=== PATIENT | male | born 1955 | race Caucasian/White ===

== ENCOUNTER → 2021-01-07 10:35 | Outpatient (CLI) | payer OTHER, SELFPAY ==
--- NOTE | ~2021-01-07 | MR_ITS ---
EXAMINATION: MR brain/brain stem wo con DATE: 01/07/2021 11:19 INDICATION: Parkinson's disease. TECHNIQUE: Magnetic resonance imaging (MRI) of the brain and brainstem was performed without intraven ous contrast. Sequences included sagittal and axial T1-weighted FSE, axial diffusion-weighted FS EPI, axial T2*-weighted GRE, axial T2-weighted FLAIR Propeller, and axial T2-weighted Propeller. Apparent diffusion coefficient (ADC) maps were created. COMPARISON: None. FINDINGS: There are scattered areas of nonspecific increased T2-weighted signal intensity in the cere bral white matter. There is no intracranial hemorrhage, acute infarction, or abnormal intracranial ma ss lesion. The ventricles are normal in size. The paranasal sinuses are clear. The orbits are normal. The mastoid air cells are normal. IMPRESSION: 1. Mild nonspecific cerebral white matter disease, which likely represents chronic small vessel ische cuco disease. Reviewed, dictated and finalized at location A. IMPRESSION: 1. Mild nonspecific cerebral white matter disease, which likely represents buffer chrome erica small vessel ischemic disease.
== END ==
PROVIDERS: PCP Emergency Medicine
DX: G20 Parkinson's disease (principal); R90.82 White matter disease, unspecified
CPT/HCPCS: 70551

== ENCOUNTER 2021-03-06 06:28 | Inpatient (IN) | payer OTHER, MEDICARE, SELFPAY ==
[2021-03-06] VITALS (20 sets, daily range): BP systolic 121–147; BP diastolic 64–92; PULSE 72–100; RESP 14–29; TEMP 35.9–37.9; O2SAT 91–98; BMI 23.4
--- NOTE | ~2021-03-06 | XR_ITS ---
XR chest 1V portable 03/06/2021 08:27 Indication: Shortness of breath Procedure: AP portable chest Comparison: No prior studies for comparison. Findings: Patchy bilateral airspace disease, compatible with pneumonia. Heart size normal. No signifi cant effusion or pneumothorax. No acute osseous abnormality. Impression: 1: Patchy bilateral airspace disease, compatible with pneumonia. Reviewed, dictated and finalized at location A. EILLANCE INVESTIGATOR Impression: 1: Patchy bilateral airspace disease, compatible with pneumonia.
--- NOTE | ~2021-03-06 | XR_ITS ---
EXAMINATION: XR chest 1V portable DATE: 03/31/2021 12:17 INDICATION: Central line adjustment. TECHNIQUE: A single frontal view of the chest was obtained. COMPARISON: Chest single view at 5:00 AM FINDINGS: There are airspace and interstitial opacities in all lung zones bilaterally with a mid and lower lung zone predominance. No pleural effusion or pneumothorax. The heart size is normal. There is a tracheostomy tube in expected position. A right upper extremity peripherally inserted central veno us catheter (PICC) is seen with tip in the superior vena cava. IMPRESSION: 1. PICC tip in the superior vena cava. 2. Stable diffuse lung disease, consistent with COVID-19 pneumonia versus acute respiratory distress syndrome (ARDS). Reviewed, dictated and finalized at location B. MIXER OPERATOR
--- NOTE | ~2021-03-06 | XR_ITS ---
EXAMINATION: XR chest PICC line DATE: 03/10/2021 14:40 INDICATION: PICC line placement TECHNIQUE: frontal view of the chest was obtained. COMPARISON: Chest radiograph dated 03/10/2021 at 1:55 PM FINDINGS: Right upper extremity peripherally inserted central venous catheter (PICC) has been repositioned now extending caudally in the superior vena cava with distal tip at the caudal superior vena cava. Endotr acheal tube tip 5.4 cm above the jeronimo. Nasogastric tube extends below the left hemidiaphragm with distal tip collimated off the study. No change in groundglass opacities in the bilateral mid and lower lung zones. No pneumothorax or pleu ral effusion. Cardiomediastinal silhouette is normal. IMPRESSION: 1. Right upper extremity PICC line tip now in the caudal superior vena cava. 2. Unchanged diffuse bilateral lung disease consistent with pneumonia. Reviewed, dictated and finalized at location B. CE CLERK
--- NOTE | ~2021-03-06 | XR_ITS ---
EXAMINATION: XR chest 1V portable DATE: 03/18/2021 10:05 INDICATION: Respiratory failure. COVID-19 pneumonia. TECHNIQUE: A single frontal view of the chest was obtained. COMPARISON: Chest single view 03/17/2021, chest CT 03/06/2021 FINDINGS: There is mild scarring at the lung apices. There are airspace and interstitial opacities in all lung zones bilaterally, worst in the mid and lower lung zones. No pleural effusion or pneumothor ax. The heart size is normal. The endotracheal tube tip is 7.1 cm above the jeronimo. The nasogastric t ube tip is beyond the inferior margin of the radiograph, but at least to the stomach. A right upper e xtremity peripherally inserted central venous catheter (PICC) is seen with tip in the superior vena c enmanuel. IMPRESSION: 1. Diffuse lung disease with mild improvement at left lung base, consistent with COVID-19 pneumonia. Reviewed, dictated and finalized at location A. TER MOLD MAKER IMPRESSION: 1. Diffuse lung disease with mild improvement at left lung base, consistent wit h COVID-19 pneumonia.
--- NOTE | ~2021-03-06 | XR_ITS ---
EXAMINATION: XR chest 1V portable DATE: 03/22/2021 11:55 INDICATION: Respiratory failure. TECHNIQUE: A single frontal view of the chest was obtained. COMPARISON: Chest single view 03/20/2021 FINDINGS: There are interstitial and airspace opacities in all lung zones bilaterally, worst in the m id and lower lung zones. There is mild scarring at the lung apices. No pleural effusion or pneumothor ax. The heart size is normal. The nasogastric tube tip is beyond the inferior margin of the radiograp h, but at least to the stomach. The endotracheal tube tip is 7.2 cm above the jeronimo. A right upper e xtremity peripherally inserted central venous catheter (PICC) is seen with tip in the superior vena c enmanuel. IMPRESSION: 1. Stable diffuse lung disease, consistent with COVID-19 pneumonia. Reviewed, dictated and finalized at location A. RAFT HYDRAULIC EQUIPMENT MECHANIC
--- NOTE | ~2021-03-06 | XR_ITS ---
EXAMINATION: XR chest 1V portable DATE: 03/25/2021 06:31 INDICATION: Respiratory failure. TECHNIQUE: A single frontal view of the chest was obtained. COMPARISON: Chest single view 03/24/2021 FINDINGS: There are airspace opacities in all lung zones bilaterally, worst in the mid and lower lung zones. No pleural effusion or pneumothorax. The heart size is normal. There is a tracheostomy tube i n expected position. A right upper extremity peripherally inserted central venous catheter (PICC) is seen with tip in the superior vena cava. IMPRESSION: 1. Stable diffuse lung disease, consistent with COVID-19 pneumonia versus acute respiratory distress syndrome (ARDS). Reviewed, dictated and finalized at location A. SUPERVISOR
--- NOTE | ~2021-03-06 | US_ITS ---
EXAMINATION: US venous doppler UE DATE: 04/03/2021 10:02 INDICATION: Upper limb swelling. TECHNIQUE: Grayscale ultrasound images without and with compression and Doppler ultrasound images of the bilateral upper extremity veins were obtained. COMPARISON: None. FINDINGS: The visualized portions of the right subclavian vein, axillary vein, brachial veins, basilic vein, ce phalic vein, radial vein, and ulnar vein are patent. The internal jugular vein was not evaluated. The visualized portions of the left subclavian vein, axillary vein, brachial veins, basilic vein, cep halic vein, radial vein, and ulnar vein are patent. The internal jugular vein was not evaluated. IMPRESSION: 1. No deep venous thrombosis. Reviewed, dictated and finalized at location A. NT STRATEGIST
--- NOTE | ~2021-03-06 | XR_ITS ---
EXAMINATION: XR abdomen NG/feed tube insert DATE: 03/10/2021 01:56 INDICATION: Nasogastric tube placement. TECHNIQUE: A supine view of the abdomen was obtained. COMPARISON: None. FINDINGS: The lower abdomen and right lateral aspect of the abdomen are excluded. The nasogastric tub e tip is in the distal stomach. IMPRESSION: 1. Nasogastric tube tip in the distal stomach. Reviewed, dictated and finalized at location A. R FABRICATION OPERATOR
--- NOTE | ~2021-03-06 | XR_ITS ---
EXAMINATION: XR chest 1V portable DATE: 03/23/2021 06:04 INDICATION: Respiratory failure. TECHNIQUE: A single frontal view of the chest was obtained. COMPARISON: Chest single view 03/22/2021 FINDINGS: There are interstitial and airspace opacities in all lung zones bilaterally, worst in the m id and lower lung zones. No pleural effusion or pneumothorax. The heart size is normal. The endotrach eal tube tip is 6.8 cm above the jeronimo. A right upper extremity peripherally inserted central venous catheter (PICC) is seen with tip in the superior vena cava. The nasogastric tube tip is beyond the i nferior margin of the radiograph, but at least to the stomach. IMPRESSION: 1. Stable diffuse lung disease, consistent with COVID-19 pneumonia versus acute respiratory distress syndrome (ARDS). Reviewed, dictated and finalized at location A. UNT CONSULTANT
--- NOTE | ~2021-03-06 | XR_ITS ---
EXAMINATION: XR chest 1V portable DATE: 03/09/2021 10:58 INDICATION: Hypoxia TECHNIQUE: frontal view of the chest was obtained. COMPARISON: Chest radiograph and CT dated 03/06/2021 FINDINGS: Again seen are patchy groundglass opacities in the bilateral mid and lower lung zones with slight wor sening on the left and slight improvement in the right lower lung zone. No pleural effusion or pneumo thorax. The cardiomediastinal silhouette is normal. IMPRESSION: 1. Minimal change in opacities in the bilateral mid to lower lung zones consistent with COVID pneumon ia. Reviewed, dictated and finalized at location B. LOPMENT CHEMIST IMPRESSION: 1. Minimal change in opacities in the bilateral mid to lower lung zones consist ent with COVID pneumonia.
--- NOTE | ~2021-03-06 | CT_ITS ---
EXAMINATION: CTA chest PE protocol EXAM DATE: 03/06/2021 09:48 INDICATION: Pulmonary embolism . Shortness of breath. COVID positive. TECHNIQUE: Spiral CTA of the chest (pulmonary arteries) was performed with 100 cc Omnipaque 350 intr avenous contrast injection. Images were acquired during the pulmonary arterial phase. Coronal maxi mum intensity projection 3D-reconstructions were created by the technologist on dedicated workstation . Axial, coronal and sagittal reformatted images were reviewed. The dose-length product (DLP) for t his examination was 301.69 mGy-cm. The exposure was tailored according to patient size (auto mA exp osure control), and iterative reconstruction (ASIR) was used as additional dose reduction technique. Correlation is made to chest x-ray earlier same date. FINDINGS: Pulmonary arteries are well opacified and without intraluminal filling defects. No thora cic aortic dissection. There is extensive bilateral lower lobe predominant groundglass airspace dise ase with developing regions of confluence in the posterior dependent aspects. Appearance is consisten t with COVID pneumonia. There are no pleural or pericardial effusions. Tracheobronchial tree is pa tent. There is no mediastinal, hilar or axillary lymphadenopathy. There is no pneumothorax. Hea rt normal in size. There is mild coronary arterial calcification, arterial sclerosis. There is a 3 cm right adrenal gland adenoma. There is thoracic spondylosis without osteoblastic or osteolytic le sions identified. IMPRESSION: 1. Extensive lower lobe predominant pneumonia. 2. No pulmonary emboli. Reviewed, dictated and finalized at location B. TER TOOL DESIGN
--- NOTE | ~2021-03-06 | XR_ITS ---
XR chest 1V portable DATE: 03/29/2021 10:35 INDICATION: Respiratory failure, Covid 19 pneumonia. Pulmonary embolism. TECHNIQUE: Portable AP chest on 03/29/2021 at 0923 hours COMPARISON: 03/27/2021 CTA chest 03/27/2021 portable AP chest FINDINGS: There is prominent patchy consolidation in the mid and lower lung zones, without significan t change since 03/27/2021. Tracheostomy tube in satisfactory position. IMPRESSION: Persistent prominent patchy consolidation involving particularly the mid and lower lung z ones, relatively stable since 03/27/2021 Reviewed, dictated and finalized at location A. NAUTICS COMMISSION DIRECTOR IMPRESSION: Persistent prominent patchy consolidation involving particularly th e mid and lower lung zones, relatively stable since 03/27/2021
--- NOTE | ~2021-03-06 | XR_ITS ---
EXAMINATION: XR chest 1V portable DATE: 03/19/2021 09:42 INDICATION: Respiratory failure. COVID-19 pneumonia. TECHNIQUE: A single frontal view of the chest was obtained. COMPARISON: Chest single view 03/18/2021 FINDINGS: There are airspace and interstitial opacities in all lung zones bilaterally, worst in the m id and lower lung zones. No pleural effusion or pneumothorax. The heart size is normal. The endotrach eal tube tip is 6.6 cm above the jeronimo. The nasogastric tube tip is beyond the inferior margin of th e radiograph, but at least to the stomach. A right upper extremity peripherally inserted central veno us catheter (PICC) is seen with tip in the superior vena cava. IMPRESSION: 1. Stable diffuse lung disease, consistent with COVID-19 pneumonia. Reviewed, dictated and finalized at location A. RINTENDENT SEED MILL
--- NOTE | ~2021-03-06 | XR_ITS ---
EXAMINATION: XR chest 1V portable INDICATION: Acute respiratory failure TECHNIQUE: Portable AP chest at 0521 hours COMPARISON: 03/14/2021 FINDINGS: The endotracheal tube ends approximately 4.7 cm above the jeronimo. The nasogastric tube is f ollowed as far as the stomach. Its tip is beyond the inferior margin of the radiograph. A right upper extremity PICC ends with its tip in the superior vena cava. Patchy opacities of the mid lung zones p ersist with slight worsening in the left lung base. There is no pleural effusion or pneumothorax. IMPRESSION: 1. Diffuse lung disease with slight worsening in the left lung base, consistent with COVID 19 pneumon ia. Reviewed, dictated and finalized at location A. AL ANALYTICS HEAD IMPRESSION: 1. Diffuse lung disease with slight worsening in the left lung base, consistent with COVID 19 pneumonia.
--- NOTE | ~2021-03-06 | XR_ITS ---
EXAMINATION: XR chest 1V portable DATE: 03/17/2021 06:51 INDICATION: Respiratory failure. COVID pneumonia. TECHNIQUE: frontal view of the chest was obtained. COMPARISON: Chest radiograph dated 03/16/2021 FINDINGS: Endotracheal tube tip 5.6 cm above the jeronimo. Nasogastric tube extends below the left hemidiaphragm with distal tip collimated off the study. Right upper extremity peripherally inserted central venous catheter (PICC) tip at the mid superior vena cava. No significant change in patchy groundglass opacities in the bilateral mid and lower lung zones with a few air bronchograms in the lower lung zones. No pleural effusion or pneumothorax. The cardiomedias tinal silhouette is normal. IMPRESSION: 1. Opacities at the bilateral mid and lower lung zones consistent with pneumonia with differential in cluding mild pulmonary edema. Reviewed, dictated and finalized at location A. OPEDIC MECHANIC IMPRESSION: 1. Opacities at the bilateral mid and lower lung zones consistent with pneumoni a with differential including mild pulmonary edema.
--- NOTE | ~2021-03-06 | XR_ITS ---
EXAMINATION: XR chest 1V portable INDICATION: Respiratory failure, COVID 19 pneumonia TECHNIQUE: Portable AP chest at 1003 hours COMPARISON: 03/19/2021 FINDINGS: The endotracheal tube ends approximately 7.0 cm above the jeronimo. The nasogastric tube is f ollowed as far as the stomach. Its tip is beyond the inferior margin of the radiograph. A right upper extremity PICC ends with its tip in the midsuperior vena cava. Diffuse interstitial and airspace opa cities persist in all lung zones without significant change. There is no pleural effusion or pneumoth orax. The cardiomediastinal silhouette is normal. IMPRESSION: 1. Stable diffuse lung disease, consistent with COVID 19 pneumonia. Reviewed, dictated and finalized at location A. OPERATOR
--- NOTE | ~2021-03-06 | US_ITS ---
EXAMINATION: US renal BI DATE: 04/03/2021 10:03 INDICATION: Acute kidney injury. TECHNIQUE: Multiple ultrasound grayscale images of the kidneys were obtained. COMPARISON: Chest CT 03/27/2021 FINDINGS: The right kidney measures 11.5 x 5.7 x 7.1 cm. The left kidney measures 12.8 x 5.9 x 7.9 cm. The kidn eys demonstrate normal parenchymal echogenicity. There is a 10 mm cyst in right kidney. There is no h ydronephrosis. The bladder is decompressed by a Nicholas catheter. There is a right pleural effusion. IMPRESSION: 1. Normal kidney sizes. No hydronephrosis. 2. Right pleural effusion. Reviewed, dictated and finalized at location A. RT FEEDER GROUND BONE
--- NOTE | ~2021-03-06 | CT_ITS ---
EXAMINATION: CTA chest PE protocol DATE: 03/27/2021 14:08 INDICATION: Respiratory failure. Pulmonary infiltrates. TECHNIQUE: Computed tomography angiography (CTA) of the chest was performed with 100 mL Omnipaque-350 intravenous contrast timed to evaluate the pulmonary arteries. Coronal maximum intensity projection 3D-reconstructions were created by the technologist. Automated exposure control and iterative reconst ruction technique were employed. Exam dose: 399.80 mGy-cm total exam DLP. COMPARISON: 03/23/2021 portable AP chest 03/06/2021 CT pulmonary scan FINDINGS: There is diagnostic contrast enhancement of the pulmonary arteries. There is prominent embolism at th e right middle lobe there is lesser right lower lobe, left upper and lower lobe embolism. Heart size is borderline. No pericardial effusion. There are mild 2 moderate bilateral pleural effusi ons. Tracheostomy is in satisfactory position. There are extensive patchy bilateral pulmonary groundglass infiltrates with air bronchograms involvin g particularly the lower lobes. Pneumomediastinum. IMPRESSION: Bilateral pulmonary embolism Persistent extensive bilateral pulmonary infiltrates Mild to moderate bilateral pleural effusions Pneumomediastinum Reviewed, dictated and finalized at Location A. Reviewed, dictated and finalized at location A. DENT PROGRAM SPECIALIST
--- NOTE | ~2021-03-06 | XR_ITS ---
EXAMINATION: XR chest 1V portable DATE: 03/13/2021 06:10 INDICATION: Acute respiratory failure. COVID-19 pneumonia. TECHNIQUE: A single frontal view of the chest was obtained. COMPARISON: Chest single view 03/12/2021 FINDINGS: There are airspace opacities and interstitial opacities involving all lung zones bilaterall y with worst involvement in the mid and lower lung zones. No pleural effusion or pneumothorax. The he art size is normal. The endotracheal tube tip is 7.2 cm above the jeronimo. The nasogastric tube tip is beyond the inferior margin of the radiograph, but at least to the stomach. A right upper extremity p eripherally inserted central venous catheter (PICC) is seen with tip in the superior vena cava. IMPRESSION: 1. Stable diffuse lung disease, consistent with COVID-19 pneumonia. Reviewed, dictated and finalized at location A. PRESIDENT OF PRODUCT MARKETING
--- NOTE | ~2021-03-06 | XR_ITS ---
EXAMINATION: XR chest PICC line DATE: 03/10/2021 14:19 INDICATION: Verify PICC line placement. TECHNIQUE: frontal view of the chest was obtained. COMPARISON: Chest radiograph dated 03/20/2021 FINDINGS: Right upper extremity peripherally inserted central venous catheter (PICC) which extends to the media l aspect of the right subclavian vein before coiling back upon itself with its distal tip near the ju nction of the right subclavian and axillary veins. Endotracheal tube tip 5.9 cm above the jeronimo. Na sogastric tube extends below the left hemidiaphragm with distal tip collimated off the study. Again seen are subtle patchy groundglass opacities in the bilateral mid and lower lung zones. No pleu ral effusion or pneumothorax. The cardiomediastinal silhouette is normal. IMPRESSION: 1. Right upper chest and the PICC line which coils back upon itself in the right subclavian vein. 2. Unchanged diffuse bilateral lung disease consistent with pneumonia. Reviewed, dictated and finalized at location B. TING MACHINE OPERATOR IMPRESSION: 1. Right upper chest and the PICC line which coils back upon itself in the righ t subclavian vein. 2. Unchanged diffuse bilateral lung disease consistent with pneumonia.
--- NOTE | ~2021-03-06 | XR_ITS ---
EXAMINATION: XR chest 1V portable DATE: 03/16/2021 06:35 INDICATION: COVID pneumonia. Respiratory failure. TECHNIQUE: frontal view of the chest was obtained. COMPARISON: Chest radiograph dated 03/15/2021 FINDINGS: Endotracheal tube tip 6.0 cm above the jeronimo. Nasogastric tube extends below the left hemidiaphragm with distal tip collimated off the study. Right upper extremity peripherally inserted central venous catheter (PICC) tip at the caudal superior vena cava. No significant change in bilateral airspace opacities, mild in the left mid to lower and subtle in th e right mid and lower lung zones. No pleural effusion or pneumothorax. The cardiomediastinal silhouet te is normal. IMPRESSION: 1. No significant change in bilateral lung disease most likely COVID pneumonia with differential incl uding pulmonary edema. 2. Endotracheal tube 6 cm from the jeronimo and could consider advancement by 3-4 cm. Reviewed, dictated and finalized at location A. NG MACHINE OPERATOR AUTOMATIC IMPRESSION: 1. No significant change in bilateral lung disease most likely COVID pneumonia with differential including pulmonary edema. 2. Endotracheal tube 6 cm from the jeronimo and could consider advancement by 3-4 cm.
--- NOTE | ~2021-03-06 | XR_ITS ---
EXAMINATION: XR chest 1V portable EXAM DATE: 04/01/2021 06:14 INDICATION: Respiratory failure, COVID pneumonia. TECHNIQUE: Portable AP frontal chest x-ray was obtained. Comparison is made to prior examination from 2 x-rays from yesterday. FINDINGS: The right-sided PICC line now has a loop within it, probably bulging into the right interna l jugular vein. The tip of this line is still pointed and an inferior direction, but probably in the right brachiocephalic vein. There is a tracheostomy tube. Diffuse bilateral airspace disease, consistent with COVID pneumonia but with relative sparing of the upper lobes bilaterally. Small bilateral pleural effusions. There is no pneumothorax suspected. C ardiomediastinal silhouette is normal. The bones and soft tissues are unremarkable. On most recent prior study the PICC line had straightened out, it now has a loop again. Airspace dise ase not significantly changed. IMPRESSION: 1. PICC line retracted, has loop without kinking. 2. Stable airspace disease and other findings as above. Reviewed, dictated and finalized at location A. RETTE INSPECTOR
--- NOTE | ~2021-03-06 | US_ITS ---
EXAMINATION: US arterial duplex LE RT DATE: 03/22/2021 12:56 INDICATION: Peripheral arterial disease. TECHNIQUE: Multiple grayscale and Doppler ultrasound images of the right lower limb arteries were obt ained. COMPARISON: None FINDINGS: Peak systolic velocities are 137 cm/s in common femoral artery, 71 cm/s in profunda femoris artery, 97 cm/s in proximal superficial femoral artery, 95 cm/s in mid superficial femoral artery, 1 10 cm/s in distal superficial femoral artery, 123 cm/s in popliteal artery, 119 cm/s in posterior tib ial artery, and 99 cm/s in dorsalis pedis. There is no flow in peroneal artery. Anterior tibial arter y was not evaluated. IMPRESSION: 1. Total occlusion of right peroneal artery. Reviewed, dictated and finalized at location A. PRESS OPERATOR
--- NOTE | ~2021-03-06 | XR_ITS ---
EXAMINATION: XR chest ET placement DATE: 03/10/2021 01:57 INDICATION: Intubation. TECHNIQUE: A single frontal view of the chest was obtained. COMPARISON: Chest single view 03/09/2021, chest CT 03/06/2021 FINDINGS: There are patchy airspace opacities throughout the lungs predominantly involving the mid an d lower lung zones. No pleural effusion or pneumothorax. The heart size is normal. The endotracheal t ube tip is 6.6 cm above the jeronimo. The nasogastric tube tip is beyond the inferior margin of the rad iograph, but at least to the stomach. IMPRESSION: 1. Stable diffuse lung disease, consistent with COVID-19 pneumonia. Reviewed, dictated and finalized at location A. RINTENDENT STEVEDORING
--- NOTE | ~2021-03-06 | XR_ITS ---
EXAMINATION: XR chest 1V portable EXAM DATE: 03/30/2021 05:56 INDICATION: Respiratory failure, COVID pneumonia. TECHNIQUE: Portable AP frontal chest x-ray was obtained. There is no prior study for comparison. FINDINGS: The right-sided PICC line now has a loop within it, probably bulging into the right finance intern al jugular vein. The tip of this line is still pointed and an inferior direction, but probably in the right brachiocephalic vein. There is a tracheostomy tube. Diffuse bilateral airspace disease, consistent with COVID pneumonia but with relative sparing of the upper lobes bilaterally. Small bilateral pleural effusions. There is no pneumothorax suspected. C ardiomediastinal silhouette is normal. The bones and soft tissues are unremarkable. IMPRESSION: 1. PICC line retracted, has loop without kinking. 2. Stable airspace disease and other findings as above. Reviewed, dictated and finalized at location A. HELP DESK TECHNICIAN
--- NOTE | ~2021-03-06 | XR_ITS ---
EXAMINATION: XR chest 1V portable INDICATION: Respiratory failure, COVID pneumonia TECHNIQUE: Portable AP chest at 0519 hours COMPARISON: 03/13/2021 FINDINGS: The endotracheal tube ends approximately 4.1 cm above the jeronimo. The nasogastric tube is i n the stomach. There are patchy opacities of the mid and lower lung zones with slight improvement. No pleural effusion or pneumothorax is identified. A right upper extremity PICC ends with its tip in th e superior vena cava. The cardiomediastinal silhouette is normal. IMPRESSION: 1. Diffuse lung disease with interval improvement, consistent with COVID 19 pneumonia. Reviewed, dictated and finalized at location A. RVISOR SANDBLASTER IMPRESSION: 1. Diffuse lung disease with interval improvement, consistent with COVID 19 pne umonia.
--- NOTE | ~2021-03-06 | XR_ITS ---
EXAMINATION: XR chest 1V portable DATE: 03/12/2021 06:04 INDICATION: Acute respiratory failure. COVID-19 pneumonia. TECHNIQUE: A single frontal view of the chest was obtained. COMPARISON: Chest single view 03/11/2021 FINDINGS: There is mild scarring at the lung apices. There are interstitial and airspace opacities in all lung zones predominantly involving the mid and lower lung zones. No pleural effusion or pneumoth orax. The heart size is normal. The endotracheal tube tip is 5.3 cm above the jeronimo. The nasogastric tube tip is beyond the inferior margin of the radiograph, but at least to the stomach. A right upper extremity peripherally inserted central venous catheter (PICC) is seen with tip in the superior vena cava. IMPRESSION: 1. Stable diffuse lung disease, consistent with COVID-19 pneumonia. Reviewed, dictated and finalized at location A. CA SPRAY MIXER
--- NOTE | ~2021-03-06 | XR_ITS ---
EXAMINATION: XR chest 1V portable DATE: 04/03/2021 07:56 INDICATION: Intubation. TECHNIQUE: A single frontal view of the chest was obtained. COMPARISON: Chest single view 04/02/2021 FINDINGS: There are airspace opacities in all lung zones bilaterally, worst in the mid and lower lung zones. No pleural effusion or pneumothorax. The heart size is normal. There is a tracheostomy tube i n expected position. A right upper extremity peripherally inserted central venous catheter (PICC) is seen with tip in the superior vena cava. The catheter loops into the internal jugular vein without ch joni. IMPRESSION: 1. Stable diffuse lung disease, consistent with COVID-19 pneumonia versus acute respiratory distress syndrome (ARDS). Reviewed, dictated and finalized at location A. MATION AND CONTROL ENGINEER
--- NOTE | ~2021-03-06 | XR_ITS ---
EXAMINATION: XR chest 1V portable EXAM DATE: 04/02/2021 06:35 INDICATION: Respiratory failure, COVID pneumonia. TECHNIQUE: Portable AP frontal chest x-ray was obtained. Comparison is made to prior examination from 04/01/2021. FINDINGS: The right-sided PICC line with loop probably bulging into the right internal jugular vein. The tip of this line is still pointed and an inferior direction, but probably in the right brachiocep halic vein. There is a tracheostomy tube. Diffuse bilateral airspace disease, consistent with COVID pneumonia but with relative sparing of the upper lobes bilaterally. Small bilateral pleural effusions. There is no pneumothorax suspected. C ardiomediastinal silhouette is normal. The bones and soft tissues are unremarkable. Airspace disease unchanged. IMPRESSION: 1. PICC line retracted, has loop without kinking. 2. Stable airspace disease and other findings as above. Reviewed, dictated and finalized at location A. OVEMENT RN
--- NOTE | ~2021-03-06 | XR_ITS ---
EXAMINATION: XR chest 1V portable DATE: 03/24/2021 05:58 INDICATION: Respiratory failure. TECHNIQUE: A single frontal view of the chest was obtained. COMPARISON: Chest single view 03/23/2021 FINDINGS: There are airspace opacities in all lung zones bilaterally, worst in the mid and lower lung zones. No pleural effusion or pneumothorax. The heart size is normal. The endotracheal tube tip is 6 .0 cm above the jeronimo. A right upper extremity peripherally inserted central venous catheter (PICC) is seen with tip in the superior vena cava. The nasogastric tube tip is beyond the inferior margin of the radiograph, but at least to the stomach. IMPRESSION: 1. Stable diffuse lung disease, consistent with COVID-19 pneumonia versus acute respiratory distress syndrome (ARDS). Reviewed, dictated and finalized at location A. F ORTHOPTIST
--- NOTE | ~2021-03-06 | XR_ITS ---
EXAMINATION: XR chest 1V portable DATE: 03/26/2021 05:29 INDICATION: Respiratory failure. TECHNIQUE: A single frontal view of the chest was obtained on 2 radiographs. COMPARISON: Chest single view 03/25/2021 FINDINGS: There are airspace opacities in all lung zones bilaterally, worst in the mid and lower lung zones. No pleural effusion or pneumothorax. The heart size is normal. There is a tracheostomy tube i n expected position. A gastrostomy tube is noted. A right upper extremity peripherally inserted centr al venous catheter (PICC) is seen with tip in the superior vena cava. IMPRESSION: 1. Stable diffuse lung disease, consistent with COVID-19 pneumonia versus acute respiratory distress syndrome (ARDS). Reviewed, dictated and finalized at location A. N REPRESENTATIVE
--- NOTE | ~2021-03-06 | XR_ITS ---
XR chest 1V portable DATE: 03/27/2021 06:34 INDICATION: Respiratory failure TECHNIQUE: Portable AP chest on 03/27/2021 at 0527 hours COMPARISON: 03/26/2021 portable AP chest at 0500 hours FINDINGS: Tracheostomy 2 is noted in satisfactory position. Right upper extremity PIC catheter tip overlies the superior vena cava. There are prominent patchy consolidating infiltrates the mid and lower lung zones. Bilateral hyperinflation suggests COPD. Possible minimal pleural effusions. No pneumothorax. There is osteoarthritic change and widening of the left glenohumeral joint. Diffuse osteopenia. IMPRESSION: Persistent prominent patchy consolidating bilateral pulmonary infiltrates, involving mid and lower lung zones Tracheostomy tube Reviewed, dictated and finalized at location A. ER COMPOUNDER IMPRESSION: Persistent prominent patchy consolidating bilateral pulmonary infil trates, involving mid and lower lung zones Tracheostomy tube
--- NOTE | ~2021-03-06 | US_ITS ---
EXAMINATION: US art doppler w press MYLES FONTENOT DATE: 03/25/2021 10:28 INDICATION: Peripheral arterial disease. TECHNIQUE: Segmental pressures and plethysmographic and Doppler waveforms of the brachial and lower e xtremity arteries were obtained. COMPARISON: Ultrasound 03/22/2021 FINDINGS: Left brachial artery pressure is 113 mm Hg. The right brachial artery pressure was not measured. The right ankle-brachial index (IMELDA) is 1.29 (normal >= 0.9-1.0). The right great toe-brachial index (TBI) is 1.12 (normal >= 0.65). Arterial Doppler waveforms are at least triphasic in common femoral a rtery, biphasic in superficial femoral artery, and at least triphasic in popliteal artery and at the ankle. The left IMELDA is 1.31. The left TBI is 1.52. Arterial Doppler waveforms are at least triphasic from co mmon femoral artery to the ankle. IMPRESSION: 1. No significant arterial occlusive disease. Reviewed, dictated and finalized at location A. ING LOT SPOTTER
--- NOTE | ~2021-03-06 | XR_ITS ---
EXAMINATION: XR chest 1V portable EXAM DATE: 03/31/2021 06:31 INDICATION: Respiratory failure, COVID pneumonia . TECHNIQUE: Portable AP frontal chest x-ray was obtained. Comparison is made to prior examination fr om 03/29, 03/30. FINDINGS: The right-sided PICC line now has a loop within it, probably bulging into the right consultant internship al jugular vein. The tip of this line is still pointed and an inferior direction, but probably in the right brachiocephalic vein. There is a tracheostomy tube. Diffuse bilateral airspace disease, consistent with COVID pneumonia but with relative sparing of the upper lobes bilaterally. Small bilateral pleural effusions. There is no pneumothorax suspected. C ardiomediastinal silhouette is normal. The bones and soft tissues are unremarkable. There is no significant interval change compared to prior exam. IMPRESSION: 1. PICC line retracted, has loop without kinking. 2. Stable airspace disease and other findings as above. CASE MANAGER Reviewed, dictated and finalized at location A.
--- NOTE | ~2021-03-06 | XR_ITS ---
EXAMINATION: XR chest 1V portable DATE: 03/11/2021 05:45 INDICATION: Acute respiratory failure. COVID-19 pneumonia. TECHNIQUE: A single frontal view of the chest was obtained on 2 radiographs. COMPARISON: Chest single view 03/10/2021, chest CT 03/06/2021 FINDINGS: The patient is rotated to his left. There are airspace opacities in all lung zones bilatera lly with a peripheral predominance predominantly involving the mid and lower lung zones. No pleural e ffusion or pneumothorax. The heart size is normal. The endotracheal tube tip is 5.0 cm above the fernando na. The nasogastric tube tip is beyond the inferior margin of the radiograph, but at least to the sto mach. A right upper extremity peripherally inserted central venous catheter (PICC) is seen with tip i n the superior vena cava. IMPRESSION: 1. Stable diffuse lung disease, consistent with COVID-19 pneumonia. Reviewed, dictated and finalized at location A. INOLOGY PROFESSOR
--- NOTE | 2021-03-06 07:30 | ECG_ITS ---
Measurements Intervals [place] Rate: 101 P: 72 [place]: 123 QRS: -20 QRSD: 97 T: 40 QT: 345 QTc: 449 Interpretive Statements SINUS TACHYCARDIA DELAYED PRECORDIAL R/S TRANSITION NONSPECIFIC T-WAVE ABNORMALITY- INF/HIGH LAT LEADS BASELINE ARTIFACT- I, II, III, AVR, AVL, AVF, V1-V6 BORDERLINE ECG Electronically Signed On 03-06-2021 8:13:26 SPEEDER OPERATOR by Rashad Hernandez D.O.
[2021-03-06 07:57] LABS: Basophils Percent Auto 0.1 % (0.2-1.2); Hematocrit 32.5 % (42.0-52.0); Hemoglobin 11.2 g/dL (14.0-18.0); Immature Granulocyte Absolute 0.05 K/mm3 (0.00-0.031); Immature Granulocyte Percent A 0.7 % (0-0.5); Immature Platelet Fraction Pct 3.3 % (0.9-11.2); Lymphocytes Absolute Auto 0.32 K/mm3 (0.9-3.2); Lymphocytes Percent Auto 4.6 % (18.3-44.2); Mean Corpuscular HGB Conc 34.5 g/dl (32-36); Mean Corpuscular Hemoglobin 31.7 pg (26-34); Mean Corpuscular Volume 92.1 fl (80-100); Mean Platelet Volume 9.5 fl (7.4-10.4); Monocytes Absolute Auto 0.3 K/mm3 (0.1-0.6); Monocytes Percent Auto 4.3 % (2.6-8.5); Neutrophils Absolute Auto 6.3 K/mm3 (1.3-6.7); Neutrophils Percent Auto 90.3 % (45.5-73.1); Platelet Count Result 145 k/mm3 (150-375); Red Blood Count 3.53 M/mm3 (4.6-6.20); Red Cell Distribution Width 12.6 % (11.5-14.5)
[2021-03-06 07:59] LABS: Alanine Aminotransferase 8 U/L (4-50); Albumin Level 3.4 g/dL (3.5-5.1); Alkaline Phosphatase 56 U/L (38-126); Anion Gap 8 mmol/L (8-16); Aspartate Amino Transferase 40 U/L (17-59); Bilirubin,Total 0.5 mg/dL (0.2-1.3); Blood Urea Nitrogen 16 mg/dL (9-20); Calcium 7.8 mg/dL (8.4-10.2); Carbon Dioxide 27 mmol/L (22-30); Chloride 97 mmol/L (98-107); Estimated CRCL calculation 72 ml/min; Estimated Glomerular Filt Rate > 60; Glucose 143 mg/dL (65-110); Potassium 3.7 mmol/L (3.4-5.0); Sodium 132 mmol/L (137-145)
[2021-03-06 08:11] LABS: NT Pro B Type Natriuretic Pept 246 pg/mL (5-100); Troponin I 0.013 ng/mL (0.000-0.034)
[2021-03-06 08:14] LABS: Prothrombin Time 12.8 Seconds (11.1-14.7)
[2021-03-06 08:16] LABS: Partial Thromboplastin Time 54.6 SECONDS (22.3-36.8)
[2021-03-06 08:18] LABS: Alveolar/Arterial O2 Gradient 150.8 mmHg; Base Excess ABG 2.8 mEq/l (+/-2.0); Fractional Inspired Oxygen 36 %; HCO3 ABG 25.9 mEq/l (22.0-26.0); Oxygen Content ABG 14.6 %vol (16.0-22.0); Oxygen Saturation ABG 94.7 % (95.0-100.0); Oxyhemoglobin 92.7 % THb (90.0-100.0); PCO2 ABG 34.4 mmHg (35.0-45.0); PO2 FiO2 Ratio Arterial Blood 1.83 %; Total Hemoglobin 11.2 g/dL (12.0-18.0); pH ABG 7.495 (7.350-7.450)
[2021-03-06 08:19] LABS: Device NASAL CANNULA; Modified Allen's Test Pass; Site Drawn LEFT RADIAL
--- NOTE | 2021-03-06 09:00 | ED.SOB ---
HPI - SOB/Dyspnea General Chief Complaint: Shortness of Breath/Dyspnea Stated Complaint: covid pos, confusion, falling Time Seen by Provider: 03/06/21 07:29 Source: patient, EMS and RN notes reviewed Mode of arrival: EMS Limitations: no limitations History of Present Illness HPI Narrative: Patient presents to the ED by ambulance because of gradual increase of shortness of breath and weakness. Patient was diagnosed positive for COVID-19 infection 5 days ago. Patient is not vaccinated for Covid. Patient is DNR. Related Data Home Medications Medication Instructions Recorded Confirmed carbidopa 25 mg-levodopa 100 mg See Rx Instructions .ROUTE .COMPLEX 06/30/20 disintegrating tablet Allergies Allergy/AdvReac Type Severity Reaction Status Date / Time No Known Allergies Allergy Unverified 01/18/11 18:10 Review of Systems Review of Systems: CONSTITUTIONAL: Denies fever, chills, or sweats. EYES: Denies visual changes, redness, or discharge. ENT: Denies rhinorrhea, congestion, sore throat, or otalgia. CARDIOVASCULAR: Denies chest pain, palpitations, or edema. RESPIRATORY: Shortness of breath GASTROINTESTINAL: Denies abdominal pain, nausea, vomiting, or diarrhea. GENITOURINARY: Denies dysuria or hematuria. SKIN: Denies rash or itching. MUSCULOSKELETAL: Generalized weakness NEUROLOGIC: Denies headache, numbness, or weakness. PSYCHIATRIC: Denies anxiety or depression. PMFSH Past Medical History Medical History Cutaneous abscess of chest wall Lipoma of anterior chest wall Family History Family History Mother Family history of type 2 diabetes mellitus, Onset Age: 84 Social History Social History Smoking status: Never smoker Alcohol intake: current Exam Narrative: General appearance: Well-developed, well-nourished Skin: Normal color Head: Normocephalic, nontraumatic Eyes: Clear conjunctiva ENT: Oropharynx normal, ears normal, nose normal Neck: Supple, nontender Chest and respiratory: Labored breathing, basal rales bilaterally Heart: Regular rate/rhythm Abdomen: Soft, nontender, no organomegaly, quiet bowel sounds Vascular: Normal peripheral pulses, normal capillary refill. Musculoskeletal: Normal range of motion, nontender back Neurologic: Alert and oriented ?3, SENIOR BIOINFORMATICS SCIENTIST is normal as tested, no gross motor deficit Course Course Emergency Course: Stable Vital Signs Vital signs: Vital Signs Pulse Rate 99 03/06/21 06:40 Respiratory Rate 26 H 03/06/21 06:40 Blood Pressure 147/88 H 03/06/21 06:40 Pulse Oximetry 96 03/06/21 06:40 Temperature 37.9 C H 03/06/21 07:06 Pulse Rate 73 03/06/21 08:58 Respiratory Rate 20 03/06/21 08:16 Blood Pressure 147/88 H 03/06/21 06:40 Pulse Oximetry 94 03/06/21 08:16 MDM - SOB/Dyspnea MDM Narrative Medical decision making narrative: Covid infection with complication. Differential Diagnosis Differential diagnosis: Likely congestive heart failure, community acquired pneumonia and pulmonary embolism Lab Data Result diagrams: 03/06/21 07:35 03/06/21 09:55 Labs: Lab Results 03/06/21 03/06/21 03/06/21 Range/Units 07:35 07:35 07:35 WBC 7.0 (4.5-10.0) K/mm3 RBC 3.53 L (4.6-6.20) M/mm3 Hgb 11.2 L (14.0-18.0) g/dL Hct 32.5 L (42.0-52.0) % MCV 92.1 (80-100) fl MCH 31.7 (26-34) pg MCHC 34.5 (32-36) g/dl RDW 12.6 (11.5-14.5) % Plt Count 145 L (150-375) k/mm3 MPV 9.5 (7.4-10.4) fl Immature Gran % (Auto) 0.7 H (0-0.5) %
[2021-03-06] MEDS: ENOXAPARIN 80 MG/0.8 ML SYRINGE 70 MG SUB-Q (09:50)
--- NOTE | 2021-03-06 10:08 | PC.NURSE ---
Awaiting remdesivir from pharmacy
[2021-03-06 10:23] LABS: Alanine Aminotransferase 9 U/L (4-50); Estimated CRCL calculation 64 ml/min; Estimated Glomerular Filt Rate > 60
[2021-03-06 10:24] LABS: Prothrombin Time 13.4 Seconds (11.1-14.7)
[2021-03-06] MEDS: REMDESIVIR 200 MG/NS 250 ML 200 MG/250 ML BAG 250 MG IVPB (10:25)
--- NOTE | 2021-03-06 11:02 | PC.NURSE ---
Son Joel Gunter son is able to get updates,father approved
--- NOTE | 2021-03-06 11:35 | PC.NURSE ---
pt remdesivir running while going to 320
--- NOTE | 2021-03-06 12:55 | PC.NURSE ---
This patient, Doni Gunter, was admitted to [facility] Surg Room 320-01. Patient/family oriented to hospital policies and general routines including ID bracelet, bed and alarms, visiting hours, pain management, procedures, bathroom and other care routines, personal items, smoking policy, room service/diet, and visiting hours. Information on how to activate the Rapid Response Team has been discussed. Patient/Family are encouraged to report perceived risks to care and to ask questions if they do not understand what they are told or what they should do.
[2021-03-06] MEDS: CARBIDOPA/LEVODOPA 25/100 MG TABLET 2 TABLET PO (21:39)
[2021-03-06] MEDS: PRIMIDONE 50 MG TABLET BY MOUTH (21:39)
--- NOTE | 2021-03-06 21:55 | PC.NURSE ---
Patient irate over not getting medication specifically at 20:45. I explained x3 that I had to wait for pharmacy. I called pharmacy x2 and they were working on it. Patient came out to nurses station (without gown or oxygen) and demanded medicine. Brought back to bed and explained that he CANNOT leave room or take off his oxygen.. he continued to explain he would keep leaving his room if it got us moving on his medicine ... His family member called the nurses station to address this. We tried to educate her on this not being on our time and she tried to calm him down. I re-wrote the orders in the computer and discussed with pharmacist to hopefully avoid further issues in the future.
--- NOTE | 2021-03-06 22:35 | PM.IMHP ---
H&P: HPI History of Present Illness Date/Time: 03/06/21 22:35 this is 66 year old who has a history of Parkinson's. The patient presented to the emergency room via ambulance because of gradually increasing shortness of breath and weakness. The patient stated that another family member had been sick during their Thanksgiving gathering. The patient was diagnosed with positive COVID infection 5 days ago. He has not been vaccinated for COVID. Chest x-ray was read as patchy bilateral airspace disease, compatible with pneumonia. CTA of the chest was read as extensive lower lobe predominant pneumonia. No pulmonary emboli. The patient was given a dose of Lovenox and started on Decadron and remdesivir. H&H 11.2 and 32.5. Platelets 145. Sodium 132. The patient is being admitted to inpatient services on the date of service of 03/06/2021. Chief Complaint: Increasing short of breath Review of Systems Review of Systems: All systems reviewed & are unremarkable except as noted in HPI and below Constitutional: Constitutional: Reports as per HPI and Reports no additional constitutional complaints Eyes: Eyes: Reports as per HPI and Reports no additional eye complaints ENT: Reports system reviewed and no additional complaints, except as documented and Reports Normal hearing present Cardiovascular: Cardiovascular: Reports no additional cardiovascular complaints Respiratory: Respiratory: Reports no additional respiratory complaints and Reports no additional respiratory complaints Gastrointestinal: Gastrointestinal: Reports as per HPI and Reports no additional gastrointestinal complaints Musculoskeletal: Musculoskeletal: Reports no additional musculoskeletal complaints Integumentary/Breasts: Skin/Breast: Reports system reviewed and no additional complaints, except as docu and Reports as per HPI Neurologic: Reports system reviewed and no additional complaints, except as documented, Reports as per HPI and Reports Normal hearing present Psychiatric: Psychiatric: Reports no additional psychiatric complaints and Reports as per HPI Endocrine: Endocrine: Reports no additional endocrine complaints Hematologic/Lymphatic: Hematologic/Lymphatic: Reports no additional hematologic/lymphatic complaints Allergic/Immunologic: Allergic/Immunologic: Reports no additional allergic/immunologic complaints [facility] Past Medical History Medical History (Updated 03/06/21 @ 22:45 by Mehreen Friedman NP) Cutaneous abscess of chest wall Lipoma of anterior chest wall Parkinson's disease (tremor, stiffness, slow motion, unstable posture) Family History Family History (Updated 03/06/21 @ 22:45 by Mehreen Friedman NP) Mother Family history of type 2 diabetes mellitus, Onset Age: 84 Father Parkinsons Social History Social History (Updated 03/06/21 @ 22:46 by Mehreen Friedman NP) Social History: The patient is and lives with his . Together they have 3 children. 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 He does not use any alcohol marijuana or illicit drugs. His is the durable power trust and estates attorney. Code status. Full code. Smoking status: Never smoker Alcohol intake: current Substance use: never Spiritual care concerns: No Meds Home Medications and Allergies Home Medications Medication Instructions Recorded Confirmed Type carbidopa 25 mg-levodopa 100 mg See Rx Instructions .ROUTE .COMPLEX 06/30/20 03/06/21 History disintegrating tablet temazepam 15 mg capsule 15 mg PO QHS PRN #30 cap 06/30/20 03/06/21 Rx primidone 50 mg tablet See Rx Instructions .ROUTE 02/23/21 03/06/21 Rx .COMPLEX #30 tablet Allergies Allergy/AdvReac Type Severity Reaction Status Date / Time No Known Allergies Allergy Unverified 01/18/11 18:10 Vital Signs Vital Signs - 24 hr 03/06/21 06:40 03/06/21 07:06 03/06/21 08:16 Temperature 37.9 C H Pulse Rate 99 72 Respiratory Rate 26 H 2
[2021-03-07] VITALS (26 sets, daily range): BP systolic 92–127; BP diastolic 53–71; PULSE 75–134; RESP 18–36; TEMP 35.9–39.9; O2SAT 84–97
[2021-03-07] MEDS: ALBUTEROL SULFATE (*SP) INHALER 2 PUFF INHALATION ×4 (02:29→20:24)
--- NOTE | 2021-03-07 03:14 | ECG_ITS ---
Measurements Intervals [place] Rate: 135 P: 60 CT: 147 QRS: -20 QRSD: 97 T: 61 QT: 354 QTc: 532 Interpretive Statements SINUS TACHYCARDIA NONSPECIFIC ST & T-WAVE ABNORMALITY- ANTEROLATERAL LEADS BASELINE ARTIFACT- I, II, III, AVR, AVL, AVF, V1-V6 ABNORMAL ECG Electronically Signed On 03-07-2021 12:25:00 DRAFTING INSTRUCTOR by Rashad Hernandez D.O.
[2021-03-07 03:22] LABS: Alveolar/Arterial O2 Gradient 564.5 mmHg; Base Excess ABG 0.9 mEq/l (+/-2.0); Carboxyhemoglobin 0.3 % THb (0-2.0); Fractional Inspired Oxygen 90 %; HCO3 ABG 23.4 mEq/l (22.0-26.0); Methemoglobin ABG 0.2 %THb (0-1.5); Oxygen Content ABG 14.8 %vol (16.0-22.0); PCO2 ABG 30.9 mmHg (35.0-45.0); PO2 FiO2 Ratio Arterial Blood 0.51 %; Reduced Hemoglobin 16.5 %THb (0-5.0); Total Hemoglobin 12.7 g/dL (12.0-18.0); pH ABG 7.497 (7.350-7.450)
[2021-03-07 03:25] LABS: Device NON-REBREATHER MASK; Modified Allen's Test Pass; Oxygen Saturation ABG 85.8 % (95.0-100.0); PO2 ABG 45.5 mmHg (80.0-100.0); Site Drawn RIGHT RADIAL
--- NOTE | 2021-03-07 04:03 | PC.NURSE ---
at 0300 patient called to use the bathroom. NANOFABRICATION SPECIALIST was in another room so RN attended, he was greyish in color and shaking uncontrollably. I got a vitals machine and pulse 02 showed 50% on 6L, pulse rate of 130. Called for a nonrebreather mask and increased o2 to 15L HFNC. He would not get about 65% on NC but was hyperventilating. Called Rapid Response team as pt was place on 15L HFNC and 15L NRB. Pt would not get above 85% with a pulse of 120s-130s. Orders placed for ray, ekg, abgs etc. Code status reassessed, per pt he wants to be full code. Decision was made to move patient to IMU to be on airvo. Spoke to Marissa, his and POA and informed her of the move and situation. She had very few questions but was made aware of situation overall. Per patient is also sick.
--- NOTE | 2021-03-07 04:17 | P.RRN_ITS ---
Critical Care Event Note Summary Code activated: No Narrative: A rapid response was called at 3:05 a.m. the patient had called to use the restroom. The COMPOSITE BOND TECHNICIAN was unavailable to assist the patient nursing staff went in to attend to the patient. He was found to be cote in color and shaking violently. Vitals were obtained at that time and patient was febrile with a temperature of a 103.9? and had pulse ox of 50% on 6 L nasal cannula. The patient's heart rate was 130. Nursing staff tried a non-rebreather but patient's oxygen saturations remained 65%. A rapid response was called. The patient had also been placed on a high-flow nasal cannula as well as a non- rebreather both were maxed out in patient's oxygen saturations were between 80 and 85. His heart rate remained between 120 and 130. His respiratory rate remained in the 30s. A stat ABG was performed which demonstrated respiratory alkalosis with profound hypoxia. Subsequently the patient was transferred to the IMU to be placed on Airvo. A Nicholas catheter was placed during a rapid response as the patient was slightly confused and was trying to jump out of bed to urinate. Even after placement of Nicholas catheter the patient was insistent that he needed to urinate. The patient had already had about 150 mL of dark yel low urine out of the Nicholas. The patient had just been admitted to the hospital 03/06/2021. He had already been started on Remdesivir and Decadron. Given the rapid deterioration in the patient's respiratory status I did call the patient's to given update as to his condition. She I discussed with her the risks and benefits of Baricitinib. Patient's agreed to treatment. I reiterated the discussion had with patient regarding code status and the patient's agreed that both of them would want the patient to be a full code including intubation or procedures if needed. GENERAL: Acutely ill-appearing, respiratory distress HEENT: Dry mucous membranes, pupils are equal and reactive, conjunctival pallor CARDIOVASCULAR: Sinus tachycardia bounding pulse left radial RESPIRATORY: Mildly diminished breath sounds bilaterally, marked tachypnea ABDOMEN: Soft, nontender, nondistended INTEGUMENT: Generalized pallor, cote, hot to touch NEUROLOGIC: Confused as to the month but otherwise oriented, marked parkinsonian tremor, slowed speech PSYCHIATRIC: Anxious, judgment insight seem to be intact EXTREMITIES: No clubbing, positive cyanosis, no edema : Normal circumcised male, Nicholas catheter placed during resuscitation Assessment and plan: 1. acute decompensated hypoxic respiratory failure due to COVID-19 pneumonia: Patient has been transferred to the IMU placed on Airvo. Oxygen saturations have improved to 93%. The patient is febrile but has 1 g IV Tylenol ordered every 6 hours. Will continue Remdesivir, Decadron and will start Baricitinib. Condition critical: Prognosis: Guarded 65 minute spent in critical care activities. This case had a high probability of a clinically significant, sudden, or life threatening deterioration of this patient's condition which required my full and direct attention, intervention and personal management. Critical care time: 30 - 74 mins
[2021-03-07] MEDS: CARBIDOPA/LEVODOPA 25/100 MG TABLET 2 TABLET PO ×5 (04:22→20:24)
--- NOTE | 2021-03-07 05:40 | PC.NURSE ---
This patient, Doni Gunter, was received from [[id number] ] on 03/07/21 at 0337 for increased oxygen needs requiring high flow therapy. Patient somewhat confused and unable to be oriented to unit policies and routines.
[2021-03-07 07:19] LABS: Lactic Acid Reflex 1.4 mmol/L (0.7-2.1)
[2021-03-07 07:19] LABS: Alanine Aminotransferase 9 U/L (4-50); Albumin Level 3.1 g/dL (3.5-5.1); Alkaline Phosphatase 50 U/L (38-126); Anion Gap 5 mmol/L (8-16); Aspartate Amino Transferase 36 U/L (17-59); Bilirubin,Total 0.5 mg/dL (0.2-1.3); Blood Urea Nitrogen 25 mg/dL (9-20); Calcium 7.8 mg/dL (8.4-10.2); Carbon Dioxide 28 mmol/L (22-30); Chloride 97 mmol/L (98-107); Estimated CRCL calculation 64 ml/min; Estimated Glomerular Filt Rate > 60; Glucose 135 mg/dL (65-110); Lipase 28 U/L (23-300); Potassium 3.1 mmol/L (3.4-5.0); Sodium 130 mmol/L (137-145)
[2021-03-07 07:39] LABS: Prothrombin Time 12.8 Seconds (11.1-14.7)
[2021-03-07 07:48] LABS: Thyroid Stimulating Hormone Reflex 0.058 uIU/mL (0.465-4.68)
[2021-03-07] MEDS: BARICITINIB 2 MG TABLET 4 MG PO (08:24)
[2021-03-07] MEDS: ENOXAPARIN 40 MG/0.4 ML SYRINGE SUB-Q (08:25)
[2021-03-07 10:57] LABS: Free T4 Free Thyroxine Reflex 2.26 ng/dL (0.78-2.19)
[2021-03-07] MEDS: REMDESIVIR 100 MG/NS 250 ML 100 MG/250 ML BAG 250 MG IVPB (12:38)
--- NOTE | 2021-03-07 14:04 | PM.IMPN ---
Progress Note: A&P Assessment and Plan (1) Acute respiratory failure with hypoxia: Code(s): J96.01 - Acute respiratory failure with hypoxia Status: Acute Assessment and Plan: Patient presents with complaints of shortness of breath felt related to COVID PNA. D-dimer was positive felt related to COVID. CTA was negative for PE but did show bibasilar airspace disease. Patient had acute respiratory distress with rapid response overnight. Patient's hypoxia is better controlled with current settings. Wean oxygen as tolerated. He is a full code. (2) Pneumonia due to 2019 novel coronavirus: Code(s): U07.1 - COVID-19; J12.82 - Pneumonia due to coronavirus disease 2019 Status: Acute Assessment and Plan: Patient tested positive for COVID 5 days prior to admission. he is uunvaccinated. Will try to obtain a copy of test result. He has been started on Remdesivir, Decadron and Baricitinib. The patient is on contact and droplet precautions. Robitussin available as needed. Wean oxygen as tolerated. Encourage patient to lay prone as he tolerates. (3) Hyponatremia: Code(s): E87.1 - Hypo-osmolality and hyponatremia Status: Acute Assessment and Plan: Sodium 132 on admission. No clear baseline. Check urine sodium and creatinine. (4) Subclinical hyperthyroidism: Code(s): E05.90 - Thyrotoxicosis, unspecified without thyrotoxic crisis or storm Status: Acute Assessment and Plan: TSH is 0.058 with a FT4 elevation of 2.26. Patient either has subclinical hyperthyroidism or this is related to the steroids and euthyroid sick syndrome. Plan to repeat these values as an outpatient once he is well. Consider repeating the values here if there is a clinical change however. (5) Parkinson's disease (tremor, stiffness, slow motion, unstable posture): Code(s): G20 - Parkinson's disease Status: Chronic Assessment and Plan: Stable. Continue with home medications of carbidopa levodopa and primidone. (6) DVT prophylaxis: Code(s): Z29.9 - Encounter for prophylactic measures, unspecified Status: Acute Assessment and Plan: Lovenox Subjective Date/time seen: 03/07/21 14:04 Interval history: 66yo male with Parkinson's disease here for COVID and respiratory failure. He is unvaccinated per the notes in the chart. Assuming care. Chart reviewed. 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 Was moved to the IMU and started on Airvo. Patient was agitated and confused at night. He is oriented now but yet seems to have trouble telliing me his COVID vaccine status. He feels his SOB is better. No CP. No n/v. Minimal cough Exam Narrative: Tm 103.9 96.6 110/70 98 26 92% HFNC Gen - NARD sitting up in bed Chest -dry inspiratory crackles bibasilar. Mild conversational dyspnea CV - RRR S1/S2. Tele showing no significant dysrhythmias Abd - Soft, NT/ND, Positive BS - Nicholas secured draining clear yellow urine Ext - No pedal edema Neuro - Alert and orientedx4 but confused about details Psych - Nml mood and affect Skin - Warm and dry Objective Data Vital Signs Vital Signs: Vital Signs - 24 hr 03/06/21 14:56 03/06/21 20:00 03/06/21 20:22 Temperature 99.0 F 96.6 F L Pulse Rate 98 85 Respiratory Rate 14 18 Blood Pressure 125/68 128/68 Pulse Oximetry 91 94 95 03/07/21 01:24 03/07/21 04:00 03/07/21 04:10 Temperature 97.1 F L 103.9 F H Pulse Rate 75 129 H Respiratory Rate 18 34 H Blood Pressure 97/53 L 127/65 Pulse Oximetry 97 90 03/07/21 04:22 03/07/21 04:45 03/07/21 04:51 Temperature 103.9 F H 101.9 F H Pulse Rate Respiratory Rate Blood Pressure Pulse Oximetry 94 03/07/21 05:30 03/07/21 05:55 03/07/21 06:23 Temperature 99.4 F 100.1 F H Pulse Rate 103 H 134 H Respiratory Rate 18 Blood Pressure 125/71 Pulse Oximetry 84
[2021-03-07] MEDS: POTASSIUM CHLORIDE 20 MEQ TABLET 40 MEQ PO (15:10)
[2021-03-07 15:39] LABS: Creatinine Urine 138.9 mg/dL
[2021-03-07 15:40] LABS: Sodium Urine Random 17 meq/L
[2021-03-07] MEDS: TEMAZEPAM (*CRX) 15 MG CAPSULE PO (22:03)
[2021-03-07] MEDS: guaiFENesin/DEXTROMETHORPHAN 10 ML UDC PO (22:04)
[2021-03-08] VITALS (19 sets, daily range): BP systolic 111–129; BP diastolic 55–83; PULSE 80–99; RESP 18–26; TEMP 36.3–37.3; O2SAT 88–97
[2021-03-08] MEDS: ALBUTEROL SULFATE (*SP) INHALER 2 PUFF INHALATION ×4 (03:11→20:52)
[2021-03-08] MEDS: guaiFENesin/DEXTROMETHORPHAN 10 ML UDC PO ×4 (03:15→20:52)
[2021-03-08] MEDS: CARBIDOPA/LEVODOPA 25/100 MG TABLET 2 TABLET PO ×5 (04:14→20:52)
[2021-03-08 07:09] LABS: Hematocrit 30.7 % (42.0-52.0); Hemoglobin 10.5 g/dL (14.0-18.0); Mean Corpuscular HGB Conc 34.2 g/dl (32-36); Mean Corpuscular Hemoglobin 31.3 pg (26-34); Mean Corpuscular Volume 91.4 fl (80-100); Mean Platelet Volume 9.9 fl (7.4-10.4); Platelet Count Result 166 k/mm3 (150-375); Red Blood Count 3.36 M/mm3 (4.6-6.20); Red Cell Distribution Width 12.6 % (11.5-14.5); White Blood Count 12.8 K/mm3 (4.5-10.0)
[2021-03-08 07:20] LABS: INR 1.2
[2021-03-08 07:27] LABS: Alanine Aminotransferase 7 U/L (4-50); Alkaline Phosphatase 47 U/L (38-126); Anion Gap 5 mmol/L (8-16); Aspartate Amino Transferase 33 U/L (17-59); Bilirubin,Total 0.6 mg/dL (0.2-1.3); Blood Urea Nitrogen 20 mg/dL (9-20); Carbon Dioxide 28 mmol/L (22-30); Chloride 97 mmol/L (98-107); Estimated CRCL calculation 94 ml/min; Estimated Glomerular Filt Rate > 60; Glucose 147 mg/dL (65-110); Lactate Dehydrogenase 825 U/L (313-618); Potassium 3.9 mmol/L (3.4-5.0); Sodium 130 mmol/L (137-145)
[2021-03-08 07:38] LABS: CRP 21.4 mg/dL (<1.0)
[2021-03-08 08:12] LABS: Band Neutrophils Percent 21 % (0-6); Lymphocytes Absolute Manual 0.64 K/mm3 (1.1-4.5); Monocytes Absolute Manual 0.25 K/mm3 (0.1-0.90); Monocytes Percent Manual 2 % (3-9); Neutrophils Percent Manual 72 % (46-73); Total Cells Counted 100
[2021-03-08 08:13] LABS: Platelet Estimate Adequate (Adequate)
[2021-03-08] MEDS: ENOXAPARIN 40 MG/0.4 ML SYRINGE SUB-Q (08:28)
[2021-03-08] MEDS: BARICITINIB 2 MG TABLET 4 MG PO (08:30)
--- NOTE | 2021-03-08 11:57 | PM.IMPN ---
Progress Note: A&P Assessment and Plan (1) Acute respiratory failure with hypoxia: Code(s): J96.01 - Acute respiratory failure with hypoxia Status: Acute Assessment and Plan: Most likely related to COVID PNA. D-dimer was positive felt related to COVID. CTA was negative for PE but did show positive pneumonia e. Patient had acute respiratory distress with rapid response overnight. Patient's hypoxia is better controlled with current settings. Wean oxygen as tolerated. He is a full code. (2) Pneumonia due to 2019 novel coronavirus: Code(s): U07.1 - COVID-19; J12.82 - Pneumonia due to coronavirus disease 2019 Status: Acute Assessment and Plan: Patient tested positive for COVID 5 days prior to admission. he is uunvaccinated. Remdesivir, Decadron and Baricitinib. The patient is on contact and droplet precautions. No change. (3) Hyponatremia: Code(s): E87.1 - Hypo-osmolality and hyponatremia Status: Acute Assessment and Plan: Sodium 132 on admission. Most likely related to SIADH monitor BMP. (4) Subclinical hyperthyroidism: Code(s): E05.90 - Thyrotoxicosis, unspecified without thyrotoxic crisis or storm Status: Acute Assessment and Plan: TSH is 0.058 with a FT4 elevation of 2.26. Patient either has subclinical hyperthyroidism or this is related to the steroids and euthyroid sick syndrome. Plan to repeat these values as an outpatient in 4 weeks l. Consider repeating the values here if there is a clinical change however. (5) Parkinson's disease (tremor, stiffness, slow motion, unstable posture): Code(s): G20 - Parkinson's disease Status: Chronic Assessment and Plan: carbidopa levodopa and primidone. (6) DVT prophylaxis: Code(s): Z29.9 - Encounter for prophylactic measures, unspecified Status: Acute Assessment and Plan: Lovenox (7) Fluid overload: Code(s): E87.70 - Fluid overload, unspecified Status: Acute Assessment and Plan: Fluid overload will give Lasix daily evaluation Subjective Date/time seen: 03/08/21 11:57 Interval history: 66yo male with Parkinson's disease here for COVID and respiratory failure. He is unvaccinated per the notes in the chart. Patient is still on high-flow oxygen CT scan shows left lower lobe pneumonia Patient is short of breath I am seeing patient for COVID-19 pneumonia Exam Narrative: Alert Chest decreased air entry bilateral on oxygen short of breath Abdomen nontender nondistended CVS S1 + S2 Lower extremity mild edema Objective Data Vital Signs Vital Signs: Vital Signs - 24 hr 03/07/21 12:00 03/07/21 13:23 03/07/21 13:54 Temperature 96.6 F L Pulse Rate 105 H 101 H 98 Respiratory Rate 26 H Blood Pressure 110/70 Pulse Oximetry 92 03/07/21 15:44 03/07/21 16:00 03/07/21 17:00 Temperature 97.5 F L Pulse Rate 99 97 Respiratory Rate 20 Blood Pressure 124/69 Pulse Oximetry 97 96 03/07/21 17:36 03/07/21 18:28 03/07/21 20:00 Temperature 98.0 F Pulse Rate 94 99 Respiratory Rate 18 Blood Pressure 112/71 Pulse Oximetry 92 95 03/07/21 22:00 03/07/21 23:45 03/08/21 00:00 Temperature 99.1 F Pulse Rate 97 91 Respiratory Rate 24 H Blood Pressure 111/64 Pulse Oximetry 93 93 03/08/21 01:59 03/08/21 03:15 03/08/21 03:27 Temperature Pulse Rate 85 Respiratory Rate Blood Pressure Pulse Oximetry 90 91 03/08/21 04:00 03/08/21 06:00 03/08/21 08:00 Temperature 97.3 F L 97.4 F L Pulse Rate 87 85 82 Respiratory Rate 24 H 20 Blood Pressure 121/55 L 129/70 Pulse Oximetry 97 92 03/08/21 09:16 03/08/21 10:00 Temperature Pulse Rate 80 Respiratory Rate Blood Pressure Pulse Oximetry 92 Intake/Output Intake/Output: Intake & Output 03/05/21 03/06/21 03/07/21 03/08/21 23:59 23:59 23:59 23:59 Intake Total 1340 2270 290 Output Total 450 775 55
[2021-03-08] MEDS: REMDESIVIR 100 MG/NS 250 ML 100 MG/250 ML BAG 250 MG IVPB (12:24)
[2021-03-08 13:23] LABS: Procalcitonin 26.5 ng/mL
[2021-03-08] MEDS: cefTRIAXone 2 GM in SODIUM CHLORIDE 0.9% IV 100 ML 200 ML IVPB (13:49)
[2021-03-08] MEDS: FUROSEMIDE INJ 40 MG/4 ML VIAL 20 MG IV PUSH (16:59)
[2021-03-08] MEDS: PRIMIDONE 50 MG TABLET BY MOUTH (20:52)
[2021-03-08] MEDS: TEMAZEPAM (*CRX) 15 MG CAPSULE PO (23:58)
[2021-03-09] VITALS (28 sets, daily range): BP systolic 107–138; BP diastolic 64–79; PULSE 74–109; RESP 20–42; TEMP 36.2–37.3; O2SAT 85–96
[2021-03-09] MEDS: ALBUTEROL SULFATE (*SP) INHALER 2 PUFF INHALATION (02:39)
[2021-03-09] MEDS: guaiFENesin/DEXTROMETHORPHAN 10 ML UDC PO ×2 (03:04→20:39)
[2021-03-09] MEDS: CARBIDOPA/LEVODOPA 25/100 MG TABLET 2 TABLET PO ×5 (04:58→20:39)
--- NOTE | 2021-03-09 05:46 | PC.NURSE ---
Spoke with Kimi and let her know that pt has had a rough night and is teetering on the brink of needing intubation. Let her know that pt is requiring more oxygen and is anxious and saying his goodbyes and sending her messages of love. Pt stated that he wasn't sure if he wants intubated. says if he deteriorates ok to intubate.
[2021-03-09 05:48] LABS: Basophils Percent Auto 0.1 % (0.2-1.2); Immature Granulocyte Absolute 0.09 K/mm3 (0.00-0.031); Immature Granulocyte Percent A 0.8 % (0-0.5); Lymphocytes Absolute Auto 0.53 K/mm3 (0.9-3.2); Lymphocytes Percent Auto 4.5 % (18.3-44.2); Mean Corpuscular HGB Conc 35.5 g/dl (32-36); Mean Corpuscular Volume 90.1 fl (80-100); Mean Platelet Volume 9.8 fl (7.4-10.4); Monocytes Absolute Auto 0.4 K/mm3 (0.1-0.6); Neutrophils Absolute Auto 10.9 K/mm3 (1.3-6.7); Neutrophils Percent Auto 91.6 % (45.5-73.1); Platelet Count Result 174 k/mm3 (150-375); Red Blood Count 3.44 M/mm3 (4.6-6.20); Red Cell Distribution Width 12.4 % (11.5-14.5); White Blood Count 11.9 K/mm3 (4.5-10.0)
[2021-03-09 05:57] LABS: Alanine Aminotransferase 13 U/L (4-50); Aspartate Amino Transferase 33 U/L (17-59); Estimated CRCL calculation 81 ml/min; Estimated Glomerular Filt Rate > 60
[2021-03-09 05:58] LABS: INR 1.1; Prothrombin Time 13.9 Seconds (11.1-14.7)
[2021-03-09] MEDS: BARICITINIB 2 MG TABLET 4 MG PO (08:34)
[2021-03-09] MEDS: ENOXAPARIN 40 MG/0.4 ML SYRINGE SUB-Q (08:36)
[2021-03-09] MEDS: FUROSEMIDE INJ 40 MG/4 ML VIAL 20 MG IV PUSH (08:36)
[2021-03-09] MEDS: ALBUTEROL SULFATE NEB 2.5 MG/0.5 ML INH INHALATION ×3 (09:06→20:29)
--- NOTE | 2021-03-09 10:10 | PM.IMPN ---
Progress Note: A&P Assessment and Plan (1) Acute respiratory failure with hypoxia: Code(s): J96.01 - Acute respiratory failure with hypoxia Status: Acute Assessment and Plan: Patient who was recently diagnosed with COVID presents with complaints of shortness of breath. He developed acute hypoxic respiratory failure felt related to COVID PNA. D-dimer was positive felt related to COVID. CTA was negative for PE but did show bibasilar airspace disease. His condition has worsened despite maximal therapy. On lasix (x3 doses) and IV abx now. He is listed as a full code but is undecided at this time and requests we speak with his . Will try to contact the one more time but if unsuccessful, will move to ICU for closer monitoring. Spoke with . She wishes for everything to be done for him. Patient able to lie prone with SpO2 going to 100%. Discussed with lining maker hand with plans to continue to monitor in the IMU for now. 40 minutes spent on critical care time (2) Pneumonia due to 2019 novel coronavirus: Code(s): U07.1 - COVID-19; J12.82 - Pneumonia due to coronavirus disease 2019 Status: Acute Assessment and Plan: Patient tested positive for COVID on 03/03 (Results in the chart). He is unvaccinated. He has been started on Remdesivir, Decadron and Baricitinib. The patient is on contact and droplet precautions. Robitussin available as needed. As above. Will try to prone patient to see if this will improves his hypoxia. (3) Hyponatremia: Code(s): E87.1 - Hypo-osmolality and hyponatremia Status: Acute Assessment and Plan: Sodium 132 on admission. No clear baseline. Sodium running 130-132 range but not checked today. Alan 17 with UCr 139 and FENa of 0.08% to suggest prerenal. Appears to be eating reasonably well. Started on lasix with good UOP but not much improvement. Nicholas secured. Repeat BMP today. Hold lasix (4) Subclinical hyperthyroidism: Code(s): E05.90 - Thyrotoxicosis, unspecified without thyrotoxic crisis or storm Status: Acute Assessment and Plan: TSH is 0.058 with a FT4 elevation of 2.26. Patient either has subclinical hyperthyroidism or this is related to the steroids and euthyroid sick syndrome. Plan to repeat these values as an outpatient. (5) Parkinson's disease (tremor, stiffness, slow motion, unstable posture): Code(s): G20 - Parkinson's disease Status: Chronic Assessment and Plan: Stable. Continue with home medications of carbidopa/levodopa and primidone. (6) DVT prophylaxis: Code(s): Z29.9 - Encounter for prophylactic measures, unspecified Status: Acute Assessment and Plan: Lovenox Subjective Date/time seen: 03/09/21 10:10 Interval history: 66yo male with Parkinson's disease here for COVID and respiratory failure. He is unvaccinated per the notes in the chart. Resuming care. Chart reviewed. Called to the room for persistent hypoxia. Patient on 60L at 90% AirVo and NRB mask with Spo2 in the mid80's. He feels SOB. He is anxious and is unsure if he wants to be intubated. No answer at his 's phone number. Exam Narrative: AF 97.9 131/64 92 20 86% HFNC and NRB Gen - mild tachypnea worse with mild exertion Chest - bibasilar dry inspiratory crackles. Conversational dyspnea CV - RRR S1/S2. Tele showing no significant dysrhythmias Abd - Soft, NT/ND, Positive BS - Nicholas secured draining clear yellow urine Ext - No pedal edema Psych - anxious Skin - cool and dry Objective Data Vital Signs Vital Signs: Vital Signs - 24 hr 03/08/21 12:00 03/08/21 14:00 03/08/21 14:09 Temperature 98.4 F Pulse Rate 91 88 Respiratory Rate 22 H Blood Pressure 117/69 Pulse Oximetry 92 93 03/08/21 16:00 03/08/21 18:00 03/08/21 20:00 Temperature 97.4 F L 98 F Pulse Rate 87 99 90 Respiratory Rate 18 26 H Blood Pressure 120/83 127/71 Pulse Oximetry 95 90 03/08/21 20:45
[2021-03-09] MEDS: REMDESIVIR 100 MG/NS 250 ML 100 MG/250 ML BAG 250 MG IVPB (11:00)
--- NOTE | 2021-03-09 11:06 | PC.NURSE ---
Patient moved to prone position at 10:30.
[2021-03-09 11:44] LABS: Alanine Aminotransferase 8 U/L (4-50); Albumin Level 3.2 g/dL (3.5-5.1); Alkaline Phosphatase 59 U/L (38-126); Anion Gap 6 mmol/L (8-16); Aspartate Amino Transferase 32 U/L (17-59); Bilirubin,Total 0.7 mg/dL (0.2-1.3); Blood Urea Nitrogen 24 mg/dL (9-20); CRP 15.9 mg/dL (<1.0); Calcium 8.2 mg/dL (8.4-10.2); Carbon Dioxide 29 mmol/L (22-30); Chloride 95 mmol/L (98-107); Estimated CRCL calculation 72 ml/min; Estimated Glomerular Filt Rate > 60; Glucose 148 mg/dL (65-110); Lactate Dehydrogenase 772 U/L (313-618); Magnesium 2.3 mg/dL (1.6-2.3); Potassium 3.9 mmol/L (3.4-5.0); Sodium 130 mmol/L (137-145)
[2021-03-09] MEDS: cefTRIAXone 2 GM in SODIUM CHLORIDE 0.9% IV 100 ML 200 ML IVPB (12:40)
--- NOTE | 2021-03-09 12:46 | PCNFU ---
Nutrition Follow-Up Complete: Inadequate Oral intake as related to COVID pneumonia as evidenced by reported poor po intake and weight loss reported. Goal: Meet estimated nutritional needs Pt. is progressing towards goal. No new goal at this time. Pt current nutrition is a heart healthy diet. Last recorded weight is 73 kg. Recommend re-weighing prior to discharge. Bowel Motility: + BM 03/06/2021 Labs Reviewed: Hgb 11.0, Hct 31.0 Meds Noted: Albuterol, Zithromax, Lovenox, Remdesivir, Mysoline, Sinemet Skin: No skin breakdown at this time. WNL. Additional Notes: Pt. has been consuming on average 57% of meals ordered. She is receiving ensure BID providing an additional 220 calories and 9 grams of protein. Was unable to physically speak with pt. due to diagnosis of COVID-19. Will monitor every 5 days.
--- NOTE | 2021-03-09 13:36 | PCNSR ---
On 03/09/21, the student,Aliyah Ivna, provided care and completed [facility] documentation on this patient. I have reviewed the student's documentation and agree with the findings.
--- NOTE | 2021-03-09 15:48 | PC.NURSE ---
Patient gives verbal consent to talk to his sister Jenelle on the phone. [phone].
[2021-03-09] MEDS: PRIMIDONE 50 MG TABLET BY MOUTH (20:39)
--- NOTE | 2021-03-09 23:07 | PC.NURSE ---
Pt anxious. O2 sat 83-91% on 60L, 90% with 15L NRB. Pt has stated multiple times that he no longer wants to continue treatment. Pt wants to see family. Pt states you and I both know I'm not going to live. I just want to go home. Pt has tried to call his and left message for her to call him back. Pt's son answered phone call. Discussed with pt's son, Joel, that pt states he does not want to go on a ventilator, that he would like to withdraw treatment. Joel states I want you to keep going. After phone call ended, pt states he would wear the bipap. Bipap applied. Very quickly pt states that he can't wear the bipap. O2 dropped to 69% while bipap on. Pt placed back on 60L, 90% with 15L NRB. Currently 92%.
[2021-03-10] VITALS (55 sets, daily range): BP systolic 88–102; BP diastolic 61–70; PULSE 66–118; RESP 18–40; TEMP 36.1–39.9; O2SAT 89–100; BMI 19.7
--- NOTE | 2021-03-10 00:21 | PCRCNOTE ---
PTs O2 saturation is not staying in the 90s. it continues to drop after a few minutes. The pt is very anxious. The BIPAP was ordered to try to give the pt what they need to keep the oxygen sats up. The pt tried the bipap and after a few seconds the pt was trying to rip it off. They stated they could not tolerate it and needed to go back on the ARVO. The BIPAP was left in the room incase the patient changed his mind. He is currently sating 91-92 at the moment and is holding okay.
--- NOTE | 2021-03-10 00:27 | PCDIET ---
During 0000 rounds, pt states just give me a pill to put me to sleep so I won't wake up. I want to . Staff stayed at bedside, encouraging pt to rest. Pt took call light and his cell phone and began hitting himself in the head with items. Pt states I hope I hit my adventist so I will . IMU tech came to bedside so pt is not alone. Call placed to pt's . Explained that pt is receiving maximum oxygenation at this time. Also that pt does not want to continue treatment. Further discussed in detail what a course on the ventilator could be like for pt. Pt's states that's what I want. Staff reiterated that this is not the course that the pt wants and knowing that information, the family still wants to proceed with intubation. Pt's again states that she wants him intubated. Discussed the case with Dr. Garcia. Pt's RR 38-40, O2 sat 88-90%. Dr. Garcia wants pt to transferred to ICU.
--- NOTE | 2021-03-10 01:04 | PM.CCN ---
Critical Care Event Note Summary Code activated: No Narrative: 03/10/2021 at 1:00 a.m. The patient has been admitted on 03/06/2021 for COVID. He was not vaccinated against COVID. He did receive Remdesivir and Decadron. On the a rapid response was called and the patient was transferred to the IMU for Airvo therapy. The patient received JAK2 inhibitor at that time. The patient had been having increasing respiratory distress earlier in the day and BiPAP was attempted however the patient did not tolerate BiPAP. Nursing staff called me this evening as the patient was having respiratory distress with a respiratory rate of around 45. The patient's oxygen saturations had remained between 85 and 89 for several hours. Id the patient's saturations did improve up to 90-93% but at that point the patient was begging to be knocked out. He stated multiple times that he could not do this anymore. He was exhausted. He became so upset that he picked up is telemetry box and started banging himself in the head causing 2 separate areas of contusions. Patient agreed to intubation the lungs he would be comfortable. Subsequently patient was transferred to the ICU and intubated. The patient required PEEP valve of 10 to improve oxygen saturations with bag-valve mask. Patient had ventilator settings tidal volume of 400 initial peep of 5 but patient's oxygen saturations were in the upper 80s who peep was increased to 8 rate of 18 and 100% FiO2. Chest x-ray was reviewed and ET tube was 7.5 cm from the jeronimo so I requested the ET tube be advanced 2 cm t0 28 at the lip. Patient was started on sedation with fentanyl and Versed. He did receive 1 dose of fentanyl push and and 2 doses of Versed push as well as 1 dose of rocuronium immediately post intubation until fentanyl and Versed infusions were available. I discussed the patient's case with Dr. Sands. Who recommended initiation of Nimbex. However prior to Nimbex initiation the patient had settled significantly with adequate sedation. The patient's oxygenation had improved and he was comfortable on current vent settings. 30 minute spent in critical care activities in exclusion of procedures. This case had a high probability of a clinically significant, sudden, or life threatening deterioration of this patient's condition which required my full and direct attention, intervention and personal management. Critical care time: 30 - 74 mins
--- NOTE | 2021-03-10 01:14 | PC.NURSE ---
This patient, Doni Gunter, was received from [ [phone]] on 03/10/21 at 0055. Patient/family oriented to unit policies and routines
[2021-03-10] MEDS: FENTANYL 2,500MCG/NS250ML(*CRX 2,500 MCG/250 ML BAG IV CONT (01:39)
[2021-03-10] MEDS: MIDAZOLAM 100MG/NS 100ML(*CRX) 100 MG/100 ML BAG IV CONT ×2 (01:40→19:52)
--- NOTE | 2021-03-10 01:40 | P.PCNBED_ITS ---
Procedures Intubation Intubation Date: 03/10/21 Intubation Time: 01:25 A pre-procedural Time-Out was completed immediately before starting the procedure and confirmed: Patient Identification, Site, Procedure, Patient Position and the Availability of Requisite Equipment: Yes Sedative: etomidate Mg given: 20 Paralytic: succinylcholine Mg given: 100 Laryngoscope: fiber optic video scope ET tube size: cuffed Tube secured depth (cm): 26 Tube secured location: lips Tube placement confirmation: visualized tube passing through cords, equal breath sounds bilaterally, no breath sounds over epigastrium and confirmation by capnometry Patient tolerated procedure: well Intubation complications: hypoxia Additional comments: Brief hypoxia post intubation PEEP valve was increased to 1 0 with resolution of hypoxia.
[2021-03-10] MEDS: ALBUTEROL SULFATE NEB 2.5 MG/0.5 ML INH INHALATION ×3 (02:37→20:40)
[2021-03-10 02:45] LABS: Base Excess ABG 1.1 mEq/l (+/-2.0); Carboxyhemoglobin 0.3 % THb (0-2.0); Fractional Inspired Oxygen 100 %; HCO3 ABG 30.2 mEq/l (22.0-26.0); Methemoglobin ABG 0.6 %THb (0-1.5); Oxygen Content ABG 18.3 %vol (16.0-22.0); Oxygen Saturation ABG 99.4 % (95.0-100.0); Oxyhemoglobin 97.4 % THb (90.0-100.0); PO2 ABG 235.5 mmHg (80.0-100.0); PO2 FiO2 Ratio Arterial Blood 2.36 %; Reduced Hemoglobin 1.7 %THb (0-5.0)
[2021-03-10 02:46] LABS: Device VENTILATOR; Modified Allen's Test Pass; PCO2 ABG 70.5 mmHg (35.0-45.0); Site Drawn RIGHT RADIAL; pH ABG 7.249 (7.350-7.450)
[2021-03-10 02:47] LABS: Arterial Blood Gas PEEP 8 cmH2O; Arterial Blood Gas Tidal Volume 400 ml; Arterial Blood Gas Vent Mode CMV; Arterial Blood Gas Ventilator rate 18 /MIN
[2021-03-10] MEDS: MIDAZOLAM HCL (*CRX) 2 MG/2 ML VIAL IV PUSH ×2 (03:03→03:09)
[2021-03-10] MEDS: CARBIDOPA/LEVODOPA 25/100 MG TABLET 2 TABLET PO ×5 (04:53→20:57)
[2021-03-10 05:00] LABS: Alveolar/Arterial O2 Gradient 588.8 mmHg; Base Excess ABG 3.6 mEq/l (+/-2.0); Fractional Inspired Oxygen 100 %; Oxygen Content ABG 15.4 %vol (16.0-22.0); Oxygen Saturation ABG 95.3 % (95.0-100.0); PCO2 ABG 47.4 mmHg (35.0-45.0); PO2 ABG 76.8 mmHg (80.0-100.0); PO2 FiO2 Ratio Arterial Blood 0.77 %; Total Hemoglobin 11.7 g/dL (12.0-18.0); pH ABG 7.405 (7.350-7.450)
[2021-03-10 05:11] LABS: Modified Allen's Test Unable to perform; Site Drawn LEFT RADIAL
[2021-03-10 05:12] LABS: Arterial Blood Gas PEEP 5 cmH2O; Arterial Blood Gas Tidal Volume 400 ml; Arterial Blood Gas Vent Mode CMV; Arterial Blood Gas Ventilator rate 26 /MIN; Device VENTILATOR
[2021-03-10 05:28] LABS: Basophils Percent Auto 0.3 % (0.2-1.2); Hematocrit 30.5 % (42.0-52.0); Hemoglobin 10.9 g/dL (14.0-18.0); Immature Granulocyte Absolute 0.07 K/mm3 (0.00-0.031); Immature Granulocyte Percent A 0.7 % (0-0.5); Immature Platelet Fraction Pct 4.5 % (0.9-11.2); Lymphocytes Absolute Auto 0.46 K/mm3 (0.9-3.2); Lymphocytes Percent Auto 4.6 % (18.3-44.2); Mean Corpuscular HGB Conc 35.7 g/dl (32-36); Mean Corpuscular Hemoglobin 33.6 pg (26-34); Mean Corpuscular Volume 94.1 fl (80-100); Mean Platelet Volume 9.8 fl (7.4-10.4); Monocytes Absolute Auto 0.4 K/mm3 (0.1-0.6); Monocytes Percent Auto 4.3 % (2.6-8.5); Neutrophils Percent Auto 90.1 % (45.5-73.1); Platelet Count Result 144 k/mm3 (150-375); Red Blood Count 3.24 M/mm3 (4.6-6.20); Red Cell Distribution Width 12.6 % (11.5-14.5)
[2021-03-10 05:35] LABS: INR 1.1; Prothrombin Time 14.2 Seconds (11.1-14.7)
[2021-03-10 05:44] LABS: Alanine Aminotransferase 11 U/L (4-50); Alkaline Phosphatase 59 U/L (38-126); Anion Gap 6 mmol/L (8-16); Aspartate Amino Transferase 39 U/L (17-59); Bilirubin,Total 0.6 mg/dL (0.2-1.3); Blood Urea Nitrogen 24 mg/dL (9-20); Carbon Dioxide 29 mmol/L (22-30); Chloride 97 mmol/L (98-107); Estimated CRCL calculation 74 ml/min; Estimated Glomerular Filt Rate > 60; Glucose 168 mg/dL (65-110); Potassium 4.1 mmol/L (3.4-5.0); Sodium 132 mmol/L (137-145)
--- NOTE | 2021-03-10 08:57 | PM.IMPN ---
Progress Note: A&P Assessment and Plan (1) Acute respiratory failure with hypoxia: Code(s): J96.01 - Acute respiratory failure with hypoxia Status: Acute Assessment and Plan: Patient who was recently diagnosed with COVID presents with complaints of shortness of breath. He developed acute hypoxic respiratory failure felt related to COVID PNA. D-dimer was positive felt related to COVID. CTA chest 03/06 was negative for PE but did show bibasilar airspace disease. His condition has worsened despite maximal therapy. Lasix (x3 doses) and IV abx were added. He is full code. His condition worsened to the point on intubation on 03/10/21. Continue supportive care. Wean vent as tolerated. Appreciate instructor knitting input. Patient to be paralyzed now. (2) Pneumonia due to 2019 novel coronavirus: Code(s): U07.1 - COVID-19; J12.82 - Pneumonia due to coronavirus disease 2019 Status: Acute Assessment and Plan: Patient tested positive for COVID on 03/03 (Results in the chart). He is unvaccinated. He was started on Remdesivir, Decadron and Baricitinib. The patient is on contact and droplet precautions. As above. Will try to prone patient as toelrated. (3) Hyponatremia: Code(s): E87.1 - Hypo-osmolality and hyponatremia Status: Acute Assessment and Plan: Sodium 132 on admission. No clear baseline. Sodium running 130-132 range. Alan 17 with UCr 139 and FENa of 0.08% to suggest prerenal. Was eating reasonably well. Given a couple of doses of lasix with good UOP but not much improvement in respiratory condition. Sodium stable. Monitor (4) Subclinical hyperthyroidism: Code(s): E05.90 - Thyrotoxicosis, unspecified without thyrotoxic crisis or storm Status: Acute Assessment and Plan: TSH is 0.058 with a FT4 elevation of 2.26. Patient either has subclinical hyperthyroidism or this is related to the steroids and euthyroid sick syndrome. Plan to repeat these values as an outpatient. (5) Parkinson's disease (tremor, stiffness, slow motion, unstable posture): Code(s): G20 - Parkinson's disease Status: Chronic Assessment and Plan: Stable. Continue with home medications of carbidopa/levodopa and primidone. (6) DVT prophylaxis: Code(s): Z29.9 - Encounter for prophylactic measures, unspecified Status: Acute Assessment and Plan: Lovenox Subjective Date/time seen: 03/10/21 08:57 Interval history: 66yo male with Parkinson's disease here for COVID and respiratory failure. He is unvaccinated per the notes in the chart. Patient's condition improved when prone. He remained stable until overnight hourse when his condition worsened. He became agitated and more hypoxic with resp rate in the 40's. He was moved to the ICU and intubated. No issues overnight. Review of Systems Review of Systems: ROS unobtainable: Yes unobtainable due to endotracheal tube Exam Narrative: AF 97.0 94/61 73 26 96% MV 90% with 5 PEEP Gen - intubated and sedated HEENT -ET tube and OG secured. Chest -lungs clear anteriorly. CV - RRR S1/S2. Tele showing no significant dysrhythmias Abd - Soft, ND, Positive BS - Nicholas secured draining clear yellow urine Ext - No pedal edema Neuro -sedated Skin - cool and dry Objective Data Vital Signs Vital Signs: Vital Signs - 24 hr 03/09/21 09:08 03/09/21 09:28 03/09/21 10:00 Temperature Pulse Rate 85 88 92 Respiratory Rate 24 H 20 Blood Pressure Pulse Oximetry 86 L 03/09/21 10:30 03/09/21 12:00 03/09/21 13:20 Temperature 97.1 F L Pulse Rate 93 94 Respiratory Rate 36 H Blood Pressure 107/65 Pulse Oximetry 94 94 95 03/09/21 14:00 03/09/21 15:17 03/09/21 15:30 Temperature 98.6 F Pulse Rate 85 88 Respiratory Rate 28 H Blood Pressure 114/71 Pulse Oximetry 96 96 03/09/21 16:00 03/09/21 18:00 03/09/21 20:00 Temperature 97.9 F Pulse Rate 88 109 H 92 Respiratory Rate 26
[2021-03-10] MEDS: CISATRACURIUM BESYLATE 20 MG/10 ML VIAL 10.6 MG IV PUSH (09:58)
[2021-03-10] MEDS: CISATRACURIUM BESYLATE 200 MG in DEXTROSE 5% 80 ML 6.37 ML IV CONT (09:59)
[2021-03-10] MEDS: ENOXAPARIN 40 MG/0.4 ML SYRINGE SUB-Q (10:03)
[2021-03-10] MEDS: BARICITINIB 2 MG TABLET 4 MG PO (10:08)
--- NOTE | 2021-03-10 12:57 | WPDCNINT ---
Assessment and Plan Assessment and plan (1) Acute respiratory failure with hypoxia: Code(s): J96.01 - Acute respiratory failure with hypoxia Status: Acute Assessment and Plan: Acute respiratory failure likely related to COVID pneumonia. Patient was admitted on 03/06/2021 and was tested positive for COVID-19, 5 days prior to admission -patient was on the intermediate Unit and was maxed out on the Airvo and was not able to tolerate the BiPAP, patient was severe respiratory distress with tachypnea and hypoxia -intubated on 03/10/2021 -continue mechanical ventilation with CMV mode, peep of 8, 90% FiO2, wean patient as tolerated -chest x-ray and ABGs reviewed -low tidal volume strategy to prevent volu trauma -continue bronchodilators -patient also on ceftriaxone and azithromycin since 03/08 -sedated with fentanyl and Versed infusion, patient breathing over the ventilator and dyssynchronous, will add Nimbex infusion for neuromuscular blockade and vent synchrony (2) Pneumonia due to 2019 novel coronavirus: Code(s): U07.1 - COVID-19; J12.82 - Pneumonia due to coronavirus disease 2019 Status: Acute Assessment and Plan: Patient tested positive for COVID on 03/03. He is unvaccinated -remains on remdesivir, Decadron and Baricitinib -continue droplet, airborne and contact isolation/precautions (3) Hyponatremia: Code(s): E87.1 - Hypo-osmolality and hyponatremia Status: Acute Assessment and Plan: Will continue to monitor sodium levels, currently stable at 132 (4) Parkinson's disease (tremor, stiffness, slow motion, unstable posture): Code(s): G20 - Parkinson's disease Status: Chronic Assessment and Plan: Continue with carbidopa/levodopa, primidone (5) DVT prophylaxis: Code(s): Z29.9 - Encounter for prophylactic measures, unspecified Status: Acute Assessment and Plan: Lovenox Additional Plan Nutrition: Will start tube feeds Code status: Full code Critical care time spent: 45 minutes This dictation may have been done utilizing a voice recognition system. Attempts have been made to correct errors. However, there may be uncorrected grammatical, spelling, and recognition errors present. Due to a high probability of clinically significant, life threatening deterioration, the patient required my highest level of preparedness to intervene emergently and I personally spent this critical care time directly and personally managing the patient. This critical care time included obtaining a history; examining the patient; pulse oximetry; ordering and review of studies; arranging urgent treatment with development of a management plan; evaluation of patient's response to treatment; frequent reassessment; and discussions with other providers. It was exclusive of separately billable procedures and treating other patients and teaching time. Please see Assessment and Plan section and the rest of the note for further information on patient assessment and treatment Oceanographer Geological Consult Note Consult date: 03/10/21 Time Seen: 07:01 Reason for consult: Acute hypoxic respiratory failure secondary to COVID pneumonia, hyponatremia, Parkinson's disease HPI: Doni Gunter is a 66 year old male history are history of Parkinson's disease was recently diagnosed 5 days prior to admission with COVID and presented to the hospital on 03/06/2021 with increasing shortness of breath, confusion, generalized weakness. He probably contracted COVID from a the family member was sick during the [facility]. Patient has not been vaccinated for COVID-19. X-ray on admission showed bilateral airspace disease compatible with COVID pneumonia. CTA of the chest showed extensive lower lobe print pneumonia, no pulmonary embolism. Patient was admitted to the medical floor, was transferred to intermediate Unit on 03/07/2021 and on 03/10/2021 patient was intubated as he was maxed out on the Airvo and
--- NOTE | 2021-03-10 13:22 | PCNFU ---
Nutrition Follow-Up Complete: Inadequate Oral intake as related to COVID pneumonia as evidenced by reported poor po intake and weight loss reported. goal: Meet estimated nutritional needs Patient progressing towards goal. We will continue current goal. Pt current nutrition is Jevity 1.2 at 20 ml/hr over 22 hours. Nutrition recommendation: goal rate at 70 ml/hr. Last recorded weight is 67.8 kg, down from 68 kg on admit. Bowel Motility:+BM reported 03/06 Labs Reviewed:Glu 168, BUN 24, Na 132, Alb 3.0,Hct 30.5, Hgb 10.9 Meds Noted:Fentanyl, Versed, Remdesivir, Nimbex,Sinemet, Decadron, Lovenox. Skin:WNL Additional Notes: Patient currently on mechanical vent. Tube feedings starting of Jevity 1.2 at 20 ml/hr advancing by 10 ml q 4 hours to goal rate of 70 ml/hr providing 1848 kcals/85 gms protein/1243 ml water. 30 ml Free water flush q 4 hours. PICC line placed today. Will continue to monitor daily in ICU rounds. Will reassess every Tuesday and Tuesday.
[2021-03-10] MEDS: REMDESIVIR 100 MG/NS 250 ML 100 MG/250 ML BAG 250 MG IVPB (16:05)
[2021-03-10] MEDS: MINERAL OIL/WHITE PETROLATUM OINTMENT 1 APPLIC EACH EYE ×2 (16:05→20:57)
[2021-03-10] MEDS: cefTRIAXone 2 GM in SODIUM CHLORIDE 0.9% IV 100 ML 200 ML IVPB (16:06)
[2021-03-10] MEDS: CISATRACURIUM BESYLATE 200 MG in DEXTROSE 5% 80 ML 10.62 ML IV CONT (20:55)
[2021-03-10] MEDS: CENTRAL LINE FLUSH 10 ML IV PUSH (20:58)
[2021-03-10] MEDS: PRIMIDONE 50 MG TABLET BY MOUTH (20:58)
[2021-03-10] MEDS: FENTANYL 2,500MCG/NS250ML(*CRX 2,500 MCG/250 ML BAG 9 MCG IV CONT (21:03)
[2021-03-11] VITALS (27 sets, daily range): BP systolic 95–117; BP diastolic 64–80; PULSE 59–110; RESP 22; TEMP 35.5–36.7; O2SAT 93–96
[2021-03-11] MEDS: ALBUTEROL SULFATE NEB 2.5 MG/0.5 ML INH INHALATION ×3 (02:30→20:13)
[2021-03-11 04:37] LABS: Alveolar/Arterial O2 Gradient 269.6 mmHg; Base Excess ABG 4.3 mEq/l (+/-2.0); Carboxyhemoglobin 0.2 % THb (0-2.0); Fractional Inspired Oxygen 55 %; HCO3 ABG 29.7 mEq/l (22.0-26.0); Methemoglobin ABG 0.1 %THb (0-1.5); Oxygen Content ABG 14.4 %vol (16.0-22.0); Oxygen Saturation ABG 93.9 % (95.0-100.0); Oxyhemoglobin 91.8 % THb (90.0-100.0); PO2 ABG 69.2 mmHg (80.0-100.0); PO2 FiO2 Ratio Arterial Blood 1.26 %; Reduced Hemoglobin 7.9 %THb (0-5.0); Total Hemoglobin 11.1 g/dL (12.0-18.0); pH ABG 7.409 (7.350-7.450)
[2021-03-11 04:38] LABS: Device VENTILATOR; Modified Allen's Test Unable to perform; Site Drawn LEFT RADIAL
[2021-03-11 04:39] LABS: Arterial Blood Gas PEEP 8 cmH2O; Arterial Blood Gas Tidal Volume 470 ml; Arterial Blood Gas Vent Mode CMV; Arterial Blood Gas Ventilator rate 22 /MIN
[2021-03-11 05:20] LABS: Basophils Percent Auto 0.2 % (0.2-1.2); Eosinophils Percent Auto 0.2 % (0-4.4); Hematocrit 31.1 % (42.0-52.0); Hemoglobin 10.5 g/dL (14.0-18.0); Immature Granulocyte Absolute 0.03 K/mm3 (0.00-0.031); Immature Granulocyte Percent A 0.6 % (0-0.5); Immature Platelet Fraction Pct 4.9 % (0.9-11.2); Lymphocytes Absolute Auto 0.39 K/mm3 (0.9-3.2); Lymphocytes Percent Auto 7.5 % (18.3-44.2); Mean Corpuscular HGB Conc 33.8 g/dl (32-36); Mean Corpuscular Hemoglobin 32.1 pg (26-34); Mean Corpuscular Volume 95.1 fl (80-100); Mean Platelet Volume 9.9 fl (7.4-10.4); Monocytes Absolute Auto 0.2 K/mm3 (0.1-0.6); Neutrophils Absolute Auto 4.5 K/mm3 (1.3-6.7); Neutrophils Percent Auto 87.5 % (45.5-73.1); Platelet Count Result 93 k/mm3 (150-375); Red Blood Count 3.27 M/mm3 (4.6-6.20); Red Cell Distribution Width 12.7 % (11.5-14.5); White Blood Count 5.2 K/mm3 (4.5-10.0)
[2021-03-11 05:36] LABS: Alanine Aminotransferase 15 U/L (4-50); Albumin Level 2.9 g/dL (3.5-5.1); Alkaline Phosphatase 52 U/L (38-126); Anion Gap 2 mmol/L (8-16); Aspartate Amino Transferase 29 U/L (17-59); Bilirubin,Total 0.4 mg/dL (0.2-1.3); Blood Urea Nitrogen 24 mg/dL (9-20); Calcium 7.9 mg/dL (8.4-10.2); Carbon Dioxide 32 mmol/L (22-30); Chloride 97 mmol/L (98-107); Estimated CRCL calculation 113 ml/min; Estimated Glomerular Filt Rate > 60; Glucose 221 mg/dL (65-110); Magnesium 2.3 mg/dL (1.6-2.3); Phosphorus 3.2 mg/dL (2.5-4.5); Potassium 5.2 mmol/L (3.4-5.0); Sodium 131 mmol/L (137-145)
[2021-03-11] MEDS: CENTRAL LINE FLUSH 10 ML IV PUSH ×3 (05:38→21:24)
[2021-03-11] MEDS: CARBIDOPA/LEVODOPA 25/100 MG TABLET 2 TABLET PO ×5 (05:38→21:23)
[2021-03-11] MEDS: CISATRACURIUM BESYLATE 200 MG in DEXTROSE 5% 80 ML 10.62 ML IV CONT ×2 (07:00→17:44)
[2021-03-11] MEDS: MINERAL OIL/WHITE PETROLATUM OINTMENT 1 APPLIC EACH EYE ×2 (09:06→21:23)
[2021-03-11] MEDS: BARICITINIB 2 MG TABLET 4 MG PO (09:07)
[2021-03-11 09:41] LABS: Glucose Point of Care 167 mg/dl (65-105)
--- NOTE | 2021-03-11 10:55 | PC.NURSE ---
Updated spouse on patient condition.
--- NOTE | 2021-03-11 11:48 | PM.IMPN ---
Progress Note: A&P Assessment and Plan (1) Acute respiratory failure with hypoxia: Code(s): J96.01 - Acute respiratory failure with hypoxia Status: Acute Assessment and Plan: Patient who was recently diagnosed with COVID presents with complaints of shortness of breath. He developed acute hypoxic respiratory failure felt related to COVID PNA. D-dimer was positive felt related to COVID. CTA chest 03/06 was negative for PE but did show bibasilar airspace disease. His condition has worsened despite maximal therapy. Lasix (x3 doses) and IV abx were added. He is full code. His condition worsened to the point on intubation on 03/10/21. Continue supportive care. Wean vent as tolerated. Appreciate sustain engineer input. Patient paralyzed now. Discussed (2) Pneumonia due to 2019 novel coronavirus: Code(s): U07.1 - COVID-19; J12.82 - Pneumonia due to coronavirus disease 2019 Status: Acute Assessment and Plan: Patient tested positive for COVID on 03/03 (Results in the chart). He is unvaccinated. He was started on Remdesivir, Decadron and Baricitinib. The patient is on contact and droplet precautions. As above. Continue to prone patient as tolerated (3) Hyponatremia: Code(s): E87.1 - Hypo-osmolality and hyponatremia Status: Acute Assessment and Plan: Sodium 132 on admission. No clear baseline. Alan 17 with UCr 139 and FENa of 0.08% to suggest prerenal. Was eating reasonably well. Sodium running 130-132 range and stable. Monitor. (4) Subclinical hyperthyroidism: Code(s): E05.90 - Thyrotoxicosis, unspecified without thyrotoxic crisis or storm Status: Acute Assessment and Plan: TSH is 0.058 with a FT4 elevation of 2.26. Patient either has subclinical hyperthyroidism or this is related to the steroids and euthyroid sick syndrome. Plan to repeat these values as an outpatient. (5) Parkinson's disease (tremor, stiffness, slow motion, unstable posture): Code(s): G20 - Parkinson's disease Status: Chronic Assessment and Plan: Stable. Continue with home medications of carbidopa/levodopa and primidone. (6) DVT prophylaxis: Code(s): Z29.9 - Encounter for prophylactic measures, unspecified Status: Acute Assessment and Plan: Lovenox; plt count noted. Continue to monitor closely. Change to Arixtra? Subjective Date/time seen: 03/11/21 11:48 Interval history: 66yo male with Parkinson's disease here for COVID and respiratory failure. He is unvaccinated per the notes in the chart. No issues overnight per RN. Patient remains intubated and sedated. Paralytic started yesterday. Review of Systems Review of Systems: ROS unobtainable: Yes unobtainable due to endotracheal tube Exam Narrative: AF 98.1 107/73 97 22 93% MV 50% with 8 PEEP Gen - intubated and sedated HEENT -ET tube and OG secured. Chest -lungs clear anteriorly. CV - RRR S1/S2. Tele showing no significant dysrhythmias Abd - Soft, ND, Positive BS - Nicholas secured draining clear yellow urine Ext - No pedal edema Neuro -sedated and paralyzed Skin - warm and dry Objective Data Vital Signs Vital Signs: Vital Signs - 24 hr 03/10/21 12:00 03/10/21 13:00 03/10/21 14:00 Temperature 98.4 F 98.2 F Pulse Rate 81 79 80 Respiratory Rate 22 H 22 H 22 H Blood Pressure 102/66 98/67 L 101/69 Pulse Oximetry 99 99 03/10/21 14:23 03/10/21 14:30 03/10/21 15:09 Temperature Pulse Rate 74 77 78 Respiratory Rate 24 H 22 H Blood Pressure Pulse Oximetry 95 03/10/21 16:00 03/10/21 16:25 03/10/21 16:26 Temperature 98.6 F Pulse Rate 78 76 77 Respiratory Rate 22 H 22 H 22 H Blood Pressure 101/68 Pulse Oximetry 95 03/10/21 16:27 03/10/21 17:10 03/10/21 17:17 Temperature Pulse Rate 77 77 79 Respiratory Rate 22 H 22 H Blood Pressure 88/64 L Pulse Oximetry 97 03/10/21 18:00 03/10/21 18:10 03/10/21 18:44 Temperature 98.9 F Pulse R
--- NOTE | 2021-03-11 11:57 | PCFNICU ---
ICU Rounding Note: Pt current nutrition is Jevity 1.2 at 60ml/hr over 22 hours. Last recorded weight is 67.8 kg, down from 68 kg on admit. Bowel Motility: No BM reported. Labs Reviewed:Glu 221, Cr 0.5,BUN 24, Na 131, K 5.2,Hct 31.1,Hgb 10.5 Meds Noted:Fentanyl, Versed, Remdesivir, Lovenox, Decadron ,Sinemet, Nimbex. Skin: WNL Additional Notes: Patient remains on mechanical vent with tube feedings of Jevity 1.2 at 60 ml/hr and tolerating per nursing. PICC in place. Following daily in ICU rounds. Will monitor every Tuesday and Tuesday.
[2021-03-11] MEDS: PANTOPRAZOLE SODIUM IV 40 MG VIAL IV PUSH (12:15)
--- NOTE | 2021-03-11 14:00 | WPDINTPN ---
Progress Note: A&P Assessment and Plan (1) Acute respiratory failure with hypoxia: Code(s): J96.01 - Acute respiratory failure with hypoxia Status: Acute Assessment and Plan: Acute respiratory failure likely related to COVID pneumonia. Patient was admitted on 03/06/2021 and was tested positive for COVID-19, 5 days prior to admission -patient was on the intermediate Unit and was maxed out on the Airvo and was not able to tolerate the BiPAP, patient was severe respiratory distress with tachypnea and hypoxia -intubated on 03/10/2021 -continue mechanical ventilation with CMV mode, peep of 8, 90% FiO2, wean patient as tolerated -chest x-ray and ABGs reviewed -low tidal volume strategy to prevent volu-trauma -continue bronchodilators -patient's WBC count is normal, patient is afebrile, will discontinue ceftriaxone and azithromycin which was started on 03/08. -sedated with fentanyl and Versed infusion, continue Nimbex infusion for neuromuscular blockade and vent synchrony (2) Pneumonia due to 2019 novel coronavirus: Code(s): U07.1 - COVID-19; J12.82 - Pneumonia due to coronavirus disease 2019 Status: Acute Assessment and Plan: Patient tested positive for COVID on 03/03. He is unvaccinated -remains on remdesivir, Decadron and Baricitinib -continue droplet, airborne and contact isolation/precautions (3) Hyponatremia: Code(s): E87.1 - Hypo-osmolality and hyponatremia Status: Acute Assessment and Plan: Will continue to monitor sodium levels, currently stable at 132 (4) Parkinson's disease (tremor, stiffness, slow motion, unstable posture): Code(s): G20 - Parkinson's disease Status: Chronic Assessment and Plan: Continue with carbidopa/levodopa, primidone (5) DVT prophylaxis: Code(s): Z29.9 - Encounter for prophylactic measures, unspecified Status: Acute Assessment and Plan: Lovenox Additional Plan Nutrition: Tolerating tube feeds Discussed with Marissa, patient's spouse, updated with patient's condition and plan of care. I answered all questions. Code status: Full code Critical care time spent: 33 minutes This dictation may have been done utilizing a voice recognition system. Attempts have been made to correct errors. However, there may be uncorrected grammatical, spelling, and recognition errors present. Due to a high probability of clinically significant, life threatening deterioration, the patient required my highest level of preparedness to intervene emergently and I personally spent this critical care time directly and personally managing the patient. This critical care time included obtaining a history; examining the patient; pulse oximetry; ordering and review of studies; arranging urgent treatment with development of a management plan; evaluation of patient's response to treatment; frequent reassessment; and discussions with other providers. It was exclusive of separately billable procedures and treating other patients and teaching time. Please see Assessment and Plan section and the rest of the note for further information on patient assessment and treatment Subjective Date/time seen: 03/11/21 14:00 Interval history: Reason for consult: Acute hypoxic respiratory failure secondary to COVID pneumonia, hyponatremia, Parkinson's disease, has not received his COVID-19 vaccine 03/11/2021: Patient remains intubated, on CMV mode of ventilation, peep of 8, 55% FiO2. Sedated with fentanyl, Versed infusion, on Nimbex for neuromuscular blockade and vent synchrony. Urine output has been adequate, patient is afebrile. Platelet counts dropped to 93K this morning. Patient is tolerating tube feeds hemodynamically stable Review of Systems Review of Systems: ROS unobtainable: Yes unobtainable due to endotracheal tube Exam Narrative: General: Patient intubated, sedated, HEENT: ETT in place, pupils equal and reactive Neck: Supple, no lymphade
[2021-03-11] MEDS: cefTRIAXone 2 GM in SODIUM CHLORIDE 0.9% IV 100 ML 200 ML IVPB (14:11)
[2021-03-11 14:57] LABS: Glucose Point of Care 148 mg/dl (65-105)
[2021-03-11] MEDS: MIDAZOLAM 100MG/NS 100ML(*CRX) 100 MG/100 ML BAG IV CONT (15:51)
[2021-03-11 17:55] LABS: Glucose Point of Care 119 mg/dl (65-105)
[2021-03-11] MEDS: PRIMIDONE 50 MG TABLET BY MOUTH (21:24)
[2021-03-12] VITALS (33 sets, daily range): BP systolic 107–162; BP diastolic 71–89; PULSE 88–124; RESP 13–26; TEMP 36.2–37.2; O2SAT 92–98
[2021-03-12 00:11] LABS: Glucose Point of Care 157 mg/dl (65-105)
[2021-03-12] MEDS: ALBUTEROL SULFATE NEB 2.5 MG/0.5 ML INH INHALATION ×4 (02:39→20:59)
[2021-03-12] MEDS: CISATRACURIUM BESYLATE 200 MG in DEXTROSE 5% 80 ML 9.56 ML IV CONT (05:07)
[2021-03-12] MEDS: CENTRAL LINE FLUSH 10 ML IV PUSH ×3 (05:08→21:35)
[2021-03-12] MEDS: CARBIDOPA/LEVODOPA 25/100 MG TABLET 2 TABLET PO ×5 (05:08→21:34)
[2021-03-12 05:30] LABS: Basophils Percent Auto 0.2 % (0.2-1.2); Eosinophils Percent Auto 0.1 % (0-4.4); Hematocrit 32.5 % (42.0-52.0); Hemoglobin 11.4 g/dL (14.0-18.0); Immature Granulocyte Percent A 1.1 % (0-0.5); Immature Platelet Fraction Pct 4.6 % (0.9-11.2); Lymphocytes Absolute Auto 0.39 K/mm3 (0.9-3.2); Lymphocytes Percent Auto 4.2 % (18.3-44.2); Mean Corpuscular HGB Conc 35.1 g/dl (32-36); Mean Corpuscular Hemoglobin 33.9 pg (26-34); Mean Corpuscular Volume 96.7 fl (80-100); Mean Platelet Volume 9.9 fl (7.4-10.4); Monocytes Absolute Auto 0.4 K/mm3 (0.1-0.6); Neutrophils Absolute Auto 8.3 K/mm3 (1.3-6.7); Neutrophils Percent Auto 90.4 % (45.5-73.1); Platelet Count Result 87 k/mm3 (150-375); Red Blood Count 3.36 M/mm3 (4.6-6.20); Red Cell Distribution Width 12.4 % (11.5-14.5); White Blood Count 9.2 K/mm3 (4.5-10.0)
[2021-03-12 05:39] LABS: Alanine Aminotransferase 13 U/L (4-50); Alkaline Phosphatase 58 U/L (38-126); Anion Gap 5 mmol/L (8-16); Aspartate Amino Transferase 27 U/L (17-59); Bilirubin,Total 0.4 mg/dL (0.2-1.3); Blood Urea Nitrogen 27 mg/dL (9-20); Carbon Dioxide 38 mmol/L (22-30); Chloride 93 mmol/L (98-107); Estimated CRCL calculation 96 ml/min; Estimated Glomerular Filt Rate > 60; Glucose 161 mg/dL (65-110); Magnesium 2.4 mg/dL (1.6-2.3); Phosphorus 3.3 mg/dL (2.5-4.5); Potassium 5.8 mmol/L (3.4-5.0); Sodium 136 mmol/L (137-145)
[2021-03-12 06:11] LABS: Alveolar/Arterial O2 Gradient 219.2 mmHg; Base Excess ABG 11.6 mEq/l (+/-2.0); Carboxyhemoglobin 0.3 % THb (0-2.0); Fractional Inspired Oxygen 55 %; HCO3 ABG 41.5 mEq/l (22.0-26.0); Methemoglobin ABG 0.3 %THb (0-1.5); Oxygen Content ABG 16.8 %vol (16.0-22.0); Oxygen Saturation ABG 93.5 % (95.0-100.0); Oxyhemoglobin 92.8 % THb (90.0-100.0); PO2 ABG 77.7 mmHg (80.0-100.0); PO2 FiO2 Ratio Arterial Blood 1.41 %; Reduced Hemoglobin 6.6 %THb (0-5.0); Total Hemoglobin 12.8 g/dL (12.0-18.0); pH ABG 7.303 (7.350-7.450)
[2021-03-12 06:12] LABS: Device VENTILATOR; PCO2 ABG 85.6 mmHg (35.0-45.0); Site Drawn LEFT RADIAL
[2021-03-12 06:13] LABS: Arterial Blood Gas PEEP 8 cmH2O; Arterial Blood Gas Tidal Volume 470 ml; Arterial Blood Gas Vent Mode CMV; Arterial Blood Gas Ventilator rate 22 /MIN
[2021-03-12] MEDS: DEXTROSE 50% 25 GM/50 ML SYRINGE IV PUSH (08:23)
[2021-03-12] MEDS: SODIUM BICARBONATE 8.4% 50 MEQ/50 ML SYRINGE IV PUSH (08:23)
[2021-03-12] MEDS: INSULIN HUMAN REGULAR (*BKC) 100 UNITS/ML 10 UNITS IV PUSH (08:23)
[2021-03-12] MEDS: SODIUM POLYSTYRENE SULFONONATE 15 GM/60 ML BTL 30 GM PO (08:23)
[2021-03-12] MEDS: BARICITINIB 2 MG TABLET 4 MG PO (08:24)
[2021-03-12] MEDS: MINERAL OIL/WHITE PETROLATUM OINTMENT 1 APPLIC EACH EYE ×2 (08:24→22:22)
[2021-03-12] MEDS: PANTOPRAZOLE SODIUM IV 40 MG VIAL IV PUSH (08:24)
[2021-03-12] MEDS: ALBUTEROL SULFATE NEB 2.5 MG/0.5 ML INH 10 MG INHALATION (09:14)
[2021-03-12] MEDS: MIDAZOLAM 100MG/NS 100ML(*CRX) 100 MG/100 ML BAG IV CONT (11:00)
--- NOTE | 2021-03-12 11:26 | PCFNICU ---
ICU Rounding Note: Pt current nutrition is Jevity 1.2 at 70 ml/hr over 22 hours. Last recorded weight is 67.8 kg, down from 68 kg on admit. Bowel Motility:NO BM reported, miralax started. Labs Reviewed:Mg 2.4, K 5.8,Alb 3.0,Hct 32.5, Hgb 11.4 Meds Noted:Fentanyl, Versed, Sinemet, Decadron, Nimbex, Lovenox Skin:WNL Additional Notes: Patient remains on mechanical vent with tube feedings of Jevity 1.2 at 70 ml/hr and tolerating per nursing. Free water flush 30 ml q 4 hours. Agree with diet orders. Following daily in ICU rounds. Reassess every Tuesday and Tuesday.
[2021-03-12 11:27] LABS: Prothrombin Time 13.5 Seconds (11.1-14.7)
[2021-03-12 11:28] LABS: Anion Gap 7 mmol/L (8-16); Blood Urea Nitrogen 27 mg/dL (9-20); Calcium 7.4 mg/dL (8.4-10.2); Carbon Dioxide 38 mmol/L (22-30); Chloride 90 mmol/L (98-107); Estimated CRCL calculation 83 ml/min; Estimated Glomerular Filt Rate > 60; Glucose 305 mg/dL (65-110); Potassium 4.9 mmol/L (3.4-5.0); Sodium 135 mmol/L (137-145)
--- NOTE | 2021-03-12 11:29 | WPDINTPN ---
Progress Note: A&P Assessment and Plan (1) Acute respiratory failure with hypoxia: Code(s): J96.01 - Acute respiratory failure with hypoxia Status: Acute Assessment and Plan: Acute respiratory failure likely related to COVID pneumonia. Patient was admitted on 03/06/2021 and was tested positive for COVID-19, 5 days prior to admission -patient was on the intermediate Unit and was maxed out on the Airvo and was not able to tolerate the BiPAP, patient was severe respiratory distress with tachypnea and hypoxia -intubated on 03/10/2021 -continue mechanical ventilation with CMV mode, peep of 8, 55% FiO2, wean patient as tolerated -ABG showed hypercapnia, ventilator adjusted -chest x-ray showed stable diffuse lung disease consistent with COVID 19 pneumonia -low tidal volume strategy to prevent volu-trauma -continue bronchodilators, add Pulmicort -03/11/2021 discontinued ceftriaxone and azithromycin which were started on 03/08. As the white blood cell count were normal and patient was afebrile. -sedated with fentanyl and Versed infusion, continue Nimbex infusion for neuromuscular blockade and vent synchrony (2) Pneumonia due to 2019 novel coronavirus: Code(s): U07.1 - COVID-19; J12.82 - Pneumonia due to coronavirus disease 2019 Status: Acute Assessment and Plan: Patient tested positive for COVID on 03/03. He is unvaccinated -remains on remdesivir, Decadron and Baricitinib -continue droplet, airborne and contact isolation/precautions (3) Hyponatremia: Code(s): E87.1 - Hypo-osmolality and hyponatremia Status: Acute Assessment and Plan: Sodium is normalized, will continue to monitor (4) Parkinson's disease (tremor, stiffness, slow motion, unstable posture): Code(s): G20 - Parkinson's disease Status: Chronic Assessment and Plan: Continue with carbidopa/levodopa, primidone (5) DVT prophylaxis: Code(s): Z29.9 - Encounter for prophylactic measures, unspecified Status: Acute Assessment and Plan: Hold Lovenox as patient is thrombocytopenic. -will send HIT antibodies and serotonin release assay Additional Plan Nutrition: Tolerating tube feeds Discussed with Marissa, patient's spouse, updated with patient's condition and plan of care. I answered all questions. Code status: Full code Critical care time spent: 32 minutes This dictation may have been done utilizing a voice recognition system. Attempts have been made to correct errors. However, there may be uncorrected grammatical, spelling, and recognition errors present. Due to a high probability of clinically significant, life threatening deterioration, the patient required my highest level of preparedness to intervene emergently and I personally spent this critical care time directly and personally managing the patient. This critical care time included obtaining a history; examining the patient; pulse oximetry; ordering and review of studies; arranging urgent treatment with development of a management plan; evaluation of patient's response to treatment; frequent reassessment; and discussions with other providers. It was exclusive of separately billable procedures and treating other patients and teaching time. Please see Assessment and Plan section and the rest of the note for further information on patient assessment and treatment Subjective Date/time seen: 03/12/21 11:29 Interval history: Reason for consult: Acute hypoxic respiratory failure secondary to COVID pneumonia, hyponatremia, Parkinson's disease, has not received his COVID-19 vaccine 03/12/2021: Patient remains intubated, on CMV mode of ventilation, peep of 8, 55% FiO2. Sedated with fentanyl, Versed infusion, on Nimbex for neuromuscular blockade and vent synchrony. Urine output has been adequate, patient is afebrile. Platelet counts dropped to 87K this morning. Patient is tolerating tube feeds, afebrile, hemodynamically stable potassium 5.8 this
[2021-03-12] MEDS: REMDESIVIR 100 MG/NS 250 ML 100 MG/250 ML BAG 250 MG IVPB (12:01)
[2021-03-12] MEDS: INSULIN ASPART (*BKC) 100 UNITS/ML SUB-Q ×2 (12:02→17:27)
[2021-03-12 13:17] LABS: Alanine Aminotransferase 16 U/L (4-50); Estimated CRCL calculation 96 ml/min; Estimated Glomerular Filt Rate > 60
--- NOTE | 2021-03-12 16:11 | PM.IMPN ---
Progress Note: A&P Assessment and Plan (1) Acute respiratory failure with hypoxia: Code(s): J96.01 - Acute respiratory failure with hypoxia Status: Acute Assessment and Plan: Patient who was recently diagnosed with COVID presents with complaints of shortness of breath. He developed acute hypoxic respiratory failure felt related to COVID PNA. D-dimer was positive felt related to COVID. CTA chest 03/06 was negative for PE but did show bibasilar airspace disease. His condition has worsened despite maximal therapy. Lasix (x3 doses) and IV abx were added. He is full code. His condition worsened to the point on intubation on 03/10/21. ABG noted today and vent adjusted. He remains intubated, sedated and paralyzed. Continue supportive care. Wean vent as tolerated. Appreciate chief load dispatcher input. (2) Pneumonia due to 2019 novel coronavirus: Code(s): U07.1 - COVID-19; J12.82 - Pneumonia due to coronavirus disease 2019 Status: Acute Assessment and Plan: Patient tested positive for COVID on 03/03 (Results in the chart). He is unvaccinated. He was started on Remdesivir, Decadron and Baricitinib. The patient is on contact and droplet precautions. As above. Continue to prone patient as tolerated (3) Thrombocytopenia: Code(s): D69.6 - Thrombocytopenia, unspecified Status: Acute Assessment and Plan: Platelet count has trended down to 87K today. Lovenox held. Heparin Ab ordered. Follow. (4) Hyponatremia: Code(s): E87.1 - Hypo-osmolality and hyponatremia Status: Acute Assessment and Plan: Sodium 132 on admission. No clear baseline. Alan 17 with UCr 139 and FENa of 0.08% to suggest prerenal. Was eating reasonably well. Sodium running 130-136 range and stable. Monitor. (5) Hyperglycemia: Code(s): R73.9 - Hyperglycemia, unspecified Status: Acute Assessment and Plan: The patient's blood glucose was reviewed on 03/12 Glucose remains up and down at times. Continue AccuCheks covering with sliding scale. Hypoglycemia protocol available as needed. Check A1c (6) Subclinical hyperthyroidism: Code(s): E05.90 - Thyrotoxicosis, unspecified without thyrotoxic crisis or storm Status: Acute Assessment and Plan: TSH is 0.058 with a FT4 elevation of 2.26. Patient either has subclinical hyperthyroidism or this is related to the steroids and euthyroid sick syndrome. Plan to repeat these values as an outpatient. (7) Parkinson's disease (tremor, stiffness, slow motion, unstable posture): Code(s): G20 - Parkinson's disease Status: Chronic Assessment and Plan: Stable. Continue with home medications of carbidopa/levodopa and primidone. (8) DVT prophylaxis: Code(s): Z29.9 - Encounter for prophylactic measures, unspecified Status: Acute Assessment and Plan: Lovenox stopped due to low plt count. Change to Arixtra? Subjective Date/time seen: 03/12/21 16:11 Interval history: 66yo male with Parkinson's disease here for COVID and respiratory failure. He is unvaccinated per the notes in the chart. Patient remains intubated and sedated. Paralytic started 03/10. Stable overnight. Toelrating TF. Review of Systems Review of Systems: ROS unobtainable: Yes unobtainable due to endotracheal tube Exam Narrative: AF 98.7 117/71 117 26 94% MV 55% with 8 PEEP Gen - intubated and sedated HEENT -ET tube and OG secured. Chest - faint inspiratory crackles CV - RRR S1/S2. Tele showing no significant dysrhythmias Abd - Soft, ND, Positive BS - Nicholas secured draining clear yellow urine Ext - No pedal edema Neuro -sedated and paralyzed Skin - warm and dry Objective Data Vital Signs Vital Signs: Vital Signs - 24 hr 03/11/21 17:08 03/11/21 17:44 03/11/21 18:00 Temperature Pulse Rate 103 H 103 H 103 H Respiratory Rate 22 H 22 H Blood Pressure 115/79 110/78 Pulse Oximetry 95 95 03/11/21
[2021-03-12] MEDS: CISATRACURIUM BESYLATE 200 MG in DEXTROSE 5% 80 ML 12.74 ML IV CONT (17:20)
[2021-03-12 17:34] LABS: Glucose Point of Care 233 mg/dl (65-105)
[2021-03-12] MEDS: BUDESONIDE RESPULE NEB 0.5 MG/2 ML AMP INHALATION (20:59)
[2021-03-12] MEDS: PRIMIDONE 50 MG TABLET BY MOUTH (21:34)
[2021-03-13] VITALS (59 sets, daily range): BP systolic 100–130; BP diastolic 71–91; PULSE 77–125; RESP 22–27; TEMP 36–36.6; O2SAT 92–97
[2021-03-13] MEDS: INSULIN ASPART (*BKC) 100 UNITS/ML SUB-Q ×3 (00:23→23:44)
[2021-03-13 00:35] LABS: Glucose Point of Care 208 mg/dl (65-105)
[2021-03-13] MEDS: CISATRACURIUM BESYLATE 200 MG in DEXTROSE 5% 80 ML 10.62 ML IV CONT (01:37)
[2021-03-13] MEDS: ALBUTEROL SULFATE NEB 2.5 MG/0.5 ML INH INHALATION ×4 (02:36→23:22)
[2021-03-13] MEDS: FENTANYL 2,500MCG/NS250ML(*CRX 2,500 MCG/250 ML BAG 12.5 MCG IV CONT ×2 (02:54→21:25)
[2021-03-13 05:06] LABS: pH ABG 7.276 (7.350-7.450)
[2021-03-13] MEDS: MIDAZOLAM 100MG/NS 100ML(*CRX) 100 MG/100 ML BAG 6 MG IV CONT ×2 (05:06→21:24)
[2021-03-13 05:07] LABS: Alveolar/Arterial O2 Gradient 205.9 mmHg; Base Excess ABG 11.1 mEq/l (+/-2.0); HCO3 ABG 42.1 mEq/l (22.0-26.0); Oxygen Saturation ABG 94.2 % (95.0-100.0); PCO2 ABG 92.5 mmHg (35.0-45.0); PO2 ABG 83.3 mmHg (80.0-100.0); Total Hemoglobin 14.2 g/dL (12.0-18.0)
[2021-03-13 05:08] LABS: Carboxyhemoglobin 0.3 % THb (0-2.0); Device VENTILATOR; Fractional Inspired Oxygen 55 %; Methemoglobin ABG 0.3 %THb (0-1.5); Modified Allen's Test Pass; Oxygen Content ABG 18.7 %vol (16.0-22.0); Oxyhemoglobin 93.2 % THb (90.0-100.0); PO2 FiO2 Ratio Arterial Blood 1.51 %; Reduced Hemoglobin 6.2 %THb (0-5.0); Site Drawn LEFT RADIAL
[2021-03-13 05:09] LABS: Arterial Blood Gas PEEP 8 cmH2O; Arterial Blood Gas Tidal Volume 470 ml; Arterial Blood Gas Vent Mode CMV; Arterial Blood Gas Ventilator rate 26 /MIN
[2021-03-13 05:15] LABS: Basophils Percent Auto 0.4 % (0.2-1.2); Eosinophils Percent Auto 0.5 % (0-4.4); Hematocrit 33.3 % (42.0-52.0); Immature Granulocyte Absolute 0.13 K/mm3 (0.00-0.031); Immature Granulocyte Percent A 1.6 % (0-0.5); Immature Platelet Fraction Pct 6.9 % (0.9-11.2); Lymphocytes Absolute Auto 0.31 K/mm3 (0.9-3.2); Lymphocytes Percent Auto 3.8 % (18.3-44.2); Mean Corpuscular Hemoglobin 32.7 pg (26-34); Mean Corpuscular Volume 99.1 fl (80-100); Mean Platelet Volume 10.6 fl (7.4-10.4); Monocytes Absolute Auto 0.4 K/mm3 (0.1-0.6); Monocytes Percent Auto 4.8 % (2.6-8.5); Neutrophils Absolute Auto 7.2 K/mm3 (1.3-6.7); Neutrophils Percent Auto 88.9 % (45.5-73.1); Platelet Count Result 73 k/mm3 (150-375); Red Blood Count 3.36 M/mm3 (4.6-6.20); Red Cell Distribution Width 12.4 % (11.5-14.5); White Blood Count 8.1 K/mm3 (4.5-10.0)
[2021-03-13 05:27] LABS: Prothrombin Time 13.5 Seconds (11.1-14.7)
[2021-03-13] MEDS: CARBIDOPA/LEVODOPA 25/100 MG TABLET 2 TABLET PO ×5 (05:39→21:13)
[2021-03-13] MEDS: CENTRAL LINE FLUSH 10 ML IV PUSH ×3 (05:39→21:13)
[2021-03-13 05:50] LABS: Alanine Aminotransferase 19 U/L (4-50); Alkaline Phosphatase 59 U/L (38-126); Aspartate Amino Transferase 33 U/L (17-59); Bilirubin,Total 0.3 mg/dL (0.2-1.3); Blood Urea Nitrogen 28 mg/dL (9-20); Calcium 7.7 mg/dL (8.4-10.2); Carbon Dioxide > 40 mmol/L (22-30); Chloride 88 mmol/L (98-107); Estimated CRCL calculation 113 ml/min; Estimated Glomerular Filt Rate > 60; Glucose 186 mg/dL (65-110); Magnesium 2.4 mg/dL (1.6-2.3); Phosphorus 3.7 mg/dL (2.5-4.5); Potassium 4.9 mmol/L (3.4-5.0); Sodium 134 mmol/L (137-145)
[2021-03-13 07:59] LABS: Hemoglobin A1C 6.2 % (<5.7)
[2021-03-13] MEDS: BUDESONIDE RESPULE NEB 0.5 MG/2 ML AMP INHALATION ×2 (08:19→23:22)
[2021-03-13] MEDS: polyethylene glycoL 3350 17 GM POWD.PACK PO (08:21)
[2021-03-13] MEDS: BARICITINIB 2 MG TABLET 4 MG PO (08:21)
[2021-03-13] MEDS: PANTOPRAZOLE SODIUM IV 40 MG VIAL IV PUSH (08:21)
[2021-03-13] MEDS: MINERAL OIL/WHITE PETROLATUM OINTMENT 1 APPLIC EACH EYE ×2 (08:33→21:13)
[2021-03-13] MEDS: CISATRACURIUM BESYLATE 200 MG in DEXTROSE 5% 80 ML 12.74 ML IV CONT (09:19)
[2021-03-13] MEDS: REMDESIVIR 100 MG/NS 250 ML 100 MG/250 ML BAG 250 MG IVPB (10:03)
[2021-03-13 12:06] LABS: Alveolar/Arterial O2 Gradient 196.2 mmHg; Fractional Inspired Oxygen 55 %; HCO3 ABG 34.9 mEq/l (22.0-26.0); Oxygen Saturation ABG 99.2 % (95.0-100.0); Oxyhemoglobin 97.7 % THb (90.0-100.0); PCO2 ABG 38.3 mmHg (35.0-45.0); PO2 ABG 153.3 mmHg (80.0-100.0); PO2 FiO2 Ratio Arterial Blood 2.79 %; Total Hemoglobin 11.4 g/dL (12.0-18.0)
--- NOTE | 2021-03-13 12:09 | PCNFU ---
Nutrition Follow-Up Complete: Inadequate Oral intake as related to COVID pneumonia as evidenced by reported poor po intake and weight loss reported. goal: Meet estimated nutritional needs Patient is progressing towards goal. We will continue current goal. Pt current nutrition is Jevity 1.2 at 70 ml/hr over 22 hours. Last recorded weight is 67.8 kg, down from 68 kg on admit. Bowel Motility:No BM reported. Miralax given today. Labs Reviewed:Na 134, Alb 3.0,Hgb 11.0,Hct 33.3 Meds Noted:Sinemet, Fentanyl, Versed, Nimbex, Lovenox, Decadron, Protonix. Skin:WNL Additional Notes: Patient remains on mechanical vent and tube feedings of Jevity 1.2 at 70 ml/hr and tolerated. Current tube feeding is providing 1848 kcals/85 gms protein/1243 ml water. Free water flush 30 ml q 4 hours. Agree with diet orders. Monitoring: daily in ICU rounds, reassess every Tuesday and Tuesday.
[2021-03-13 12:10] LABS: Device VENTILATOR; Modified Allen's Test Unable to perform; Site Drawn LEFT RADIAL; pH ABG 7.577 (7.350-7.450)
[2021-03-13 12:11] LABS: Arterial Blood Gas PEEP 8 cmH2O; Arterial Blood Gas Tidal Volume 520 ml; Arterial Blood Gas Vent Mode CMV; Arterial Blood Gas Ventilator rate 26 /MIN
[2021-03-13 12:47] LABS: Glucose Point of Care 262 mg/dl (65-105)
--- NOTE | 2021-03-13 14:14 | WPDINTPN ---
Progress Note: A&P Assessment and Plan (1) Acute respiratory failure with hypoxia: Code(s): J96.01 - Acute respiratory failure with hypoxia Status: Acute Assessment and Plan: Acute respiratory failure likely related to COVID pneumonia. Patient was admitted on 03/06/2021 and was tested positive for COVID-19, 5 days prior to admission -patient was on the intermediate Unit and was maxed out on the Airvo and was not able to tolerate the BiPAP, patient was severe respiratory distress with tachypnea and hypoxia -intubated on 03/10/2021 -continue mechanical ventilation with CMV mode, peep of 8, 55% FiO2, wean patient as tolerated -ABG showed hypercapnia, increased tidal volume to just over 6 mL/kg of predicted body weight -chest x-ray showed stable diffuse lung disease consistent with COVID 19 pneumonia -low tidal volume strategy to prevent volu-trauma -continue bronchodilators, add Pulmicort -03/11/2021 discontinued ceftriaxone and azithromycin which were started on 03/08. As the white blood cell count were normal and patient was afebrile. -sedated with fentanyl and Versed infusion, will start to wean off Nimbex (2) Pneumonia due to 2019 novel coronavirus: Code(s): U07.1 - COVID-19; J12.82 - Pneumonia due to coronavirus disease 2019 Status: Acute Assessment and Plan: Patient tested positive for COVID on 03/03. He is unvaccinated -remains on remdesivir, Decadron and Baricitinib -continue droplet, airborne and contact isolation/precautions (3) Hyponatremia: Code(s): E87.1 - Hypo-osmolality and hyponatremia Status: Acute Assessment and Plan: Sodium is normalized, will continue to monitor (4) Parkinson's disease (tremor, stiffness, slow motion, unstable posture): Code(s): G20 - Parkinson's disease Status: Chronic Assessment and Plan: Continue with carbidopa/levodopa, primidone (5) DVT prophylaxis: Code(s): Z29.9 - Encounter for prophylactic measures, unspecified Status: Acute Assessment and Plan: Hold Lovenox as patient is thrombocytopenic. -will send HIT antibodies and serotonin release assay Additional Plan Nutrition: Tolerating tube feeds Discussed with Marissa, patient's spouse, updated with patient's condition and plan of care. I answered all questions. Code status: Full code Critical care time spent: 33 minutes This dictation may have been done utilizing a voice recognition system. Attempts have been made to correct errors. However, there may be uncorrected grammatical, spelling, and recognition errors present. Due to a high probability of clinically significant, life threatening deterioration, the patient required my highest level of preparedness to intervene emergently and I personally spent this critical care time directly and personally managing the patient. This critical care time included obtaining a history; examining the patient; pulse oximetry; ordering and review of studies; arranging urgent treatment with development of a management plan; evaluation of patient's response to treatment; frequent reassessment; and discussions with other providers. It was exclusive of separately billable procedures and treating other patients and teaching time. Please see Assessment and Plan section and the rest of the note for further information on patient assessment and treatment Subjective Date/time seen: 03/13/21 14:14 Interval history: Reason for consult: Acute hypoxic respiratory failure secondary to COVID pneumonia, hyponatremia, Parkinson's disease, has not received his COVID-19 vaccine 03/13/2021: Patient remains intubated, on CMV mode of ventilation, peep of 8, 55% FiO2. Sedated with fentanyl, Versed infusion, on Nimbex for neuromuscular blockade and vent synchrony. Urine output has been adequate, patient is afebrile. Platelet counts dropped to 73K this morning. Patient is tolerating tube feeds, afebrile, hemodynamically stable. ABG show
[2021-03-13] MEDS: PROPOFOL IV EMULSION 100 ML 2.03 MG IV CONT (15:05)
[2021-03-13 17:28] LABS: Glucose Point of Care 180 mg/dl (65-105)
[2021-03-13] MEDS: PRIMIDONE 50 MG TABLET BY MOUTH (21:13)
[2021-03-13 23:47] LABS: Glucose Point of Care 209 mg/dl (65-105)
[2021-03-14] VITALS (39 sets, daily range): BP systolic 105–141; BP diastolic 73–90; PULSE 78–122; RESP 22–26; TEMP 36.4–37.2; O2SAT 91–99
[2021-03-14] MEDS: ALBUTEROL SULFATE NEB 2.5 MG/0.5 ML INH INHALATION ×4 (03:05→21:21)
[2021-03-14] MEDS: CENTRAL LINE FLUSH 10 ML IV PUSH ×3 (04:57→20:17)
[2021-03-14] MEDS: CARBIDOPA/LEVODOPA 25/100 MG TABLET 2 TABLET PO ×5 (04:57→20:16)
[2021-03-14 05:20] LABS: Basophils Percent Auto 0.3 % (0.2-1.2); Eosinophils Percent Auto 0.4 % (0-4.4); Hematocrit 29.3 % (42.0-52.0); Hemoglobin 10.1 g/dL (14.0-18.0); Immature Granulocyte Absolute 0.13 K/mm3 (0.00-0.031); Immature Granulocyte Percent A 1.7 % (0-0.5); Immature Platelet Fraction Pct 8.2 % (0.9-11.2); Lymphocytes Absolute Auto 0.34 K/mm3 (0.9-3.2); Lymphocytes Percent Auto 4.4 % (18.3-44.2); Mean Corpuscular HGB Conc 34.5 g/dl (32-36); Mean Corpuscular Hemoglobin 33.1 pg (26-34); Mean Corpuscular Volume 96.1 fl (80-100); Mean Platelet Volume 10.8 fl (7.4-10.4); Monocytes Absolute Auto 0.4 K/mm3 (0.1-0.6); Monocytes Percent Auto 4.9 % (2.6-8.5); Neutrophils Absolute Auto 6.9 K/mm3 (1.3-6.7); Neutrophils Percent Auto 88.3 % (45.5-73.1); Platelet Count Result 89 k/mm3 (150-375); Red Blood Count 3.05 M/mm3 (4.6-6.20); Red Cell Distribution Width 12.7 % (11.5-14.5); White Blood Count 7.8 K/mm3 (4.5-10.0)
[2021-03-14 05:21] LABS: Alanine Aminotransferase 23 U/L (4-50); Albumin Level 2.9 g/dL (3.5-5.1); Alkaline Phosphatase 61 U/L (38-126); Aspartate Amino Transferase 33 U/L (17-59); Bilirubin,Total 0.3 mg/dL (0.2-1.3); Blood Urea Nitrogen 31 mg/dL (9-20); Calcium 7.8 mg/dL (8.4-10.2); Carbon Dioxide > 40 mmol/L (22-30); Chloride 90 mmol/L (98-107); Estimated CRCL calculation 97 ml/min; Estimated Glomerular Filt Rate > 60; Glucose 174 mg/dL (65-110); Magnesium 2.3 mg/dL (1.6-2.3); Phosphorus 3.1 mg/dL (2.5-4.5); Potassium 4.7 mmol/L (3.4-5.0); Sodium 132 mmol/L (137-145)
[2021-03-14 05:29] LABS: INR 1.1; Prothrombin Time 13.6 Seconds (11.1-14.7)
[2021-03-14 06:55] LABS: Alveolar/Arterial O2 Gradient 309.6 mmHg; Base Excess ABG 8.4 mEq/l (+/-2.0); Carboxyhemoglobin 0.2 % THb (0-2.0); Fractional Inspired Oxygen 60 %; HCO3 ABG 32.2 mEq/l (22.0-26.0); Methemoglobin ABG 0.3 %THb (0-1.5); Oxygen Content ABG 15.5 %vol (16.0-22.0); Oxygen Saturation ABG 95.8 % (95.0-100.0); Oxyhemoglobin 93.4 % THb (90.0-100.0); PCO2 ABG 41.5 mmHg (35.0-45.0); PO2 ABG 72.6 mmHg (80.0-100.0); PO2 FiO2 Ratio Arterial Blood 1.21 %; Reduced Hemoglobin 6.1 %THb (0-5.0); Total Hemoglobin 11.8 g/dL (12.0-18.0)
[2021-03-14 06:57] LABS: Arterial Blood Gas PEEP 8 cmH2O; Arterial Blood Gas Vent Mode CMV; Arterial Blood Gas Ventilator rate 22 /MIN; Device VENTILATOR; Modified Allen's Test Unable to perform; Site Drawn RIGHT RADIAL; pH ABG 7.508 (7.350-7.450)
[2021-03-14 06:58] LABS: Arterial Blood Gas Tidal Volume 520 ml
[2021-03-14] MEDS: BUDESONIDE RESPULE NEB 0.5 MG/2 ML AMP INHALATION ×2 (08:59→21:22)
[2021-03-14] MEDS: REMDESIVIR 100 MG/NS 250 ML 100 MG/250 ML BAG 250 MG IVPB (09:34)
[2021-03-14] MEDS: polyethylene glycoL 3350 17 GM POWD.PACK PO (09:35)
[2021-03-14] MEDS: MINERAL OIL/WHITE PETROLATUM OINTMENT 1 APPLIC EACH EYE ×2 (09:36→20:17)
[2021-03-14] MEDS: PANTOPRAZOLE SODIUM IV 40 MG VIAL IV PUSH (09:36)
[2021-03-14] MEDS: BARICITINIB 2 MG TABLET 4 MG PO (09:37)
[2021-03-14] MEDS: PROPOFOL IV EMULSION 100 ML 2.03 MG IV CONT (11:36)
--- NOTE | 2021-03-14 12:08 | WPDINTPN ---
Progress Note: A&P Assessment and Plan (1) Acute respiratory failure with hypoxia: Code(s): J96.01 - Acute respiratory failure with hypoxia Status: Acute Assessment and Plan: Acute respiratory failure likely related to COVID pneumonia. Patient was admitted on 03/06/2021 and was tested positive for COVID-19, 5 days prior to admission -patient was on the intermediate Unit and was maxed out on the Airvo and was not able to tolerate the BiPAP, patient was severe respiratory distress with tachypnea and hypoxia -intubated on 03/10/2021 -continue mechanical ventilation with CMV mode, peep of 8, 60% FiO2, wean patient as tolerated -ABG and chest x-ray reviewed -low tidal volume strategy to prevent volu-trauma -continue bronchodilators, add Pulmicort -03/11/2021 discontinued ceftriaxone and azithromycin which were started on 03/08. As the white blood cell count were normal and patient was afebrile. -sedated with fentanyl and Versed infusion, will start to wean off Nimbex (2) Pneumonia due to 2019 novel coronavirus: Code(s): U07.1 - COVID-19; J12.82 - Pneumonia due to coronavirus disease 2019 Status: Acute Assessment and Plan: Patient tested positive for COVID on 03/03. He is unvaccinated -remains on remdesivir, Decadron and Baricitinib -continue droplet, airborne and contact isolation/precautions (3) Hyponatremia: Code(s): E87.1 - Hypo-osmolality and hyponatremia Status: Acute Assessment and Plan: Sodium is normalized, will continue to monitor (4) Parkinson's disease (tremor, stiffness, slow motion, unstable posture): Code(s): G20 - Parkinson's disease Status: Chronic Assessment and Plan: Continue with carbidopa/levodopa, primidone (5) DVT prophylaxis: Code(s): Z29.9 - Encounter for prophylactic measures, unspecified Status: Acute Assessment and Plan: Hold Lovenox as patient is thrombocytopenic. - HIT antibodies and serotonin release assay pending Additional Plan Nutrition: Tolerating tube feeds, no bowel movements, patient on MiraLax, will give Dulcolax suppository today x1 Discussed with Marissa, patient's spouse, updated with patient's condition and plan of care. I answered all questions. Code status: Full code Critical care time spent: 32 minutes This dictation may have been done utilizing a voice recognition system. Attempts have been made to correct errors. However, there may be uncorrected grammatical, spelling, and recognition errors present. Due to a high probability of clinically significant, life threatening deterioration, the patient required my highest level of preparedness to intervene emergently and I personally spent this critical care time directly and personally managing the patient. This critical care time included obtaining a history; examining the patient; pulse oximetry; ordering and review of studies; arranging urgent treatment with development of a management plan; evaluation of patient's response to treatment; frequent reassessment; and discussions with other providers. It was exclusive of separately billable procedures and treating other patients and teaching time. Please see Assessment and Plan section and the rest of the note for further information on patient assessment and treatment Subjective Date/time seen: 03/14/21 12:08 Interval history: Reason for consult: Acute hypoxic respiratory failure secondary to COVID pneumonia, hyponatremia, Parkinson's disease, has not received his COVID-19 vaccine 03/14/2021: Patient remains intubated, on CMV mode of ventilation, peep of 8, 60% FiO2. Sedated with fentanyl, Versed infusion, OFF Nimbex infusion Urine output has been adequate, patient is afebrile. Platelet counts improving this morning. Patient is tolerating tube feeds, no bowel movements, afebrile, hemodynamically stable. Review of Systems Review of Systems: ROS unobtainable: Yes unobtainable due to endotrache
[2021-03-14] MEDS: BISACODYL 10 MG SUPPOSITORY RECTAL (12:30)
[2021-03-14 12:51] LABS: Glucose Point of Care 173 mg/dl (65-105)
[2021-03-14] MEDS: MIDAZOLAM 100MG/NS 100ML(*CRX) 100 MG/100 ML BAG IV CONT (15:01)
[2021-03-14] MEDS: FENTANYL 2,500MCG/NS250ML(*CRX 2,500 MCG/250 ML BAG 12.5 MCG IV CONT (16:25)
[2021-03-14 18:07] LABS: Glucose Point of Care 193 mg/dl (65-105)
[2021-03-14] MEDS: PRIMIDONE 50 MG TABLET BY MOUTH (20:17)
[2021-03-14 23:46] LABS: Glucose Point of Care 192 mg/dl (65-105)
[2021-03-14] MEDS: PROPOFOL IV EMULSION 100 ML 10.17 MG IV CONT (23:49)
[2021-03-15] VITALS (47 sets, daily range): BP systolic 103–150; BP diastolic 69–90; PULSE 16–119; RESP 15–30; TEMP 36.6–37.2; O2SAT 90–94
[2021-03-15] MEDS: ALBUTEROL SULFATE NEB 2.5 MG/0.5 ML INH INHALATION ×4 (03:03→19:52)
[2021-03-15 04:39] LABS: Basophils Absolute Auto 0.1 K/mm3 (0.0-0.1); Basophils Percent Auto 0.6 % (0.2-1.2); Eosinophils Percent Auto 0.3 % (0-4.4); Hematocrit 31.1 % (42.0-52.0); Hemoglobin 10.1 g/dL (14.0-18.0); Immature Granulocyte Absolute 0.18 K/mm3 (0.00-0.031); Immature Granulocyte Percent A 1.7 % (0-0.5); Immature Platelet Fraction Pct 9.1 % (0.9-11.2); Lymphocytes Absolute Auto 0.34 K/mm3 (0.9-3.2); Lymphocytes Percent Auto 3.2 % (18.3-44.2); Mean Corpuscular HGB Conc 32.5 g/dl (32-36); Mean Corpuscular Hemoglobin 31.4 pg (26-34); Mean Corpuscular Volume 96.6 fl (80-100); Mean Platelet Volume 10.5 fl (7.4-10.4); Monocytes Absolute Auto 0.3 K/mm3 (0.1-0.6); Monocytes Percent Auto 2.8 % (2.6-8.5); Neutrophils Absolute Auto 9.6 K/mm3 (1.3-6.7); Neutrophils Percent Auto 91.4 % (45.5-73.1); Platelet Count Result 90 k/mm3 (150-375); Red Blood Count 3.22 M/mm3 (4.6-6.20); Red Cell Distribution Width 12.7 % (11.5-14.5); White Blood Count 10.5 K/mm3 (4.5-10.0)
[2021-03-15 04:47] LABS: Alanine Aminotransferase 26 U/L (4-50); Albumin Level 2.9 g/dL (3.5-5.1); Alkaline Phosphatase 68 U/L (38-126); Anion Gap 4 mmol/L (8-16); Aspartate Amino Transferase 34 U/L (17-59); Bilirubin,Total 0.3 mg/dL (0.2-1.3); Blood Urea Nitrogen 32 mg/dL (9-20); Calcium 7.8 mg/dL (8.4-10.2); Carbon Dioxide 35 mmol/L (22-30); Chloride 91 mmol/L (98-107); Estimated CRCL calculation 97 ml/min; Estimated Glomerular Filt Rate > 60; Glucose 199 mg/dL (65-110); INR 1.2; Magnesium 2.2 mg/dL (1.6-2.3); Phosphorus 3.6 mg/dL (2.5-4.5); Potassium 4.8 mmol/L (3.4-5.0); Prothrombin Time 14.7 Seconds (11.1-14.7); Sodium 130 mmol/L (137-145)
[2021-03-15] MEDS: CARBIDOPA/LEVODOPA 25/100 MG TABLET 2 TABLET PO ×5 (05:08→20:02)
[2021-03-15] MEDS: CENTRAL LINE FLUSH 10 ML IV PUSH ×3 (05:08→20:03)
[2021-03-15 05:53] LABS: Alveolar/Arterial O2 Gradient 347.3 mmHg; Base Excess ABG 8.8 mEq/l (+/-2.0); Carboxyhemoglobin 0.3 % THb (0-2.0); Fractional Inspired Oxygen 65 %; HCO3 ABG 33.1 mEq/l (22.0-26.0); Methemoglobin ABG 0.2 %THb (0-1.5); Oxygen Saturation ABG 94.8 % (95.0-100.0); Oxyhemoglobin 92.4 % THb (90.0-100.0); PCO2 ABG 44.2 mmHg (35.0-45.0); PO2 ABG 68.1 mmHg (80.0-100.0); PO2 FiO2 Ratio Arterial Blood 1.05 %; Reduced Hemoglobin 7.1 %THb (0-5.0); Total Hemoglobin 11.5 g/dL (12.0-18.0); pH ABG 7.492 (7.350-7.450)
[2021-03-15 05:54] LABS: Arterial Blood Gas PEEP 8 cmH2O; Arterial Blood Gas Tidal Volume 520 ml; Arterial Blood Gas Vent Mode CMV; Arterial Blood Gas Ventilator rate 22 /MIN; Device VENTILATOR; Modified Allen's Test Pass; Site Drawn LEFT RADIAL
[2021-03-15] MEDS: BUDESONIDE RESPULE NEB 0.5 MG/2 ML AMP INHALATION ×2 (08:29→19:52)
[2021-03-15] MEDS: polyethylene glycoL 3350 17 GM POWD.PACK PO (08:44)
[2021-03-15] MEDS: MINERAL OIL/WHITE PETROLATUM OINTMENT 1 APPLIC EACH EYE ×2 (08:44→20:03)
[2021-03-15] MEDS: PANTOPRAZOLE SODIUM IV 40 MG VIAL IV PUSH (08:45)
[2021-03-15] MEDS: BARICITINIB 2 MG TABLET 4 MG PO (08:45)
[2021-03-15] MEDS: PROPOFOL IV EMULSION 100 ML 10.17 MG IV CONT ×2 (08:51→18:18)
[2021-03-15] MEDS: MIDAZOLAM 100MG/NS 100ML(*CRX) 100 MG/100 ML BAG IV CONT (10:41)
[2021-03-15] MEDS: FENTANYL 2,500MCG/NS250ML(*CRX 2,500 MCG/250 ML BAG 12.5 MCG IV CONT (10:43)
[2021-03-15] MEDS: REMDESIVIR 100 MG/NS 250 ML 100 MG/250 ML BAG 250 MG IVPB (10:47)
[2021-03-15 11:28] LABS: Glucose Point of Care 170 mg/dl (65-105)
--- NOTE | 2021-03-15 12:34 | WPDINTPN ---
Progress Note: A&P Assessment and Plan (1) Acute respiratory failure with hypoxia: Code(s): J96.01 - Acute respiratory failure with hypoxia Status: Acute Assessment and Plan: Acute respiratory failure likely related to COVID pneumonia. Patient was admitted on 03/06/2021 and was tested positive for COVID-19, 5 days prior to admission -patient was on the intermediate Unit and was maxed out on the Airvo and was not able to tolerate the BiPAP, patient was severe respiratory distress with tachypnea and hypoxia -intubated on 03/10/2021 -continue mechanical ventilation with CMV mode, peep of 8, 65% FiO2, wean patient as tolerated. -ABG and chest x-ray reviewed -low tidal volume strategy to prevent volu-trauma -continue bronchodilators, continue Pulmicort -03/11/2021 discontinued ceftriaxone and azithromycin which were started on 03/08. As the white blood cell count were normal and patient was afebrile. -sedated with fentanyl and Versed infusion, OFF Nimbex (2) Pneumonia due to 2019 novel coronavirus: Code(s): U07.1 - COVID-19; J12.82 - Pneumonia due to coronavirus disease 2019 Status: Acute Assessment and Plan: Patient tested positive for COVID on 03/03. He is unvaccinated -remains on remdesivir, Decadron and Baricitinib -continue droplet, airborne and contact isolation/precautions (3) Hyponatremia: Code(s): E87.1 - Hypo-osmolality and hyponatremia Status: Acute Assessment and Plan: Sodium is normalized, will continue to monitor (4) Parkinson's disease (tremor, stiffness, slow motion, unstable posture): Code(s): G20 - Parkinson's disease Status: Chronic Assessment and Plan: Continue with carbidopa/levodopa, primidone (5) DVT prophylaxis: Code(s): Z29.9 - Encounter for prophylactic measures, unspecified Status: Acute Assessment and Plan: Hold Lovenox as patient is thrombocytopenic. - HIT antibodies and serotonin release assay pending Additional Plan Nutrition: Tolerating tube feeds, no bowel movements, patient on MiraLax, will give Dulcolax suppository today x1 Discussed with Marissa, patient's spouse, updated with patient's condition and plan of care. I answered all questions. Code status: Full code Critical care time spent: 32 minutes This dictation may have been done utilizing a voice recognition system. Attempts have been made to correct errors. However, there may be uncorrected grammatical, spelling, and recognition errors present. Due to a high probability of clinically significant, life threatening deterioration, the patient required my highest level of preparedness to intervene emergently and I personally spent this critical care time directly and personally managing the patient. This critical care time included obtaining a history; examining the patient; pulse oximetry; ordering and review of studies; arranging urgent treatment with development of a management plan; evaluation of patient's response to treatment; frequent reassessment; and discussions with other providers. It was exclusive of separately billable procedures and treating other patients and teaching time. Please see Assessment and Plan section and the rest of the note for further information on patient assessment and treatment Subjective Date/time seen: 03/15/21 12:34 Interval history: Reason for consult: Acute hypoxic respiratory failure secondary to COVID pneumonia, hyponatremia, Parkinson's disease, has not received his COVID-19 vaccine 03/15/2021: Patient remains intubated, on CMV mode of ventilation, peep of 8, 65% FiO2. Sedated with fentanyl, Versed infusion, OFF Nimbex infusion Urine output has been adequate, patient is afebrile. Platelet counts improving this morning. Patient is tolerating tube feeds, no bowel movements, afebrile, hemodynamically stable. Review of Systems Review of Systems: ROS unobtainable: Yes unobtainable due to endotracheal tube E
[2021-03-15 13:18] LABS: Heparin Induced Platelet Antib Negative (Negative)
[2021-03-15 16:47] LABS: UFH SRA Result Interpretation Negative (Negative)
[2021-03-15] MEDS: INSULIN ASPART (*BKC) 100 UNITS/ML SUB-Q (18:22)
[2021-03-15 18:29] LABS: Glucose Point of Care 208 mg/dl (65-105)
[2021-03-15] MEDS: PRIMIDONE 50 MG TABLET BY MOUTH (20:03)
[2021-03-16] VITALS (44 sets, daily range): BP systolic 98–140; BP diastolic 60–84; PULSE 70–115; RESP 11–25; TEMP 36–36.8; O2SAT 89–95
[2021-03-16 00:45] LABS: Glucose Point of Care 190 mg/dl (65-105)
[2021-03-16] MEDS: ALBUTEROL SULFATE NEB 2.5 MG/0.5 ML INH INHALATION ×4 (02:10→20:45)
[2021-03-16] MEDS: PROPOFOL IV EMULSION 100 ML 10.17 MG IV CONT (03:07)
[2021-03-16] MEDS: FENTANYL 2,500MCG/NS250ML(*CRX 2,500 MCG/250 ML BAG 15 MCG IV CONT ×2 (05:25→22:07)
[2021-03-16] MEDS: CARBIDOPA/LEVODOPA 25/100 MG TABLET 2 TABLET PO ×5 (05:25→21:02)
[2021-03-16] MEDS: MIDAZOLAM 100MG/NS 100ML(*CRX) 100 MG/100 ML BAG IV CONT (05:26)
[2021-03-16] MEDS: CENTRAL LINE FLUSH 10 ML IV PUSH ×3 (05:27→21:04)
[2021-03-16 06:16] LABS: Basophils Percent Auto 0.3 % (0.2-1.2); Eosinophils Absolute Auto 0.1 K/mm3 (0-0.3); Eosinophils Percent Auto 0.4 % (0-4.4); Hematocrit 29.9 % (42.0-52.0); Hemoglobin 9.9 g/dL (14.0-18.0); Immature Granulocyte Absolute 0.37 K/mm3 (0.00-0.031); Immature Granulocyte Percent A 2.8 % (0-0.5); Immature Platelet Fraction Pct 10.5 % (0.9-11.2); Lymphocytes Absolute Auto 0.37 K/mm3 (0.9-3.2); Lymphocytes Percent Auto 2.8 % (18.3-44.2); Mean Corpuscular HGB Conc 33.1 g/dl (32-36); Mean Corpuscular Volume 93.7 fl (80-100); Mean Platelet Volume 11.3 fl (7.4-10.4); Monocytes Absolute Auto 0.3 K/mm3 (0.1-0.6); Monocytes Percent Auto 1.9 % (2.6-8.5); Neutrophils Percent Auto 91.8 % (45.5-73.1); Platelet Count Result 89 k/mm3 (150-375); Red Blood Count 3.19 M/mm3 (4.6-6.20); Red Cell Distribution Width 12.9 % (11.5-14.5); White Blood Count 13.1 K/mm3 (4.5-10.0)
[2021-03-16 06:27] LABS: Alanine Aminotransferase 25 U/L (4-50); Albumin Level 2.9 g/dL (3.5-5.1); Alkaline Phosphatase 73 U/L (38-126); Anion Gap 2 mmol/L (8-16); Aspartate Amino Transferase 36 U/L (17-59); Bilirubin,Total 0.3 mg/dL (0.2-1.3); Blood Urea Nitrogen 31 mg/dL (9-20); Calcium 7.8 mg/dL (8.4-10.2); Carbon Dioxide 34 mmol/L (22-30); Chloride 93 mmol/L (98-107); Estimated CRCL calculation 107 ml/min; Estimated Glomerular Filt Rate > 60; Glucose 163 mg/dL (65-110); Magnesium 2.4 mg/dL (1.6-2.3); Phosphorus 3.3 mg/dL (2.5-4.5); Sodium 129 mmol/L (137-145)
[2021-03-16 06:28] LABS: Alveolar/Arterial O2 Gradient 325.9 mmHg; Base Excess ABG 10.4 mEq/l (+/-2.0); Carboxyhemoglobin 0.3 % THb (0-2.0); Fractional Inspired Oxygen 65 %; HCO3 ABG 35.6 mEq/l (22.0-26.0); Methemoglobin ABG 0.3 %THb (0-1.5); Oxygen Content ABG 15.2 %vol (16.0-22.0); Oxygen Saturation ABG 96.5 % (95.0-100.0); Oxyhemoglobin 94.4 % THb (90.0-100.0); PCO2 ABG 50.6 mmHg (35.0-45.0); PO2 ABG 82.5 mmHg (80.0-100.0); PO2 FiO2 Ratio Arterial Blood 1.27 %; Total Hemoglobin 11.4 g/dL (12.0-18.0); pH ABG 7.465 (7.350-7.450)
[2021-03-16 06:31] LABS: Device VENTILATOR; Site Drawn RIGHT RADIAL
[2021-03-16 06:34] LABS: INR 1.2; Prothrombin Time 15.1 Seconds (11.1-14.7)
[2021-03-16] MEDS: PANTOPRAZOLE SODIUM IV 40 MG VIAL IV PUSH (08:28)
[2021-03-16] MEDS: polyethylene glycoL 3350 17 GM POWD.PACK PO (08:28)
[2021-03-16] MEDS: BARICITINIB 2 MG TABLET 4 MG PO (08:28)
[2021-03-16] MEDS: MINERAL OIL/WHITE PETROLATUM OINTMENT 1 APPLIC EACH EYE ×2 (08:29→21:02)
[2021-03-16] MEDS: BUDESONIDE RESPULE NEB 0.5 MG/2 ML AMP INHALATION ×2 (08:52→20:45)
[2021-03-16 09:21] LABS: Platelet Estimate Decreased (Adequate)
[2021-03-16 09:22] LABS: Anisocytosis 1+ (NORMAL); Ovalocytes 1+ (NORMAL)
[2021-03-16] MEDS: REMDESIVIR 100 MG/NS 250 ML 100 MG/250 ML BAG 250 MG IVPB (10:49)
--- NOTE | 2021-03-16 12:30 | PCFNICU ---
ICU Rounding Note: Pt current nutrition is Jevity 1.2 at 70ml/hr over 22 hours. Last recorded weight is 63.9 kg, down from 68 kg on admit. Bowel Motility:+Bm reported 03/16 Labs Reviewed:Mg 2.4, BUN 31, Cr 0.5,Glu 163, Alb 2.9 Meds Noted:Sinemet, Fentanyl, Versed, Lovenox,, Miralax, Propofol 8.14 ml/ew=591 kcals Skin:WNL Additional Notes: Patient remains on mechanical vent. Tolerating tube feedings of Jevity 1.2 at 70 ml/hr. Afebrile. Agree with diet orders at this time. Following daily in ICU rounds. Will monitor every Tuesday and Tuesday.
[2021-03-16] MEDS: INSULIN ASPART (*BKC) 100 UNITS/ML SUB-Q ×3 (12:41→23:57)
--- NOTE | 2021-03-16 12:53 | WPDINTPN ---
Progress Note: A&P Assessment and Plan (1) Acute respiratory failure with hypoxia: Code(s): J96.01 - Acute respiratory failure with hypoxia Status: Acute Assessment and Plan: Acute respiratory failure likely related to COVID pneumonia. Patient was admitted on 03/06/2021 and was tested positive for COVID-19, 5 days prior to admission -patient was on the intermediate Unit and was maxed out on the Airvo and was not able to tolerate the BiPAP, patient was severe respiratory distress with tachypnea and hypoxia -intubated on 03/10/2021 -continue mechanical ventilation with CMV mode, peep of 8, 65% FiO2, wean patient as tolerated. -ABG and chest x-ray reviewed -low tidal volume strategy to prevent volu-trauma -continue bronchodilators, continue Pulmicort -03/11/2021 discontinued ceftriaxone and azithromycin which were started on 03/08. As the white blood cell count were normal and patient was afebrile. -sedated with fentanyl and Versed infusion, OFF Nimbex (2) Pneumonia due to 2019 novel coronavirus: Code(s): U07.1 - COVID-19; J12.82 - Pneumonia due to coronavirus disease 2019 Status: Acute Assessment and Plan: Patient tested positive for COVID on 03/03. He is unvaccinated -remains on remdesivir, Decadron and Baricitinib -continue droplet, airborne and contact isolation/precautions (3) Hyponatremia: Code(s): E87.1 - Hypo-osmolality and hyponatremia Status: Acute Assessment and Plan: Sodium is normalized, will continue to monitor (4) Parkinson's disease (tremor, stiffness, slow motion, unstable posture): Code(s): G20 - Parkinson's disease Status: Chronic Assessment and Plan: Continue with carbidopa/levodopa, primidone (5) DVT prophylaxis: Code(s): Z29.9 - Encounter for prophylactic measures, unspecified Status: Acute Assessment and Plan: Hold Lovenox as patient is thrombocytopenic. Platelet counts gradually increasing in stable - HIT antibodies and serotonin release assay negative Additional Plan Nutrition: Tolerating tube feeds, no bowel movements, patient on MiraLax, will give Dulcolax suppository today x1 Discussed with Marissa, patient's spouse, updated with patient's condition and plan of care. I answered all questions. Code status: Full code Critical care time spent: 32 minutes This dictation may have been done utilizing a voice recognition system. Attempts have been made to correct errors. However, there may be uncorrected grammatical, spelling, and recognition errors present. Due to a high probability of clinically significant, life threatening deterioration, the patient required my highest level of preparedness to intervene emergently and I personally spent this critical care time directly and personally managing the patient. This critical care time included obtaining a history; examining the patient; pulse oximetry; ordering and review of studies; arranging urgent treatment with development of a management plan; evaluation of patient's response to treatment; frequent reassessment; and discussions with other providers. It was exclusive of separately billable procedures and treating other patients and teaching time. Please see Assessment and Plan section and the rest of the note for further information on patient assessment and treatment Subjective Date/time seen: 03/16/21 12:53 Interval history: Reason for consult: Acute hypoxic respiratory failure secondary to COVID pneumonia, hyponatremia, Parkinson's disease, has not received his COVID-19 vaccine 03/16/2021: Patient remains intubated, on CMV mode of ventilation, peep of 8, 65% FiO2. Sedated with fentanyl, Versed infusion, OFF Nimbex infusion Urine output has been adequate, patient is afebrile. Platelet counts stable this morning. Patient is tolerating tube feeds, positive bowel movements, afebrile, hemodynamically stable. Review of Systems Review of Systems: ROS unobtain
[2021-03-16 13:07] LABS: Glucose Point of Care 215 mg/dl (65-105)
[2021-03-16] MEDS: PROPOFOL IV EMULSION 100 ML 8.14 MG IV CONT (14:39)
--- NOTE | 2021-03-16 15:40 | PM.IMPN ---
Progress Note: A&P Assessment and Plan (1) Acute respiratory failure with hypoxia: Code(s): J96.01 - Acute respiratory failure with hypoxia Status: Acute Assessment and Plan: Patient who was recently diagnosed with COVID presents with complaints of shortness of breath. He developed acute hypoxic respiratory failure felt related to COVID PNA. D-dimer was positive felt related to COVID. CTA chest 03/06 was negative for PE but did show bibasilar airspace disease. His condition worsened despite maximal therapy. Lasix (x3 doses) and IV and abx were added. He is full code. His condition worsened to the point on intubation on 03/10/21. He remains intubated and sedated. Was paralyzed but stopped on 03/13. ABG noted at 7.46//82. Off abx now since 03/11. Continue Albuterol and Pulmicort. Continue supportive care. Wean vent as tolerated. Appreciate mattress packer input. (2) Pneumonia due to 2019 novel coronavirus: Code(s): U07.1 - COVID-19; J12.82 - Pneumonia due to coronavirus disease 2019 Status: Acute Assessment and Plan: Patient tested positive for COVID on 03/03 (Results in the chart). He is unvaccinated. He has completed 10 days of Remdesivir and Decadron on . He remains on baricitinib through 03/20. The patient is on contact and droplet precautions. As above. Continue to prone patient as tolerated. (3) Thrombocytopenia: Code(s): D69.6 - Thrombocytopenia, unspecified Status: Acute Assessment and Plan: Platelet count dropped to 73K but stable i the 80-90K range. Lovenox held. Heparin Ab negative. Suspect consumptive. Follow. (4) Hyponatremia: Code(s): E87.1 - Hypo-osmolality and hyponatremia Status: Acute Assessment and Plan: Sodium 132 on admission. No clear baseline. Alan 17 with UCr 139 and FENa of 0.08% to suggest prerenal. Sodium running 129-136 range but trending down past few days. Continue to monitor (5) Hyperglycemia: Code(s): R73.9 - Hyperglycemia, unspecified Status: Acute Assessment and Plan: A1c 6.2. The patient's blood glucose was reviewed on 03/16 Glucose remains up and down at times related to the steroids ranging from 160-215 Continue AccuCheks covering with sliding scale. Hypoglycemia protocol available as needed. (6) Subclinical hyperthyroidism: Code(s): E05.90 - Thyrotoxicosis, unspecified without thyrotoxic crisis or storm Status: Acute Assessment and Plan: TSH is 0.058 with a FT4 elevation of 2.26. Patient either has subclinical hyperthyroidism or this is related to the steroids and euthyroid sick syndrome. Plan to repeat these values as an outpatient. (7) Parkinson's disease (tremor, stiffness, slow motion, unstable posture): Code(s): G20 - Parkinson's disease Status: Chronic Assessment and Plan: Stable. Continue with home medications of carbidopa/levodopa and primidone. (8) DVT prophylaxis: Code(s): Z29.9 - Encounter for prophylactic measures, unspecified Status: Acute Assessment and Plan: Lovenox stopped due to low plt count. Subjective Date/time seen: 03/16/21 15:40 Interval history: 66yo male with Parkinson's disease here for COVID and respiratory failure. He is unvaccinated per the notes in the chart. Resuming care. Chart reviewed. No issues overnight. Toelrateing TF. Remains intubated and sedated. Review of Systems Review of Systems: ROS unobtainable: Yes unobtainable due to endotracheal tube Exam Narrative: AF 97.9 117/74 81 22 91% MV 65% with 8 PEEP Gen - intubated and sedated HEENT -ET tube and OG secured. Chest - clear anteriorly CV - RRR S1/S2. Tele showing no significant dysrhythmias Abd - Soft, ND, Positive BS - Nicholas secured draining clear yellow urine Ext - No pedal edema Neuro -sedated Skin - warm and dry Objective Data Vital Signs Vital Signs: Vital Signs - 24 hr 03/15/21 16
[2021-03-16 18:17] LABS: Glucose Point of Care 224 mg/dl (65-105)
[2021-03-16] MEDS: PRIMIDONE 50 MG TABLET BY MOUTH (21:03)
[2021-03-16] MEDS: PROPOFOL IV EMULSION 100 ML 12.2 MG IV CONT (22:41)
[2021-03-16 23:55] LABS: Glucose Point of Care 298 mg/dl (65-105)
[2021-03-17] VITALS (41 sets, daily range): BP systolic 102–137; BP diastolic 67–80; PULSE 69–115; RESP 22–27; TEMP 36.3–37.1; O2SAT 88–98
[2021-03-17] MEDS: ALBUTEROL SULFATE NEB 2.5 MG/0.5 ML INH INHALATION ×4 (02:30→20:00)
[2021-03-17] MEDS: MIDAZOLAM 100MG/NS 100ML(*CRX) 100 MG/100 ML BAG IV CONT ×2 (02:37→20:50)
[2021-03-17 05:43] LABS: Alveolar/Arterial O2 Gradient 393.8 mmHg; Base Excess ABG 7.2 mEq/l (+/-2.0); Carboxyhemoglobin 0.3 % THb (0-2.0); Fractional Inspired Oxygen 70 %; HCO3 ABG 31.6 mEq/l (22.0-26.0); Methemoglobin ABG 0.2 %THb (0-1.5); Oxygen Content ABG 16.6 %vol (16.0-22.0); Oxyhemoglobin 88.7 % THb (90.0-100.0); PCO2 ABG 43.5 mmHg (35.0-45.0); PO2 ABG 58.5 mmHg (80.0-100.0); PO2 FiO2 Ratio Arterial Blood 0.84 %; Reduced Hemoglobin 10.8 %THb (0-5.0); Total Hemoglobin 13.3 g/dL (12.0-18.0); pH ABG 7.479 (7.350-7.450)
[2021-03-17 05:44] LABS: Arterial Blood Gas PEEP 8 cmH2O; Arterial Blood Gas Tidal Volume 520 ml; Arterial Blood Gas Vent Mode CMV; Arterial Blood Gas Ventilator rate 22 /MIN; Device VENTILATOR; Modified Allen's Test Unable to perform; Site Drawn LEFT RADIAL
[2021-03-17] MEDS: CARBIDOPA/LEVODOPA 25/100 MG TABLET 2 TABLET PO ×5 (05:48→20:47)
[2021-03-17] MEDS: CENTRAL LINE FLUSH 10 ML IV PUSH ×3 (05:49→20:48)
[2021-03-17 05:59] LABS: Basophils Absolute Auto 0.1 K/mm3 (0.0-0.1); Basophils Percent Auto 0.3 % (0.2-1.2); Eosinophils Percent Auto 0.1 % (0-4.4); Hematocrit 30.7 % (42.0-52.0); Hemoglobin 10.2 g/dL (14.0-18.0); Immature Granulocyte Absolute 0.56 K/mm3 (0.00-0.031); Immature Granulocyte Percent A 2.9 % (0-0.5); Immature Platelet Fraction Pct 10.3 % (0.9-11.2); Lymphocytes Absolute Auto 0.34 K/mm3 (0.9-3.2); Lymphocytes Percent Auto 1.8 % (18.3-44.2); Mean Corpuscular HGB Conc 33.2 g/dl (32-36); Mean Corpuscular Hemoglobin 31.6 pg (26-34); Mean Platelet Volume 11.3 fl (7.4-10.4); Monocytes Absolute Auto 0.5 K/mm3 (0.1-0.6); Monocytes Percent Auto 2.7 % (2.6-8.5); Neutrophils Absolute Auto 17.6 K/mm3 (1.3-6.7); Neutrophils Percent Auto 92.2 % (45.5-73.1); Platelet Count Result 125 k/mm3 (150-375); Red Blood Count 3.23 M/mm3 (4.6-6.20); White Blood Count 19.1 K/mm3 (4.5-10.0)
[2021-03-17 06:18] LABS: Alanine Aminotransferase 33 U/L (4-50); Albumin Level 2.8 g/dL (3.5-5.1); Alkaline Phosphatase 84 U/L (38-126); Anion Gap 5 mmol/L (8-16); Aspartate Amino Transferase 36 U/L (17-59); Bilirubin,Total 0.3 mg/dL (0.2-1.3); Blood Urea Nitrogen 32 mg/dL (9-20); Calcium 7.8 mg/dL (8.4-10.2); Carbon Dioxide 35 mmol/L (22-30); Chloride 92 mmol/L (98-107); Estimated CRCL calculation 107 ml/min; Estimated Glomerular Filt Rate > 60; Glucose 195 mg/dL (65-110); Magnesium 2.3 mg/dL (1.6-2.3); Phosphorus 3.1 mg/dL (2.5-4.5); Potassium 4.6 mmol/L (3.4-5.0); Sodium 132 mmol/L (137-145)
[2021-03-17] MEDS: PROPOFOL IV EMULSION 100 ML 12.2 MG IV CONT ×3 (07:06→20:52)
[2021-03-17] MEDS: polyethylene glycoL 3350 17 GM POWD.PACK PO (08:38)
[2021-03-17] MEDS: PANTOPRAZOLE SODIUM IV 40 MG VIAL IV PUSH (08:38)
[2021-03-17] MEDS: MINERAL OIL/WHITE PETROLATUM OINTMENT 1 APPLIC EACH EYE ×2 (08:38→20:47)
[2021-03-17] MEDS: BARICITINIB 2 MG TABLET 4 MG PO (10:22)
[2021-03-17] MEDS: ROCURONIUM BROMIDE 50 MG/5 ML VIAL IV PUSH ×2 (10:45→14:45)
[2021-03-17 11:06] LABS: Arterial Blood Gas PEEP 8 cmH2O; Arterial Blood Gas Vent Mode CMV; Arterial Blood Gas Ventilator rate 22 /MIN
[2021-03-17 11:07] LABS: Arterial Blood Gas Tidal Volume 520 ml
--- NOTE | 2021-03-17 12:02 | PCNFU ---
Nutrition Follow-Up Complete: Inadequate Oral intake as related to COVID pneumonia as evidenced by reported poor po intake and weight loss reported. Goal: Meet estimated nutritional needs Patient is progressing towards goal. We will continue current goal. Pt current nutrition is Jevity 1.2 at 70 ml/hr over 22 hours. Last recorded weight is 64.4 kg, down from 86 kg on admit. Bowel Motility:+BM reported 03/16 Labs Reviewed:Glu 195, BUN 32, Cr 0.5,Alb 2.8,Na 132 Meds Noted:Fentanyl, Versed, Sinemet, Colace, Miralax, Protonix, Propofol 12.2 ml/yt=497 kcals. Skin: WNL Additional Notes: Patient remains on mechanical vent with tube feedings of Jevity 1.2 at 70 ml/hr and tolerating per nursing. Current tube feedings plus propofol is providing 2170 kcals/85 gms protein/1243 ml water. 30 ml free water flushes q 4 hours. Will monitor daily ICU rounds, reassessing every Tuesday and Tuesday.
[2021-03-17 12:19] LABS: Glucose Point of Care 154 mg/dl (65-105)
--- NOTE | 2021-03-17 12:39 | WPDINTPN ---
Progress Note: A&P Assessment and Plan (1) Acute respiratory failure with hypoxia: Code(s): J96.01 - Acute respiratory failure with hypoxia Status: Acute Assessment and Plan: Acute respiratory failure likely related to COVID pneumonia. Patient was admitted on 03/06/2021 and was tested positive for COVID-19, 5 days prior to admission -patient was on the intermediate Unit and was maxed out on the Airvo and was not able to tolerate the BiPAP, patient was severe respiratory distress with tachypnea and hypoxia -intubated on 03/10/2021 -continue mechanical ventilation with CMV mode, currently FiO2 is a 70% I will increase the PEEP to 12 -patient was given dose of rocuronium for asynchrony with the ventilator -will plan to prone patient again today -ABG reviewed - Chest x-ray reviewed -advance ET tube by 2 cm -low tidal volume strategy to prevent volu-trauma -continue bronchodilators, continue Pulmicort -03/11/2021 discontinued ceftriaxone and azithromycin which were started on 03/08. As the white blood cell count were normal and patient was afebrile. -sedated with fentanyl and Versed infusion, OFF Nimbex (2) Pneumonia due to 2019 novel coronavirus: Code(s): U07.1 - COVID-19; J12.82 - Pneumonia due to coronavirus disease 2019 Status: Acute Assessment and Plan: Patient tested positive for COVID on 03/03. He is unvaccinated -completed course of remdesivir -continue Decadron (patient has completed 10 day course on 03/16) and Baricitinib -continue droplet, airborne and contact isolation/precautions (3) Hyponatremia: Code(s): E87.1 - Hypo-osmolality and hyponatremia Status: Acute Assessment and Plan: Sodium is at acceptable level although slightly lower than normal. Will continue to monitor (4) Parkinson's disease (tremor, stiffness, slow motion, unstable posture): Code(s): G20 - Parkinson's disease Status: Chronic Assessment and Plan: Continue with carbidopa/levodopa, primidone (5) DVT prophylaxis: Code(s): Z29.9 - Encounter for prophylactic measures, unspecified Status: Acute Assessment and Plan: Hold Lovenox as patient is thrombocytopenic. Platelet counts gradually increasing in stable - HIT antibodies and serotonin release assay negative Additional Plan Nutrition: Tolerating tube feeds, no bowel movements, patient on MiraLax, will add Dulcolax suppository p.r.n. Code status: Full code Critical care time spent: 32 minutes This dictation may have been done utilizing a voice recognition system. Attempts have been made to correct errors. However, there may be uncorrected grammatical, spelling, and recognition errors present. Due to a high probability of clinically significant, life threatening deterioration, the patient required my highest level of preparedness to intervene emergently and I personally spent this critical care time directly and personally managing the patient. This critical care time included obtaining a history; examining the patient; pulse oximetry; ordering and review of studies; arranging urgent treatment with development of a management plan; evaluation of patient's response to treatment; frequent reassessment; and discussions with other providers. It was exclusive of separately billable procedures and treating other patients and teaching time. Please see Assessment and Plan section and the rest of the note for further information on patient assessment and treatment Subjective Date/time seen: 03/17/21 12:39 Overnight events reviewed Afebrile Continues to be on mechanical ventilation 70% FiO2 and 8 of PEEP Continues to be on sedation with Versed propofol and fentanyl Vitals acceptable Interval history: Reason for consult: Acute hypoxic respiratory failure secondary to COVID pneumonia, hyponatremia, Parkinson's disease, has not received his COVID-19 vaccine Review of Systems Review of Systems: ROS unobtainable: Yes unobt
[2021-03-17] MEDS: FENTANYL 2,500MCG/NS250ML(*CRX 2,500 MCG/250 ML BAG 15 MCG IV CONT (13:03)
[2021-03-17] MEDS: DEXAMETHASONE SOD PHOS INJ 4 MG/ML VIAL 6 MG IV PUSH (13:09)
[2021-03-17 13:46] LABS: CRP 6.6 mg/dL (<1.0); Lactate Dehydrogenase 900 U/L (313-618)
[2021-03-17 14:06] LABS: Triglycerides 867 mg/dL (<150)
--- NOTE | 2021-03-17 16:37 | PM.IMPN ---
Progress Note: A&P Assessment and Plan (1) Acute respiratory failure with hypoxia: Code(s): J96.01 - Acute respiratory failure with hypoxia Status: Acute Assessment and Plan: Patient who was recently diagnosed with COVID presents with complaints of shortness of breath. He developed acute hypoxic respiratory failure felt related to COVID PNA. D-dimer was positive felt related to COVID. CTA chest 03/06 was negative for PE but did show bibasilar airspace disease. His condition worsened despite maximal therapy. IV abx were added. He is full code. His condition worsened to the point on intubation on 03/10/21. He remains intubated and sedated. Was paralyzed but stopped on 03/13. ABG noted at 7.48/44/58. Off abx now since 03/11. Lasix used intermittently. Continue Albuterol. Continue supportive care. Wean vent as tolerated. Appreciate supervisor beater room input. (2) Pneumonia due to 2019 novel coronavirus: Code(s): U07.1 - COVID-19; J12.82 - Pneumonia due to coronavirus disease 2019 Status: Acute Assessment and Plan: Patient tested positive for COVID on 03/03 (Results in the chart). He is unvaccinated. He has completed 10 days of Remdesivir and Decadron on 03/16/21. He remains on baricitinib through 03/20. The patient is on contact and droplet precautions. As above. Continue to prone patient as tolerated. Wean vent as tolerated. Decadron resumed. (3) Thrombocytopenia: Code(s): D69.6 - Thrombocytopenia, unspecified Status: Acute Assessment and Plan: Platelet count dropped to 73K before stablizing in the 80-90K range. Lovenox held. Heparin Ab negative. Suspect consumptive. Plt count better today at 125K. Follow and trend. (4) Hyponatremia: Code(s): E87.1 - Hypo-osmolality and hyponatremia Status: Acute Assessment and Plan: Sodium 132 on admission. No clear baseline. Alan 17 with UCr 139 and FENa of 0.08% to suggest prerenal. Sodium running 129-136 range and stable Continue to monitor (5) Hyperglycemia: Code(s): R73.9 - Hyperglycemia, unspecified Status: Acute Assessment and Plan: A1c 6.2. The patient's blood glucose was reviewed on 03/17 Glucose remains up and down at times but better this afternoon at 154. Continue AccuCheks covering with sliding scale. Hypoglycemia protocol available as needed. (6) Subclinical hyperthyroidism: Code(s): E05.90 - Thyrotoxicosis, unspecified without thyrotoxic crisis or storm Status: Acute Assessment and Plan: TSH is 0.058 with a FT4 elevation of 2.26. Patient either has subclinical hyperthyroidism or this is related to the steroids and euthyroid sick syndrome. Plan to repeat these values as an outpatient. (7) Parkinson's disease (tremor, stiffness, slow motion, unstable posture): Code(s): G20 - Parkinson's disease Status: Chronic Assessment and Plan: Stable. Continue with home medications of carbidopa/levodopa and primidone. (8) DVT prophylaxis: Code(s): Z29.9 - Encounter for prophylactic measures, unspecified Status: Acute Assessment and Plan: Lovenox stopped due to low plt count. Subjective Date/time seen: 03/17/21 16:37 Interval history: 66yo male with Parkinson's disease here for COVID and respiratory failure. He is unvaccinated per the notes in the chart. No issues overnight. Tolerateing TF. Remains intubated and sedated. Review of Systems Review of Systems: ROS unobtainable: Yes unobtainable due to endotracheal tube Exam Narrative: AF 98.7 110/68 115 24 96% MV 60% with 12 PEEP Gen - intubated and sedated HEENT -ET tube and OG secured. Chest - clear anteriorly CV - RRR S1/S2. Tele showing no significant dysrhythmias Abd - Soft, ND, Positive BS - Nicholas secured draining clear yellow urine Ext - No pedal edema Neuro -sedated Skin - warm and dry Objective Data Vital Signs Vital Signs: Vital Signs - 24 h
[2021-03-17 17:28] LABS: Glucose Point of Care 218 mg/dl (65-105)
[2021-03-17] MEDS: INSULIN ASPART (*BKC) 100 UNITS/ML SUB-Q (17:49)
[2021-03-17] MEDS: PRIMIDONE 50 MG TABLET BY MOUTH (20:48)
[2021-03-18] VITALS (32 sets, daily range): BP systolic 113–140; BP diastolic 68–82; PULSE 85–121; RESP 16–29; TEMP 36.7–37.8; O2SAT 88–98
[2021-03-18 00:24] LABS: Glucose Point of Care 189 mg/dl (65-105)
[2021-03-18] MEDS: ALBUTEROL SULFATE NEB 2.5 MG/0.5 ML INH INHALATION ×2 (02:20→08:51)
[2021-03-18] MEDS: PROPOFOL IV EMULSION 100 ML 12.2 MG IV CONT ×2 (04:53→12:51)
[2021-03-18] MEDS: FENTANYL 2,500MCG/NS250ML(*CRX 2,500 MCG/250 ML BAG 17.5 MCG IV CONT ×2 (05:09→17:34)
[2021-03-18] MEDS: CARBIDOPA/LEVODOPA 25/100 MG TABLET 2 TABLET PO ×5 (05:11→21:35)
[2021-03-18 05:15] LABS: Basophils Absolute Auto 0.1 K/mm3 (0.0-0.1); Basophils Percent Auto 0.4 % (0.2-1.2); Eosinophils Percent Auto 0.2 % (0-4.4); Hematocrit 31.5 % (42.0-52.0); Hemoglobin 10.4 g/dL (14.0-18.0); Immature Granulocyte Absolute 0.46 K/mm3 (0.00-0.031); Immature Granulocyte Percent A 2.5 % (0-0.5); Immature Platelet Fraction Pct 8.2 % (0.9-11.2); Lymphocytes Absolute Auto 0.39 K/mm3 (0.9-3.2); Lymphocytes Percent Auto 2.1 % (18.3-44.2); Mean Corpuscular Hemoglobin 31.2 pg (26-34); Mean Corpuscular Volume 94.6 fl (80-100); Mean Platelet Volume 11.1 fl (7.4-10.4); Monocytes Absolute Auto 0.4 K/mm3 (0.1-0.6); Monocytes Percent Auto 2.3 % (2.6-8.5); Neutrophils Absolute Auto 17.3 K/mm3 (1.3-6.7); Neutrophils Percent Auto 92.5 % (45.5-73.1); Platelet Count Result 139 k/mm3 (150-375); Red Blood Count 3.33 M/mm3 (4.6-6.20); Red Cell Distribution Width 13.1 % (11.5-14.5); White Blood Count 18.6 K/mm3 (4.5-10.0)
[2021-03-18 05:17] LABS: Base Excess ABG 7.4 mEq/l (+/-2.0); Carboxyhemoglobin 0.2 % THb (0-2.0); Device VENTILATOR; Fractional Inspired Oxygen 55 %; HCO3 ABG 32.1 mEq/l (22.0-26.0); Methemoglobin ABG 0.3 %THb (0-1.5); Modified Allen's Test Unable to perform; Oxygen Content ABG 14.5 %vol (16.0-22.0); Oxygen Saturation ABG 97.1 % (95.0-100.0); Oxyhemoglobin 95.3 % THb (90.0-100.0); PO2 FiO2 Ratio Arterial Blood 1.62 %; Reduced Hemoglobin 4.2 %THb (0-5.0); Site Drawn LEFT RADIAL; Total Hemoglobin 10.7 g/dL (12.0-18.0); pH ABG 7.461 (7.350-7.450)
[2021-03-18 05:18] LABS: Arterial Blood Gas PEEP 12 cmH2O; Arterial Blood Gas Tidal Volume 480 ml; Arterial Blood Gas Vent Mode CMV; Arterial Blood Gas Ventilator rate 22 /MIN
[2021-03-18 05:28] LABS: Alanine Aminotransferase 23 U/L (4-50); Albumin Level 2.7 g/dL (3.5-5.1); Alkaline Phosphatase 99 U/L (38-126); Anion Gap 5 mmol/L (8-16); Aspartate Amino Transferase 37 U/L (17-59); Bilirubin,Total 0.5 mg/dL (0.2-1.3); Blood Urea Nitrogen 32 mg/dL (9-20); Calcium 7.6 mg/dL (8.4-10.2); Carbon Dioxide 34 mmol/L (22-30); Chloride 92 mmol/L (98-107); Estimated CRCL calculation 107 ml/min; Estimated Glomerular Filt Rate > 60; Glucose 150 mg/dL (65-110); Magnesium 2.2 mg/dL (1.6-2.3); Potassium 5.3 mmol/L (3.4-5.0); Sodium 131 mmol/L (137-145)
[2021-03-18] MEDS: CENTRAL LINE FLUSH 10 ML IV PUSH ×3 (05:41→21:35)
[2021-03-18 05:42] LABS: Triglycerides 64 mg/dL (<150)
[2021-03-18] MEDS: BARICITINIB 2 MG TABLET 4 MG PO (08:45)
[2021-03-18] MEDS: PANTOPRAZOLE SODIUM IV 40 MG VIAL IV PUSH (08:45)
[2021-03-18] MEDS: polyethylene glycoL 3350 17 GM POWD.PACK PO (08:45)
[2021-03-18] MEDS: DEXAMETHASONE SOD PHOS INJ 4 MG/ML VIAL 6 MG IV PUSH (08:45)
[2021-03-18] MEDS: MINERAL OIL/WHITE PETROLATUM OINTMENT 1 APPLIC EACH EYE ×2 (08:45→21:35)
--- NOTE | 2021-03-18 11:43 | PCFNICU ---
ICU Rounding Note: Pt current nutrition is Jevity 1.2 at 70 ml/hr over 22 hours. Last recorded weight is 64.4 kg, down from 68 kg on admit. Bowel Motility:+BM reported 03/17 Labs Reviewed:Glu 150, BUN 32, Cr 0.5, Na 131, K 5.3, Hct 31.5,Hgb 10.4 Meds Noted: Decadron, Colace, Fentanyl, Versed, Sinemet, Propofol 12.2 ml/fw=546 kcals Skin: WNL Additional Notes: Patient remains on mechanical vent and tube feedings of Jevity 1.2 at 70 ml/hr and tolerating. Will continue to monitor propofol, for tube feeding rate adjustments. Prone later today. Following daily in ICU rounds. Will reassess every Tuesday and Tuesday.
[2021-03-18 11:55] LABS: Glucose Point of Care 225 mg/dl (65-105)
--- NOTE | 2021-03-18 12:44 | WPDINTPN ---
Progress Note: A&P Assessment and Plan (1) Acute respiratory failure with hypoxia: Code(s): J96.01 - Acute respiratory failure with hypoxia Status: Acute Assessment and Plan: Acute respiratory failure likely related to COVID pneumonia. Patient was admitted on 03/06/2021 and was tested positive for COVID-19, 5 days prior to admission -patient was on the intermediate Unit and was maxed out on the Airvo and was not able to tolerate the BiPAP, patient was severe respiratory distress with tachypnea and hypoxia -intubated on 03/10/2021 -continue mechanical ventilation with CMV mode, currently FiO2 is a 55% and peep is at 12 -patient was given dose of rocuronium yesterday for asynchrony with the ventilator -will plan to prone patient again today. Continue to use Neuromuscular martina p.r.n. -ABG reviewed - Chest x-ray reviewed -advance ET tube by 3 cm -low tidal volume strategy to prevent volu-trauma -continue bronchodilators, continue Pulmicort -03/11/2021 discontinued ceftriaxone and azithromycin which were started on 03/08. As the white blood cell count were normal and patient was afebrile. -sedated with fentanyl and Versed infusion, OFF Nimbex (2) Pneumonia due to 2019 novel coronavirus: Code(s): U07.1 - COVID-19; J12.82 - Pneumonia due to coronavirus disease 2019 Status: Acute Assessment and Plan: Patient tested positive for COVID on 03/03. He is unvaccinated -completed course of remdesivir -continue extended course of Decadron (patient has completed 10 day course on 03/16) and Baricitinib -continue droplet, airborne and contact isolation/precautions (3) Hyponatremia: Code(s): E87.1 - Hypo-osmolality and hyponatremia Status: Acute Assessment and Plan: Sodium is at acceptable level although slightly lower than normal. Will continue to monitor (4) Parkinson's disease (tremor, stiffness, slow motion, unstable posture): Code(s): G20 - Parkinson's disease Status: Chronic Assessment and Plan: Continue with carbidopa/levodopa, primidone (5) DVT prophylaxis: Code(s): Z29.9 - Encounter for prophylactic measures, unspecified Status: Acute Assessment and Plan: Hold Lovenox as patient is thrombocytopenic. Platelet counts gradually increasing and stable - HIT antibodies and serotonin release assay negative (6) Electrolyte abnormality: Code(s): E87.8 - Other disorders of electrolyte and fluid balance, not elsewhere classified Status: Acute Assessment and Plan: K 5.3 with normal renal function Could be secondary to hyperglycemia Will treat hyperglycemia with insulin and also give a dose of Kayexalate Additional Plan Nutrition: Tolerating tube feeds, no bowel movements, patient on MiraLax, will add Dulcolax suppository p.r.n. Code status: Full code Critical care time spent: 32 minutes This dictation may have been done utilizing a voice recognition system. Attempts have been made to correct errors. However, there may be uncorrected grammatical, spelling, and recognition errors present. Due to a high probability of clinically significant, life threatening deterioration, the patient required my highest level of preparedness to intervene emergently and I personally spent this critical care time directly and personally managing the patient. This critical care time included obtaining a history; examining the patient; pulse oximetry; ordering and review of studies; arranging urgent treatment with development of a management plan; evaluation of patient's response to treatment; frequent reassessment; and discussions with other providers. It was exclusive of separately billable procedures and treating other patients and teaching time. Please see Assessment and Plan section and the rest of the note for further information on patient assessment and treatment Subjective Date/time seen: 03/18/21 12:44 Overnight events reviewed Afebrile Continue
[2021-03-18] MEDS: SODIUM POLYSTYRENE SULFONONATE 15 GM/60 ML BTL 30 GM FEED TUBE (12:48)
[2021-03-18] MEDS: INSULIN ASPART (*BKC) 100 UNITS/ML SUB-Q (12:50)
[2021-03-18] MEDS: INSULIN GLARGINE (*BKC) 100 UNITS/ML 10 UNITS SUB-Q (14:08)
[2021-03-18] MEDS: MIDAZOLAM 100MG/NS 100ML(*CRX) 100 MG/100 ML BAG 6 MG IV CONT (16:18)
[2021-03-18 16:50] LABS: Glucose Point of Care 198 mg/dl (65-105)
--- NOTE | 2021-03-18 17:25 | PM.IMPN ---
Progress Note: A&P Assessment and Plan (1) Acute respiratory failure with hypoxia: Code(s): J96.01 - Acute respiratory failure with hypoxia Status: Acute Assessment and Plan: Patient who was recently diagnosed with COVID presents with complaints of shortness of breath. He developed acute hypoxic respiratory failure felt related to COVID PNA. D-dimer was positive but CTA chest 03/06 was negative for PE but did show bibasilar airspace disease. His condition worsened despite maximal therapy. IV abx were added. He is full code. His condition worsened to the point on intubation on 03/10/21. He remains intubated and sedated. Was paralyzed but stopped on 03/13. ABG noted at 7.46/46/89. Off abx now since 03/11. Lasix used intermittently. Continue supportive care. Wean vent as tolerated. Appreciate silk washing machine operator input. (2) Pneumonia due to 2019 novel coronavirus: Code(s): U07.1 - COVID-19; J12.82 - Pneumonia due to coronavirus disease 2019 Status: Acute Assessment and Plan: Patient tested positive for COVID on 03/03 (Results in the chart). He is unvaccinated. He has completed 10 days of Remdesivir and Decadron on 03/16/21. He remains on baricitinib through 03/20. The patient is on contact and droplet precautions. Decadron resumed 03/17. As above. Continue to prone patient as tolerated. Wean vent as tolerated. (3) Thrombocytopenia: Code(s): D69.6 - Thrombocytopenia, unspecified Status: Acute Assessment and Plan: Platelet count dropped to 73K before climbing to 139K. Lovenox held. Heparin Ab negative. Suspect consumptive. Plt contnues to improve. Follow and trend. (4) Hyponatremia: Code(s): E87.1 - Hypo-osmolality and hyponatremia Status: Acute Assessment and Plan: Sodium 132 on admission. No clear baseline. Alan 17 with UCr 139 and FENa of 0.08% to suggest prerenal. Sodium running 129-134 range and stable. Continue to monitor (5) Hyperglycemia: Code(s): R73.9 - Hyperglycemia, unspecified Status: Acute Assessment and Plan: A1c 6.2. The patient's blood glucose was reviewed on 03/18 Glucose remains elevated related to steroids. Continue AccuCheks covering with sliding scale. Hypoglycemia protocol available as needed. Continue Lantus (6) Subclinical hyperthyroidism: Code(s): E05.90 - Thyrotoxicosis, unspecified without thyrotoxic crisis or storm Status: Acute Assessment and Plan: TSH is 0.058 with a FT4 elevation of 2.26. Patient either has subclinical hyperthyroidism or this is related to the steroids and euthyroid sick syndrome. Plan to repeat these values as an outpatient. (7) Parkinson's disease (tremor, stiffness, slow motion, unstable posture): Code(s): G20 - Parkinson's disease Status: Chronic Assessment and Plan: Stable. Continue with home medications of carbidopa/levodopa and primidone. (8) DVT prophylaxis: Code(s): Z29.9 - Encounter for prophylactic measures, unspecified Status: Acute Assessment and Plan: Lovenox stopped due to low plt count. plt count better - resume Lovenox? Arixtra? Subjective Date/time seen: 03/18/21 17:25 Interval history: 66yo male with Parkinson's disease here for COVID and respiratory failure. He is unvaccinated per the notes in the chart. Patient remains intubated and sedated. No issues overnight. Toelrating lying prone. Review of Systems Review of Systems: ROS unobtainable: Yes unobtainable due to endotracheal tube Exam Narrative: Tm 100.0 99.3 130/75 100 28 95% MV 55% with 12 PEEP Gen - intubated and sedated; lying prone HEENT -ET tube and OG secured. Chest - coarse with bronchial BS in the bases R>L CV - RRR S1/S2. Tele showing no significant dysrhythmias Abd - Soft - Nicholas secured draining clear yellow urine Ext - trace pedal edema Neuro -sedated Skin - warm and dry Objective Data Vital Signs Vital
[2021-03-18] MEDS: PROPOFOL IV EMULSION 100 ML 14.24 MG IV CONT (17:38)
[2021-03-18 18:36] LABS: Anion Gap 5 mmol/L (8-16); Blood Urea Nitrogen 30 mg/dL (9-20); Calcium 6.8 mg/dL (8.4-10.2); Carbon Dioxide 34 mmol/L (22-30); Chloride 91 mmol/L (98-107); Estimated CRCL calculation 131 ml/min; Estimated Glomerular Filt Rate > 60; Glucose 184 mg/dL (65-110); Potassium 4.5 mmol/L (3.4-5.0); Sodium 130 mmol/L (137-145)
[2021-03-18 20:12] LABS: Glucose Point of Care 191 mg/dl (65-105)
[2021-03-18] MEDS: PRIMIDONE 50 MG TABLET BY MOUTH (21:35)
[2021-03-19] VITALS (35 sets, daily range): BP systolic 103–161; BP diastolic 67–90; PULSE 79–115; RESP 19–32; TEMP 36.1–37.4; O2SAT 91–100
[2021-03-19] MEDS: PROPOFOL IV EMULSION 100 ML 14.24 MG IV CONT ×2 (01:22→10:34)
[2021-03-19 01:51] LABS: Glucose Point of Care 175 mg/dl (65-105)
[2021-03-19 05:13] LABS: Basophils Absolute Auto 0.1 K/mm3 (0.0-0.1); Basophils Percent Auto 0.3 % (0.2-1.2); Eosinophils Absolute Auto 0.1 K/mm3 (0-0.3); Eosinophils Percent Auto 0.8 % (0-4.4); Hematocrit 28.8 % (42.0-52.0); Hemoglobin 9.5 g/dL (14.0-18.0); Immature Granulocyte Absolute 0.38 K/mm3 (0.00-0.031); Immature Granulocyte Percent A 2.5 % (0-0.5); Lymphocytes Absolute Auto 0.49 K/mm3 (0.9-3.2); Lymphocytes Percent Auto 3.3 % (18.3-44.2); Mean Corpuscular Hemoglobin 31.4 pg (26-34); Mean Platelet Volume 10.8 fl (7.4-10.4); Monocytes Absolute Auto 0.3 K/mm3 (0.1-0.6); Monocytes Percent Auto 2.2 % (2.6-8.5); Neutrophils Absolute Auto 13.6 K/mm3 (1.3-6.7); Neutrophils Percent Auto 90.9 % (45.5-73.1); Platelet Count Result 133 k/mm3 (150-375); Red Blood Count 3.03 M/mm3 (4.6-6.20); Red Cell Distribution Width 13.2 % (11.5-14.5); White Blood Count 14.9 K/mm3 (4.5-10.0)
[2021-03-19] MEDS: CARBIDOPA/LEVODOPA 25/100 MG TABLET 2 TABLET PO ×5 (05:33→21:26)
[2021-03-19 05:34] LABS: Alanine Aminotransferase 22 U/L (4-50); Albumin Level 2.5 g/dL (3.5-5.1); Alkaline Phosphatase 87 U/L (38-126); Aspartate Amino Transferase 32 U/L (17-59); Bilirubin,Total 0.4 mg/dL (0.2-1.3); Blood Urea Nitrogen 29 mg/dL (9-20); Calcium 7.5 mg/dL (8.4-10.2); Carbon Dioxide > 40 mmol/L (22-30); Chloride 92 mmol/L (98-107); Estimated CRCL calculation 131 ml/min; Estimated Glomerular Filt Rate > 60; Glucose 154 mg/dL (65-110); Lactate Dehydrogenase 638 U/L (313-618); Magnesium 2.2 mg/dL (1.6-2.3); Phosphorus 2.8 mg/dL (2.5-4.5); Potassium 4.1 mmol/L (3.4-5.0); Sodium 131 mmol/L (137-145)
[2021-03-19] MEDS: CENTRAL LINE FLUSH 10 ML IV PUSH ×3 (05:34→21:26)
[2021-03-19 05:43] LABS: CRP 16.3 mg/dL (<1.0)
[2021-03-19 06:03] LABS: Alveolar/Arterial O2 Gradient 214.3 mmHg; Base Excess ABG 12.5 mEq/l (+/-2.0); Carboxyhemoglobin 0.3 % THb (0-2.0); Fractional Inspired Oxygen 50 %; HCO3 ABG 37.7 mEq/l (22.0-26.0); Methemoglobin ABG 0.2 %THb (0-1.5); Oxygen Content ABG 15.1 %vol (16.0-22.0); Oxygen Saturation ABG 96.8 % (95.0-100.0); PCO2 ABG 51.7 mmHg (35.0-45.0); PO2 FiO2 Ratio Arterial Blood 1.68 %; Reduced Hemoglobin 4.5 %THb (0-5.0); Total Hemoglobin 11.2 g/dL (12.0-18.0); pH ABG 7.481 (7.350-7.450)
[2021-03-19 06:04] LABS: Arterial Blood Gas PEEP 12 cmH2O; Arterial Blood Gas Tidal Volume 480 ml; Arterial Blood Gas Vent Mode CMV; Arterial Blood Gas Ventilator rate 22 /MIN; Device VENTILATOR; Modified Allen's Test Unable to perform; Site Drawn RIGHT RADIAL
[2021-03-19] MEDS: INSULIN GLARGINE (*BKC) 100 UNITS/ML 10 UNITS SUB-Q (08:37)
[2021-03-19] MEDS: BARICITINIB 2 MG TABLET 4 MG PO (08:37)
[2021-03-19] MEDS: MINERAL OIL/WHITE PETROLATUM OINTMENT 1 APPLIC EACH EYE ×2 (08:37→21:26)
[2021-03-19] MEDS: polyethylene glycoL 3350 17 GM POWD.PACK PO (08:37)
[2021-03-19] MEDS: PANTOPRAZOLE SODIUM IV 40 MG VIAL IV PUSH (08:37)
[2021-03-19] MEDS: DEXAMETHASONE SOD PHOS INJ 4 MG/ML VIAL 6 MG IV PUSH (08:37)
[2021-03-19 09:23] LABS: Glucose Point of Care 150 mg/dl (65-105)
[2021-03-19] MEDS: FENTANYL 2,500MCG/NS250ML(*CRX 2,500 MCG/250 ML BAG 15 MCG IV CONT (11:40)
--- NOTE | 2021-03-19 11:50 | PCFNICU ---
ICU Rounding Note: Pt current nutrition is Jevity 1.2 at 70 ml/hr over 22 hours. Last recorded weight is 64.4 kg, down from 68 kg on admit. Bowel Motility:+BM reported 03/19 Labs Reviewed:Glu 154, BUN 29, Cr 0.4,Alb 2.5,Hct 28.8,Hgb 9.5 Meds Noted:Fentanyl, Versed, Sinemet, Protonix, Decadron, Colace, Miralax, Lantus, Propofol 14.24 ml/zj=657 kcals Skin:WNL Additional Notes: Patient remains on mechanical vent and tube feedings of Jevity 1.2 at 70 ml/hr and tolerating per nursing. Tube feedings are at appropriate rate 2/2 to propofol amounts. Will continue to monitor tube feeding rate with propofol rates. Free water flush 30 ml q 4 hours. Following daily in ICU rounds. Reassessing every Tuesday and Tuesday.
--- NOTE | 2021-03-19 12:47 | WPDINTPN ---
Progress Note: A&P Assessment and Plan (1) Acute respiratory failure with hypoxia: Code(s): J96.01 - Acute respiratory failure with hypoxia Status: Acute Assessment and Plan: Acute respiratory failure likely related to COVID pneumonia. Patient was admitted on 03/06/2021 and was tested positive for COVID-19, 5 days prior to admission -patient was on the intermediate Unit and was maxed out on the Airvo and was not able to tolerate the BiPAP, patient was severe respiratory distress with tachypnea and hypoxia -intubated on 03/10/2021 -continue mechanical ventilation with CMV mode, currently FiO2 is a 50% and peep is at 12 -will plan to prone patient again today. Continue to use Neuromuscular martina p.r.n. -ABG reviewed. Patient over breathing the ventilator hence will decrease the tidal volume - Chest x-ray reviewed -low tidal volume strategy to prevent volu-trauma -continue bronchodilators, continue Pulmicort -03/11/2021 discontinued ceftriaxone and azithromycin which were started on 03/08. As the white blood cell count were normal and patient was afebrile. -sedated with fentanyl and Versed infusion, OFF Nimbex (2) Pneumonia due to 2019 novel coronavirus: Code(s): U07.1 - COVID-19; J12.82 - Pneumonia due to coronavirus disease 2019 Status: Acute Assessment and Plan: Patient tested positive for COVID on 03/03. He is unvaccinated -completed course of remdesivir -continue extended course of Decadron (patient has completed 10 day course on 03/16) He will complete a course of Baricitinib on 03/20 -continue droplet, airborne and contact isolation/precautions (3) Hyponatremia: Code(s): E87.1 - Hypo-osmolality and hyponatremia Status: Acute Assessment and Plan: Sodium is at acceptable level although slightly lower than normal. Will continue to monitor (4) Parkinson's disease (tremor, stiffness, slow motion, unstable posture): Code(s): G20 - Parkinson's disease Status: Chronic Assessment and Plan: Continue with carbidopa/levodopa, primidone (5) DVT prophylaxis: Code(s): Z29.9 - Encounter for prophylactic measures, unspecified Status: Acute Assessment and Plan: Hold Lovenox as patient is thrombocytopenic. Platelet counts gradually increasing and stable - HIT antibodies and serotonin release assay negative (6) Electrolyte abnormality: Code(s): E87.8 - Other disorders of electrolyte and fluid balance, not elsewhere classified Status: Acute Assessment and Plan: Potassium improved with insulin and also give a dose of Kayexalate Additional Plan Nutrition: Tolerating tube feeds, patient on MiraLax, Dulcolax suppository p.r.n. Code status: Full code Critical care time spent: 30 minutes This dictation may have been done utilizing a voice recognition system. Attempts have been made to correct errors. However, there may be uncorrected grammatical, spelling, and recognition errors present. Due to a high probability of clinically significant, life threatening deterioration, the patient required my highest level of preparedness to intervene emergently and I personally spent this critical care time directly and personally managing the patient. This critical care time included obtaining a history; examining the patient; pulse oximetry; ordering and review of studies; arranging urgent treatment with development of a management plan; evaluation of patient's response to treatment; frequent reassessment; and discussions with other providers. It was exclusive of separately billable procedures and treating other patients and teaching time. Please see Assessment and Plan section and the rest of the note for further information on patient assessment and treatment Subjective Date/time seen: 03/19/21 12:47 Overnight events reviewed Afebrile Continues to be on mechanical ventilation 12 PEEP and 50% covered He was placed in prone position overnight C
[2021-03-19] MEDS: INSULIN ASPART (*BKC) 100 UNITS/ML SUB-Q (12:56)
[2021-03-19 15:00] LABS: Glucose Point of Care 204 mg/dl (65-105)
[2021-03-19] MEDS: MIDAZOLAM 100MG/NS 100ML(*CRX) 100 MG/100 ML BAG IV CONT (15:39)
[2021-03-19] MEDS: PROPOFOL IV EMULSION 100 ML 12.2 MG IV CONT (17:52)
[2021-03-19 18:22] LABS: Glucose Point of Care 145 mg/dl (65-105)
--- NOTE | 2021-03-19 18:24 | PM.IMPN ---
Progress Note: A&P Assessment and Plan (1) Acute respiratory failure with hypoxia: Code(s): J96.01 - Acute respiratory failure with hypoxia Status: Acute Assessment and Plan: Patient who was recently diagnosed with COVID presents with complaints of shortness of breath. He developed acute hypoxic respiratory failure felt related to COVID PNA. D-dimer was positive but CTA chest 03/06 was negative for PE but did show bibasilar airspace disease. His condition worsened despite maximal therapy. IV abx were added. He is full code. His condition worsened to the point on intubation on 03/10/21. He remains intubated and sedated. Was paralyzed but stopped on 03/13. Off abx now since 03/11. Lasix used intermittently. Continue supportive care. Wean vent as tolerated. Appreciate wellness nurse rn input. (2) Pneumonia due to 2019 novel coronavirus: Code(s): U07.1 - COVID-19; J12.82 - Pneumonia due to coronavirus disease 2019 Status: Acute Assessment and Plan: Patient tested positive for COVID on 03/03 (Results in the chart). He is unvaccinated. He has completed 10 days of Remdesivir and Decadron on 03/16/21. He remains on baricitinib through 03/20. The patient is on contact and droplet precautions. Decadron resumed 03/17. As above. Continue to prone patient as tolerated. Wean vent as tolerated. (3) Thrombocytopenia: Code(s): D69.6 - Thrombocytopenia, unspecified Status: Acute Assessment and Plan: Platelet count dropped to 73K before climbing to 133K today. Lovenox held. Heparin Ab negative. Suspect consumptive. Follow and trend. (4) Hyponatremia: Code(s): E87.1 - Hypo-osmolality and hyponatremia Status: Acute Assessment and Plan: Sodium 132 on admission. No clear baseline. Alan 17 with UCr 139 and FENa of 0.08% to suggest prerenal. Sodium running 129-134 range and stable. Continue to monitor (5) Hyperglycemia: Code(s): R73.9 - Hyperglycemia, unspecified Status: Acute Assessment and Plan: A1c 6.2. The patient's blood glucose was reviewed on 03/19 Glucose remains elevated related to steroids. Continue AccuCheks covering with sliding scale. Hypoglycemia protocol available as needed. Continue Lantus (6) Subclinical hyperthyroidism: Code(s): E05.90 - Thyrotoxicosis, unspecified without thyrotoxic crisis or storm Status: Acute Assessment and Plan: TSH is 0.058 with a FT4 elevation of 2.26. Patient either has subclinical hyperthyroidism or this is related to the steroids and euthyroid sick syndrome. Plan to repeat these values as an outpatient. (7) Parkinson's disease (tremor, stiffness, slow motion, unstable posture): Code(s): G20 - Parkinson's disease Status: Chronic Assessment and Plan: Stable. Continue with home medications of carbidopa/levodopa and primidone. (8) DVT prophylaxis: Code(s): Z29.9 - Encounter for prophylactic measures, unspecified Status: Acute Assessment and Plan: Lovenox stopped due to low plt count. plt count better - resume Lovenox? Arixtra? Subjective Date/time seen: 03/19/21 18:24 Interval history: 66yo male with Parkinson's disease here for COVID and respiratory failure. He is unvaccinated per the notes in the chart. Toerlating prone position. Weaned to 45% FiO2. He is having BMs. Remains intubated and sedated. Review of Systems Review of Systems: ROS unobtainable: Yes unobtainable due to endotracheal tube Exam Narrative: AF 98.3 123/76 95 22 96% MV 45% with 12 PEEP Gen - intubated and sedated; lying prone HEENT -ET tube and OG secured. Chest - coarse breath sounds with bronchial BS in the bases R>L CV - RRR S1/S2. Tele showing no significant dysrhythmias Abd - Soft - Nicholas secured draining clear yellow urine Ext - trace pedal edema Neuro -sedated Skin - warm and dry Objective Data Vital Signs Vital Signs: Vital Signs - 24 hr
[2021-03-19 20:43] LABS: Glucose Point of Care 154 mg/dl (65-105)
[2021-03-19] MEDS: PRIMIDONE 50 MG TABLET BY MOUTH (21:26)
[2021-03-20] VITALS (52 sets, daily range): BP systolic 107–142; BP diastolic 68–84; PULSE 65–105; RESP 20–27; TEMP 36.1–36.6; O2SAT 90–100
[2021-03-20 00:27] LABS: Glucose Point of Care 145 mg/dl (65-105)
[2021-03-20] MEDS: PROPOFOL IV EMULSION 100 ML 12.2 MG IV CONT ×4 (02:11→23:47)
[2021-03-20] MEDS: FENTANYL 2,500MCG/NS250ML(*CRX 2,500 MCG/250 ML BAG 15 MCG IV CONT ×2 (04:18→23:39)
[2021-03-20 04:40] LABS: Basophils Absolute Auto 0.1 K/mm3 (0.0-0.1); Basophils Percent Auto 0.3 % (0.2-1.2); Eosinophils Absolute Auto 0.1 K/mm3 (0-0.3); Hemoglobin 9.9 g/dL (14.0-18.0); Immature Granulocyte Absolute 0.34 K/mm3 (0.00-0.031); Immature Granulocyte Percent A 2.4 % (0-0.5); Lymphocytes Absolute Auto 0.61 K/mm3 (0.9-3.2); Lymphocytes Percent Auto 4.3 % (18.3-44.2); Mean Corpuscular Hemoglobin 30.7 pg (26-34); Mean Corpuscular Volume 92.9 fl (80-100); Mean Platelet Volume 10.7 fl (7.4-10.4); Monocytes Absolute Auto 0.4 K/mm3 (0.1-0.6); Monocytes Percent Auto 2.9 % (2.6-8.5); Neutrophils Absolute Auto 12.8 K/mm3 (1.3-6.7); Neutrophils Percent Auto 89.1 % (45.5-73.1); Platelet Count Result 142 k/mm3 (150-375); Red Blood Count 3.23 M/mm3 (4.6-6.20); Red Cell Distribution Width 13.2 % (11.5-14.5); White Blood Count 14.3 K/mm3 (4.5-10.0)
[2021-03-20 05:02] LABS: Alanine Aminotransferase 19 U/L (4-50); Albumin Level 2.5 g/dL (3.5-5.1); Alkaline Phosphatase 101 U/L (38-126); Anion Gap 1 mmol/L (8-16); Aspartate Amino Transferase 43 U/L (17-59); Bilirubin,Total 0.4 mg/dL (0.2-1.3); Blood Urea Nitrogen 27 mg/dL (9-20); Calcium 7.6 mg/dL (8.4-10.2); Carbon Dioxide 39 mmol/L (22-30); Chloride 92 mmol/L (98-107); Estimated CRCL calculation 131 ml/min; Estimated Glomerular Filt Rate > 60; Glucose 130 mg/dL (65-110); Magnesium 2.1 mg/dL (1.6-2.3); Phosphorus 3.1 mg/dL (2.5-4.5); Potassium 4.3 mmol/L (3.4-5.0); Sodium 132 mmol/L (137-145)
[2021-03-20] MEDS: CARBIDOPA/LEVODOPA 25/100 MG TABLET 2 TABLET PO ×5 (05:14→20:26)
[2021-03-20] MEDS: CENTRAL LINE FLUSH 10 ML IV PUSH ×3 (05:14→20:27)
[2021-03-20 05:37] LABS: Alveolar/Arterial O2 Gradient 166.1 mmHg; Base Excess ABG 6.7 mEq/l (+/-2.0); Carboxyhemoglobin 0.3 % THb (0-2.0); Device VENTILATOR; Fractional Inspired Oxygen 40 %; HCO3 ABG 30.9 mEq/l (22.0-26.0); Methemoglobin ABG 0.2 %THb (0-1.5); Modified Allen's Test Unable to perform; Oxygen Content ABG 14.8 %vol (16.0-22.0); Oxygen Saturation ABG 95.2 % (95.0-100.0); Oxyhemoglobin 92.7 % THb (90.0-100.0); PCO2 ABG 42.3 mmHg (35.0-45.0); PO2 ABG 70.5 mmHg (80.0-100.0); PO2 FiO2 Ratio Arterial Blood 1.76 %; Reduced Hemoglobin 6.8 %THb (0-5.0); Site Drawn LEFT RADIAL; Total Hemoglobin 11.3 g/dL (12.0-18.0); pH ABG 7.481 (7.350-7.450)
[2021-03-20 05:38] LABS: Arterial Blood Gas PEEP 12 cmH2O; Arterial Blood Gas Tidal Volume 480 ml; Arterial Blood Gas Vent Mode CMV; Arterial Blood Gas Ventilator rate 22 /MIN
[2021-03-20] MEDS: BARICITINIB 2 MG TABLET 4 MG PO (07:40)
[2021-03-20] MEDS: DEXAMETHASONE SOD PHOS INJ 4 MG/ML VIAL 6 MG IV PUSH (07:40)
[2021-03-20] MEDS: PANTOPRAZOLE SODIUM IV 40 MG VIAL IV PUSH (07:41)
[2021-03-20] MEDS: MINERAL OIL/WHITE PETROLATUM OINTMENT 1 APPLIC EACH EYE ×2 (07:41→20:27)
[2021-03-20] MEDS: INSULIN GLARGINE (*BKC) 100 UNITS/ML 10 UNITS SUB-Q (07:41)
[2021-03-20 08:02] LABS: Glucose Point of Care 142 mg/dl (65-105)
--- NOTE | 2021-03-20 09:54 | WPDINTPN ---
Progress Note: A&P Assessment and Plan (1) Acute respiratory failure with hypoxia: Code(s): J96.01 - Acute respiratory failure with hypoxia Status: Acute Assessment and Plan: Acute respiratory failure likely related to COVID pneumonia. Patient was admitted on 03/06/2021 and was tested positive for COVID-19, 5 days prior to admission -patient was on the intermediate Unit and was maxed out on the Airvo and was not able to tolerate the BiPAP, patient was severe respiratory distress with tachypnea and hypoxia -intubated on 03/10/2021 -continue mechanical ventilation with CMV mode, currently FiO2 is a 40% and peep is at 12 -will plan to prone patient again today. Continue to use Neuromuscular martina p.r.n. -ABG reviewed. Patient over breathing the set rate of 22 Decrease tidal volume to 450, peep to 10 - Chest x-ray pending for today -low tidal volume strategy to prevent volu-trauma -continue bronchodilators, continue Pulmicort -03/11/2021 discontinued ceftriaxone and azithromycin which were started on 03/08. As the white blood cell count were normal and patient was afebrile. -sedated with fentanyl and Versed infusion, OFF Nimbex (2) Pneumonia due to 2019 novel coronavirus: Code(s): U07.1 - COVID-19; J12.82 - Pneumonia due to coronavirus disease 2019 Status: Acute Assessment and Plan: Patient tested positive for COVID on 03/03. He is unvaccinated -completed course of remdesivir -continue extended course of Decadron (patient has completed 10 day course on 03/16) - He will complete a course of Baricitinib on 03/20 -continue droplet, airborne and contact isolation/precautions -his inflammatory markers remain high (3) Hyponatremia: Code(s): E87.1 - Hypo-osmolality and hyponatremia Status: Acute Assessment and Plan: Sodium is at acceptable level although slightly lower than normal. Will continue to monitor (4) Parkinson's disease (tremor, stiffness, slow motion, unstable posture): Code(s): G20 - Parkinson's disease Status: Chronic Assessment and Plan: Continue with carbidopa/levodopa, primidone (5) DVT prophylaxis: Code(s): Z29.9 - Encounter for prophylactic measures, unspecified Status: Acute Assessment and Plan: Lovenox was held as patient is thrombocytopenic. Platelet counts gradually increasing and stable - HIT antibodies and serotonin release assay negative -resume Lovenox (6) Electrolyte abnormality: Code(s): E87.8 - Other disorders of electrolyte and fluid balance, not elsewhere classified Status: Acute Assessment and Plan: Potassium improved with insulin and also give a dose of Kayexalate Additional Plan Nutrition: Tolerating tube feeds, patient on MiraLax, Dulcolax suppository p.r.n. Code status: Full code Critical care time spent: 31 minutes This dictation may have been done utilizing a voice recognition system. Attempts have been made to correct errors. However, there may be uncorrected grammatical, spelling, and recognition errors present. Due to a high probability of clinically significant, life threatening deterioration, the patient required my highest level of preparedness to intervene emergently and I personally spent this critical care time directly and personally managing the patient. This critical care time included obtaining a history; examining the patient; pulse oximetry; ordering and review of studies; arranging urgent treatment with development of a management plan; evaluation of patient's response to treatment; frequent reassessment; and discussions with other providers. It was exclusive of separately billable procedures and treating other patients and teaching time. Please see Assessment and Plan section and the rest of the note for further information on patient assessment and treatment Subjective Date/time seen: 03/20/21 09:54 Overnight events reviewed Afebrile Continues to be on mechanical jett
[2021-03-20] MEDS: MIDAZOLAM 100MG/NS 100ML(*CRX) 100 MG/100 ML BAG IV CONT (10:31)
--- NOTE | 2021-03-20 11:18 | PCNFU ---
Nutrition Follow-Up Complete: Inadequate Oral intake as related to COVID pneumonia as evidenced by reported poor po intake and weight loss reported. goal: Meet estimated nutritional needs Patient is progressing towards goal. We will continue current goal. Pt current nutrition is Jevity 1.2 at 70 ml/hr over 22 hours. Last recorded weight is 64.4 kg, down from 68 kg on admit. Bowel Motility:+BM reported 03/20 Labs Reviewed:BUN 29, Cr 0.4,Glu 154, Na 131, Alb 2.5,Hct 28.8,Hgb 9.5 Meds Noted:Fentanyl, Versed, Sinemet, Protonix, Decadron, Colace, Propofol 12.2 ml/sc=849 kcals, Lantus, Lovenox Skin:WNL Additional Notes: Patient remains on mechanical vent and tube feedings of Jevity 1.2 at 70 ml/hr providing 1848 kcals/85 gms protein/1243 ml water. Additional 322 kcals from propofol. Free water flush 30 ml q 4 hours. Agree with diet orders. Will monitor ICU rounds daily and reassessing every Tuesday and Tuesday.
[2021-03-20 12:29] LABS: Glucose Point of Care 153 mg/dl (65-105)
--- NOTE | 2021-03-20 16:16 | PM.IMPN ---
Progress Note: A&P Assessment and Plan (1) Acute respiratory failure with hypoxia: Code(s): J96.01 - Acute respiratory failure with hypoxia Status: Acute Assessment and Plan: Patient who was recently diagnosed with COVID presents with complaints of shortness of breath. He developed acute hypoxic respiratory failure felt related to COVID PNA. D-dimer was positive but CTA chest 03/06 was negative for PE but did show bibasilar airspace disease. His condition worsened despite maximal therapy. IV abx were added. He is full code. His condition worsened to the point on intubation on 03/10/21. He remains intubated and sedated. Was paralyzed but stopped on 03/13. Off abx now since 03/11. Lasix used intermittently. Continue supportive care. Wean vent as tolerated. Appreciate loan analyst input. (2) Pneumonia due to 2019 novel coronavirus: Code(s): U07.1 - COVID-19; J12.82 - Pneumonia due to coronavirus disease 2019 Status: Acute Assessment and Plan: Patient tested positive for COVID on 03/03 (Results in the chart). He is unvaccinated. He completed 10 days of Remdesivir and Decadron on 03/16/21. He remains on baricitinib through 03/20. The patient is on contact and droplet precautions. Decadron resumed 03/17. As above. Continue to prone patient as tolerated. Wean vent as tolerated. (3) Thrombocytopenia: Code(s): D69.6 - Thrombocytopenia, unspecified Status: Acute Assessment and Plan: Platelet count dropped to 73K before climbing to 142K today. Lovenox was held. Heparin Ab negative. Suspect consumptive. Follow and trend. (4) Hyponatremia: Code(s): E87.1 - Hypo-osmolality and hyponatremia Status: Acute Assessment and Plan: Sodium 132 on admission. No clear baseline. Alan 17 with UCr 139 and FENa of 0.08% to suggest prerenal. Sodium running 129-134 range and stable. Continue to monitor (5) Hyperglycemia: Code(s): R73.9 - Hyperglycemia, unspecified Status: Acute Assessment and Plan: A1c 6.2. The patient's blood glucose was reviewed on 03/20 Glucose was elevated related to steroids but controlled now. Continue AccuCheks covering with sliding scale. Hypoglycemia protocol available as needed. Continue Lantus (6) Subclinical hyperthyroidism: Code(s): E05.90 - Thyrotoxicosis, unspecified without thyrotoxic crisis or storm Status: Acute Assessment and Plan: TSH is 0.058 with a FT4 elevation of 2.26. Patient either has subclinical hyperthyroidism or this is related to the steroids and euthyroid sick syndrome. Plan to repeat these values as an outpatient. (7) Parkinson's disease (tremor, stiffness, slow motion, unstable posture): Code(s): G20 - Parkinson's disease Status: Chronic Assessment and Plan: Stable. Continue with home medications of carbidopa/levodopa and primidone. (8) DVT prophylaxis: Code(s): Z29.9 - Encounter for prophylactic measures, unspecified Status: Acute Assessment and Plan: Lovenox stopped due to low plt count. plt count better - Lovenox resumed Subjective Date/time seen: 03/20/21 16:16 Interval history: 66yo male with Parkinson's disease here for COVID and respiratory failure. He is unvaccinated per the notes in the chart. Patient remains intubated and sedated. He is tolerating lying prone. Multiple soft BMs. Review of Systems Review of Systems: ROS unobtainable: Yes unobtainable due to endotracheal tube Exam Narrative: AF 97.3 141/79 105 26 99% MV 60% with 10 PEEP Gen - intubated and sedated; lying prone HEENT -ET tube and OG secured. Chest - markedly coarse breath sounds diffusely CV - RRR S1/S2. Tele showing no significant dysrhythmias Abd - Soft - Nicholas secured draining clear yellow urine Ext - trace pedal edema Neuro -sedated Skin - warm and dry Objective Data Vital Signs Vital Signs: Vital Signs - 24 hr 03/19/21 17:24 1
[2021-03-20 16:30] LABS: Glucose Point of Care 166 mg/dl (65-105)
[2021-03-20] MEDS: PRIMIDONE 50 MG TABLET BY MOUTH (20:25)
[2021-03-20 21:46] LABS: Glucose Point of Care 130 mg/dl (65-105)
[2021-03-20 22:03] LABS: Triglycerides 89 mg/dL (<150)
[2021-03-21] VITALS (35 sets, daily range): BP systolic 106–137; BP diastolic 63–86; PULSE 70–99; RESP 20–28; TEMP 36–37; O2SAT 92–100
[2021-03-21 01:17] LABS: Glucose Point of Care 126 mg/dl (65-105)
[2021-03-21 05:04] LABS: Alveolar/Arterial O2 Gradient 213.1 mmHg; Base Excess ABG 7.2 mEq/l (+/-2.0); Carboxyhemoglobin 0.2 % THb (0-2.0); Fractional Inspired Oxygen 50 %; HCO3 ABG 31.4 mEq/l (22.0-26.0); Methemoglobin ABG 0.1 %THb (0-1.5); Oxygen Content ABG 15.3 %vol (16.0-22.0); Oxygen Saturation ABG 97.7 % (95.0-100.0); Oxyhemoglobin 96.2 % THb (90.0-100.0); PCO2 ABG 42.7 mmHg (35.0-45.0); PO2 ABG 95.4 mmHg (80.0-100.0); PO2 FiO2 Ratio Arterial Blood 1.91 %; Reduced Hemoglobin 3.5 %THb (0-5.0); Total Hemoglobin 11.2 g/dL (12.0-18.0); pH ABG 7.484 (7.350-7.450)
[2021-03-21 05:05] LABS: Arterial Blood Gas Ventilator rate 22 /MIN; Device VENTILATOR; Modified Allen's Test Pass; Site Drawn LEFT RADIAL
[2021-03-21 05:06] LABS: Arterial Blood Gas PEEP 10 cmH2O; Arterial Blood Gas Tidal Volume 450 ml; Arterial Blood Gas Vent Mode CMV
[2021-03-21] MEDS: CARBIDOPA/LEVODOPA 25/100 MG TABLET 2 TABLET PO ×5 (05:09→21:42)
[2021-03-21] MEDS: CENTRAL LINE FLUSH 10 ML IV PUSH ×3 (05:10→21:39)
[2021-03-21 05:12] LABS: Basophils Percent Auto 0.3 % (0.2-1.2); Eosinophils Absolute Auto 0.2 K/mm3 (0-0.3); Eosinophils Percent Auto 1.2 % (0-4.4); Hematocrit 31.2 % (42.0-52.0); Hemoglobin 10.4 g/dL (14.0-18.0); Immature Granulocyte Absolute 0.45 K/mm3 (0.00-0.031); Immature Granulocyte Percent A 3.6 % (0-0.5); Lymphocytes Absolute Auto 0.51 K/mm3 (0.9-3.2); Lymphocytes Percent Auto 4.1 % (18.3-44.2); Mean Corpuscular HGB Conc 33.3 g/dl (32-36); Mean Corpuscular Volume 92.9 fl (80-100); Mean Platelet Volume 10.3 fl (7.4-10.4); Monocytes Absolute Auto 0.5 K/mm3 (0.1-0.6); Monocytes Percent Auto 3.6 % (2.6-8.5); Neutrophils Absolute Auto 10.8 K/mm3 (1.3-6.7); Neutrophils Percent Auto 87.2 % (45.5-73.1); Platelet Count Result 150 k/mm3 (150-375); Red Blood Count 3.36 M/mm3 (4.6-6.20); Red Cell Distribution Width 13.2 % (11.5-14.5); White Blood Count 12.4 K/mm3 (4.5-10.0)
[2021-03-21 05:34] LABS: Glucose Point of Care 142 mg/dl (65-105)
[2021-03-21 05:39] LABS: Alanine Aminotransferase 41 U/L (4-50); Albumin Level 2.5 g/dL (3.5-5.1); Alkaline Phosphatase 113 U/L (38-126); Anion Gap 0 mmol/L (8-16); Aspartate Amino Transferase 51 U/L (17-59); Bilirubin,Total 0.4 mg/dL (0.2-1.3); Blood Urea Nitrogen 21 mg/dL (9-20); Calcium 7.7 mg/dL (8.4-10.2); Carbon Dioxide 37 mmol/L (22-30); Chloride 91 mmol/L (98-107); Estimated CRCL calculation 131 ml/min; Estimated Glomerular Filt Rate > 60; Glucose 148 mg/dL (65-110); Potassium 4.4 mmol/L (3.4-5.0); Sodium 128 mmol/L (137-145)
[2021-03-21 05:49] LABS: CRP 12.2 mg/dL (<1.0)
[2021-03-21 06:05] LABS: Lactate Dehydrogenase 686 U/L (313-618)
[2021-03-21] MEDS: PROPOFOL IV EMULSION 100 ML 12.2 MG IV CONT ×3 (08:45→22:35)
[2021-03-21] MEDS: MIDAZOLAM 100MG/NS 100ML(*CRX) 100 MG/100 ML BAG IV CONT (08:46)
[2021-03-21] MEDS: DEXAMETHASONE SOD PHOS INJ 4 MG/ML VIAL 6 MG IV PUSH (08:49)
[2021-03-21 08:50] LABS: Ferritin > 2000.00 ng/mL (11.1-264)
[2021-03-21] MEDS: MINERAL OIL/WHITE PETROLATUM OINTMENT 1 APPLIC EACH EYE ×2 (08:50→21:39)
[2021-03-21] MEDS: PANTOPRAZOLE SODIUM IV 40 MG VIAL IV PUSH (08:50)
[2021-03-21] MEDS: polyethylene glycoL 3350 17 GM POWD.PACK PO (08:50)
[2021-03-21] MEDS: ENOXAPARIN 40 MG/0.4 ML SYRINGE SUB-Q (08:50)
[2021-03-21] MEDS: INSULIN GLARGINE (*BKC) 100 UNITS/ML 10 UNITS SUB-Q (08:54)
--- NOTE | 2021-03-21 09:03 | WPDINTPN ---
Progress Note: A&P Assessment and Plan (1) Acute respiratory failure with hypoxia: Code(s): J96.01 - Acute respiratory failure with hypoxia Status: Acute Assessment and Plan: Acute respiratory failure likely related to COVID pneumonia. Patient was admitted on 03/06/2021 and was tested positive for COVID-19, 5 days prior to admission -patient was on the intermediate Unit and was maxed out on the Airvo and was not able to tolerate the BiPAP, patient was severe respiratory distress with tachypnea and hypoxia -intubated on 03/10/2021 -continue mechanical ventilation with CMV mode, currently FiO2 is a 40% and peep is at 12 -will plan to prone patient again today. Continue to use Neuromuscular martina p.r.n. -ABG reviewed. Patient over breathing the set rate of 22 Decrease tidal volume to 450, peep to 10 - Chest x-ray pending for today -low tidal volume strategy to prevent volu-trauma -continue bronchodilators, continue Pulmicort -03/11/2021 discontinued ceftriaxone and azithromycin which were started on 03/08. As the white blood cell count were normal and patient was afebrile. -sedated with fentanyl and Versed infusion, OFF Nimbex (2) Pneumonia due to 2019 novel coronavirus: Code(s): U07.1 - COVID-19; J12.82 - Pneumonia due to coronavirus disease 2019 Status: Acute Assessment and Plan: Patient tested positive for COVID on 03/03. He is unvaccinated -completed course of remdesivir -continue extended course of Decadron (patient has completed 10 day course on 03/16) - He will complete a course of Baricitinib on 03/20 -continue droplet, airborne and contact isolation/precautions -his inflammatory markers remain high (3) Hyponatremia: Code(s): E87.1 - Hypo-osmolality and hyponatremia Status: Acute Assessment and Plan: normal saline flushes (4) Parkinson's disease (tremor, stiffness, slow motion, unstable posture): Code(s): G20 - Parkinson's disease Status: Chronic Assessment and Plan: Continue with carbidopa/levodopa, primidone (5) DVT prophylaxis: Code(s): Z29.9 - Encounter for prophylactic measures, unspecified Status: Acute Assessment and Plan: Lovenox was held as patient is thrombocytopenic. Platelet counts gradually increasing and stable - HIT antibodies and serotonin release assay negative - continue Lovenox (6) Electrolyte abnormality: Code(s): E87.8 - Other disorders of electrolyte and fluid balance, not elsewhere classified Status: Acute Assessment and Plan: Monitor Additional Plan . Code status: Full code Critical care time spent: 30 minutes This dictation may have been done utilizing a voice recognition system. Attempts have been made to correct errors. However, there may be uncorrected grammatical, spelling, and recognition errors present. Due to a high probability of clinically significant, life threatening deterioration, the patient required my highest level of preparedness to intervene emergently and I personally spent this critical care time directly and personally managing the patient. This critical care time included obtaining a history; examining the patient; pulse oximetry; ordering and review of studies; arranging urgent treatment with development of a management plan; evaluation of patient's response to treatment; frequent reassessment; and discussions with other providers. It was exclusive of separately billable procedures and treating other patients and teaching time. Please see Assessment and Plan section and the rest of the note for further information on patient assessment and treatment Subjective Date/time seen: 03/21 Overnight events reviewed. Continues to be on mechanical ventilation Interval history: 66yo male with Parkinson's disease here for COVID and respiratory failure. He is unvaccinated per the notes in the chart. Review of Systems Review of Systems: ROS unobtainable: Y
[2021-03-21 09:27] LABS: Glucose Point of Care 162 mg/dl (65-105)
[2021-03-21 15:01] LABS: Glucose Point of Care 179 mg/dl (65-105)
[2021-03-21] MEDS: FENTANYL 2,500MCG/NS250ML(*CRX 2,500 MCG/250 ML BAG 15 MCG IV CONT (16:48)
[2021-03-21 17:57] LABS: Glucose Point of Care 162 mg/dl (65-105)
[2021-03-21] MEDS: PRIMIDONE 50 MG TABLET BY MOUTH (21:45)
[2021-03-21 21:58] LABS: Glucose Point of Care 126 mg/dl (65-105)
[2021-03-22] VITALS (35 sets, daily range): BP systolic 107–146; BP diastolic 64–83; PULSE 70–111; RESP 22–37; TEMP 36.4–37.4; O2SAT 91–100
[2021-03-22 00:54] LABS: Glucose Point of Care 104 mg/dl (65-105)
[2021-03-22] MEDS: MIDAZOLAM 100MG/NS 100ML(*CRX) 100 MG/100 ML BAG 6 MG IV CONT ×2 (03:56→20:43)
[2021-03-22] MEDS: CARBIDOPA/LEVODOPA 25/100 MG TABLET 2 TABLET PO ×5 (04:12→20:45)
[2021-03-22] MEDS: CENTRAL LINE FLUSH 10 ML IV PUSH ×3 (04:12→20:47)
[2021-03-22] MEDS: PROPOFOL IV EMULSION 100 ML 12.2 MG IV CONT ×2 (04:15→11:56)
[2021-03-22 04:44] LABS: Basophils Absolute Auto 0.1 K/mm3 (0.0-0.1); Basophils Percent Auto 0.5 % (0.2-1.2); Eosinophils Absolute Auto 0.1 K/mm3 (0-0.3); Eosinophils Percent Auto 0.6 % (0-4.4); Hematocrit 29.6 % (42.0-52.0); Hemoglobin 9.9 g/dL (14.0-18.0); Immature Granulocyte Absolute 0.54 K/mm3 (0.00-0.031); Immature Granulocyte Percent A 4.2 % (0-0.5); Immature Platelet Fraction Pct 5.8 % (0.9-11.2); Lymphocytes Absolute Auto 0.41 K/mm3 (0.9-3.2); Lymphocytes Percent Auto 3.2 % (18.3-44.2); Mean Corpuscular HGB Conc 33.4 g/dl (32-36); Mean Corpuscular Volume 92.8 fl (80-100); Mean Platelet Volume 10.8 fl (7.4-10.4); Monocytes Absolute Auto 0.3 K/mm3 (0.1-0.6); Monocytes Percent Auto 2.6 % (2.6-8.5); Neutrophils Absolute Auto 11.4 K/mm3 (1.3-6.7); Neutrophils Percent Auto 88.9 % (45.5-73.1); Platelet Count Result 144 k/mm3 (150-375); Red Blood Count 3.19 M/mm3 (4.6-6.20); Red Cell Distribution Width 13.1 % (11.5-14.5); White Blood Count 12.8 K/mm3 (4.5-10.0)
[2021-03-22 04:52] LABS: Alanine Aminotransferase 23 U/L (4-50); Albumin Level 2.4 g/dL (3.5-5.1); Alkaline Phosphatase 106 U/L (38-126); Anion Gap 5 mmol/L (8-16); Aspartate Amino Transferase 42 U/L (17-59); Bilirubin,Total 0.4 mg/dL (0.2-1.3); Blood Urea Nitrogen 21 mg/dL (9-20); Calcium 7.5 mg/dL (8.4-10.2); Carbon Dioxide 34 mmol/L (22-30); Chloride 91 mmol/L (98-107); Estimated CRCL calculation 133 ml/min; Estimated Glomerular Filt Rate > 60; Glucose 114 mg/dL (65-110); Potassium 4.4 mmol/L (3.4-5.0); Sodium 130 mmol/L (137-145)
[2021-03-22 05:24] LABS: Alveolar/Arterial O2 Gradient 278.1 mmHg; Base Excess ABG 3.9 mEq/l (+/-2.0); Carboxyhemoglobin 0.3 % THb (0-2.0); Fractional Inspired Oxygen 55 %; HCO3 ABG 28.6 mEq/l (22.0-26.0); Methemoglobin ABG 0.3 %THb (0-1.5); Oxygen Content ABG 16.6 %vol (16.0-22.0); Oxygen Saturation ABG 93.6 % (95.0-100.0); Oxyhemoglobin 91.5 % THb (90.0-100.0); PCO2 ABG 43.3 mmHg (35.0-45.0); PO2 ABG 65.9 mmHg (80.0-100.0); Reduced Hemoglobin 7.9 %THb (0-5.0); Total Hemoglobin 12.9 g/dL (12.0-18.0); pH ABG 7.438 (7.350-7.450)
[2021-03-22 05:25] LABS: Device VENTILATOR; Modified Allen's Test Pass; Site Drawn LEFT RADIAL
[2021-03-22 05:26] LABS: Arterial Blood Gas PEEP 10 cmH2O; Arterial Blood Gas Tidal Volume 420 ml; Arterial Blood Gas Vent Mode CMV; Arterial Blood Gas Ventilator rate 22 /MIN
[2021-03-22] MEDS: FENTANYL 2,500MCG/NS250ML(*CRX 2,500 MCG/250 ML BAG 15 MCG IV CONT (09:16)
[2021-03-22] MEDS: PANTOPRAZOLE SODIUM IV 40 MG VIAL IV PUSH (09:19)
[2021-03-22] MEDS: ENOXAPARIN 40 MG/0.4 ML SYRINGE SUB-Q (09:19)
[2021-03-22] MEDS: MINERAL OIL/WHITE PETROLATUM OINTMENT 1 APPLIC EACH EYE ×2 (09:20→20:45)
[2021-03-22] MEDS: DEXAMETHASONE SOD PHOS INJ 4 MG/ML VIAL 6 MG IV PUSH (09:20)
[2021-03-22] MEDS: polyethylene glycoL 3350 17 GM POWD.PACK PO (09:23)
[2021-03-22] MEDS: INSULIN GLARGINE (*BKC) 100 UNITS/ML 10 UNITS SUB-Q (09:25)
--- NOTE | 2021-03-22 11:17 | WPDINTPN ---
Progress Note: A&P Assessment and Plan (1) Acute respiratory failure with hypoxia: Code(s): J96.01 - Acute respiratory failure with hypoxia Status: Acute Assessment and Plan: Acute respiratory failure likely related to COVID pneumonia. Patient was admitted on 03/06/2021 and was tested positive for COVID-19, 5 days prior to admission -patient was on the intermediate Unit and was maxed out on the Airvo and was not able to tolerate the BiPAP, patient was severe respiratory distress with tachypnea and hypoxia -intubated on 03/10/2021 -continue mechanical ventilation with CMV mode, currently FiO2 is a 50% and peep is at 10. Wean FiO2 if possible -ABG reviewed. - Chest x-ray pending for today -low tidal volume strategy to prevent volu-trauma -continue bronchodilators, continue Pulmicort -03/11/2021 discontinued ceftriaxone and azithromycin which were started on 03/08. As the white blood cell count were normal and patient was afebrile. -sedated with fentanyl and Versed infusion, OFF Nimbex. Will perform sedation holiday today (2) Pneumonia due to 2019 novel coronavirus: Code(s): U07.1 - COVID-19; J12.82 - Pneumonia due to coronavirus disease 2019 Status: Acute Assessment and Plan: Patient tested positive for COVID on 03/03. He is unvaccinated -completed course of remdesivir -continue extended course of Decadron (patient has completed 10 day course on 03/16) - he completed a course of Baricitinib on 03/20 -continue droplet, airborne and contact isolation/precautions -his inflammatory markers remain high (3) Hyponatremia: Code(s): E87.1 - Hypo-osmolality and hyponatremia Status: Acute Assessment and Plan: Sodium is at acceptable level although slightly lower than normal. Will continue to monitor increased normal saline tube flushes (4) Parkinson's disease (tremor, stiffness, slow motion, unstable posture): Code(s): G20 - Parkinson's disease Status: Chronic Assessment and Plan: Continue with carbidopa/levodopa, primidone (5) DVT prophylaxis: Code(s): Z29.9 - Encounter for prophylactic measures, unspecified Status: Acute Assessment and Plan: Lovenox was held as patient is thrombocytopenic. Platelet counts gradually increasing and stable - HIT antibodies and serotonin release assay negative - continue Lovenox (6) Electrolyte abnormality: Code(s): E87.8 - Other disorders of electrolyte and fluid balance, not elsewhere classified Status: Acute Assessment and Plan: Potassium improved with insulin and also give a dose of Kayexalate (7) PAD (peripheral artery disease): Code(s): I73.9 - Peripheral vascular disease, unspecified Status: Acute Assessment and Plan: patient's right foot is slightly paler and colder as compared to left but dorsalis pedis can be easily palpable. No mottling or cyanosis seen at this time check right extremity Doppler Additional Plan Nutrition: Tolerating tube feeds, patient on MiraLax, Dulcolax suppository p.r.n. Code status: Full code I spoke to patient's by phone. I updated her with patient's current status including respiratory failure, current treatment plan and answered all her questions. I discussed option of trach and PEG concerning patient has been on the ventilator for 12 days now and is not close to extubation. She is agreeable to trach and PEG if needed Critical care time spent: 30 minutes This dictation may have been done utilizing a voice recognition system. Attempts have been made to correct errors. However, there may be uncorrected grammatical, spelling, and recognition errors present. Due to a high probability of clinically significant, life threatening deterioration, the patient required my highest level of preparedness to intervene emergently and I personally spent this critical care time directly and personally managing the patient. This critical
[2021-03-22 12:10] LABS: Glucose Point of Care 149 mg/dl (65-105)
[2021-03-22 16:17] LABS: Glucose Point of Care 139 mg/dl (65-105)
--- NOTE | 2021-03-22 20:42 | PC.NURSE ---
propofol retsrated due to elevated HR, RR, and retractions.
[2021-03-22] MEDS: PRIMIDONE 50 MG TABLET BY MOUTH (20:46)
[2021-03-22] MEDS: PROPOFOL IV EMULSION 100 ML 3.1 MG IV CONT (20:55)
[2021-03-22 21:08] LABS: Glucose Point of Care 159 mg/dl (65-105)
[2021-03-22] MEDS: FENTANYL 2,500MCG/NS250ML(*CRX 2,500 MCG/250 ML BAG 20 MCG IV CONT (23:03)
[2021-03-23] VITALS (39 sets, daily range): BP systolic 93–124; BP diastolic 62–78; PULSE 65–110; RESP 18–95; TEMP 36.2–37.5; O2SAT 90–97
[2021-03-23 01:04] LABS: Glucose Point of Care 157 mg/dl (65-105)
[2021-03-23 03:49] LABS: Hematocrit 28.5 % (42.0-52.0); Hemoglobin 9.5 g/dL (14.0-18.0); Immature Platelet Fraction Pct 5.6 % (0.9-11.2); Mean Corpuscular HGB Conc 33.3 g/dl (32-36); Mean Corpuscular Hemoglobin 31.3 pg (26-34); Mean Corpuscular Volume 93.8 fl (80-100); Mean Platelet Volume 10.4 fl (7.4-10.4); Platelet Count Result 147 k/mm3 (150-375); Red Blood Count 3.04 M/mm3 (4.6-6.20); Red Cell Distribution Width 13.2 % (11.5-14.5); White Blood Count 15.7 K/mm3 (4.5-10.0)
[2021-03-23 04:17] LABS: Alanine Aminotransferase 20 U/L (4-50); Albumin Level 2.4 g/dL (3.5-5.1); Alkaline Phosphatase 112 U/L (38-126); Anion Gap 3 mmol/L (8-16); Aspartate Amino Transferase 42 U/L (17-59); Bilirubin,Total 0.4 mg/dL (0.2-1.3); Blood Urea Nitrogen 19 mg/dL (9-20); CRP 18.8 mg/dL (<1.0); Calcium 7.2 mg/dL (8.4-10.2); Carbon Dioxide 34 mmol/L (22-30); Chloride 91 mmol/L (98-107); Estimated CRCL calculation 105 ml/min; Estimated Glomerular Filt Rate > 60; Glucose 153 mg/dL (65-110); Magnesium 1.9 mg/dL (1.6-2.3); Potassium 4.6 mmol/L (3.4-5.0); Sodium 128 mmol/L (137-145); Triglycerides 112 mg/dL (<150)
[2021-03-23] MEDS: CARBIDOPA/LEVODOPA 25/100 MG TABLET 2 TABLET PO ×5 (04:25→20:11)
[2021-03-23] MEDS: CENTRAL LINE FLUSH 10 ML IV PUSH ×3 (04:25→20:12)
[2021-03-23 05:05] LABS: Lactate Dehydrogenase 751 U/L (313-618)
[2021-03-23 06:28] LABS: Base Excess ABG 5.3 mEq/l (+/-2.0); Total Hemoglobin 10.8 g/dL (12.0-18.0); pH ABG 7.544 (7.350-7.450)
[2021-03-23 06:29] LABS: Carboxyhemoglobin 0.2 % THb (0-2.0); Methemoglobin ABG 0.3 %THb (0-1.5); Oxygen Content ABG 15.3 %vol (16.0-22.0)
[2021-03-23 06:30] LABS: Device VENTILATOR; Fractional Inspired Oxygen 70 %; Modified Allen's Test Pass; PO2 FiO2 Ratio Arterial Blood 2.71 %; Reduced Hemoglobin 1.7 %THb (0-5.0); Site Drawn RIGHT RADIAL
[2021-03-23 06:31] LABS: Arterial Blood Gas PEEP 10 cmH2O; Arterial Blood Gas Tidal Volume 420 ml; Arterial Blood Gas Vent Mode CMV; Arterial Blood Gas Ventilator rate 22 /MIN
[2021-03-23 07:58] LABS: Glucose Point of Care 143 mg/dl (65-105)
[2021-03-23] MEDS: INSULIN GLARGINE (*BKC) 100 UNITS/ML 10 UNITS SUB-Q (08:45)
[2021-03-23] MEDS: ENOXAPARIN 40 MG/0.4 ML SYRINGE SUB-Q (08:49)
[2021-03-23] MEDS: PANTOPRAZOLE SODIUM IV 40 MG VIAL IV PUSH (08:49)
[2021-03-23] MEDS: DEXAMETHASONE SOD PHOS INJ 4 MG/ML VIAL 6 MG IV PUSH (08:49)
[2021-03-23] MEDS: polyethylene glycoL 3350 17 GM POWD.PACK PO (08:49)
[2021-03-23] MEDS: MINERAL OIL/WHITE PETROLATUM OINTMENT 1 APPLIC EACH EYE ×2 (08:50→20:12)
--- NOTE | 2021-03-23 11:33 | PCFNICU ---
ICU Rounding Note: Pt current nutrition is Jevity 1.2 at 70 ml/hr over 22 hours. Last recorded weight is 60.8 kg, down from 58 kg on admit. Bowel Motility:+BM reported 03/23 Labs Reviewed:Glu 153, Cr 0.4, Na 128, ALb 2.4,Hgb 9.5,Hct 28.5 Meds Noted:Fentanyl, Versed, Sinemet, Lovenox, Protonix, Decadron, Colace, Miralax, Propofol 3.1 ml/hr=82 kcals. Skin: Right Toe-Deep Tissue, Left Toe-Deep Tissue Additional Notes: Patient remains on mechanical vent and tube feedings of Jevity 1.2 at 70 ml/hr over 22 hours. Spoke with nursing today, recommending increasing tube feedings to 75 ml/hr over 22 hours due to decrease in propofol rate. Free water flush 100 ml q 4 hours. total occlusion right peroneal artery noted. Following daily in ICU rounds. Will reassess every Tuesday and Tuesday.
[2021-03-23] MEDS: FENTANYL 2,500MCG/NS250ML(*CRX 2,500 MCG/250 ML BAG 20 MCG IV CONT (11:47)
--- NOTE | 2021-03-23 12:08 | WPDINTPN ---
Progress Note: A&P Assessment and Plan (1) Acute respiratory failure with hypoxia: Code(s): J96.01 - Acute respiratory failure with hypoxia Status: Acute Assessment and Plan: Acute respiratory failure likely related to COVID pneumonia. Patient was admitted on 03/06/2021 and was tested positive for COVID-19, 5 days prior to admission -patient was on the intermediate Unit and was maxed out on the Airvo and was not able to tolerate the BiPAP, patient was severe respiratory distress with tachypnea and hypoxia -intubated on 03/10/2021 -continue mechanical ventilation with CMV mode, currently FiO2 is a 70% which I was able to wean it down to 60% t his morning and peep is at 10. Wean FiO2 if possible -ABG reviewed. - Chest x-ray review -low tidal volume strategy to prevent volu-trauma -continue bronchodilators, - patient is self diuresing -03/11/2021 discontinued ceftriaxone and azithromycin which were started on 03/08. As the white blood cell count were normal and patient was afebrile. -sedated with fentanyl and Versed infusion, OFF Nimbex. patient did not tolerate sedation holiday yesterday and became asynchronous and desaturated - ENT consulted for tracheostomy as patient is close to 2 weeks on the ventilator and is no where close to extubation (2) Pneumonia due to 2019 novel coronavirus: Code(s): U07.1 - COVID-19; J12.82 - Pneumonia due to coronavirus disease 2019 Status: Acute Assessment and Plan: Patient tested positive for COVID on 03/03. He is unvaccinated -completed course of remdesivir -continue extended course of Decadron (patient has completed 10 day course on 03/16) - he completed a course of Baricitinib on 03/20 -continue droplet, airborne and contact isolation/precautions -his inflammatory markers remain high (3) Hyponatremia: Code(s): E87.1 - Hypo-osmolality and hyponatremia Status: Acute Assessment and Plan: increase normal saline flushes (4) Parkinson's disease (tremor, stiffness, slow motion, unstable posture): Code(s): G20 - Parkinson's disease Status: Chronic Assessment and Plan: Continue with carbidopa/levodopa, primidone (5) DVT prophylaxis: Code(s): Z29.9 - Encounter for prophylactic measures, unspecified Status: Acute Assessment and Plan: Lovenox was held as patient is thrombocytopenic. Platelet counts gradually increasing and stable - HIT antibodies and serotonin release assay negative - continue Lovenox (6) Electrolyte abnormality: Code(s): E87.8 - Other disorders of electrolyte and fluid balance, not elsewhere classified Status: Acute Assessment and Plan: Potassium improved with insulin and also give a dose of Kayexalate (7) PAD (peripheral artery disease): Code(s): I73.9 - Peripheral vascular disease, unspecified Status: Acute Assessment and Plan: 03/22 patient's right foot appears slightly paler and colder as compared to left on exam but dorsalis pedis can be easily palpable. No mottling or cyanosis seen at that time right extremity duplex exam showed Total occlusion of right peroneal artery. on today's exam patient foot appears warm and similar to his left. Again the dorsalis pedis on both sides is easily palpable. This is most likely a chronic issue and not an acute limb ischemia. I have discussed case with Dr. Kwon. He will examine the patient. Additional Plan Nutrition: Tolerating tube feeds, patient on MiraLax, Dulcolax suppository p.r.n. Code status: Full code 03/22 I spoke to patient's by phone. I updated her with patient's current status including respiratory failure, current treatment plan and answered all her questions. I discussed option of trach and PEG concerning patient has been on the ventilator for 13 days now and is not close to extubation. She is agreeable to trach and PEG if needed 03/23 ENT and GI consulted for trach
[2021-03-23 12:27] LABS: Glucose Point of Care 183 mg/dl (65-105)
--- NOTE | 2021-03-23 13:14 | PM.CNCAR ---
Assessment and Plan Additional Plan This is a 66-year-old man who has been hospitalized now for 17 days with coronavirus pneumonia. He is now on the ventilator requiring mechanical ventilator support obviously with a very guarded prognosis at this time. His right foot appeared to be cool on examination over the weekend prompting a vascular ultrasound to be done. Apparently his perineal artery on the right side is occluded. His feet are getting well perfused both feet are warm with good pulses at this point I would conclude that this occlusion is likely be a chronic phenomenon since there are no acute problems with arterial insufficiency of the lower extremity. No specific further evaluation or treatment of this is necessary at this time Rahul Kwon MD [facility] History of Present Illness History of Present Illness Consult date/time: 03/23/21 13:14 Reason For Visit: covid pneumonia/acute hypoxic respiratory failure Narrative: This is a 66-year-old man I am seeing at the request of the hospitalist today in the ICU because of concern regarding some peripheral vascular disease. The patient is unknown to me prior to this encounter. He is intubated in the ICU on a ventilator because of coronavirus pneumonia. As such she of obviously is not able to provide any direct history. According to the records he presented here 17 days ago with shortness of breath and Coronavirus. After a few days he decompensated had required intubation and mechanical ventilator support and remains in ICU room 8. Since that time. Over the weekend the rerolling machine operator that was directing his care noticed that his right foot seemed cooler than the left foot and although it did have a good pulse at the time. Because of this a arterial Doppler was done which demonstrates occlusion of the peroneal artery on the right side for this reason I have been asked to see him today in consultation. Obviously there is no way to obtain any history of claudication symptoms at this time. He is sedated on ventilator support. The electrocardiogram shows sinus rhythm with a heart rate in the 80s. He has been in sinus rhythm since being hospitalized. His course of Coronavirus has not included any significant thromboembolic events according to the chart and according to the rerolling machine operator. He has not required systemic anticoagulation at this time. His FiO2 is currently 60% with 10 of PEEP. Review of Systems Review of Systems: ROS unobtainable: Yes unobtainable due to endotracheal tube PMFSH Past Medical History Medical History (Updated 03/22/21 @ 11:25 by Jordan Sands MD) Cutaneous abscess of chest wall Lipoma of anterior chest wall Parkinson's disease (tremor, stiffness, slow motion, unstable posture) Family History Family History (Updated 03/06/21 @ 22:45 by Mehreen Friedman NP) Mother Family history of type 2 diabetes mellitus, Onset Age: 84 Father Parkinsons Social History Social History (Updated 03/06/21 @ 22:46 by Mehreen Friedman NP) Social History: The patient is and lives with his . Together they have 3 children. 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 He does not use any alcohol marijuana or illicit drugs. His is the durable power title attorney. Code status. Full code. Smoking status: Never smoker Alcohol intake: current Substance use: never Spiritual care concerns: No Meds Home Medications and Allergies Home Medications Medication Instructions Recorded Confirmed Type carbidopa 25 mg-levodopa 100 mg See Rx Instructions .ROUTE .COMPLEX 06/30/20 03/06/21 History disintegrating tablet primidone 50 mg tablet See Rx Instructions .ROUTE 02/23/21 03/06/21 Rx .COMPLEX #30 tablet Allergies Allergy/AdvReac Type Severity Reaction Status Date / Time No Known Allergies Allergy Unverified 01/18/11 18:10 Vital Signs Vital Signs - 24 hr 03/22/21 14:00 03/22/21 16:00
--- NOTE | 2021-03-23 13:31 | WPDGICN ---
Assessment and Plan Assessment and plan (1) Protein calorie malnutrition: Code(s): E46 - Unspecified protein-calorie malnutrition Status: Acute Assessment and Plan: he is currently on tube feedings and would be best served with percutaneous gastrostomy for longer-term nutrition (2) Acute respiratory failure with hypoxia: Code(s): J96.01 - Acute respiratory failure with hypoxia Status: Acute Assessment and Plan: it appears that extubation is not imminent any time in the near future as he failed a holiday of sedation (3) Pneumonia due to 2019 novel coronavirus: Code(s): U07.1 - COVID-19; J12.82 - Pneumonia due to coronavirus disease 2019 Status: Acute Assessment and Plan: he has been treated with azithromycin and ceftriaxone as well as Decadron and a course of Baricitinib GI Consult Note Consult date/time: 03/23/21 13:31 HPI: Doni Gunter is a 66 year old male Who was admitted on March 06, few days after testing positive for COVID. He has developed acute respiratory failure. He was unable to tolerate BiPAP and was subsequently intubated 2 weeks ago. He is currently sedated with fentanyl and Versed. He is clearly needing nutritional support and as there is no evidence that he will be extubated in the near future I am asked to see him for placement of percutaneous gastrostomy. He is currently receiving tube feedings of Jevity 1.2 Review of Systems Review of Systems: All systems reviewed & are unremarkable except as noted in HPI and below PMFSH Past Medical History Medical History Cutaneous abscess of chest wall Lipoma of anterior chest wall Parkinson's disease (tremor, stiffness, slow motion, unstable posture) Family History Family History Mother Family history of type 2 diabetes mellitus, Onset Age: 84 Father Parkinsons Social History Social History Social History: The patient is and lives with his . Together they have 3 children. 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 He does not use any alcohol marijuana or illicit drugs. His is the durable power assistant attorney general. Code status. Full code. Smoking status: Never smoker Alcohol intake: current Substance use: never Spiritual care concerns: No Meds Home Medications and Allergies Home Medications Medication Instructions Recorded Confirmed Type carbidopa 25 mg-levodopa 100 mg See Rx Instructions .ROUTE .COMPLEX 06/30/20 03/06/21 History disintegrating tablet primidone 50 mg tablet See Rx Instructions .ROUTE 02/23/21 03/06/21 Rx .COMPLEX #30 tablet Allergies Allergy/AdvReac Type Severity Reaction Status Date / Time No Known Allergies Allergy Unverified 01/18/11 18:10 Vital Signs Vital Signs - 24 hr 03/22/21 14:00 03/22/21 16:00 03/22/21 16:20 Temperature 36.4 C Pulse Rate 87 100 99 Respiratory Rate 32 H 29 H 32 H Blood Pressure 146/83 H 142/76 H Pulse Oximetry 91 92 03/22/21 16:21 03/22/21 18:00 03/22/21 18:13 Temperature Pulse Rate 99 89 87 Respiratory Rate 33 H 31 H 31 H Blood Pressure 142/75 H Pulse Oximetry 93 03/22/21 19:57 03/22/21 20:00 03/22/21 20:25 Temperature Pulse Rate 88 105 H 93 Respiratory Rate 22 H 22 H Blood Pressure Pulse Oximetry 91 03/22/21 20:30 03/22/21 20:36 03/22/21 20:43 Temperature 37.4 C Pulse Rate 109 H 106 H 106 H Respiratory Rate 34 H 30 H 30 H Blood Pressure 140/83 Pulse Oximetry 93 03/22/21 20:55 03/22/21 22:00 03/22/21 22:40 Temperature Pulse Rate 109 H 81 81 Respiratory Rate 33 H 22 H Blood Pressure 115/66 Pulse Oximetry 97 96 03/22/21 23:03 03/23/21 00:00 03/23/21 01:00 Temperature Pulse Rate 77 87 94 Respiratory Rate 23 H 22 H
[2021-03-23] MEDS: MIDAZOLAM 100MG/NS 100ML(*CRX) 100 MG/100 ML BAG 6 MG IV CONT (13:55)
[2021-03-23] MEDS: INSULIN ASPART (*BKC) 100 UNITS/ML SUB-Q (16:43)
[2021-03-23 16:48] LABS: Glucose Point of Care 206 mg/dl (65-105)
--- NOTE | 2021-03-23 16:57 | PC.NURSE ---
It was noted that while charting sedation titration medications, in place of charting rate of respirations, this nurse charted oxygen saturation multiple times. The patient's correct rate of respiration/oxygen saturation can be noted in corresponding vital signs.
--- NOTE | 2021-03-23 16:59 | PM.IMPN ---
Progress Note: A&P Assessment and Plan (1) Acute respiratory failure with hypoxia: Code(s): J96.01 - Acute respiratory failure with hypoxia Status: Acute Assessment and Plan: Patient who was recently diagnosed with COVID presents with complaints of shortness of breath. He developed acute hypoxic respiratory failure felt related to COVID PNA. D-dimer was positive but CTA chest 03/06 was negative for PE but did show bibasilar airspace disease. His condition worsened despite maximal therapy. IV abx were added. He is full code. His condition worsened to the point on intubation on 03/10/21. He remains intubated and sedated. Was paralyzed but stopped on 03/13. Off abx now since 03/11. Lasix used intermittently. Continue supportive care. Wean vent as tolerated. Plan now for trach and PEG. Appreciate retail and promotions coordinator input. (2) Pneumonia due to 2019 novel coronavirus: Code(s): U07.1 - COVID-19; J12.82 - Pneumonia due to coronavirus disease 2019 Status: Acute Assessment and Plan: Patient tested positive for COVID on 03/03 (Results in the chart). He is unvaccinated. He completed 10 days of Remdesivir and Decadron on 03/16/21. He completed baricitinib on 03/20. The patient is on contact and droplet precautions. Decadron resumed 03/17. As above. Continue to prone patient as tolerated. Wean vent as tolerated. (3) Thrombocytopenia: Code(s): D69.6 - Thrombocytopenia, unspecified Status: Acute Assessment and Plan: Platelet count dropped to 73K before climbing to 140'sK. Lovenox was held but now resumed (on hold for procedures tomorrow). Heparin Ab negative. Suspect consumptive. Follow and trend. (4) Hyponatremia: Code(s): E87.1 - Hypo-osmolality and hyponatremia Status: Acute Assessment and Plan: Sodium 132 on admission. No clear baseline. Alan 17 with UCr 139 and FENa of 0.08% to suggest prerenal. Sodium running 128-134 range and stable. Continue to monitor (5) Hyperglycemia: Code(s): R73.9 - Hyperglycemia, unspecified Status: Acute Assessment and Plan: A1c 6.2. The patient's blood glucose was reviewed on 03/23 Glucose mostly well controlled now. Continue AccuCheks covering with sliding scale. Hypoglycemia protocol available as needed. Continue Lantus (6) Subclinical hyperthyroidism: Code(s): E05.90 - Thyrotoxicosis, unspecified without thyrotoxic crisis or storm Status: Acute Assessment and Plan: TSH is 0.058 with a FT4 elevation of 2.26. Patient either has subclinical hyperthyroidism or this is related to the steroids and euthyroid sick syndrome. Plan to repeat these values as an outpatient. (7) Parkinson's disease (tremor, stiffness, slow motion, unstable posture): Code(s): G20 - Parkinson's disease Status: Chronic Assessment and Plan: Stable. Continue with home medications of carbidopa/levodopa and primidone. (8) DVT prophylaxis: Code(s): Z29.9 - Encounter for prophylactic measures, unspecified Status: Acute Assessment and Plan: Lovenox stopped due to low plt count. plt count better so Lovenox resumed (held for procedures) Subjective Date/time seen: 03/23/21 16:59 Interval history: 66yo male with Parkinson's disease here for COVID and respiratory failure. He is unvaccinated per the notes in the chart. Resuming care. Chart reviewed. Patient remains intubated and sedated. Plan for trach and PEG placement. No issues overnight. Review of Systems Review of Systems: ROS unobtainable: Yes unobtainable due to endotracheal tube Exam Narrative: AF 97.9 104/69 78 25 97% MV 60% with 10 PEEP Gen - intubated and sedated HEENT -ET tube and OG secured. Chest - clear posteriorly CV - RRR S1/S2. Tele showing no significant dysrhythmias Abd - Soft, ND, +BS - Nicholas secured draining clear yellow urine Ext - no pedal edema Neuro -sedated Skin - warm and dry; left great
--- NOTE | 2021-03-23 17:12 | WPDCN ---
Assessment and Plan Assessment and plan (1) Respiratory failure: Code(s): J96.90 - Respiratory failure, unspecified, unspecified whether with hypoxia or hypercapnia Status: Acute Assessment and Plan: Plan is for OR for tracheostomy tomorrow. Please ensure consent is valid, please make npo and hold vte prophylaxis at midnight. HPI Data of Consult Date/Time: 03/23/21 17:12 Requesting Physician: Albin Butler MD Primary Care Provider: Rahul Martinez MD Consult Narrative Narrative: Doni Gunter is a 66 year old male with respiratory failure. Ent consulted for tracheostomy. PEEP 10, FiO2 60% Review of Systems Review of Systems: ROS unobtainable: Yes unobtainable due to endotracheal tube PMFSH Past Medical History Medical History Cutaneous abscess of chest wall Lipoma of anterior chest wall Parkinson's disease (tremor, stiffness, slow motion, unstable posture) Family History Family History Mother Family history of type 2 diabetes mellitus, Onset Age: 84 Father Parkinsons Social History Social History Social History: The patient is and lives with his . Together they have 3 children. 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 He does not use any alcohol marijuana or illicit drugs. His is the durable power senior trial attorney. Code status. Full code. Smoking status: Never smoker Alcohol intake: current Substance use: never Spiritual care concerns: No Meds Home Medications and Allergies Home Medications Medication Instructions Recorded Confirmed Type carbidopa 25 mg-levodopa 100 mg See Rx Instructions .ROUTE .COMPLEX 06/30/20 03/06/21 History disintegrating tablet primidone 50 mg tablet See Rx Instructions .ROUTE 02/23/21 03/06/21 Rx .COMPLEX #30 tablet Allergies Allergy/AdvReac Type Severity Reaction Status Date / Time No Known Allergies Allergy Unverified 01/18/11 18:10 Vital Signs Vital Signs - 24 hr 03/22/21 18:00 03/22/21 18:13 03/22/21 19:57 Temperature Pulse Rate 89 87 88 Respiratory Rate 31 H 31 H Blood Pressure 142/75 H Pulse Oximetry 93 91 03/22/21 20:00 03/22/21 20:25 03/22/21 20:30 Temperature 37.4 C Pulse Rate 105 H 93 109 H Respiratory Rate 22 H 22 H 34 H Blood Pressure 140/83 Pulse Oximetry 93 03/22/21 20:36 03/22/21 20:43 03/22/21 20:55 Temperature Pulse Rate 106 H 106 H 109 H Respiratory Rate 30 H 30 H 33 H Blood Pressure Pulse Oximetry 03/22/21 22:00 03/22/21 22:40 03/22/21 23:03 Temperature Pulse Rate 81 81 77 Respiratory Rate 22 H 23 H Blood Pressure 115/66 Pulse Oximetry 97 96 03/23/21 00:00 03/23/21 01:00 03/23/21 01:46 Temperature 37.5 C Pulse Rate 87 94 94 Respiratory Rate 22 H 27 H 33 H Blood Pressure 121/69 117/70 Pulse Oximetry 97 92 92 03/23/21 02:00 03/23/21 02:48 03/23/21 03:00 Temperature Pulse Rate 91 93 93 Respiratory Rate 25 H 20 30 H Blood Pressure 116/74 Pulse Oximetry 95 94 03/23/21 04:00 03/23/21 04:48 03/23/21 04:49 Temperature 37.5 C Pulse Rate 97 87 87 Respiratory Rate 23 H 22 H 30 H Blood Pressure 116/67 Pulse Oximetry 96 03/23/21 04:50 03/23/21 05:27 03/23/21 06:00 Temperature Pulse Rate 87 88 84 Respiratory Rate 30 H 22 H Blood Pressure 111/64 Pulse Oximetry 96 95 03/23/21 06:26 03/23/21 06:27 03/23/21 07:20 Temperature Pulse Rate 85 85 84 Respiratory Rate 23 H 23 H 33 H Blood Pressure Pulse Oximetry 03/23/21 08:00 03/23/21 08:27 03/23/21 08:28 Temperature 36.9 C Pulse Rate 90 84 84 Respiratory Rate 22 H 22 H 22 H Blood Pressure 120/72 Pulse Oximetry 90 03/23/21 09:27 03/23/21 10:00 03/23/21 11:22 Temperature Pulse Rate 90 92 110 H
--- NOTE | 2021-03-23 17:16 | PM.IMHP ---
H&P: HPI History of Present Illness Date/Time: 03/23/21 17:16 Chief Complaint: Respiratory failure Narrative: Planned tracheostomy PMFSH Past Medical History Medical History Cutaneous abscess of chest wall Lipoma of anterior chest wall Parkinson's disease (tremor, stiffness, slow motion, unstable posture) Family History Family History Mother Family history of type 2 diabetes mellitus, Onset Age: 84 Father Parkinsons Social History Social History Social History: The patient is and lives with his . Together they have 3 children. 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 He does not use any alcohol marijuana or illicit drugs. His is the durable power corporate attorney. Code status. Full code. Smoking status: Never smoker Alcohol intake: current Substance use: never Spiritual care concerns: No Meds Home Medications and Allergies Home Medications Medication Instructions Recorded Confirmed Type carbidopa 25 mg-levodopa 100 mg See Rx Instructions .ROUTE .COMPLEX 06/30/20 03/06/21 History disintegrating tablet primidone 50 mg tablet See Rx Instructions .ROUTE 02/23/21 03/06/21 Rx .COMPLEX #30 tablet Allergies Allergy/AdvReac Type Severity Reaction Status Date / Time No Known Allergies Allergy Unverified 01/18/11 18:10 Vital Signs Vital Signs - 24 hr 03/22/21 18:00 03/22/21 18:13 03/22/21 19:57 Temperature Pulse Rate 89 87 88 Respiratory Rate 31 H 31 H Blood Pressure 142/75 H Pulse Oximetry 93 91 03/22/21 20:00 03/22/21 20:25 03/22/21 20:30 Temperature 37.4 C Pulse Rate 105 H 93 109 H Respiratory Rate 22 H 22 H 34 H Blood Pressure 140/83 Pulse Oximetry 93 03/22/21 20:36 03/22/21 20:43 03/22/21 20:55 Temperature Pulse Rate 106 H 106 H 109 H Respiratory Rate 30 H 30 H 33 H Blood Pressure Pulse Oximetry 03/22/21 22:00 03/22/21 22:40 03/22/21 23:03 Temperature Pulse Rate 81 81 77 Respiratory Rate 22 H 23 H Blood Pressure 115/66 Pulse Oximetry 97 96 03/23/21 00:00 03/23/21 01:00 03/23/21 01:46 Temperature 37.5 C Pulse Rate 87 94 94 Respiratory Rate 22 H 27 H 33 H Blood Pressure 121/69 117/70 Pulse Oximetry 97 92 92 03/23/21 02:00 03/23/21 02:48 03/23/21 03:00 Temperature Pulse Rate 91 93 93 Respiratory Rate 25 H 20 30 H Blood Pressure 116/74 Pulse Oximetry 95 94 03/23/21 04:00 03/23/21 04:48 03/23/21 04:49 Temperature 37.5 C Pulse Rate 97 87 87 Respiratory Rate 23 H 22 H 30 H Blood Pressure 116/67 Pulse Oximetry 96 03/23/21 04:50 03/23/21 05:27 03/23/21 06:00 Temperature Pulse Rate 87 88 84 Respiratory Rate 30 H 22 H Blood Pressure 111/64 Pulse Oximetry 96 95 03/23/21 06:26 03/23/21 06:27 03/23/21 07:20 Temperature Pulse Rate 85 85 84 Respiratory Rate 23 H 23 H 33 H Blood Pressure Pulse Oximetry 03/23/21 08:00 03/23/21 08:27 03/23/21 08:28 Temperature 36.9 C Pulse Rate 90 84 84 Respiratory Rate 22 H 22 H 22 H Blood Pressure 120/72 Pulse Oximetry 90 03/23/21 09:27 03/23/21 10:00 03/23/21 11:22 Temperature Pulse Rate 90 92 110 H Respiratory Rate 25 H 28 H Blood Pressure 111/65 Pulse Oximetry 90 92 91 03/23/21 11:39 03/23/21 11:47 03/23/21 12:00 Temperature 36.8 C Pulse Rate 109 H 107 H 97 Respiratory Rate 30 H 92 H 23 H Blood Pressure 124/78 Pulse Oximetry 92 03/23/21 12:19 03/23/21 13:55 03/23/21 14:00 Temperature Pulse Rate 94 74 74 Respiratory Rate 95 H 19 Blood Pressure 104/66 Pulse Oximetry 91 96 03/23/21 14:04 03/23/21 15:39 03/23/21 16:00 Temperature 36.6 C Pulse Rate 77 110 H 81 Respiratory Rate 28 H 28 H Blood Pressure 104/69 Pulse Oximetry 95 91 97 03/23/21 16:55 12
[2021-03-23] MEDS: PRIMIDONE 50 MG TABLET BY MOUTH (20:11)
[2021-03-24] VITALS (41 sets, daily range): BP systolic 93–131; BP diastolic 58–83; PULSE 63–105; RESP 12–30; TEMP 36.1–36.6; O2SAT 90–97
[2021-03-24] MEDS: FENTANYL 2,500MCG/NS250ML(*CRX 2,500 MCG/250 ML BAG 20 MCG IV CONT ×2 (00:38→12:59)
[2021-03-24] MEDS: PROPOFOL IV EMULSION 100 ML 3.1 MG IV CONT (00:40)
[2021-03-24 04:09] LABS: Hematocrit 26.8 % (42.0-52.0); Hemoglobin 8.9 g/dL (14.0-18.0); Immature Platelet Fraction Pct 5.3 % (0.9-11.2); Mean Corpuscular HGB Conc 33.2 g/dl (32-36); Mean Corpuscular Hemoglobin 31.4 pg (26-34); Mean Corpuscular Volume 94.7 fl (80-100); Mean Platelet Volume 10.5 fl (7.4-10.4); Platelet Count Result 144 k/mm3 (150-375); Red Blood Count 2.83 M/mm3 (4.6-6.20); Red Cell Distribution Width 13.2 % (11.5-14.5); White Blood Count 12.3 K/mm3 (4.5-10.0)
[2021-03-24 04:22] LABS: Alanine Aminotransferase 21 U/L (4-50); Albumin Level 2.3 g/dL (3.5-5.1); Alkaline Phosphatase 112 U/L (38-126); Anion Gap 0 mmol/L (8-16); Aspartate Amino Transferase 40 U/L (17-59); Bilirubin,Total 0.2 mg/dL (0.2-1.3); Blood Urea Nitrogen 19 mg/dL (9-20); Calcium 7.4 mg/dL (8.4-10.2); Carbon Dioxide 38 mmol/L (22-30); Chloride 91 mmol/L (98-107); Estimated CRCL calculation 123 ml/min; Estimated Glomerular Filt Rate > 60; Glucose 178 mg/dL (65-110); Potassium 4.4 mmol/L (3.4-5.0); Sodium 129 mmol/L (137-145)
[2021-03-24] MEDS: CENTRAL LINE FLUSH 10 ML IV PUSH ×3 (04:38→21:26)
[2021-03-24] MEDS: CARBIDOPA/LEVODOPA 25/100 MG TABLET 2 TABLET PO ×4 (04:38→20:33)
[2021-03-24] MEDS: MIDAZOLAM 100MG/NS 100ML(*CRX) 100 MG/100 ML BAG 6 MG IV CONT ×2 (04:38→21:25)
[2021-03-24 04:48] LABS: Alveolar/Arterial O2 Gradient 332.7 mmHg; Base Excess ABG 8.8 mEq/l (+/-2.0); Carboxyhemoglobin 0.2 % THb (0-2.0); Fractional Inspired Oxygen 65 %; HCO3 ABG 34.4 mEq/l (22.0-26.0); Methemoglobin ABG 0.3 %THb (0-1.5); Oxygen Content ABG 12.7 %vol (16.0-22.0); Oxygen Saturation ABG 94.6 % (95.0-100.0); Oxyhemoglobin 92.7 % THb (90.0-100.0); PCO2 ABG 53.8 mmHg (35.0-45.0); PO2 ABG 72.2 mmHg (80.0-100.0); PO2 FiO2 Ratio Arterial Blood 1.11 %; Reduced Hemoglobin 6.8 %THb (0-5.0); Total Hemoglobin 9.7 g/dL (12.0-18.0); pH ABG 7.424 (7.350-7.450)
[2021-03-24 04:54] LABS: Device VENTILATOR; Modified Allen's Test Pass; Site Drawn RIGHT RADIAL
[2021-03-24 04:55] LABS: Arterial Blood Gas PEEP 10 cmH2O; Arterial Blood Gas Tidal Volume 420 ml; Arterial Blood Gas Vent Mode CMV; Arterial Blood Gas Ventilator rate 18 /MIN
[2021-03-24 05:41] LABS: Glucose Point of Care 112 mg/dl (65-105)
[2021-03-24 05:41] LABS: Glucose Point of Care 152 mg/dl (65-105)
--- NOTE | 2021-03-24 07:08 | WPDHPUPDATE1 ---
History and Physical Update Update Date/Time: 03/24/21 07:08 History and Physical has been reviewed, including an updated exam of the patient. There are NO changes in the patient's condition. Risks, benefits, and alternatives have been discussed and questions answered. Patient agrees to proceed with procedure.
[2021-03-24] MEDS: MINERAL OIL/WHITE PETROLATUM OINTMENT 1 APPLIC EACH EYE ×2 (08:01→20:32)
[2021-03-24] MEDS: PANTOPRAZOLE SODIUM IV 40 MG VIAL IV PUSH (08:01)
[2021-03-24] MEDS: DEXAMETHASONE SOD PHOS INJ 4 MG/ML VIAL 6 MG IV PUSH (08:01)
--- NOTE | 2021-03-24 08:08 | WPDANESEPPF ---
Anes - Initial Pre Proc Eval Procedure: Operation Date: 03/24/21 12:00 Proposed Procedures p Insertion of Percutaneous Endoscopic Gastrostomy - Mata Alfaro MD Operation Date: 03/24/21 14:00 Proposed Procedures p Tracheostomy - Xavier Smith MD Date/Time: 03/24/21 08:08 Surgeon: Albin Butler MD Pre Op Diagnosis: covid pneumonia/acute hypoxic respiratory failure Patient Data Age: 66 Gender: M Height: 1.85 m Weight: 68 kg Last Vital Signs Temp 36.2 C L 03/24/21 04:00 Pulse 76 03/24/21 06:00 Resp 19 03/24/21 06:00 BP 105/63 03/24/21 06:00 Pulse Ox 96 03/24/21 06:00 Allergies Allergy/AdvReac Type Severity Reaction Status Date / Time No Known Allergies Allergy Unverified 01/18/11 18:10 Home Medications Medication Instructions Recorded Confirmed Type carbidopa 25 mg-levodopa 100 mg See Rx Instructions .ROUTE .COMPLEX 06/30/20 03/06/21 History disintegrating tablet primidone 50 mg tablet See Rx Instructions .ROUTE 02/23/21 03/06/21 Rx .COMPLEX #30 tablet Laboratory Tests 03/23/21 03/23/21 03/23/21 12:13 16:34 19:48 WBC RBC Hgb Hct MCV MCH MCHC RDW Plt Count MPV % Immature Plt Fraction Puncture Site ABG pH ABG pCO2 ABG pO2 ABG PO2/FiO2 Ratio ABG HCO3 ABG O2 Saturation ABG O2 Content ABG Base Excess A-a Gradient Oxyhemoglobin Carboxyhemoglobin Methemoglobin Reduced Hemoglobin Total Hemoglobin O2 Delivery Device O2 Liters/Min Minute Volume Vent Rate Vent Mode FiO2 Tidal Volume PEEP Peak Inspir Pressure Pressure Support Sodium Potassium Chloride Carbon Dioxide Anion Gap BUN Creatinine Estim Creat Clear Calc Estimated GFR Glucose POC Capillary Glucose 183 mg/dl H mg/dl 206 mg/dl H mg/dl 152 mg/dl H mg/dl (65-105) (65-105) (65-105) Calcium Magnesium Total Bilirubin AST ALT Alkaline Phosphatase Total Protein Albumin 03/24/21 03/24/21 03/24/21 00:27 03:52 03:52 WBC 12.3 K/mm3 H K/mm3 (4.5-10.0) RBC 2.83 M/mm3 L M/mm3 (4.6-6.20) Hgb 8.9 g/dL L g/dL (14.0-18.0) Hct 26.8 % L % (42.0-52.0) MCV 94.7 fl fl (80-100) MCH 31.4 pg pg (26-34) MCHC 33.2 g/dl g/dl (32-36) RDW 13.2 % % (11.5-14.5) Plt Count 144 k/mm3 L k/mm3 (150-375) MPV 10.5 fl H fl (7.4-10.4) % Immature Plt Fraction 5.3 % % (0.9-11.2) Puncture Site ABG pH ABG pCO2 ABG pO2 ABG PO2/FiO2 Ratio ABG HCO3 ABG O2 Saturation ABG O2 Content ABG Base Excess A-a Gradient Oxyhemoglobin Carboxyhemoglobin Methemoglobin Reduced Hemoglobin Total Hemoglobin O2 Delivery Device O2 Liters/Min Minute Volume Vent Rate Vent Mode FiO2 Tidal Volume PEEP Peak Inspir Pressure Pressure Support Sodium 129 mmol/L L mmol/L (137-145) Potassium 4.4 mmol/L mmol/L (3.4-5.0) Chloride 91 mmol/L L mmol/L (98-107) Carbon Dioxide 38 mmol/L H mmol/L (22-30) Anion Gap 0 mmol/L L mmol/L
[2021-03-24 09:14] LABS: Glucose Point of Care 163 mg/dl (65-105)
--- NOTE | 2021-03-24 11:23 | WPDINTPN ---
Progress Note: A&P Assessment and Plan (1) Acute respiratory failure with hypoxia: Code(s): J96.01 - Acute respiratory failure with hypoxia Status: Acute Assessment and Plan: Acute respiratory failure likely related to COVID pneumonia. Patient was admitted on 03/06/2021 and was tested positive for COVID-19, 5 days prior to admission -patient was on the intermediate Unit and was maxed out on the Airvo and was not able to tolerate the BiPAP, patient was severe respiratory distress with tachypnea and hypoxia -intubated on 03/10/2021 -continue mechanical ventilation with CMV mode, currently FiO2 is a 60% Wean FiO2 if possible -ABG reviewed. - Chest x-ray reviewed. Advance ET tube by 2 cm -low tidal volume strategy to prevent volu-trauma -continue bronchodilators, -patient is scheduled for tracheostomy today -03/11/2021 discontinued ceftriaxone and azithromycin which were started on 03/08. As the white blood cell count were normal and patient was afebrile. -sedated with fentanyl and Versed infusion, OFF Nimbex. Patient did not tolerate sedation holiday yesterday and became asynchronous and desaturated (2) Pneumonia due to 2019 novel coronavirus: Code(s): U07.1 - COVID-19; J12.82 - Pneumonia due to coronavirus disease 2019 Status: Acute Assessment and Plan: Patient tested positive for COVID on 03/03. He is unvaccinated -completed course of remdesivir -continue extended course of Decadron (patient has completed 10 day course on 03/16) - he completed a course of Baricitinib on 03/20 -continue droplet, airborne and contact isolation/precautions -his inflammatory markers remain high (3) Hyponatremia: Code(s): E87.1 - Hypo-osmolality and hyponatremia Status: Acute Assessment and Plan: increase normal saline flushes (4) Parkinson's disease (tremor, stiffness, slow motion, unstable posture): Code(s): G20 - Parkinson's disease Status: Chronic Assessment and Plan: Continue with carbidopa/levodopa, primidone (5) DVT prophylaxis: Code(s): Z29.9 - Encounter for prophylactic measures, unspecified Status: Acute Assessment and Plan: Lovenox was held as patient is thrombocytopenic. Platelet counts gradually increasing and stable - HIT antibodies and serotonin release assay negative - continue Lovenox (6) Electrolyte abnormality: Code(s): E87.8 - Other disorders of electrolyte and fluid balance, not elsewhere classified Status: Acute Assessment and Plan: Potassium improved with insulin and also give a dose of Kayexalate (7) PAD (peripheral artery disease): Code(s): I73.9 - Peripheral vascular disease, unspecified Status: Acute Assessment and Plan: 03/22 patient's right foot appears slightly paler and colder as compared to left on exam but dorsalis pedis can be easily palpable. No mottling or cyanosis seen at that time right extremity duplex exam showed Total occlusion of right peroneal artery. On yesterday and today's exam patient foot appears warm and similar to his left. Again the dorsalis pedis on both sides is easily palpable. This is most likely a chronic issue and not an acute limb ischemia. I have discussed case with Dr. Kwon who evaluated and examined patient. Additional Plan Nutrition: NPO at this time for scheduled PEG tube placement, patient on MiraLax, Dulcolax suppository p.r.n. Code status: Full code 03/22 I spoke to patient's by phone. I updated her with patient's current status including respiratory failure, current treatment plan and answered all her questions. I discussed option of trach and PEG concerning patient has been on the ventilator for 13 days now and is not close to extubation. She is agreeable to trach and PEG if needed Patient is scheduled for PEG and trach today Critical care time spent: 30 minutes This dictation may have been done utilizing a voice
[2021-03-24 11:55] LABS: Glucose Point of Care 100 mg/dl (65-105)
--- NOTE | 2021-03-24 12:06 | PCNFU ---
Nutrition Follow-Up Complete: Inadequate Oral intake as related to COVID pneumonia as evidenced by reported poor po intake and weight loss reported. Goal; Meet estimated nutritional needs Patient is progressing towards goal. We will continue current goal. Pt current nutrition is NPO. Last recorded weight is 68 kg, stable. Bowel Motility:+BM reported 03/23 Labs Reviewed:Na 129, Cr 0.4,Glu 178, Alb 2.3 Meds Noted:Fentanyl, Versed, Propofol 7.74 ml/vn=223 kcals, Protonix, Decadron, Lovenox, Sinemet, Lantus Skin: Right Toe-Deep Tissue, Left Toe-Deep Tissue Additional Notes: Patient remains on mechanical vent. Tube feedings stopped for Trach and Peg placement today. Recommend restarting Jevity 1.2 goal rate at 75 ml/hr over 22 hours. Free water flush 30 ml q 4 hours. Monitoring: Will monitor in ICU rounds and reassessing every Tuesday and Tuesday.
[2021-03-24] MEDS: LIDO 1%/EPINEPHRINE 1:100,000 50 ML VIAL 30 ML INFILTRATE (15:29)
[2021-03-24] MEDS: PROPOFOL IV EMULSION 100 ML 9.29 MG IV CONT (16:13)
[2021-03-24 16:50] LABS: Glucose Point of Care 119 mg/dl (65-105)
--- NOTE | 2021-03-24 17:00 | PM.IMPN ---
Progress Note: A&P Assessment and Plan (1) Acute respiratory failure with hypoxia: Code(s): J96.01 - Acute respiratory failure with hypoxia Status: Acute Assessment and Plan: Patient who was recently diagnosed with COVID presents with complaints of shortness of breath. He developed acute hypoxic respiratory failure felt related to COVID PNA. D-dimer was positive but CTA chest 03/06 was negative for PE but did show bibasilar airspace disease. His condition worsened despite maximal therapy. IV abx were added. He is full code. His condition worsened to the point on intubation on 03/10/21. He remains intubated and sedated. Was paralyzed but stopped on 03/13. Off abx now since 03/11. Lasix used intermittently. Trach and PEG placed today. Continue supportive care. Wean vent as tolerated. Appreciate boiler service technician input. (2) Pneumonia due to 2019 novel coronavirus: Code(s): U07.1 - COVID-19; J12.82 - Pneumonia due to coronavirus disease 2019 Status: Acute Assessment and Plan: Patient tested positive for COVID on 03/03 (Results in the chart). He is unvaccinated. He completed 10 days of Remdesivir and Decadron on 03/16/21. He completed baricitinib on 03/20. The patient is on contact and droplet precautions. Decadron resumed 03/17. As above. Continue to prone patient as tolerated. Wean vent as tolerated. (3) Thrombocytopenia: Code(s): D69.6 - Thrombocytopenia, unspecified Status: Acute Assessment and Plan: Platelet count dropped to 73K before climbing to 140'sK. Lovenox was held but now resumed (on hold for procedures tomorrow). Heparin Ab negative. Suspect consumptive. Platelet count stable in the 140'sK. Follow and trend. (4) PAD (peripheral artery disease): Code(s): I73.9 - Peripheral vascular disease, unspecified Status: Acute Assessment and Plan: On 03/22, there was concern for right foot ischemia. Rith LE arterial doppler showing right peroneal artery occlusion. [place] that this is more of a chronic finding and not acute. Could be PAD and/or embolic. Add ASA. Check bilateral LE arterial doppler. (5) Hyponatremia: Code(s): E87.1 - Hypo-osmolality and hyponatremia Status: Acute Assessment and Plan: Sodium 132 on admission. No clear baseline. Alan 17 with UCr 139 and FENa of 0.08% to suggest prerenal. Sodium running 128-134 range and stable. Continue to monitor (6) Hyperglycemia: Code(s): R73.9 - Hyperglycemia, unspecified Status: Acute Assessment and Plan: A1c 6.2. The patient's blood glucose was reviewed on 03/24 Glucose mostly well controlled now. Continue AccuCheks covering with sliding scale. Hypoglycemia protocol available as needed. Resume Lantus once TF resumed (7) Subclinical hyperthyroidism: Code(s): E05.90 - Thyrotoxicosis, unspecified without thyrotoxic crisis or storm Status: Acute Assessment and Plan: TSH is 0.058 with a FT4 elevation of 2.26. Patient either has subclinical hyperthyroidism or this is related to the steroids and euthyroid sick syndrome. Plan to repeat these values as an outpatient. (8) Parkinson's disease (tremor, stiffness, slow motion, unstable posture): Code(s): G20 - Parkinson's disease Status: Chronic Assessment and Plan: Stable. Continue with home medications of carbidopa/levodopa and primidone. (9) DVT prophylaxis: Code(s): Z29.9 - Encounter for prophylactic measures, unspecified Status: Acute Assessment and Plan: Lovenox stopped due to low plt count. plt count better so Lovenox resumed but held for procedures. Resume Lovenox tomorrow if stable Subjective Date/time seen: 03/24/21 17:00 Interval history: 66yo male with Parkinson's disease here for COVID and respiratory failure. He is unvaccinated per the notes in the chart. Had trach and PEG placed today. He has worsening hypoxia after the trach placement an
--- NOTE | 2021-03-24 17:04 | P.OP_ITS ---
Procedure Note - Detailed Date of Procedure 03/24/21 Pre-op Diagnosis covid pneumonia/acute hypoxic respiratory failure Post-op Diagnosis same Procedure Performed Tracheostomy Surgeon Xavier Smith MD Anesthesia general Indications See above Findings Easily accessed airway trach 8 cuffed Shiley placed between tracheal rings 2 and 3 Description of Procedure Patient correctly identified consent verified. Patient brought to operating room. Time-out performed. Patient prepped and draped for the aforementioned procedure. Second time-out performed. 0.5 cc of 1% lidocaine with 1 100,000 parts epinephrine injected deep to 2 cm pre drawn surgical incision right below the cricoid. Bovie electrocautery at a setting of 10 on cut utilized at the skin subcutaneous tissue dissected with Bovie electrocautery on coag at a setting 10 midline refit identified [employer] as well as Bovie electrocautery utilized to dissect down the thyroid isthmus thyroid isthmus transected trachea skeletonized anesthesia lower the cuff and inserted it cricoid hook placed tracheotomy created with a 15 blade stretched open with trach ampoule washing machine operator anesthesia then removed the endotracheal tube until the tip was no longer visible in the tracheotomy. A 8 cuffed Shiley placed with cricoid maintaining superior anterior elevation of the laryngeal framework and trachea. Anesthesia confirmed end-tidal CO2. Cricoid [place] is removed 4 corner stitches placed 3-0 silk. Velcro trach ties applied with adequate pressure. This marked end of procedure. I performed all dictated portions. Total blood loss 1 cc. Care the patient given Anesthesiology. Estimated Blood Loss 1 Urine Output 1,150 Drains No Packing No Pathology none sent Complications No immediate complications Condition stable Disposition PACU
[2021-03-24] MEDS: PRIMIDONE 50 MG TABLET BY MOUTH (20:33)
[2021-03-24 20:35] LABS: Glucose Point of Care 101 mg/dl (65-105)
[2021-03-24] MEDS: ALBUTEROL SULFATE NEB 2.5 MG/0.5 ML INH INHALATION (20:46)
[2021-03-25] VITALS (31 sets, daily range): BP systolic 90–124; BP diastolic 58–78; PULSE 68–101; RESP 16–30; TEMP 36.3–39.9; O2SAT 91–100; BMI 20.5
[2021-03-25 00:30] LABS: Glucose Point of Care 83 mg/dl (65-105)
[2021-03-25] MEDS: FENTANYL 2,500MCG/NS250ML(*CRX 2,500 MCG/250 ML BAG 20 MCG IV CONT ×2 (02:56→14:50)
[2021-03-25] MEDS: PROPOFOL IV EMULSION 100 ML 9.29 MG IV CONT ×3 (02:58→23:23)
[2021-03-25 04:49] LABS: Glucose Point of Care 74 mg/dl (65-105)
[2021-03-25 04:49] LABS: Glucose Point of Care 71 mg/dl (65-105)
[2021-03-25 04:53] LABS: Hematocrit 25.7 % (42.0-52.0); Hemoglobin 8.3 g/dL (14.0-18.0); Mean Corpuscular HGB Conc 32.3 g/dl (32-36); Mean Corpuscular Hemoglobin 30.7 pg (26-34); Mean Corpuscular Volume 95.2 fl (80-100); Mean Platelet Volume 10.3 fl (7.4-10.4); Platelet Count Result 149 k/mm3 (150-375); Red Cell Distribution Width 13.2 % (11.5-14.5); White Blood Count 10.1 K/mm3 (4.5-10.0)
[2021-03-25 05:24] LABS: Alanine Aminotransferase 8 U/L (4-50); Albumin Level 2.2 g/dL (3.5-5.1); Alkaline Phosphatase 104 U/L (38-126); Aspartate Amino Transferase 30 U/L (17-59); Bilirubin,Total 0.2 mg/dL (0.2-1.3); Blood Urea Nitrogen 18 mg/dL (9-20); CRP 14.7 mg/dL (<1.0); Calcium 7.4 mg/dL (8.4-10.2); Carbon Dioxide > 40 mmol/L (22-30); Chloride 90 mmol/L (98-107); Estimated CRCL calculation 138 ml/min; Estimated Glomerular Filt Rate > 60; Glucose 76 mg/dL (65-110); Lactate Dehydrogenase 484 U/L (313-618); Potassium 4.2 mmol/L (3.4-5.0); Sodium 128 mmol/L (137-145)
[2021-03-25 06:47] LABS: Alveolar/Arterial O2 Gradient 589.8 mmHg; Base Excess ABG 10.3 mEq/l (+/-2.0); Carboxyhemoglobin 0.1 % THb (0-2.0); Fractional Inspired Oxygen 100 %; HCO3 ABG 35.2 mEq/l (22.0-26.0); Methemoglobin ABG 0.3 %THb (0-1.5); Modified Allen's Test Pass; Oxygen Content ABG 13.6 %vol (16.0-22.0); Oxygen Saturation ABG 95.5 % (95.0-100.0); Oxyhemoglobin 93.4 % THb (90.0-100.0); PCO2 ABG 49.1 mmHg (35.0-45.0); PO2 ABG 74.1 mmHg (80.0-100.0); PO2 FiO2 Ratio Arterial Blood 0.74 %; Reduced Hemoglobin 6.2 %THb (0-5.0); Site Drawn RIGHT RADIAL; Total Hemoglobin 10.3 g/dL (12.0-18.0); pH ABG 7.473 (7.350-7.450)
[2021-03-25 06:48] LABS: Arterial Blood Gas PEEP 10 cmH2O; Arterial Blood Gas Vent Mode CMV; Arterial Blood Gas Ventilator rate 18 /MIN; Device VENTILATOR
[2021-03-25 06:49] LABS: Arterial Blood Gas Tidal Volume 420 ml
[2021-03-25] MEDS: CARBIDOPA/LEVODOPA 25/100 MG TABLET 2 TABLET PO ×5 (07:17→20:46)
[2021-03-25] MEDS: CENTRAL LINE FLUSH 10 ML IV PUSH ×3 (07:17→20:46)
[2021-03-25 07:53] LABS: Glucose Point of Care 76 mg/dl (65-105)
[2021-03-25] MEDS: DEXAMETHASONE SOD PHOS INJ 4 MG/ML VIAL 6 MG IV PUSH (09:09)
[2021-03-25] MEDS: ASPIRIN 81 MG CHEWABLE TABLET FEED TUBE (09:09)
[2021-03-25] MEDS: PANTOPRAZOLE SODIUM IV 40 MG VIAL IV PUSH (09:10)
[2021-03-25] MEDS: MINERAL OIL/WHITE PETROLATUM OINTMENT 1 APPLIC EACH EYE ×2 (09:10→20:45)
[2021-03-25] MEDS: INSULIN GLARGINE (*BKC) 100 UNITS/ML 10 UNITS SUB-Q (09:10)
[2021-03-25] MEDS: polyethylene glycoL 3350 17 GM POWD.PACK PO (09:11)
[2021-03-25 12:07] LABS: Glucose Point of Care 67 mg/dl (65-105)
--- NOTE | 2021-03-25 12:17 | PCFNICU ---
ICU Rounding Note: Pt current nutrition is Jevity 1.2 at 70 ml/hr over 22 hours. Last recorded weight is 70.8 kg-stable Bowel Motility:+BM reported 03/24 Labs Reviewed:Cr 0.4,Alb 2.2,Na 128,Hgb 8.3,Hct 25.7 Meds Noted:Fentanyl, Versed, Sinemet, Lovenox, Protonix, Decadron, Colace, Miralax, Protonix, Lantus, Propofol 9.29 ml/ls=153 kcals Skin: right toe-deep tissue, left toe-deep tissue. Additional Notes: Patient had Trach/PEG placed 03/24. Tube feedings have been restarted at 70 ml/hr of Jevity 1.2. Free water flush 30 ml q 4 hours. Agree with diet orders. Following daily in ICU rounds. Will reassess every Tuesday and Tuesday.
[2021-03-25] MEDS: MIDAZOLAM 100MG/NS 100ML(*CRX) 100 MG/100 ML BAG 6 MG IV CONT (13:24)
--- NOTE | 2021-03-25 14:39 | WPDINTPN ---
Progress Note: A&P Assessment and Plan (1) Acute respiratory failure with hypoxia: Code(s): J96.01 - Acute respiratory failure with hypoxia Status: Acute Assessment and Plan: Acute respiratory failure likely related to COVID pneumonia. Patient was admitted on 03/06/2021 and was tested positive for COVID-19, 5 days prior to admission -patient was on the intermediate Unit and was maxed out on the Airvo and was not able to tolerate the BiPAP, patient was severe respiratory distress with tachypnea and hypoxia -intubated on 03/10/2021 -03/25/2021: Tracheostomy and PEG tube were placed -continue mechanical ventilation with CMV mode, currently 100% FiO2 and 10 of PEEP 82 wean FiO2 to maintain O2 sats greater than 90% -ABG reviewed. - Chest x-ray reviewed. -low tidal volume strategy to prevent volu-trauma -continue bronchodilators, -03/11/2021 discontinued ceftriaxone and azithromycin which were started on 03/08. As the white blood cell count were normal and patient was afebrile. -sedated with fentanyl and Versed infusion, OFF Nimbex. Patient did not tolerate sedation holiday yesterday and became asynchronous and desaturated (2) Pneumonia due to 2019 novel coronavirus: Code(s): U07.1 - COVID-19; J12.82 - Pneumonia due to coronavirus disease 2019 Status: Acute Assessment and Plan: Patient tested positive for COVID on 03/03. He is unvaccinated -completed course of remdesivir -continue extended course of Decadron (patient has completed 10 day course on 03/16) - he completed a course of Baricitinib on 03/20 -continue droplet, airborne and contact isolation/precautions -his inflammatory markers remain high (3) Hyponatremia: Code(s): E87.1 - Hypo-osmolality and hyponatremia Status: Acute Assessment and Plan: increase normal saline flushes (4) Parkinson's disease (tremor, stiffness, slow motion, unstable posture): Code(s): G20 - Parkinson's disease Status: Chronic Assessment and Plan: Continue with carbidopa/levodopa, primidone (5) DVT prophylaxis: Code(s): Z29.9 - Encounter for prophylactic measures, unspecified Status: Acute Assessment and Plan: Lovenox was held as patient is thrombocytopenic. Platelet counts gradually increasing and stable - HIT antibodies and serotonin release assay negative - continue Lovenox (6) Electrolyte abnormality: Code(s): E87.8 - Other disorders of electrolyte and fluid balance, not elsewhere classified Status: Acute Assessment and Plan: Potassium improved with insulin and also give a dose of Kayexalate (7) PAD (peripheral artery disease): Code(s): I73.9 - Peripheral vascular disease, unspecified Status: Acute Assessment and Plan: 03/22 patient's right foot appears slightly paler and colder as compared to left on exam but dorsalis pedis can be easily palpable. No mottling or cyanosis seen at that time right extremity duplex exam showed Total occlusion of right peroneal artery. On yesterday and today's exam patient foot appears warm and similar to his left. Again the dorsalis pedis on both sides is easily palpable. This is most likely a chronic issue and not an acute limb ischemia. Dr. Sands discussed case with Dr. Kwon who evaluated and examined patient. Additional Plan Nutrition: Will start tube feeds per PEG tube if okay with GI, patient on MiraLax, Dulcolax suppository p.r.n. Code status: Full code Critical care time spent: 32 minutes This dictation may have been done utilizing a voice recognition system. Attempts have been made to correct errors. However, there may be uncorrected grammatical, spelling, and recognition errors present. Due to a high probability of clinically significant, life threatening deterioration, the patient required my highest level of preparedness to intervene emergently and I personally spent this critical care time directly and p
[2021-03-25 16:17] LABS: Glucose Point of Care 122 mg/dl (65-105)
[2021-03-25] MEDS: PRIMIDONE 50 MG TABLET BY MOUTH (20:47)
[2021-03-25 21:01] LABS: Glucose Point of Care 112 mg/dl (65-105)
[2021-03-26] VITALS (30 sets, daily range): BP systolic 88–106; BP diastolic 57–93; PULSE 74–105; RESP 16–32; TEMP 36.6–37.6; O2SAT 89–98
[2021-03-26 01:08] LABS: Glucose Point of Care 122 mg/dl (65-105)
[2021-03-26] MEDS: MIDAZOLAM 100MG/NS 100ML(*CRX) 100 MG/100 ML BAG 6 MG IV CONT ×2 (04:11→20:29)
[2021-03-26] MEDS: FENTANYL 2,500MCG/NS250ML(*CRX 2,500 MCG/250 ML BAG 20 MCG IV CONT ×2 (04:12→16:35)
[2021-03-26 04:26] LABS: Glucose Point of Care 125 mg/dl (65-105)
[2021-03-26 04:38] LABS: Hematocrit 28.3 % (42.0-52.0); Hemoglobin 9.3 g/dL (14.0-18.0); Mean Corpuscular HGB Conc 32.9 g/dl (32-36); Mean Corpuscular Hemoglobin 30.5 pg (26-34); Mean Corpuscular Volume 92.8 fl (80-100); Mean Platelet Volume 10.4 fl (7.4-10.4); Platelet Count Result 198 k/mm3 (150-375); Red Blood Count 3.05 M/mm3 (4.6-6.20); Red Cell Distribution Width 12.9 % (11.5-14.5); White Blood Count 10.7 K/mm3 (4.5-10.0)
[2021-03-26 04:50] LABS: Alanine Aminotransferase 18 U/L (4-50); Albumin Level 2.4 g/dL (3.5-5.1); Alkaline Phosphatase 121 U/L (38-126); Anion Gap 3 mmol/L (8-16); Aspartate Amino Transferase 38 U/L (17-59); Bilirubin,Total 0.4 mg/dL (0.2-1.3); Blood Urea Nitrogen 18 mg/dL (9-20); Calcium 7.4 mg/dL (8.4-10.2); Carbon Dioxide 35 mmol/L (22-30); Chloride 91 mmol/L (98-107); Estimated CRCL calculation 144 ml/min; Estimated Glomerular Filt Rate > 60; Glucose 158 mg/dL (65-110); Magnesium 1.9 mg/dL (1.6-2.3); Potassium 3.9 mmol/L (3.4-5.0); Sodium 129 mmol/L (137-145)
[2021-03-26] MEDS: CENTRAL LINE FLUSH 10 ML IV PUSH ×3 (06:02→20:29)
[2021-03-26] MEDS: CARBIDOPA/LEVODOPA 25/100 MG TABLET 2 TABLET PO ×5 (06:02→20:27)
[2021-03-26] MEDS: PROPOFOL IV EMULSION 100 ML 12.38 MG IV CONT ×3 (06:33→23:38)
[2021-03-26 06:59] LABS: Alveolar/Arterial O2 Gradient 564.9 mmHg; Base Excess ABG 8.2 mEq/l (+/-2.0); Carboxyhemoglobin 0.2 % THb (0-2.0); Fractional Inspired Oxygen 100 %; HCO3 ABG 36.3 mEq/l (22.0-26.0); Methemoglobin ABG 0.3 %THb (0-1.5); Oxygen Content ABG 15.2 %vol (16.0-22.0); Oxygen Saturation ABG 94.2 % (95.0-100.0); Oxyhemoglobin 92.7 % THb (90.0-100.0); PO2 ABG 77.9 mmHg (80.0-100.0); PO2 FiO2 Ratio Arterial Blood 0.78 %; Reduced Hemoglobin 6.8 %THb (0-5.0); Total Hemoglobin 11.6 g/dL (12.0-18.0); pH ABG 7.331 (7.350-7.450)
[2021-03-26 07:00] LABS: Device VENTILATOR; Modified Allen's Test Unable to perform; PCO2 ABG 70.2 mmHg (35.0-45.0); Site Drawn LEFT RADIAL
[2021-03-26 07:01] LABS: Arterial Blood Gas PEEP 5 cmH2O; Arterial Blood Gas Tidal Volume 350 ml; Arterial Blood Gas Vent Mode CMV; Arterial Blood Gas Ventilator rate 20 /MIN
[2021-03-26 07:31] LABS: Glucose Point of Care 153 mg/dl (65-105)
[2021-03-26] MEDS: ASPIRIN 81 MG CHEWABLE TABLET FEED TUBE (09:02)
[2021-03-26] MEDS: DEXAMETHASONE SOD PHOS INJ 4 MG/ML VIAL 6 MG IV PUSH (09:02)
[2021-03-26] MEDS: polyethylene glycoL 3350 17 GM POWD.PACK PO (09:03)
[2021-03-26] MEDS: PANTOPRAZOLE SODIUM IV 40 MG VIAL IV PUSH (09:03)
[2021-03-26] MEDS: MINERAL OIL/WHITE PETROLATUM OINTMENT 1 APPLIC EACH EYE ×2 (09:03→20:28)
[2021-03-26] MEDS: INSULIN GLARGINE (*BKC) 100 UNITS/ML 10 UNITS SUB-Q (09:36)
--- NOTE | 2021-03-26 11:56 | PCFNICU ---
ICU Rounding Note: Pt current nutrition is Jevity 1.2 at 70 ml/hr over 22 hours. Last recorded weight is 71.2 kg-stable Bowel Motility:+BM reported 03/25 Labs Reviewed:Glu 158, Cr 0.4,Na 129, Alb 2.4,Hct 28.3,Hgb 9.3 Meds Noted:Lantus, Decadron, Colace, Lovenox, Sinemet, Propofol 12.37 ml/hr-327 kcals, Miralax, Fentanyl, Versed, Protonix. Skin: right toe-deep tissue, left toe-deep tissue Additional Notes: Patient with Trach and PEG. Tube feedings at 70 ml/hr of Jevity 1.2 at tolerating. Free water flush 30 ml q 4 hours. Propofol increased from 30 mics to 40 mics. Agree with diet orders. Following daily in ICU rounds, reassessing every Tuesday and Tuesday.
[2021-03-26 12:08] LABS: Glucose Point of Care 212 mg/dl (65-105)
--- NOTE | 2021-03-26 12:36 | P.PNINT_ITS ---
Progress Note: A&P Assessment and Plan (1) Acute respiratory failure with hypoxia: Code(s): J96.01 - Acute respiratory failure with hypoxia Status: Acute Assessment and Plan: Acute respiratory failure likely related to COVID pneumonia. Patient was admitted on 03/06/2021 and was tested positive for COVID-19, 5 days prior to admission -patient was on the intermediate Unit and was maxed out on the Airvo and was not able to tolerate the BiPAP, patient was severe respiratory distress with tachypnea and hypoxia -intubated on 03/10/2021 -03/25/2021: Tracheostomy and PEG tube were placed -continue mechanical ventilation with CMV mode, currently 100% FiO2 and 10 of PEEP, wean FiO2 to maintain O2 sats greater than 90% -ABG reviewed. - Chest x-ray reviewed. -low tidal volume strategy to prevent volu-trauma -continue bronchodilators, -03/11/2021 discontinued ceftriaxone and azithromycin which were started on 03/08. As the white blood cell count were normal and patient was afebrile. -sedated with fentanyl and Versed infusion, OFF Nimbex. Patient did not tolerate sedation holiday yesterday and became asynchronous and desaturated (2) Pneumonia due to 2019 novel coronavirus: Code(s): U07.1 - COVID-19; J12.82 - Pneumonia due to coronavirus disease 2019 Status: Acute Assessment and Plan: Patient tested positive for COVID on 03/03. He is unvaccinated -completed course of remdesivir -continue extended course of Decadron (patient has completed 10 day course on 03/16) - he completed a course of Baricitinib on 03/20 -continue droplet, airborne and contact isolation/precautions -his inflammatory markers remain high (3) Hyponatremia: Code(s): E87.1 - Hypo-osmolality and hyponatremia Status: Acute Assessment and Plan: increase normal saline flushes (4) Parkinson's disease (tremor, stiffness, slow motion, unstable posture): Code(s): G20 - Parkinson's disease Status: Chronic Assessment and Plan: Continue with carbidopa/levodopa, primidone (5) DVT prophylaxis: Code(s): Z29.9 - Encounter for prophylactic measures, unspecified Status: Acute Assessment and Plan: Lovenox was held as patient is thrombocytopenic. Platelet counts gradually increasing and stable - HIT antibodies and serotonin release assay negative - continue Lovenox (6) Electrolyte abnormality: Code(s): E87.8 - Other disorders of electrolyte and fluid balance, not elsewhere classified Status: Acute Assessment and Plan: Potassium improved with insulin and also give a dose of Kayexalate (7) PAD (peripheral artery disease): Code(s): I73.9 - Peripheral vascular disease, unspecified Status: Acute Assessment and Plan: 03/22 patient's right foot appears slightly paler and colder as compared to left on exam but dorsalis pedis can be easily palpable. No mottling or cyanosis seen at that time right extremity duplex exam showed Total occlusion of right peroneal artery. On yesterday and today's exam patient foot appears warm and similar to his left. Again the dorsalis pedis on both sides is easily palpable. This is most likely a chronic issue and not an acute limb ischemia. Dr. Sands discussed case with Dr. Kwon who evaluated and examined patient. Additional Plan Nutrition: Will start tube feeds per PEG tube if okay with GI, patient on M iraLax, Dulcolax suppository p.r.n. Code status: Full code Critical care time spent: 32 minutes This dictation may have been done utilizing a voice recognition system. Att
[2021-03-26] MEDS: INSULIN ASPART (*BKC) 100 UNITS/ML SUB-Q ×2 (13:04→17:18)
[2021-03-26 13:11] LABS: Glucose Point of Care 232 mg/dl (65-105)
--- NOTE | 2021-03-26 16:02 | PM.IMPN ---
Progress Note: A&P Assessment and Plan (1) Acute respiratory failure with hypoxia: Code(s): J96.01 - Acute respiratory failure with hypoxia Status: Acute Assessment and Plan: Patient who was recently diagnosed with COVID presents with complaints of shortness of breath. He developed acute hypoxic respiratory failure felt related to COVID PNA. D-dimer was positive but CTA chest 03/06 was negative for PE but did show bibasilar airspace disease. His condition worsened despite maximal therapy. IV abx were added. He is full code. His condition worsened to the point on intubation on 03/10/21. He remains intubated and sedated. Was paralyzed but stopped on 03/13. Off abx now since 03/11. Lasix used intermittently. Trach and PEG placed 03/24. ABG noted. CXR unchanged today. Continue supportive care. Wean vent as tolerated. Appreciate yield analyst input. (2) Pneumonia due to 2019 novel coronavirus: Code(s): U07.1 - COVID-19; J12.82 - Pneumonia due to coronavirus disease 2019 Status: Acute Assessment and Plan: Patient tested positive for COVID on 03/03 (Results in the chart). He is unvaccinated. He completed 10 days of Remdesivir and Decadron on 03/16/21. He completed baricitinib on 03/20. The patient is on contact and droplet precautions. he finished another 10 days of Decadron today. As above. Continue to prone patient as tolerated. Wean vent as tolerated. (3) Thrombocytopenia: Code(s): D69.6 - Thrombocytopenia, unspecified Status: Acute Assessment and Plan: Platelet count dropped to 73K. Heparin Ab negative. Suspect consumptive. Lovenox was held but then resumed when plt count improved; was on hold for procedures. Plt count normal now. Resume Lovenox. Follow and trend. (4) PAD (peripheral artery disease): Code(s): I73.9 - Peripheral vascular disease, unspecified Status: Acute Assessment and Plan: On 03/22, there was concern for right foot ischemia. Right LE arterial doppler showing right peroneal artery occlusion. Snow that this is more of a chronic finding and not acute. Could be PAD and/or embolic. Arterial doppler showing no significant arterial occlusive disease. Either the right peroneal is congenitally absent, related to trauma or it was embolic since minimal PAD. Continue ASA. (5) Hyponatremia: Code(s): E87.1 - Hypo-osmolality and hyponatremia Status: Acute Assessment and Plan: Sodium 132 on admission. No clear baseline. Alan 17 with UCr 139 and FENa of 0.08% to suggest prerenal. Sodium running 128-134 range and stable. Continue to monitor (6) Hyperglycemia: Code(s): R73.9 - Hyperglycemia, unspecified Status: Acute Assessment and Plan: A1c 6.2. The patient's blood glucose was reviewed on 03/26 Glucose higher at times into the 200's Continue AccuCheks covering with sliding scale. Hypoglycemia protocol available as needed. Continue Lantus at current dose for now (7) Subclinical hyperthyroidism: Code(s): E05.90 - Thyrotoxicosis, unspecified without thyrotoxic crisis or storm Status: Acute Assessment and Plan: TSH is 0.058 with a FT4 elevation of 2.26. Patient either has subclinical hyperthyroidism or this is related to the steroids and euthyroid sick syndrome. Plan to repeat these values as an outpatient. (8) Parkinson's disease (tremor, stiffness, slow motion, unstable posture): Code(s): G20 - Parkinson's disease Status: Chronic Assessment and Plan: Stable. Continue with home medications of carbidopa/levodopa and primidone. (9) DVT prophylaxis: Code(s): Z29.9 - Encounter for prophylactic measures, unspecified Status: Acute Assessment and Plan: Lovenox stopped due to low plt count. Plt count normal now. Resume Lovenox per yield analyst note Subjective Date/time seen: 03/26/21 16:02 Interval history: 66yo male with Parkinson's disease here fo
[2021-03-26 17:22] LABS: Glucose Point of Care 210 mg/dl (65-105)
[2021-03-26] MEDS: PRIMIDONE 50 MG TABLET BY MOUTH (20:28)
[2021-03-26 21:26] LABS: Glucose Point of Care 183 mg/dl (65-105)
[2021-03-26] MEDS: ALTEPLASE 2 MG VIAL (CATHFLO) IV PUSH (22:48)
[2021-03-26 23:47] LABS: Glucose Point of Care 163 mg/dl (65-105)
[2021-03-27] VITALS (32 sets, daily range): BP systolic 88–105; BP diastolic 59–70; PULSE 88–111; RESP 14–30; TEMP 36.1–36.7; O2SAT 85–100
[2021-03-27 04:43] LABS: Hemoglobin 8.5 g/dL (14.0-18.0); Mean Corpuscular HGB Conc 32.7 g/dl (32-36); Mean Corpuscular Hemoglobin 31.3 pg (26-34); Mean Corpuscular Volume 95.6 fl (80-100); Mean Platelet Volume 10.3 fl (7.4-10.4); Platelet Count Result 160 k/mm3 (150-375); Red Blood Count 2.72 M/mm3 (4.6-6.20); Red Cell Distribution Width 12.7 % (11.5-14.5)
[2021-03-27 05:03] LABS: Alveolar/Arterial O2 Gradient 442.7 mmHg; Base Excess ABG 9.8 mEq/l (+/-2.0); Carboxyhemoglobin 0.2 % THb (0-2.0); HCO3 ABG 35.4 mEq/l (22.0-26.0); Methemoglobin ABG 0.3 %THb (0-1.5); Oxygen Content ABG 13.1 %vol (16.0-22.0); Oxygen Saturation ABG 94.5 % (95.0-100.0); Oxyhemoglobin 93.5 % THb (90.0-100.0); PCO2 ABG 53.8 mmHg (35.0-45.0); PO2 ABG 71.2 mmHg (80.0-100.0); Total Hemoglobin 9.9 g/dL (12.0-18.0); pH ABG 7.436 (7.350-7.450)
[2021-03-27 05:03] LABS: Triglycerides 262 mg/dL (<150)
[2021-03-27 05:04] LABS: Arterial Blood Gas PEEP 10 cmH2O; Arterial Blood Gas Tidal Volume 420 ml; Arterial Blood Gas Vent Mode CMV; Arterial Blood Gas Ventilator rate 18 /MIN; Device VENTILATOR; Fractional Inspired Oxygen 80 %; Modified Allen's Test Pass; PO2 FiO2 Ratio Arterial Blood 0.89 %; Site Drawn LEFT RADIAL
[2021-03-27 05:19] LABS: Alanine Aminotransferase 24 U/L (4-50); Albumin Level 2.4 g/dL (3.5-5.1); Alkaline Phosphatase 114 U/L (38-126); Anion Gap 1 mmol/L (8-16); Aspartate Amino Transferase 32 U/L (17-59); Bilirubin,Total 0.2 mg/dL (0.2-1.3); Blood Urea Nitrogen 17 mg/dL (9-20); Calcium 7.3 mg/dL (8.4-10.2); Carbon Dioxide 38 mmol/L (22-30); Chloride 89 mmol/L (98-107); Estimated CRCL calculation 184 ml/min; Estimated Glomerular Filt Rate > 60; Glucose 182 mg/dL (65-110); Potassium 4.6 mmol/L (3.4-5.0); Sodium 128 mmol/L (137-145)
[2021-03-27] MEDS: CENTRAL LINE FLUSH 10 ML IV PUSH ×3 (05:20→20:56)
[2021-03-27] MEDS: FENTANYL 2,500MCG/NS250ML(*CRX 2,500 MCG/250 ML BAG 20 MCG IV CONT ×2 (05:20→20:51)
[2021-03-27] MEDS: CARBIDOPA/LEVODOPA 25/100 MG TABLET 2 TABLET PO ×5 (05:20→20:55)
[2021-03-27 08:21] LABS: Glucose Point of Care 221 mg/dl (65-105)
[2021-03-27] MEDS: ASPIRIN 81 MG CHEWABLE TABLET FEED TUBE (09:13)
[2021-03-27] MEDS: INSULIN ASPART (*BKC) 100 UNITS/ML SUB-Q (09:14)
[2021-03-27] MEDS: ENOXAPARIN 40 MG/0.4 ML SYRINGE SUB-Q (09:14)
[2021-03-27] MEDS: PANTOPRAZOLE SODIUM IV 40 MG VIAL IV PUSH (09:16)
[2021-03-27] MEDS: MINERAL OIL/WHITE PETROLATUM OINTMENT 1 APPLIC EACH EYE ×2 (09:16→20:55)
[2021-03-27] MEDS: INSULIN GLARGINE (*BKC) 100 UNITS/ML 10 UNITS SUB-Q (09:16)
[2021-03-27] MEDS: PROPOFOL IV EMULSION 100 ML 9.29 MG IV CONT (09:17)
[2021-03-27 09:20] LABS: Add Urine Microscopic? YES; Appearance Urine Clear (Clear); Bacteria Urine 3+ /hpf; Bilirubin Urine Negative (Negative); Blood Urine Negative (Negative); Color Urine Amber (Yellow); Glucose Urine UA 1+ mg/dL (Negative); Ketones Urine Trace mg/dL (Negative); Leukocyte Esterase Ur Negative LEU/UL (NEGATIVE); Mucus Urine Rare /lpf; Nitrate Urine Negative (Negative); Protein Urine 1+ mg/dL (Negative); Specific Grav Ur 1.029 (1.001-1.035); Squamous Epithelial Cell Urine Rare /hpf (Few)
--- NOTE | 2021-03-27 09:58 | WPDINTPN ---
Progress Note: A&P Assessment and Plan (1) Acute respiratory failure with hypoxia: Code(s): J96.01 - Acute respiratory failure with hypoxia Status: Acute Assessment and Plan: Acute respiratory failure likely related to COVID pneumonia. Patient was admitted on 03/06/2021 and was tested positive for COVID-19, 5 days prior to admission -patient was on the intermediate Unit and was maxed out on the Airvo and was not able to tolerate the BiPAP, patient was severe respiratory distress with tachypnea and hypoxia -intubated on 03/10/2021 -03/25/2021: Tracheostomy and PEG tube were placed -continue mechanical ventilation with CMV mode, currently 80% FiO2 and 10 of PEEP, wean FiO2 to maintain O2 sats greater than 92% -ABG reviewed. - Chest x-ray reviewed. -low tidal volume strategy to prevent volu-trauma -continue bronchodilators, -03/11/2021 discontinued ceftriaxone and azithromycin which were started on 03/08. As the white blood cell count were normal and patient was afebrile. -sedated with fentanyl and Versed infusion, OFF Nimbex. Patient did not tolerate sedation holiday yesterday and became asynchronous and desaturated (2) Pneumonia due to 2019 novel coronavirus: Code(s): U07.1 - COVID-19; J12.82 - Pneumonia due to coronavirus disease 2019 Status: Acute Assessment and Plan: Patient tested positive for COVID on 03/03. He is unvaccinated -completed course of remdesivir -continue extended course of Decadron (patient has completed 10 day course on 03/16) - he completed a course of Baricitinib on 03/20 -continue droplet, airborne and contact isolation/precautions -his inflammatory markers remain high (3) Hyponatremia: Code(s): E87.1 - Hypo-osmolality and hyponatremia Status: Acute Assessment and Plan: increase normal saline flushes (4) Parkinson's disease (tremor, stiffness, slow motion, unstable posture): Code(s): G20 - Parkinson's disease Status: Chronic Assessment and Plan: Continue with carbidopa/levodopa, primidone (5) DVT prophylaxis: Code(s): Z29.9 - Encounter for prophylactic measures, unspecified Status: Acute Assessment and Plan: Lovenox was held as patient is thrombocytopenic. Platelet counts gradually increasing and stable - HIT antibodies and serotonin release assay negative - continue Lovenox (6) Electrolyte abnormality: Code(s): E87.8 - Other disorders of electrolyte and fluid balance, not elsewhere classified Status: Acute Assessment and Plan: Potassium improved with insulin and also give a dose of Kayexalate (7) PAD (peripheral artery disease): Code(s): I73.9 - Peripheral vascular disease, unspecified Status: Acute Assessment and Plan: 03/22 patient's right foot appears slightly paler and colder as compared to left on exam but dorsalis pedis can be easily palpable. No mottling or cyanosis seen at that time right extremity duplex exam showed Total occlusion of right peroneal artery. On yesterday and today's exam patient foot appears warm and similar to his left. Again the dorsalis pedis on both sides is easily palpable. This is most likely a chronic issue and not an acute limb ischemia. Dr. Sands discussed case with Dr. Kwon who evaluated and examined patient. (8) Sepsis: Code(s): A41.9 - Sepsis, unspecified organism Status: Acute Assessment and Plan: Elevated WBC count, tachycardia, worsening chest x-ray, increasing O2 requirement -pancultured -started patient on cefepime and vancomycin -will obtain CT scan of the chest Additional Plan Nutrition: Continue tube feeds, patient on MiraLax, Dulcolax suppository p.r.n. Code status: Full code Critical care time spent: 34 minutes This dictation may have been done utilizing a voice recognition system. Attempts have been made to correct errors. However, there may be uncorrected grammatical, spellin
--- NOTE | 2021-03-27 12:13 | PCNFU ---
Nutrition Follow-Up Complete: Inadequate Oral intake as related to COVID pneumonia as evidenced by reported poor po intake and weight loss reported. Goal: Meet estimated nutritional needs Patient continues with same goal. We will continue current goal. Pt current nutrition is Jevity 1.2 at 70 ml over 22 hours. Last recorded weight is 71.2 kg-stable Bowel Motility:+Bm reported 03/25 Labs Reviewed:TG 262, NA 128, Alb 2.4,Hct 26.0,Hgb 8.5 Cr 0.3 Meds Noted:Fentanyl, Sinemet, Versed, Lantus, Miralax, Colace, Decadron, Lovenox, Propofol 30 ssvo=812 kcals Skin: right toe-deep tissue, left toe-deep tissue Additional Notes: Patient with PEG/Trach. Tolerating tube feedings of Jevity 1.2 at 70 ml/hr. Propofol down from 35 mics to 30 mics. Total kcal intake 2093 kcas/85 gms protein/1243 ml water. Free water flush 30 ml q 4hours. Agree with diet orders. Will monitor ICU rounds and reassessing every Tuesday and Tuesday.
[2021-03-27 13:19] LABS: Glucose Point of Care 182 mg/dl (65-105)
[2021-03-27] MEDS: MIDAZOLAM 100MG/NS 100ML(*CRX) 100 MG/100 ML BAG 6 MG IV CONT (14:48)
[2021-03-27 16:23] LABS: Glucose Point of Care 159 mg/dl (65-105)
[2021-03-27] MEDS: ENOXAPARIN 80 MG/0.8 ML SYRINGE 70 MG SUB-Q (20:54)
[2021-03-27] MEDS: PRIMIDONE 50 MG TABLET BY MOUTH (20:56)
[2021-03-27 21:29] LABS: Glucose Point of Care 157 mg/dl (65-105)
[2021-03-28] VITALS (29 sets, daily range): BP systolic 78–135; BP diastolic 55–67; PULSE 74–105; RESP 15–27; TEMP 36.2–37.7; O2SAT 90–99
[2021-03-28] MEDS: PROPOFOL IV EMULSION 100 ML 4.64 MG IV CONT (00:32)
[2021-03-28 00:50] LABS: Glucose Point of Care 157 mg/dl (65-105)
[2021-03-28] MEDS: MIDAZOLAM 100MG/NS 100ML(*CRX) 100 MG/100 ML BAG 6 MG IV CONT ×2 (05:01→21:26)
[2021-03-28] MEDS: CARBIDOPA/LEVODOPA 25/100 MG TABLET 2 TABLET PO ×5 (05:01→21:30)
[2021-03-28] MEDS: CENTRAL LINE FLUSH 10 ML IV PUSH ×3 (05:03→21:30)
[2021-03-28 05:28] LABS: Glucose Point of Care 184 mg/dl (65-105)
[2021-03-28 05:44] LABS: pH ABG 7.377 (7.350-7.450)
[2021-03-28 05:46] LABS: Base Excess ABG 11.8 mEq/l (+/-2.0); HCO3 ABG 38.8 mEq/l (22.0-26.0); Oxygen Saturation ABG 93.2 % (95.0-100.0); PCO2 ABG 67.6 mmHg (35.0-45.0); PO2 ABG 70.6 mmHg (80.0-100.0); Total Hemoglobin 9.3 g/dL (12.0-18.0)
[2021-03-28 05:47] LABS: Alveolar/Arterial O2 Gradient 456.3 mmHg; Carboxyhemoglobin 0.3 % THb (0-2.0); Methemoglobin ABG 0.1 %THb (0-1.5); Oxygen Content ABG 12.2 %vol (16.0-22.0); Oxyhemoglobin 92.5 % THb (90.0-100.0)
[2021-03-28 05:48] LABS: Device VENTILATOR; Fractional Inspired Oxygen 85 %; Modified Allen's Test Unable to perform; PO2 FiO2 Ratio Arterial Blood 0.83 %; Reduced Hemoglobin 7.1 %THb (0-5.0); Site Drawn RIGHT RADIAL
[2021-03-28 05:49] LABS: Arterial Blood Gas PEEP 10 cmH2O; Arterial Blood Gas Tidal Volume 420 ml; Arterial Blood Gas Vent Mode CMV; Arterial Blood Gas Ventilator rate 18 /MIN
[2021-03-28] MEDS: FENTANYL 2,500MCG/NS250ML(*CRX 2,500 MCG/250 ML BAG 20 MCG IV CONT ×2 (06:37→19:21)
[2021-03-28] MEDS: ENOXAPARIN 80 MG/0.8 ML SYRINGE 70 MG SUB-Q ×2 (08:13→21:30)
[2021-03-28] MEDS: INSULIN GLARGINE (*BKC) 100 UNITS/ML 10 UNITS SUB-Q (08:13)
[2021-03-28] MEDS: MINERAL OIL/WHITE PETROLATUM OINTMENT 1 APPLIC EACH EYE ×2 (08:13→21:30)
[2021-03-28] MEDS: ASPIRIN 81 MG CHEWABLE TABLET FEED TUBE (08:13)
[2021-03-28] MEDS: PANTOPRAZOLE SODIUM IV 40 MG VIAL IV PUSH (08:13)
[2021-03-28 13:06] LABS: Glucose Point of Care 191 mg/dl (65-105)
--- NOTE | 2021-03-28 13:08 | PM.IMPN ---
Progress Note: A&P Assessment and Plan (1) Acute respiratory failure with hypoxia: Code(s): J96.01 - Acute respiratory failure with hypoxia Status: Acute Assessment and Plan: Acute respiratory failure likely related to COVID pneumonia. Patient was admitted on 03/06/2021 and was tested positive for COVID-19, 5 days prior to admission -patient was on the intermediate Unit and was maxed out on the Airvo and was not able to tolerate the BiPAP, patient was severe respiratory distress with tachypnea and hypoxia -intubated on 03/10/2021 -03/25/2021: Tracheostomy and PEG tube were placed -continue mechanical ventilation with CMV mode, currently 80% FiO2 and 10 of PEEP, wean FiO2 to maintain O2 sats greater than 92% -ABG reviewed. - Chest x-ray reviewed. -low tidal volume strategy to prevent volu-trauma -continue bronchodilators, -03/11/2021 discontinued ceftriaxone and azithromycin which were started on 03/08. As the white blood cell count were normal and patient was afebrile. -sedated with fentanyl and Versed infusion, OFF Nimbex. Patient did not tolerate sedation holiday yesterday and became asynchronous and desaturated 03/28/2025 Interval history patient with COVID-19, patien was admitted on 03/06 and tested positive on 03/02, intubated on 03/10, patient received course of remdesivir and extended course of Decadron, was not able to weaned off the ventilator and tracheostomy and PEG placed 03/25 patient remains clinically stable, seen by organic extractions technician and appreciate, patient most likely will be transferred to LTAC, will continue to monitor (2) Pneumonia due to 2019 novel coronavirus: Code(s): U07.1 - COVID-19; J12.82 - Pneumonia due to coronavirus disease 2019 Status: Acute Assessment and Plan: Patient tested positive for COVID on 03/03. He is unvaccinated -completed course of remdesivir -continue extended course of Decadron (patient has completed 10 day course on 03/16) - he completed a course of Baricitinib on 03/20 -continue droplet, airborne and contact isolation/precautions -his inflammatory markers remain high (3) Hyponatremia: Code(s): E87.1 - Hypo-osmolality and hyponatremia Status: Acute Assessment and Plan: increase normal saline flushes (4) Parkinson's disease (tremor, stiffness, slow motion, unstable posture): Code(s): G20 - Parkinson's disease Status: Chronic Assessment and Plan: Continue with carbidopa/levodopa, primidone (5) DVT prophylaxis: Code(s): Z29.9 - Encounter for prophylactic measures, unspecified Status: Acute Assessment and Plan: Lovenox was held as patient is thrombocytopenic. Platelet counts gradually increasing and stable - HIT antibodies and serotonin release assay negative - continue Lovenox (6) Electrolyte abnormality: Code(s): E87.8 - Other disorders of electrolyte and fluid balance, not elsewhere classified Status: Acute Assessment and Plan: Potassium improved with insulin and also give a dose of Kayexalate (7) PAD (peripheral artery disease): Code(s): I73.9 - Peripheral vascular disease, unspecified Status: Acute Assessment and Plan: 03/22 patient's right foot appears slightly paler and colder as compared to left on exam but dorsalis pedis can be easily palpable. No mottling or cyanosis seen at that time right extremity duplex exam showed Total occlusion of right peroneal artery. On yesterday and today's exam patient foot appears warm and similar to his left. Again the dorsalis pedis on both sides is easily palpable. This is most likely a chronic issue and not an acute limb ischemia. Dr. Sands discussed case with Dr. Kwon who evaluated and examined patient. (8) Sepsis: Code(s): A41.9 - Sepsis, unspecified organism Status: Acute Assessment and Plan: Elevated WBC count, tachycardia, worsening chest x-ray, increasing O2 requirement
--- NOTE | 2021-03-28 17:11 | WPDINTPN ---
Progress Note: A&P Assessment and Plan (1) Acute respiratory failure with hypoxia: Code(s): J96.01 - Acute respiratory failure with hypoxia Status: Acute Assessment and Plan: Acute respiratory failure likely related to COVID pneumonia. Patient was admitted on 03/06/2021 and was tested positive for COVID-19, 5 days prior to admission -patient was on the intermediate Unit and was maxed out on the Airvo and was not able to tolerate the BiPAP, patient was severe respiratory distress with tachypnea and hypoxia -intubated on 03/10/2021 -03/25/2021: Tracheostomy and PEG tube were placed -continue mechanical ventilation with CMV mode, currently 85% FiO2 and 10 of PEEP, wean FiO2 to maintain O2 sats greater than 92% -ABG reviewed. - Chest x-ray reviewed. -low tidal volume strategy to prevent volu-trauma -continue bronchodilators, -03/11/2021 discontinued ceftriaxone and azithromycin which were started on 03/08. As the white blood cell count were normal and patient was afebrile. -sedated with fentanyl and Versed infusion, OFF Nimbex. (2) Pneumonia due to 2019 novel coronavirus: Code(s): U07.1 - COVID-19; J12.82 - Pneumonia due to coronavirus disease 2019 Status: Acute Assessment and Plan: Patient tested positive for COVID on 03/03. He is unvaccinated -completed course of remdesivir -continue extended course of Decadron (patient has completed 10 day course on 03/16) - he completed a course of Baricitinib on 03/20 -continue droplet, airborne and contact isolation/precautions -his inflammatory markers remain high (3) Hyponatremia: Code(s): E87.1 - Hypo-osmolality and hyponatremia Status: Acute Assessment and Plan: increase normal saline flushes (4) Parkinson's disease (tremor, stiffness, slow motion, unstable posture): Code(s): G20 - Parkinson's disease Status: Chronic Assessment and Plan: Continue with carbidopa/levodopa, primidone (5) DVT prophylaxis: Code(s): Z29.9 - Encounter for prophylactic measures, unspecified Status: Acute Assessment and Plan: Lovenox was held as patient is thrombocytopenic. Platelet counts gradually increasing and stable - HIT antibodies and serotonin release assay negative - continue therapeutic Lovenox (6) Electrolyte abnormality: Code(s): E87.8 - Other disorders of electrolyte and fluid balance, not elsewhere classified Status: Acute Assessment and Plan: Potassium improved with insulin and also give a dose of Kayexalate (7) PAD (peripheral artery disease): Code(s): I73.9 - Peripheral vascular disease, unspecified Status: Acute Assessment and Plan: 03/22 patient's right foot appears slightly paler and colder as compared to left on exam but dorsalis pedis can be easily palpable. No mottling or cyanosis seen at that time right extremity duplex exam showed Total occlusion of right peroneal artery. Dr. Sands discussed case with Dr. Kwon who evaluated and examined patient. -continue (8) Sepsis: Code(s): A41.9 - Sepsis, unspecified organism Status: Acute Assessment and Plan: Elevated WBC count, tachycardia, worsening chest x-ray, increasing O2 requirement -pancultured -started patient on cefepime and vancomycin (03/27) (9) Pulmonary embolism: Code(s): I26.99 - Other pulmonary embolism without acute cor pulmonale Status: Acute Assessment and Plan: -03/27/2021 chest CTA: Bilateral pulmonary embolism, persistent extensive bilateral pulmonary infiltrates mild to moderate bilateral pleural effusion, new mediastinal -patient is on therapeutic Lovenox Additional Plan Nutrition: Continue tube feeds, patient on MiraLax, Dulcolax suppository p.r.n. Discussed with Kimi Ann, patient's spouse updated with patient's condition and plan of care. I answered all questions, I did tell her regarding the per pulmonary embolism that he is o
[2021-03-28 17:38] LABS: Glucose Point of Care 164 mg/dl (65-105)
[2021-03-28] MEDS: PROPOFOL IV EMULSION 100 ML 6.19 MG IV CONT (21:25)
[2021-03-28] MEDS: PRIMIDONE 50 MG TABLET BY MOUTH (21:30)
[2021-03-29] VITALS (30 sets, daily range): BP systolic 80–113; BP diastolic 58–73; PULSE 94–107; RESP 18–23; TEMP 36.1–37; O2SAT 94–100
[2021-03-29 00:17] LABS: Vancomycin Trough 6.5 ug/mL (10.0-20.0)
[2021-03-29 00:34] LABS: Glucose Point of Care 170 mg/dl (65-105)
[2021-03-29 04:36] LABS: Basophils Percent Auto 0.3 % (0.2-1.2); Eosinophils Absolute Auto 0.3 K/mm3 (0-0.3); Eosinophils Percent Auto 2.7 % (0-4.4); Hematocrit 21.9 % (42.0-52.0); Hemoglobin 7.1 g/dL (14.0-18.0); Immature Granulocyte Absolute 0.25 K/mm3 (0.00-0.031); Immature Granulocyte Percent A 2.2 % (0-0.5); Lymphocytes Absolute Auto 0.72 K/mm3 (0.9-3.2); Lymphocytes Percent Auto 6.3 % (18.3-44.2); Mean Corpuscular HGB Conc 32.4 g/dl (32-36); Mean Corpuscular Volume 95.6 fl (80-100); Mean Platelet Volume 10.7 fl (7.4-10.4); Monocytes Absolute Auto 0.6 K/mm3 (0.1-0.6); Monocytes Percent Auto 5.2 % (2.6-8.5); Neutrophils Absolute Auto 9.6 K/mm3 (1.3-6.7); Neutrophils Percent Auto 83.3 % (45.5-73.1); Platelet Count Result 161 k/mm3 (150-375); Red Blood Count 2.29 M/mm3 (4.6-6.20); Red Cell Distribution Width 12.8 % (11.5-14.5); White Blood Count 11.5 K/mm3 (4.5-10.0)
[2021-03-29 04:50] LABS: Alanine Aminotransferase 27 U/L (4-50); Albumin Level 2.3 g/dL (3.5-5.1); Alkaline Phosphatase 160 U/L (38-126); Anion Gap -1 mmol/L (8-16); Aspartate Amino Transferase 48 U/L (17-59); Bilirubin,Total 0.3 mg/dL (0.2-1.3); Blood Urea Nitrogen 20 mg/dL (9-20); Calcium 6.8 mg/dL (8.4-10.2); Carbon Dioxide 37 mmol/L (22-30); Chloride 88 mmol/L (98-107); Estimated CRCL calculation 144 ml/min; Estimated Glomerular Filt Rate > 60; Glucose 185 mg/dL (65-110); Magnesium 2.2 mg/dL (1.6-2.3); Phosphorus 2.4 mg/dL (2.5-4.5); Potassium 5.2 mmol/L (3.4-5.0); Sodium 124 mmol/L (137-145)
[2021-03-29] MEDS: CARBIDOPA/LEVODOPA 25/100 MG TABLET 2 TABLET PO ×5 (05:15→20:21)
[2021-03-29] MEDS: CENTRAL LINE FLUSH 10 ML IV PUSH ×3 (06:13→20:22)
[2021-03-29] MEDS: FENTANYL 2,500MCG/NS250ML(*CRX 2,500 MCG/250 ML BAG 20 MCG IV CONT ×2 (08:56→20:49)
[2021-03-29] MEDS: ASPIRIN 81 MG CHEWABLE TABLET FEED TUBE (08:57)
[2021-03-29] MEDS: ENOXAPARIN 80 MG/0.8 ML SYRINGE 70 MG SUB-Q ×2 (08:58→20:21)
[2021-03-29] MEDS: PANTOPRAZOLE SODIUM IV 40 MG VIAL IV PUSH (08:59)
[2021-03-29] MEDS: MINERAL OIL/WHITE PETROLATUM OINTMENT 1 APPLIC EACH EYE ×2 (08:59→20:20)
[2021-03-29] MEDS: INSULIN GLARGINE (*BKC) 100 UNITS/ML 10 UNITS SUB-Q (08:59)
[2021-03-29] MEDS: polyethylene glycoL 3350 17 GM POWD.PACK PO (08:59)
[2021-03-29] MEDS: MIDAZOLAM 100MG/NS 100ML(*CRX) 100 MG/100 ML BAG 6 MG IV CONT (12:38)
[2021-03-29] MEDS: PROPOFOL IV EMULSION 100 ML 4.64 MG IV CONT (12:40)
[2021-03-29 13:23] LABS: Glucose Point of Care 145 mg/dl (65-105)
--- NOTE | 2021-03-29 14:36 | WPDINTPN ---
Progress Note: A&P Assessment and Plan (1) Acute respiratory failure with hypoxia: Code(s): J96.01 - Acute respiratory failure with hypoxia Status: Acute Assessment and Plan: Acute respiratory failure likely related to COVID pneumonia. Patient was admitted on 03/06/2021 and was tested positive for COVID-19, 5 days prior to admission -patient was on the intermediate Unit and was maxed out on the Airvo and was not able to tolerate the BiPAP, patient was severe respiratory distress with tachypnea and hypoxia -intubated on 03/10/2021 -03/25/2021: Tracheostomy and PEG tube were placed - 03/29continue mechanical ventilation with CMV mode, currently 100%% FiO2 and 10 of PEEP, oxygen requirements were increased over night after patient was given a bath. FiO2 is being weaned down gradually O2 saturations are greater than 95% -ABG reviewed. - Chest x-ray reviewed. -low tidal volume strategy to prevent volu-trauma -continue bronchodilators, -03/11/2021 discontinued ceftriaxone and azithromycin which were started on 03/08. As the white blood cell count were normal and patient was afebrile. -sedated with fentanyl and Versed infusion, OFF Nimbex. (2) Pneumonia due to 2019 novel coronavirus: Code(s): U07.1 - COVID-19; J12.82 - Pneumonia due to coronavirus disease 2019 Status: Acute Assessment and Plan: Patient tested positive for COVID on 03/03. 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 Platelet counts gradually increasing and stable - HIT antibodies and serotonin release assay negative - continue therapeutic Lovenox (6) Electrolyte abnormality: Code(s): E87.8 - Other disorders of electrolyte and fluid balance, not elsewhere classified Status: Acute Assessment and Plan: Potassium improved with insulin and also give a dose of Kayexalate (7) PAD (peripheral artery disease): Code(s): I73.9 - Peripheral vascular disease, unspecified Status: Acute Assessment and Plan: 03/22 patient's right foot appears slightly paler and colder as compared to left on exam but dorsalis pedis can be easily palpable. No mottling or cyanosis seen at that time right extremity duplex exam showed Total occlusion of right peroneal artery. Dr. Sands discussed case with Dr. Kwon who evaluated and examined patient. -continue therapeutic Lovenox (8) Sepsis: Code(s): A41.9 - Sepsis, unspecified organism Status: Acute Assessment and Plan: Elevated WBC count, tachycardia, worsening chest x-ray, increasing O2 requirement - 03/27/2021: Blood cultures negative x2 - 03/27/2021: Urine culture growing Enterococcus species - 03/27/2021: Sputum cultures growing Enterococcus species continue cefepime and vancomycin ( initiated on03/27) (9) Pulmonary embolism: Code(s): I26.99 - Other pulmonary embolism without acute cor pulmonale Status: Acute Assessment and Plan: -03/27/2021 chest CTA: Bilateral pulmonary embolism, persistent extensive bilateral pulmonary infiltrates mild to moderate bilateral pleural effusion, new mediastinal -patient is
[2021-03-29] MEDS: SODIUM CHLORIDE 0.9% IV 1,000 ML 999 ML IV CONT (20:13)
[2021-03-29 20:15] LABS: Glucose Point of Care 153 mg/dl (65-105)
[2021-03-29] MEDS: PRIMIDONE 50 MG TABLET BY MOUTH (20:22)
[2021-03-29] MEDS: NOREPINEPHRINE 8 MG/D5W 250 ML 8 MG/250 ML BAG 9.38 MG IV CONT (21:47)
[2021-03-29 23:32] LABS: Glucose Point of Care 151 mg/dl (65-105)
[2021-03-30] VITALS (39 sets, daily range): BP systolic 77–104; BP diastolic 47–70; PULSE 89–115; RESP 19–29; TEMP 36.4–37.2; O2SAT 89–98
[2021-03-30] MEDS: MIDAZOLAM 100MG/NS 100ML(*CRX) 100 MG/100 ML BAG 6 MG IV CONT ×2 (03:38→20:42)
[2021-03-30] MEDS: PROPOFOL IV EMULSION 100 ML 3.1 MG IV CONT (03:39)
[2021-03-30] MEDS: CENTRAL LINE FLUSH 10 ML IV PUSH ×3 (05:20→20:40)
[2021-03-30] MEDS: CARBIDOPA/LEVODOPA 25/100 MG TABLET 2 TABLET PO ×5 (05:21→20:40)
[2021-03-30 06:01] LABS: Basophils Percent Auto 0.3 % (0.2-1.2); Eosinophils Absolute Auto 0.3 K/mm3 (0-0.3); Eosinophils Percent Auto 2.5 % (0-4.4); Hematocrit 22.4 % (42.0-52.0); Hemoglobin 7.3 g/dL (14.0-18.0); Immature Granulocyte Absolute 0.44 K/mm3 (0.00-0.031); Immature Granulocyte Percent A 4.1 % (0-0.5); Lymphocytes Absolute Auto 0.65 K/mm3 (0.9-3.2); Mean Corpuscular HGB Conc 32.6 g/dl (32-36); Mean Corpuscular Hemoglobin 31.1 pg (26-34); Mean Corpuscular Volume 95.3 fl (80-100); Mean Platelet Volume 11.1 fl (7.4-10.4); Monocytes Absolute Auto 0.6 K/mm3 (0.1-0.6); Monocytes Percent Auto 5.1 % (2.6-8.5); Neutrophils Absolute Auto 8.9 K/mm3 (1.3-6.7); Nucleated Red Blood Cells Perc 0.2 % (0.0-0.2); Platelet Count Result 187 k/mm3 (150-375); Red Blood Count 2.35 M/mm3 (4.6-6.20); Red Cell Distribution Width 12.8 % (11.5-14.5); White Blood Count 10.9 K/mm3 (4.5-10.0)
[2021-03-30 06:06] LABS: Alanine Aminotransferase 36 U/L (4-50); Albumin Level 2.4 g/dL (3.5-5.1); Alkaline Phosphatase 217 U/L (38-126); Anion Gap -2 mmol/L (8-16); Aspartate Amino Transferase 56 U/L (17-59); Bilirubin,Total 0.2 mg/dL (0.2-1.3); Blood Urea Nitrogen 18 mg/dL (9-20); Calcium 6.9 mg/dL (8.4-10.2); Carbon Dioxide 36 mmol/L (22-30); Chloride 88 mmol/L (98-107); Estimated CRCL calculation 143 ml/min; Estimated Glomerular Filt Rate > 60; Glucose 181 mg/dL (65-110); Magnesium 2.3 mg/dL (1.6-2.3); Potassium 5.4 mmol/L (3.4-5.0); Sodium 122 mmol/L (137-145); Triglycerides 97 mg/dL (<150)
[2021-03-30 06:15] LABS: Alveolar/Arterial O2 Gradient 93.6 mmHg; HCO3 ABG 36.6 mEq/l (22.0-26.0); Oxygen Saturation ABG 95.1 % (95.0-100.0); PCO2 ABG 56.3 mmHg (35.0-45.0); PO2 ABG 75.2 mmHg (80.0-100.0); Total Hemoglobin 8.2 g/dL (12.0-18.0); pH ABG 7.431 (7.350-7.450)
[2021-03-30 06:16] LABS: Carboxyhemoglobin 0.3 % THb (0-2.0); Methemoglobin ABG 0.4 %THb (0-1.5); Oxygen Content ABG 17.3 %vol (16.0-22.0); Oxyhemoglobin 96.1 % THb (90.0-100.0); Reduced Hemoglobin 0.4 %THb (0-5.0)
[2021-03-30 06:17] LABS: Device VENTILATOR; Fractional Inspired Oxygen 65 %; Modified Allen's Test Pass; Site Drawn RIGHT RADIAL
[2021-03-30 06:18] LABS: Arterial Blood Gas PEEP 10 cmH2O; Arterial Blood Gas Tidal Volume 480 ml; Arterial Blood Gas Vent Mode CMV; Arterial Blood Gas Ventilator rate 18 /MIN
[2021-03-30] MEDS: INSULIN HUMAN REGULAR (*BKC) 100 UNITS/ML 10 UNITS IV PUSH (08:43)
[2021-03-30] MEDS: SODIUM BICARBONATE 8.4% 50 MEQ/50 ML SYRINGE IV PUSH (08:45)
[2021-03-30] MEDS: DEXTROSE 50% 25 GM/50 ML SYRINGE IV PUSH (08:46)
[2021-03-30] MEDS: FENTANYL 2,500MCG/NS250ML(*CRX 2,500 MCG/250 ML BAG 20 MCG IV CONT ×2 (08:46→20:41)
[2021-03-30] MEDS: SODIUM POLYSTYRENE SULFONONATE 15 GM/60 ML BTL 30 GM PO (08:50)
[2021-03-30] MEDS: ASPIRIN 81 MG CHEWABLE TABLET FEED TUBE (08:51)
[2021-03-30] MEDS: PANTOPRAZOLE SODIUM IV 40 MG VIAL IV PUSH ×2 (08:51→20:39)
[2021-03-30] MEDS: INSULIN GLARGINE (*BKC) 100 UNITS/ML 10 UNITS SUB-Q (08:51)
[2021-03-30] MEDS: ENOXAPARIN 80 MG/0.8 ML SYRINGE 70 MG SUB-Q ×2 (08:51→20:40)
[2021-03-30] MEDS: MINERAL OIL/WHITE PETROLATUM OINTMENT 1 APPLIC EACH EYE ×2 (08:52→20:39)
[2021-03-30] MEDS: ALBUTEROL SULFATE NEB 2.5 MG/0.5 ML INH 10 MG INHALATION (11:32)
[2021-03-30] MEDS: INSULIN ASPART (*BKC) 100 UNITS/ML SUB-Q (12:06)
[2021-03-30 12:24] LABS: Glucose Point of Care 213 mg/dl (65-105)
[2021-03-30 12:56] LABS: Vancomycin Trough 9.6 ug/mL (10.0-20.0)
--- NOTE | 2021-03-30 13:17 | PCFNICU ---
ICU Rounding Note: Pt current nutrition is Jevity 1.2 running at 70mL/hr over 22 hours. Last recorded weight is 77.7 kg, up from 71.2kg reported 03/27. Bowel Motility: LBM reported 03/25. No new BM reported. Labs Reviewed: hgb 7.3, hct 22.4, alb 2.4, Na 122, K 5.4, Cr 0.4, Glu 213 Meds Noted: lovenox, fentanyl, novolog, lantus, versed, levophed, protonix, vancomycin, propofol - 15mics Skin: buttocks -deep tissue, right toe-deep tissue, left toe-deep tissue Additional Notes: Pt remains on mechanical ventilation with tube feeding of Jevity 1.2 running at 70mL/hr over 22 hours providing 1848kcal/85g protein/1243mL water. Propofol currently running at 15mics or 4.64mL/hr over 24 hours provides an additional 123kcal of lipids. Total caloric intake is 1974kcals meeting 93% of kcal needs and 100% or protein needs. Agree with diet order at this time. Will continue to follow. Following daily in ICU rounds. Will monitor every T/F.
[2021-03-30 13:28] LABS: Anion Gap 2 mmol/L (8-16); Blood Urea Nitrogen 16 mg/dL (9-20); Calcium 6.7 mg/dL (8.4-10.2); Carbon Dioxide 38 mmol/L (22-30); Chloride 84 mmol/L (98-107); Estimated CRCL calculation 158 ml/min; Estimated Glomerular Filt Rate > 60; Glucose 175 mg/dL (65-110); Potassium 5.1 mmol/L (3.4-5.0); Sodium 124 mmol/L (137-145)
--- NOTE | 2021-03-30 14:46 | WPDINTPN ---
Progress Note: A&P Assessment and Plan (1) Acute respiratory failure with hypoxia: Code(s): J96.01 - Acute respiratory failure with hypoxia Status: Acute Assessment and Plan: Acute respiratory failure likely related to COVID pneumonia. Patient was admitted on 03/06/2021 and was tested positive for COVID-19, 5 days prior to admission -patient was on the intermediate Unit and was maxed out on the Airvo and was not able to tolerate the BiPAP, patient was severe respiratory distress with tachypnea and hypoxia -intubated on 03/10/2021 -03/25/2021: Tracheostomy and PEG tube were placed -patient on CMV mode, currently on 85% FiO2, peep of 10. Likely related to Enterococcus pneumonia continue antibiotics as below. Wean FiO2 to maintain O2 sats greater than 92%. -ABG reviewed. - Chest x-ray reviewed. -low tidal volume strategy to prevent volu-trauma -continue bronchodilators, -03/11/2021 discontinued ceftriaxone and azithromycin which were started on 03/08. As the white blood cell count were normal and patient was afebrile. -sedated with fentanyl and Versed infusion, OFF Nimbex. (2) Sepsis: Code(s): A41.9 - Sepsis, unspecified organism Status: Acute Assessment and Plan: Elevated WBC count, tachycardia, worsening chest x-ray, increasing O2 requirement - 03/27/2021: Blood cultures negative x2 - 03/27/2021: Urine culture growing Enterococcus species - 03/27/2021: Sputum cultures growing Enterococcus species continue cefepime and vancomycin ( initiated on03/27) (3) Pneumonia due to 2019 novel coronavirus: Code(s): U07.1 - COVID-19; J12.82 - Pneumonia due to coronavirus disease 2019 Status: Acute Assessment and Plan: Patient tested positive for COVID on 03/03. 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 Platelet counts gradually increasing and stable - HIT antibodies and serotonin release assay negative - continue therapeutic Lovenox (7) Electrolyte abnormality: Code(s): E87.8 - Other disorders of electrolyte and fluid balance, not elsewhere classified Status: Acute Assessment and Plan: Potassium improved with insulin and also give a dose of Kayexalate (8) PAD (peripheral artery disease): Code(s): I73.9 - Peripheral vascular disease, unspecified Status: Acute Assessment and Plan: 03/22 patient's right foot appears slightly paler and colder as compared to left on exam but dorsalis pedis can be easily palpable. No mottling or cyanosis seen at that time right extremity duplex exam showed Total occlusion of right peroneal artery. Dr. Sands discussed case with Dr. Kwon who evaluated and examined patient. -continue therapeutic Lovenox (9) Pulmonary embolism: Code(s): I26.99 - Other pulmonary embolism without acute cor pulmonale Status: Acute Assessment and Plan: -03/27/2021 chest CTA: Bilateral pulmonary embolism, persistent extensive bilateral pulmonary infiltrates mild to moderate bilateral pleural effusion, new mediastinal -patient is on therapeutic Lovenox Additional Plan Nutrition: Continue tube fe
[2021-03-30 17:16] LABS: Glucose Point of Care 158 mg/dl (65-105)
[2021-03-30] MEDS: PRIMIDONE 50 MG TABLET BY MOUTH (20:40)
[2021-03-30] MEDS: PROPOFOL IV EMULSION 100 ML 7.74 MG IV CONT (21:12)
[2021-03-31] VITALS (35 sets, daily range): BP systolic 78–112; BP diastolic 49–83; PULSE 99–111; RESP 20–29; TEMP 36–37.2; O2SAT 91–97
[2021-03-31 00:19] LABS: Glucose Point of Care 156 mg/dl (65-105)
[2021-03-31 05:20] LABS: Basophils Absolute Auto 0.1 K/mm3 (0.0-0.1); Basophils Percent Auto 0.3 % (0.2-1.2); Eosinophils Absolute Auto 0.2 K/mm3 (0-0.3); Eosinophils Percent Auto 0.9 % (0-4.4); Hematocrit 22.2 % (42.0-52.0); Immature Granulocyte Percent A 4.3 % (0-0.5); Lymphocytes Absolute Auto 0.62 K/mm3 (0.9-3.2); Lymphocytes Percent Auto 3.8 % (18.3-44.2); Mean Corpuscular HGB Conc 31.5 g/dl (32-36); Mean Corpuscular Hemoglobin 30.4 pg (26-34); Mean Corpuscular Volume 96.5 fl (80-100); Mean Platelet Volume 10.9 fl (7.4-10.4); Monocytes Absolute Auto 0.8 K/mm3 (0.1-0.6); Monocytes Percent Auto 4.9 % (2.6-8.5); Neutrophils Absolute Auto 14.1 K/mm3 (1.3-6.7); Neutrophils Percent Auto 85.8 % (45.5-73.1); Platelet Count Result 192 k/mm3 (150-375); Red Cell Distribution Width 12.9 % (11.5-14.5); White Blood Count 16.4 K/mm3 (4.5-10.0)
[2021-03-31 05:36] LABS: Alanine Aminotransferase 25 U/L (4-50); Albumin Level 2.4 g/dL (3.5-5.1); Alkaline Phosphatase 204 U/L (38-126); Anion Gap -2 mmol/L (8-16); Aspartate Amino Transferase 43 U/L (17-59); Bilirubin,Total 0.3 mg/dL (0.2-1.3); Blood Urea Nitrogen 20 mg/dL (9-20); Calcium 6.7 mg/dL (8.4-10.2); Carbon Dioxide 37 mmol/L (22-30); Chloride 87 mmol/L (98-107); Estimated CRCL calculation 110 ml/min; Estimated Glomerular Filt Rate > 60; Glucose 178 mg/dL (65-110); Magnesium 2.2 mg/dL (1.6-2.3); Phosphorus 3.3 mg/dL (2.5-4.5); Potassium 5.2 mmol/L (3.4-5.0); Sodium 122 mmol/L (137-145)
[2021-03-31] MEDS: CENTRAL LINE FLUSH 10 ML IV PUSH ×3 (06:02→20:06)
[2021-03-31 06:09] LABS: Alveolar/Arterial O2 Gradient 497.4 mmHg; Base Excess ABG 10.9 mEq/l (+/-2.0); Carboxyhemoglobin 0.3 % THb (0-2.0); Fractional Inspired Oxygen 90 %; HCO3 ABG 37.7 mEq/l (22.0-26.0); Methemoglobin ABG 0.1 %THb (0-1.5); Oxygen Saturation ABG 94.4 % (95.0-100.0); PO2 ABG 76.1 mmHg (80.0-100.0); PO2 FiO2 Ratio Arterial Blood 0.85 %; Reduced Hemoglobin 5.6 %THb (0-5.0); Total Hemoglobin 8.2 g/dL (12.0-18.0); pH ABG 7.371 (7.350-7.450)
[2021-03-31 06:12] LABS: Device VENTILATOR; Modified Allen's Test Unable to perform; PCO2 ABG 66.5 mmHg (35.0-45.0); Site Drawn RIGHT RADIAL
[2021-03-31 06:13] LABS: Arterial Blood Gas PEEP 10 cmH2O; Arterial Blood Gas Vent Mode PRESSURE CONTROL; Arterial Blood Gas Ventilator rate 20 /MIN; Peak Inspiratory Pressure 36 cmH2O
[2021-03-31] MEDS: CARBIDOPA/LEVODOPA 25/100 MG TABLET 2 TABLET PO ×5 (06:52→19:53)
[2021-03-31] MEDS: FENTANYL 2,500MCG/NS250ML(*CRX 2,500 MCG/250 ML BAG 20 MCG IV CONT ×2 (08:41→21:30)
[2021-03-31] MEDS: INSULIN GLARGINE (*BKC) 100 UNITS/ML 10 UNITS SUB-Q (08:44)
[2021-03-31] MEDS: ASPIRIN 81 MG CHEWABLE TABLET FEED TUBE (08:44)
[2021-03-31] MEDS: MINERAL OIL/WHITE PETROLATUM OINTMENT 1 APPLIC EACH EYE ×2 (08:44→19:53)
[2021-03-31] MEDS: PANTOPRAZOLE SODIUM IV 40 MG VIAL IV PUSH ×2 (08:44→19:52)
[2021-03-31] MEDS: polyethylene glycoL 3350 17 GM POWD.PACK PO (08:44)
[2021-03-31] MEDS: MIDAZOLAM 100MG/NS 100ML(*CRX) 100 MG/100 ML BAG 6 MG IV CONT ×2 (08:50→21:29)
[2021-03-31] MEDS: ENOXAPARIN 80 MG/0.8 ML SYRINGE 70 MG SUB-Q ×2 (08:55→19:54)
[2021-03-31] MEDS: PROPOFOL IV EMULSION 100 ML 6.19 MG IV CONT ×2 (08:55→21:28)
[2021-03-31 12:51] LABS: Glucose Point of Care 168 mg/dl (65-105)
--- NOTE | 2021-03-31 12:58 | WPDINTPN ---
Progress Note: A&P Assessment and Plan (1) Acute respiratory failure with hypoxia: Code(s): J96.01 - Acute respiratory failure with hypoxia Status: Acute Assessment and Plan: Acute respiratory failure likely related to COVID pneumonia. Patient was admitted on 03/06/2021 and was tested positive for COVID-19, 5 days prior to admission -patient was on the intermediate Unit and was maxed out on the Airvo and was not able to tolerate the BiPAP, patient was severe respiratory distress with tachypnea and hypoxia -intubated on 03/10/2021 -03/25/2021: Tracheostomy and PEG tube were placed -patient on pressure control ventilation mode, currently on 90% % FiO2, peep of 10. Likely related to Enterococcus pneumonia continue antibiotics as below. Wean FiO2 to maintain O2 sats greater than 92%.. Decreased inspiratory pressure -ABG reviewed. - Chest x-ray reviewed. -low tidal volume strategy to prevent volu-trauma -continue bronchodilators, -sedated with fentanyl and Versed infusion, OFF Nimbex. (2) Sepsis: Code(s): A41.9 - Sepsis, unspecified organism Status: Acute Assessment and Plan: Elevated WBC count, tachycardia, worsening chest x-ray, increasing O2 requirement - 03/27/2021: Blood cultures negative x2 - 03/27/2021: Urine culture growing Enterococcus species - 03/27/2021: Sputum cultures growing Enterococcus species continue cefepime and vancomycin ( initiated on03/27) (3) Pneumonia due to 2019 novel coronavirus: Code(s): U07.1 - COVID-19; J12.82 - Pneumonia due to coronavirus disease 2019 Status: Acute Assessment and Plan: Patient tested positive for COVID on 03/03. 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 Platelet counts gradually increasing and stable - HIT antibodies and serotonin release assay negative - continue therapeutic Lovenox (7) Electrolyte abnormality: Code(s): E87.8 - Other disorders of electrolyte and fluid balance, not elsewhere classified Status: Acute Assessment and Plan: Potassium improved with insulin and also give a dose of Kayexalate (8) PAD (peripheral artery disease): Code(s): I73.9 - Peripheral vascular disease, unspecified Status: Acute Assessment and Plan: 03/22 patient's right foot appears slightly paler and colder as compared to left on exam but dorsalis pedis can be easily palpable. No mottling or cyanosis seen at that time right extremity duplex exam showed Total occlusion of right peroneal artery. Dr. Sands discussed case with Dr. Kwon who evaluated and examined patient. -continue therapeutic Lovenox (9) Pulmonary embolism: Code(s): I26.99 - Other pulmonary embolism without acute cor pulmonale Status: Acute Assessment and Plan: -03/27/2021 chest CTA: Bilateral pulmonary embolism, persistent extensive bilateral pulmonary infiltrates mild to moderate bilateral pleural effusion, new mediastinal -patient is on therapeutic Lovenox (10) Anemia: Code(s): D64.9 - Anemia, unspecified Status: Acute Assessment and Plan: Anemia likely related to p
--- NOTE | 2021-03-31 15:38 | PCNFU ---
Nutrition Follow-Up Complete: Inadequate Oral intake as related to COVID pnuemonia as evidenced by reported poor po intake and weight loss reported. Goal: Meet estimanted nutritional needs Pt is progressing towards goal Pt current nutrition is Jevity 1.2 running at 70mL/hr over 22 hours. Last recorded weight is 75.3 kg. Bowel Motility: No BM reported. Miralax started 03/13/21 Labs Reviewed: hgb 7.0, hct 22.2, Alb 2.4, Na 122, K 5.2, CO2 37, Anion gap -2, Cr 0.60, Glu 156 Meds Noted: sinemet, maxipime, lovenox, fentanyl, lantus, versed, levophed, protonix, miralax, propofol, vancomycin Skin:buttocks -deep tissue, right toe-deep tissue, left toe-deep tissue Additional Notes: ICU nutrition follow up. Pt is remains on mechanical ventilation with tube feeding of jevity 1.2 running at 70mL/hr over 22 hours providing 1848kcal, 85g of protein, and 1243mL of water. Nursing staff reports that pt is tolerating current tube feeding and rate. Propofol running at 20 mics provides an additional 163kcal of lipids. Pt is receiving a total of 2011kcal and 85g of protein, meeting 95% of kcal needs and 100% of protein needs. Agree with diet order at this time. Will continue to follow. Will follow daily in ICU rounds. Will monitor every T/F.
[2021-03-31 16:45] LABS: Glucose Point of Care 166 mg/dl (65-105)
[2021-03-31] MEDS: NOREPINEPHRINE 8 MG/D5W 250 ML 8 MG/250 ML BAG 9.38 MG IV CONT (17:23)
[2021-03-31] MEDS: PRIMIDONE 50 MG TABLET BY MOUTH (19:55)
[2021-04-01] VITALS (38 sets, daily range): BP systolic 78–107; BP diastolic 61–78; PULSE 102–125; RESP 25–38; TEMP 36.6–37.4; O2SAT 88–95
[2021-04-01 00:51] LABS: Glucose Point of Care 159 mg/dl (65-105)
[2021-04-01 05:07] LABS: Alveolar/Arterial O2 Gradient 348.5 mmHg; Base Excess ABG 9.2 mEq/l (+/-2.0); Carboxyhemoglobin 0.3 % THb (0-2.0); Fractional Inspired Oxygen 65 %; HCO3 ABG 35.3 mEq/l (22.0-26.0); Methemoglobin ABG 0.3 %THb (0-1.5); Oxygen Content ABG 12.2 %vol (16.0-22.0); PCO2 ABG 56.5 mmHg (35.0-45.0); PO2 ABG 53.5 mmHg (80.0-100.0); PO2 FiO2 Ratio Arterial Blood 0.82 %; Reduced Hemoglobin 11.7 %THb (0-5.0); Total Hemoglobin 9.9 g/dL (12.0-18.0); pH ABG 7.413 (7.350-7.450)
[2021-04-01 05:10] LABS: Oxygen Saturation ABG 87.4 % (95.0-100.0)
[2021-04-01 05:11] LABS: Arterial Blood Gas Vent Mode PRESSURE CONTROL; Arterial Blood Gas Ventilator rate 20 /MIN; Device VENTILATOR; Modified Allen's Test Pass; Oxyhemoglobin 87.7 % THb (90.0-100.0); Site Drawn RIGHT RADIAL
[2021-04-01 05:12] LABS: Arterial Blood Gas PEEP 10 cmH2O; Peak Inspiratory Pressure 33 cmH2O
[2021-04-01 05:17] LABS: Basophils Absolute Auto 0.1 K/mm3 (0.0-0.1); Basophils Percent Auto 0.5 % (0.2-1.2); Eosinophils Absolute Auto 0.3 K/mm3 (0-0.3); Eosinophils Percent Auto 2.4 % (0-4.4); Hematocrit 24.3 % (42.0-52.0); Hemoglobin 7.8 g/dL (14.0-18.0); Immature Granulocyte Absolute 0.63 K/mm3 (0.00-0.031); Immature Granulocyte Percent A 4.8 % (0-0.5); Lymphocytes Absolute Auto 0.54 K/mm3 (0.9-3.2); Lymphocytes Percent Auto 4.1 % (18.3-44.2); Mean Corpuscular HGB Conc 32.1 g/dl (32-36); Mean Corpuscular Hemoglobin 30.8 pg (26-34); Mean Platelet Volume 11.1 fl (7.4-10.4); Monocytes Absolute Auto 0.7 K/mm3 (0.1-0.6); Monocytes Percent Auto 4.9 % (2.6-8.5); Neutrophils Percent Auto 83.3 % (45.5-73.1); Nucleated Red Blood Cells Perc 0.2 % (0.0-0.2); Platelet Count Result 199 k/mm3 (150-375); Red Blood Count 2.53 M/mm3 (4.6-6.20); Red Cell Distribution Width 13.6 % (11.5-14.5); White Blood Count 13.3 K/mm3 (4.5-10.0)
[2021-04-01 05:33] LABS: Alanine Aminotransferase 26 U/L (4-50); Albumin Level 2.3 g/dL (3.5-5.1); Alkaline Phosphatase 235 U/L (38-126); Anion Gap 3 mmol/L (8-16); Aspartate Amino Transferase 54 U/L (17-59); Bilirubin,Total 0.3 mg/dL (0.2-1.3); Blood Urea Nitrogen 25 mg/dL (9-20); Calcium 6.9 mg/dL (8.4-10.2); Carbon Dioxide 37 mmol/L (22-30); Chloride 86 mmol/L (98-107); Estimated CRCL calculation 93 ml/min; Estimated Glomerular Filt Rate > 60; Glucose 163 mg/dL (65-110); Magnesium 2.3 mg/dL (1.6-2.3); Phosphorus 2.8 mg/dL (2.5-4.5); Potassium 5.4 mmol/L (3.4-5.0); Sodium 126 mmol/L (137-145)
[2021-04-01] MEDS: CARBIDOPA/LEVODOPA 25/100 MG TABLET 2 TABLET PO ×5 (06:14→20:10)
[2021-04-01] MEDS: CENTRAL LINE FLUSH 10 ML IV PUSH ×3 (06:15→21:39)
[2021-04-01] MEDS: ASPIRIN 81 MG CHEWABLE TABLET FEED TUBE (08:46)
[2021-04-01] MEDS: SODIUM BICARBONATE 8.4% 50 MEQ/50 ML SYRINGE IV PUSH (08:47)
[2021-04-01] MEDS: PANTOPRAZOLE SODIUM IV 40 MG VIAL IV PUSH ×2 (08:47→20:09)
[2021-04-01] MEDS: INSULIN GLARGINE (*BKC) 100 UNITS/ML 10 UNITS SUB-Q (08:47)
[2021-04-01] MEDS: MINERAL OIL/WHITE PETROLATUM OINTMENT 1 APPLIC EACH EYE ×2 (08:47→20:12)
[2021-04-01] MEDS: DEXTROSE 50% 25 GM/50 ML SYRINGE IV PUSH (08:48)
[2021-04-01] MEDS: INSULIN HUMAN REGULAR (*BKC) 100 UNITS/ML 10 UNITS IV PUSH (08:49)
[2021-04-01] MEDS: SODIUM POLYSTYRENE SULFONONATE 15 GM/60 ML BTL 30 GM PO (08:50)
[2021-04-01] MEDS: FENTANYL 2,500MCG/NS250ML(*CRX 2,500 MCG/250 ML BAG 20 MCG IV CONT (10:19)
[2021-04-01] MEDS: ALBUTEROL SULFATE NEB 2.5 MG/0.5 ML INH 10 MG INHALATION (10:20)
[2021-04-01 11:29] LABS: Glucose Point of Care 173 mg/dl (65-105)
[2021-04-01 11:42] LABS: Vancomycin Trough 21.2 ug/mL (10.0-20.0)
[2021-04-01] MEDS: polyethylene glycoL 3350 17 GM POWD.PACK PO (11:57)
[2021-04-01] MEDS: ENOXAPARIN 80 MG/0.8 ML SYRINGE 70 MG SUB-Q ×2 (11:58→20:10)
[2021-04-01] MEDS: PROPOFOL IV EMULSION 100 ML 7.74 MG IV CONT (12:10)
[2021-04-01] MEDS: MIDAZOLAM 100MG/NS 100ML(*CRX) 100 MG/100 ML BAG 6 MG IV CONT (12:14)
--- NOTE | 2021-04-01 14:55 | WPDGICN ---
Assessment and Plan Assessment and plan (1) Anemia: Code(s): D64.9 - Anemia, unspecified Status: Acute Assessment and Plan: patient with anemia that is been present for quite some time. No evidence for acute blood loss. Patient has multiple possible reasons for be any anemic including chronic disease chronic daily phlebotomies. Would recommend stool Hemoccult be obtained because of concern over possible GI bleeding. Agree with prophylactic acid suppression with Protonix or H2 blockers given his prolonged intubation and sedation. At this point I would defer invasive testing such as an EGD. An EGD was performed on 03/24/2021 at the time of endoscopy PEG placement and no potential site of blood loss was evident at that time. Colonoscopy would be high risk in this patient not felt necessary given the current circumstances. (2) Pulmonary embolism: Code(s): I26.99 - Other pulmonary embolism without acute cor pulmonale Status: Acute (3) Sepsis: Code(s): A41.9 - Sepsis, unspecified organism Status: Acute (4) Respiratory failure: Code(s): J96.90 - Respiratory failure, unspecified, unspecified whether with hypoxia or hypercapnia Status: Acute (5) Protein calorie malnutrition: Code(s): E46 - Unspecified protein-calorie malnutrition Status: Acute (6) Parkinson's disease (tremor, stiffness, slow motion, unstable posture): Code(s): G20 - Parkinson's disease Status: Chronic GI Consult Note Consult date/time: 04/01/21 14:55 HPI: Doni Gunter is a 66 year old male I am asked to see for anemia. Patient admitted the hospital on 03/06/2021. patient has an underlying history of Parkinson's disease. Admitted with COVID pneumonia and respiratory failure has been in the intensive care unit. A PEG tube was placed by Dr. Alfaro on 03/24/2021. Patient is noted to have anemia throughout his hospital stay. No signs of GI blood loss has been described by the nursing service. Patient is intubated sedated unable to add any history. Patient has had daily phlebotomies and is fully anticoagulated. He has been placed empirically on Protonix. Today patient's hemoglobin 7.8 hematocrit 24 MCV of 96. Review of Systems Review of Systems: ROS unobtainable: Yes unobtainable due to endotracheal tube PMFSH Past Medical History Medical History Cutaneous abscess of chest wall Lipoma of anterior chest wall Parkinson's disease (tremor, stiffness, slow motion, unstable posture) Family History Family History Mother Family history of type 2 diabetes mellitus, Onset Age: 84 Father Parkinsons Social History Social History Social History: The patient is and lives with his . Together they have 3 children. 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 He does not use any alcohol marijuana or illicit drugs. 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 Code status. Full code. Smoking status: Never smoker Alcohol intake: current Substance use: never Spiritual care concerns: No Meds Home Medications and Allergies Home Medications Medication Instructions Recorded Confirmed Type carbidopa 25 mg-levodopa 100 mg See Rx Instructions .ROUTE .COMPLEX 06/30/20 03/06/21 History disintegrating tablet primidone 50 mg tablet See Rx Instructions .ROUTE 02/23/21 03/06/21 Rx .COMPLEX #30 tablet Allergies Allergy/AdvReac Type Severity Reaction Status Date / Time No Known Allergies Allergy Unverified 01/18/11 18:10 Vital Signs Vital Signs - 24 hr 03/31/21 15:51 03/31/21 16:00 03/31/21 16:07 Temperature 96.9 F L 97.3 F L 97.3 F L Pulse Rate 107 H 106 H 104 H Respiratory Rate 23 H 28 H 28 H Blood Pressure 88/63 L 112/83 78/49 L Pulse Oximetry
--- NOTE | 2021-04-01 16:04 | WPDINTPN ---
Progress Note: A&P Assessment and Plan (1) Acute respiratory failure with hypoxia: Code(s): J96.01 - Acute respiratory failure with hypoxia Status: Acute Assessment and Plan: Acute respiratory failure likely related to COVID pneumonia. Patient was admitted on 03/06/2021 and was tested positive for COVID-19, 5 days prior to admission -patient was on the intermediate Unit and was maxed out on the Airvo and was not able to tolerate the BiPAP, patient was severe respiratory distress with tachypnea and hypoxia -intubated on 03/10/2021 -03/25/2021: Tracheostomy and PEG tube were placed -patient on pressure control ventilation mode, currently on 65% % FiO2, peep of 10. Likely related to Enterococcus pneumonia continue antibiotics as below. Wean FiO2 to maintain O2 sats greater than 92%.. Decreased inspiratory pressure -ABG reviewed. - Chest x-ray reviewed. -low tidal volume strategy to prevent volu-trauma -continue bronchodilators, -sedated with fentanyl and Versed infusion, OFF Nimbex. (2) Sepsis: Code(s): A41.9 - Sepsis, unspecified organism Status: Acute Assessment and Plan: Elevated WBC count, tachycardia, worsening chest x-ray, increasing O2 requirement - 03/27/2021: Blood cultures negative x2 - 03/27/2021: Urine culture growing Enterococcus species - 03/27/2021: Sputum cultures growing Enterococcus species continue cefepime and vancomycin ( initiated on03/27) (3) Pneumonia due to 2019 novel coronavirus: Code(s): U07.1 - COVID-19; J12.82 - Pneumonia due to coronavirus disease 2019 Status: Acute Assessment and Plan: Patient tested positive for COVID on 03/03. 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 (5) Parkinson's disease (tremor, stiffness, slow motion, unstable posture): Code(s): G20 - Parkinson's disease Status: Chronic Assessment and Plan: Continue with carbidopa/levodopa, primidone (6) Electrolyte abnormality: Code(s): E87.8 - Other disorders of electrolyte and fluid balance, not elsewhere classified Status: Acute Assessment and Plan: Elevated potassium, treated with sodium bicarb, insulin and D50, Kayexalate, albuterol nebs (7) PAD (peripheral artery disease): Code(s): I73.9 - Peripheral vascular disease, unspecified Status: Acute Assessment and Plan: 03/22 patient's right foot appears slightly paler and colder as compared to left on exam but dorsalis pedis can be easily palpable. No mottling or cyanosis seen at that time right extremity duplex exam showed Total occlusion of right peroneal artery. Dr. Sands discussed case with Dr. Kwon who evaluated and examined patient. -continue therapeutic Lovenox (8) Pulmonary embolism: Code(s): I26.99 - Other pulmonary embolism without acute cor pulmonale Status: Acute Assessment and Plan: -03/27/2021 chest CTA: Bilateral pulmonary embolism, persistent extensive bilateral pulmonary infiltrates mild to moderate bilateral pleural effusion, new mediastinal -patient is on therapeutic Lovenox (9) Anemia: Code(s): D64.9 - Anemia, unspecified Status: Acute Assessment and Plan: Anemia likely related to possible GI bleed, full anticoagulation, daily phlebotomy -hemoglobin 7.0 on 03/31, received 1 unit of packed RBCs -continue to monitor hemoglobin -Protonix has been switched to q.12 hours -GI has been consulted, stool has been ordered for Hemoccult, (10) DVT prophylaxis: Code(s):
[2021-04-01 16:20] LABS: Glucose Point of Care 161 mg/dl (65-105)
--- NOTE | 2021-04-01 18:02 | PCFNICU ---
ICU Rounding Note: Pt current nutrition is Jevity 1.2 running at 70mL/hr over 22 hours Last recorded weight is 82.1 kg. Bowel Motility: No new BM reported Labs Reviewed: hgb 7.8, hvy 24.3, alb 2.3, Na 126, K 5.4, Ca 6.9, BUN 25, CO2 37, Glu 163, ALP 235 Meds Noted: sinemet, maxipime, lovenox, fentanyl, lantus, versed, levophed, protonix, miralax, propofol, vancomycin Skin: WNL Additional Notes: Pt is remains on mechanical ventilation and tube feeding of Jevity 1.2 running at goal rate of 70mL/hr over 22 hours providing 1848kcal, 85g of protein, and 1243mL of water. Per EMR, pt is tolerating tube feeding and rate. Propofol running at 7.74mL/hr over 24 hours provides an additional 204kcal of lipids. Total kcal provided is 2052kcal, meeting 95% of kcal needs and 100% of protein needs. Agree with diet order at this time. Will continue to follow. Following daily in ICU rounds. Will monitor every T/F.
[2021-04-01] MEDS: PRIMIDONE 50 MG TABLET BY MOUTH (20:11)
[2021-04-02] VITALS (32 sets, daily range): BP systolic 82–107; BP diastolic 57–74; PULSE 103–113; RESP 20–33; TEMP 35.9–37.7; O2SAT 88–98
[2021-04-02] MEDS: FENTANYL 2,500MCG/NS250ML(*CRX 2,500 MCG/250 ML BAG 20 MCG IV CONT ×2 (00:03→11:47)
[2021-04-02] MEDS: PROPOFOL IV EMULSION 100 ML 7.74 MG IV CONT (00:06)
[2021-04-02 00:21] LABS: Glucose Point of Care 187 mg/dl (65-105)
[2021-04-02] MEDS: CARBIDOPA/LEVODOPA 25/100 MG TABLET 2 TABLET PO ×5 (04:40→20:08)
[2021-04-02 05:01] LABS: Hematocrit 23.6 % (42.0-52.0); Hemoglobin 7.3 g/dL (14.0-18.0); Mean Corpuscular HGB Conc 30.9 g/dl (32-36); Mean Corpuscular Hemoglobin 30.3 pg (26-34); Mean Corpuscular Volume 97.9 fl (80-100); Mean Platelet Volume 11.1 fl (7.4-10.4); Platelet Count Result 194 k/mm3 (150-375); Red Blood Count 2.41 M/mm3 (4.6-6.20); Red Cell Distribution Width 13.6 % (11.5-14.5); White Blood Count 12.3 K/mm3 (4.5-10.0)
[2021-04-02 05:14] LABS: Alanine Aminotransferase 21 U/L (4-50); Albumin Level 2.4 g/dL (3.5-5.1); Alkaline Phosphatase 214 U/L (38-126); Anion Gap 3 mmol/L (8-16); Aspartate Amino Transferase 47 U/L (17-59); Bilirubin,Total 0.2 mg/dL (0.2-1.3); Blood Urea Nitrogen 35 mg/dL (9-20); Calcium 6.9 mg/dL (8.4-10.2); Carbon Dioxide 36 mmol/L (22-30); Chloride 88 mmol/L (98-107); Estimated CRCL calculation 78 ml/min; Estimated Glomerular Filt Rate > 60; Glucose 168 mg/dL (65-110); Magnesium 2.4 mg/dL (1.6-2.3); Phosphorus 3.8 mg/dL (2.5-4.5); Potassium 4.2 mmol/L (3.4-5.0); Sodium 127 mmol/L (137-145)
[2021-04-02 05:42] LABS: Band Neutrophils Percent 20 % (0-6); Eosinophils Absolute Manual 0.36 K/mm3 (0.02-0.5); Eosinophils Percent Manual 3 % (0-4); Lymphocytes Absolute Manual 0.36 K/mm3 (1.1-4.5); Metamyelocytes Percent 4 %; Monocytes Absolute Manual 0.73 K/mm3 (0.1-0.90); Monocytes Percent Manual 6 % (3-9); Myelocytes Percent 1 %; Neutrophils Percent Manual 63 % (46-73); Total Cells Counted 100
[2021-04-02 05:43] LABS: Anisocytosis 1+ (NORMAL); Hypochromasia 2+ (NORMAL); Platelet Estimate Adequate (Adequate)
[2021-04-02] MEDS: MIDAZOLAM 100MG/NS 100ML(*CRX) 100 MG/100 ML BAG 6 MG IV CONT ×2 (05:58→23:13)
[2021-04-02] MEDS: CENTRAL LINE FLUSH 10 ML IV PUSH ×3 (06:00→20:10)
[2021-04-02 07:15] LABS: Alveolar/Arterial O2 Gradient 396.5 mmHg; Carboxyhemoglobin 0.3 % THb (0-2.0); Fractional Inspired Oxygen 75 %; HCO3 ABG 33.9 mEq/l (22.0-26.0); Methemoglobin ABG 0.2 %THb (0-1.5); Oxygen Content ABG 10.6 %vol (16.0-22.0); Oxygen Saturation ABG 95.2 % (95.0-100.0); Oxyhemoglobin 94.1 % THb (90.0-100.0); PCO2 ABG 56.5 mmHg (35.0-45.0); PO2 ABG 78.2 mmHg (80.0-100.0); PO2 FiO2 Ratio Arterial Blood 1.04 %; Reduced Hemoglobin 5.4 %THb (0-5.0); pH ABG 7.396 (7.350-7.450)
[2021-04-02 07:18] LABS: Modified Allen's Test Unable to perform; Site Drawn RIGHT RADIAL; Total Hemoglobin 7.9 g/dL (12.0-18.0)
[2021-04-02 07:19] LABS: Arterial Blood Gas Vent Mode PRESSURE CONTROL; Arterial Blood Gas Ventilator rate 20 /MIN; Device VENTILATOR; Peak Inspiratory Pressure 33 cmH2O
[2021-04-02 07:20] LABS: Arterial Blood Gas PEEP 10 cmH2O
[2021-04-02] MEDS: ENOXAPARIN 80 MG/0.8 ML SYRINGE 70 MG SUB-Q ×2 (08:59→20:08)
[2021-04-02] MEDS: PANTOPRAZOLE SODIUM IV 40 MG VIAL IV PUSH ×2 (08:59→20:09)
[2021-04-02] MEDS: INSULIN GLARGINE (*BKC) 100 UNITS/ML 10 UNITS SUB-Q (09:00)
[2021-04-02] MEDS: ASPIRIN 81 MG CHEWABLE TABLET FEED TUBE (09:00)
[2021-04-02] MEDS: polyethylene glycoL 3350 17 GM POWD.PACK PO (09:05)
[2021-04-02] MEDS: MINERAL OIL/WHITE PETROLATUM OINTMENT 1 APPLIC EACH EYE ×2 (09:05→20:09)
[2021-04-02] MEDS: PROPOFOL IV EMULSION 100 ML 6.19 MG IV CONT ×2 (11:46→20:03)
[2021-04-02] MEDS: NOREPINEPHRINE 8 MG/D5W 250 ML 8 MG/250 ML BAG 7.5 MG IV CONT (11:51)
[2021-04-02 12:15] LABS: Glucose Point of Care 151 mg/dl (65-105)
--- NOTE | 2021-04-02 13:11 | WPDGIPROGNO ---
Progress Note: A&P Assessment and Plan (1) Anemia: Code(s): D64.9 - Anemia, unspecified Status: Acute Assessment and Plan: Anemia noted. Hemoglobin stable with no signs of active bleeding. Stool Hemoccult has been ordered and pending. Anemia is likely multifactorial. Currently being covered prophylactically with proton pump inhibitor therapy for possible stress ulceration. No investigation for warranted at this time. All conservatively at present. (2) Respiratory failure: Code(s): J96.90 - Respiratory failure, unspecified, unspecified whether with hypoxia or hypercapnia Status: Acute (3) Pneumonia due to 2019 novel coronavirus: Code(s): U07.1 - COVID-19; J12.82 - Pneumonia due to coronavirus disease 2019 Status: Acute Subjective Date/time seen: 04/02/21 13:11 Patient remains intubated on the ventilator. Tolerating tube feedings. No evidence for bleeding per nursing staff. Review of Systems Review of Systems: ROS unobtainable: Yes unobtainable due to medical condition Exam Narrative: Patient on ventilator not examine because of COVID. Per nursing staff no signs of GI bleeding. At this time. Objective Data Vital Signs Vital Signs: Vital Signs - 24 hr 04/01/21 13:45 04/01/21 14:00 04/01/21 16:00 Temperature 98.6 F Pulse Rate 111 H 111 H 109 H Respiratory Rate 33 H 32 H Blood Pressure 90/61 L 105/78 Pulse Oximetry 94 94 95 04/01/21 16:53 04/01/21 16:54 04/01/21 16:57 Temperature Pulse Rate 109 H 109 H 109 H Respiratory Rate 32 H 32 H Blood Pressure 94/66 L Pulse Oximetry 04/01/21 16:58 04/01/21 17:50 04/01/21 18:00 Temperature Pulse Rate 109 H 111 H 112 H Respiratory Rate 32 H 36 H Blood Pressure 90/64 L Pulse Oximetry 93 92 04/01/21 20:00 04/01/21 20:03 04/01/21 20:11 Temperature 98.6 F Pulse Rate 109 H 125 H 108 H Respiratory Rate 29 H 25 H Blood Pressure 78/65 L Pulse Oximetry 93 92 04/01/21 22:00 04/01/21 23:16 04/01/21 23:35 Temperature Pulse Rate 109 H 106 H 107 H Respiratory Rate 30 H 28 H Blood Pressure 93/67 L Pulse Oximetry 94 95 04/02/21 00:00 04/02/21 00:03 04/02/21 00:06 Temperature 98.2 F Pulse Rate 106 H 107 H 108 H Respiratory Rate 29 H 28 H 25 H Blood Pressure 94/74 L Pulse Oximetry 96 04/02/21 02:00 04/02/21 02:26 04/02/21 04:00 Temperature 98.7 F Pulse Rate 110 H 109 H 106 H Respiratory Rate 30 H 29 H Blood Pressure 88/63 L 93/66 L Pulse Oximetry 95 96 96 04/02/21 06:00 04/02/21 06:11 04/02/21 06:54 Temperature Pulse Rate 106 H 111 H Respiratory Rate 20 Blood Pressure 84/58 L 84/58 L Pulse Oximetry 94 95 04/02/21 08:00 04/02/21 09:48 04/02/21 10:00 Temperature 96.7 F L Pulse Rate 103 H 113 H 107 H Respiratory Rate 21 H 23 H Blood Pressure 89/62 L 95/61 L Pulse Oximetry 96 92 94 04/02/21 10:16 04/02/21 11:46 04/02/21 11:47 Temperature Pulse Rate 107 H 107 H 107 H Respiratory Rate 23 H 23 H 23 H Blood Pressure Pulse Oximetry 04/02/21 11:51 04/02/21 12:00 Temperature 98.3 F Pulse Rate 107 H 105 H Respiratory Rate 27 H Blood Pressure 95/61 L 107/63 Pulse Oximetry 94 Intake/Output Intake/Output: Intake & Output 03/30/21 03/31/21 04/01/21 04/02/21 23:59 23:59 23:59 23:59 Intake Total 3917 4627 2694 1745 Output Total 2025 1000 950 350 Balance 1892 3637 1744 1395 Meds/Results Medications: Active Medications Generic Name Dose Route Start Last Admin Trade Name Freq PRN Reason Stop Dose Admin Albuterol 2.5 mg 03/18/21 12:51 03/24/21 20:46 Albuterol Sulfate Neb 2.5 Mg/0.5 Ml Inh INHALATION 2.5 mg Q6HRT PRN Administration Wheezing Alteplase, Recombinant 2 mg 03/26/21 21:49 03/26/21 22:48 Alteplase 2 Mg Vial (Cathflo) IV PUSH 2 mg ONCE PRN Administration Line Occlusion Aspirin 81 mg 03/25/21 08:00 04/02/21 09:00 Aspirin 81 Mg Chewable Tablet FEED TUBE
--- NOTE | 2021-04-02 13:34 | WPDINTPN ---
Progress Note: A&P Assessment and Plan (1) Acute respiratory failure with hypoxia: Code(s): J96.01 - Acute respiratory failure with hypoxia Status: Acute Assessment and Plan: Acute respiratory failure likely related to COVID pneumonia. Patient was admitted on 03/06/2021 and was tested positive for COVID-19, 5 days prior to admission -patient was on the intermediate Unit and was maxed out on the Airvo and was not able to tolerate the BiPAP, patient was severe respiratory distress with tachypnea and hypoxia -intubated on 03/10/2021 -03/25/2021: Tracheostomy and PEG tube were placed -patient on pressure control ventilation mode, currently on 75% % FiO2, peep of 10. Likely related to Enterococcus pneumonia continue antibiotics as below. Wean FiO2 to maintain O2 sats greater than 92%. Continue pressure control ventilation as patient has high mean airway and peak pressures on CMV mode -ABG reviewed. - Chest x-ray reviewed. -low tidal volume strategy to prevent volu-trauma -continue bronchodilators, -sedated with fentanyl and Versed infusion, OFF Nimbex. (2) Sepsis: Code(s): A41.9 - Sepsis, unspecified organism Status: Acute Assessment and Plan: Elevated WBC count, tachycardia, worsening chest x-ray, increasing O2 requirement - 03/27/2021: Blood cultures negative x2 - 03/27/2021: Urine culture growing Enterococcus species - 03/27/2021: Sputum cultures growing Enterococcus species continue cefepime and vancomycin ( initiated on03/27) 04/02: Will repeat blood cultures, urine cultures and sputum culture (3) Pneumonia due to 2019 novel coronavirus: Code(s): U07.1 - COVID-19; J12.82 - Pneumonia due to coronavirus disease 2019 Status: Acute Assessment and Plan: Patient tested positive for COVID on 03/03. 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 (5) Parkinson's disease (tremor, stiffness, slow motion, unstable posture): Code(s): G20 - Parkinson's disease Status: Chronic Assessment and Plan: Continue with carbidopa/levodopa, primidone (6) Electrolyte abnormality: Code(s): E87.8 - Other disorders of electrolyte and fluid balance, not elsewhere classified Status: Acute Assessment and Plan: Hyperkalemia improved (7) PAD (peripheral artery disease): Code(s): I73.9 - Peripheral vascular disease, unspecified Status: Acute Assessment and Plan: 03/22 patient's right foot appears slightly paler and colder as compared to left on exam but dorsalis pedis can be easily palpable. No mottling or cyanosis seen at that time right extremity duplex exam showed Total occlusion of right peroneal artery. Dr. Sands discussed case with Dr. Kwon who evaluated and examined patient. -continue therapeutic Lovenox (8) Pulmonary embolism: Code(s): I26.99 - Other pulmonary embolism without acute cor pulmonale Status: Acute Assessment and Plan: -03/27/2021 chest CTA: Bilateral pulmonary embolism, persistent extensive bilateral pulmonary infiltrates mild to moderate bilateral pleural effusion, new mediastinal -patient is on therapeutic Lovenox (9) Anemia: Code(s): D64.9 - Anemia, unspecified Status: Acute Assessment and Plan: Anemia likely related to possible GI bleed, full anticoagulation, daily phlebotomy -hemoglobin 7.0 on 03/31, received 1 unit of packed RBCs -continue to monitor hemoglobin -Protonix has been switched to q.12 hours -GI has been consulted, stool
--- NOTE | 2021-04-02 14:19 | PCFNICU ---
ICU Rounding Note: Pt current nutrition is Jevity 1.2 running at 70mL/hr over 22 hours Last recorded weight is 84.1 kg. Bowel Motility: No new BM reported, active bowel sounds, Miralax started 03/13/21 Labs Reviewed: hgb 7.3, hct 23.6, alb 2.4, Na 127, Cl 88, Ca 6.9, BUN 35, Mg 2.4, Glu 168, ALP 214 Meds Noted: sinemet, maxipime, lovenox, fentanyl, lantus, versed, levophed, protonix, miralax, propofol, vancomycin Skin:buttocks -deep tissue, right toe-deep tissue, left toe-deep tissue Additional Notes: Pt remains on mechanical ventilation and tube feeding of Jevity 1.2 running at goal rate of 70mL/hr over 22 hours providing 1848kcal, 85g of protein, and 1243mL of water, meeting 100% of protein needs. Per EMR, pt is tolerating tube feeding and rate. Propofol running at 6.19mL/hr providing an additional 163kcal of lipids. Total kcal provided is 2011kcal, meeting 93% of kcal needs. Agree with diet order at this time. Will continue to follow. Following daily in ICU rounds. Will monitor every T/F .
[2021-04-02 18:06] LABS: Glucose Point of Care 132 mg/dl (65-105)
[2021-04-02] MEDS: PRIMIDONE 50 MG TABLET BY MOUTH (20:10)
[2021-04-03] VITALS (76 sets, daily range): BP systolic 75–119; BP diastolic 52–67; PULSE 102–119; RESP 0–39; TEMP 36.6–37.7; O2SAT 84–99
[2021-04-03] MEDS: FENTANYL 2,500MCG/NS250ML(*CRX 2,500 MCG/250 ML BAG 17.5 MCG IV CONT (00:58)
[2021-04-03 01:52] LABS: Glucose Point of Care 166 mg/dl (65-105)
[2021-04-03] MEDS: CARBIDOPA/LEVODOPA 25/100 MG TABLET 2 TABLET PO ×5 (05:21→20:56)
[2021-04-03] MEDS: CENTRAL LINE FLUSH 10 ML IV PUSH ×3 (05:21→21:04)
[2021-04-03 05:33] LABS: Hematocrit 23.1 % (42.0-52.0); Hemoglobin 7.2 g/dL (14.0-18.0); Mean Corpuscular HGB Conc 31.2 g/dl (32-36); Mean Corpuscular Hemoglobin 30.6 pg (26-34); Mean Corpuscular Volume 98.3 fl (80-100); Mean Platelet Volume 11.2 fl (7.4-10.4); Platelet Count Result 188 k/mm3 (150-375); Red Blood Count 2.35 M/mm3 (4.6-6.20); Red Cell Distribution Width 13.9 % (11.5-14.5); White Blood Count 12.5 K/mm3 (4.5-10.0)
[2021-04-03] MEDS: PROPOFOL IV EMULSION 100 ML 6.19 MG IV CONT ×2 (05:39→21:04)
[2021-04-03 05:40] LABS: IFOB Positive Control Positive; Immunochemical Fecal Occult Bl Positive (N)
[2021-04-03 06:03] LABS: Alanine Aminotransferase 18 U/L (4-50); Albumin Level 2.5 g/dL (3.5-5.1); Alkaline Phosphatase 236 U/L (38-126); Anion Gap 6 mmol/L (8-16); Aspartate Amino Transferase 69 U/L (17-59); Bilirubin,Total 0.4 mg/dL (0.2-1.3); Blood Urea Nitrogen 51 mg/dL (9-20); Calcium 6.8 mg/dL (8.4-10.2); Carbon Dioxide 29 mmol/L (22-30); Chloride 90 mmol/L (98-107); Estimated CRCL calculation 51 ml/min; Estimated Glomerular Filt Rate 50; Glucose 163 mg/dL (65-110); Magnesium 2.5 mg/dL (1.6-2.3); Potassium 4.6 mmol/L (3.4-5.0); Sodium 125 mmol/L (137-145)
[2021-04-03 06:04] LABS: Alveolar/Arterial O2 Gradient 497.5 mmHg; Base Excess ABG 2.3 mEq/l (+/-2.0); Fractional Inspired Oxygen 90 %; HCO3 ABG 28.4 mEq/l (22.0-26.0); Oxygen Content ABG 11.1 %vol (16.0-22.0); Oxygen Saturation ABG 96.3 % (95.0-100.0); Oxyhemoglobin 94.7 % THb (90.0-100.0); PCO2 ABG 53.3 mmHg (35.0-45.0); PO2 ABG 89.6 mmHg (80.0-100.0); Total Hemoglobin 8.2 g/dL (12.0-18.0); pH ABG 7.345 (7.350-7.450)
[2021-04-03 06:05] LABS: Arterial Blood Gas PEEP 10 cmH2O; Arterial Blood Gas Vent Mode PRESSURE CONTROL; Arterial Blood Gas Ventilator rate 20 /MIN; Device VENTILATOR; Modified Allen's Test Unable to perform; Peak Inspiratory Pressure 33 cmH2O; Site Drawn RIGHT RADIAL
[2021-04-03 06:42] LABS: Vancomycin Trough 33.7 ug/mL (10.0-20.0)
[2021-04-03 09:01] LABS: Creatine Kinase 82 U/L (55-170)
--- NOTE | 2021-04-03 09:53 | WPDGIPROGNO ---
Progress Note: A&P Assessment and Plan (1) Anemia: Code(s): D64.9 - Anemia, unspecified Status: Acute Assessment and Plan: Patient with chronic anemia. Likely multifactorial. Stool found to be occult blood positive. Cannot exclude stress ulceration. Although this could be from placement of PEG tube last week. Would recommend covering with acid suppression. Currently on pantoprazole. Will monitor hemoglobin. Invasive testing not indicated at this time. (2) Pulmonary embolism: Code(s): I26.99 - Other pulmonary embolism without acute cor pulmonale Status: Acute (3) Respiratory failure: Code(s): J96.90 - Respiratory failure, unspecified, unspecified whether with hypoxia or hypercapnia Status: Acute Assessment and Plan: Patient remains on the ventilator. Respiratory failure secondary to COVID pneumonia. (4) Pneumonia due to 2019 novel coronavirus: Code(s): U07.1 - COVID-19; J12.82 - Pneumonia due to coronavirus disease 2019 Status: Acute Subjective Date/time seen: 04/03/21 09:53 Patient remains on the ventilator by tracheostomy. Head PEG tube placed week ago. Tolerating tube feedings. No evidence of GI blood loss. Stools reported to be occult positive. Vital signs are stable. Patient is had a pulmonary embolus. Review of Systems Review of Systems: ROS unobtainable: Yes unobtainable due to mental status Exam Narrative: Pain patient not exam today as he is COVID positive in isolation. An attempt to preserve BP EGD. Objective Data Vital Signs Vital Signs: Vital Signs - 24 hr 04/02/21 10:00 04/02/21 10:16 04/02/21 11:46 Temperature Pulse Rate 107 H 107 H 107 H Respiratory Rate 23 H 23 H 23 H Blood Pressure 95/61 L Pulse Oximetry 94 04/02/21 11:47 04/02/21 11:51 04/02/21 12:00 Temperature 98.3 F Pulse Rate 107 H 107 H 105 H Respiratory Rate 23 H 27 H Blood Pressure 95/61 L 107/63 Pulse Oximetry 94 04/02/21 12:30 04/02/21 14:00 04/02/21 14:51 Temperature Pulse Rate 108 H 108 H 109 H Respiratory Rate 27 H Blood Pressure 82/61 L Pulse Oximetry 92 91 93 04/02/21 16:00 04/02/21 17:55 04/02/21 18:00 Temperature 98.8 F Pulse Rate 111 H 110 H 111 H Respiratory Rate 30 H 28 H Blood Pressure 88/57 L 87/64 L Pulse Oximetry 91 92 91 04/02/21 20:00 04/02/21 20:03 04/02/21 21:25 Temperature 100 F H Pulse Rate 112 H 108 H 110 H Respiratory Rate 33 H 27 H Blood Pressure 101/66 Pulse Oximetry 88 L 92 04/02/21 22:00 04/02/21 22:38 04/02/21 23:13 Temperature Pulse Rate 108 H 109 H 109 H Respiratory Rate 27 H 29 H 29 H Blood Pressure 95/61 L Pulse Oximetry 98 04/02/21 23:15 04/03/21 00:00 04/03/21 00:54 Temperature 98.6 F Pulse Rate 110 H 110 H 110 H Respiratory Rate 25 H 31 H Blood Pressure 89/62 L Pulse Oximetry 92 91 04/03/21 00:58 04/03/21 01:57 04/03/21 02:00 Temperature Pulse Rate 110 H 118 H 118 H Respiratory Rate 31 H 38 H 36 H Blood Pressure 82/59 L Pulse Oximetry 90 04/03/21 02:04 04/03/21 02:05 04/03/21 03:00 Temperature Pulse Rate 119 H 119 H 114 H Respiratory Rate 37 H 37 H Blood Pressure 78/60 L Pulse Oximetry 04/03/21 03:12 04/03/21 04:00 04/03/21 05:35 Temperature 99.9 F H Pulse Rate 114 H 112 H 108 H Respiratory Rate 35 H Blood Pressure 90/63 L Pulse Oximetry 86 L 92 92 04/03/21 05:39 04/03/21 05:40 04/03/21 05:41 Temperature Pulse Rate 108 H 108 H 108 H Respiratory Rate 24 H 24 H Blood Pressure 95/57 L Pulse Oximetry 04/03/21 05:42 04/03/21 06:00 04/03/21 09:36 Temperature Pulse Rate 108 H 108 H 102 H Respiratory Rate 24 H 23 H Blood Pressure 119/67 Pulse Oximetry 96 92 Intake/Output Intake/Output: Intake & Output 03/31/21 04/01/21 04/02/21 04/03/21 23:59 23:59 23:59 23:59 Intake Total 4489 9568 9854 4771 Output Total 1000 226 650 125 Balance 1488 4835 9692 1393
[2021-04-03] MEDS: INSULIN GLARGINE (*BKC) 100 UNITS/ML 10 UNITS SUB-Q (10:11)
[2021-04-03] MEDS: ENOXAPARIN 80 MG/0.8 ML SYRINGE 70 MG SUB-Q ×2 (10:13→20:56)
[2021-04-03] MEDS: PANTOPRAZOLE SODIUM IV 40 MG VIAL IV PUSH ×2 (10:13→20:57)
[2021-04-03] MEDS: ASPIRIN 81 MG CHEWABLE TABLET FEED TUBE (10:19)
[2021-04-03] MEDS: MINERAL OIL/WHITE PETROLATUM OINTMENT 1 APPLIC EACH EYE ×2 (10:19→20:57)
[2021-04-03 12:56] LABS: Glucose Point of Care 135 mg/dl (65-105)
[2021-04-03] MEDS: PROPOFOL IV EMULSION 100 ML 7.74 MG IV CONT (13:28)
--- NOTE | 2021-04-03 14:16 | WPDINTPN ---
Progress Note: A&P Assessment and Plan (1) Acute respiratory failure with hypoxia: Code(s): J96.01 - Acute respiratory failure with hypoxia Status: Acute Assessment and Plan: Acute respiratory failure likely related to COVID pneumonia. Patient was admitted on 03/06/2021 and was tested positive for COVID-19, 5 days prior to admission -patient was on the intermediate Unit and was maxed out on the Airvo and was not able to tolerate the BiPAP, patient was severe respiratory distress with tachypnea and hypoxia -intubated on 03/10/2021 -03/25/2021: Tracheostomy and PEG tube were placed -patient on pressure control ventilation mode, currently on 90% % FiO2, peep of 10. Likely related to Enterococcus pneumonia continue antibiotics as below. Wean FiO2 to maintain O2 sats greater than 92%. Continue pressure control ventilation as patient has high mean airway and peak pressures on CMV mode -ABG reviewed. - Chest x-ray reviewed. -low tidal volume strategy to prevent volu-trauma -continue bronchodilators, -sedated with fentanyl and Versed infusion, OFF Nimbex. (2) Sepsis: Code(s): A41.9 - Sepsis, unspecified organism Status: Acute Assessment and Plan: Elevated WBC count, tachycardia, worsening chest x-ray, increasing O2 requirement - 03/27/2021: Blood cultures negative x2 - 03/27/2021: Urine culture growing Enterococcus species - 03/27/2021: Sputum cultures growing Enterococcus species continue cefepime and vancomycin ( initiated on03/27) 04/02: Repeated blood cultures, urine cultures and sputum culture, results pending (3) Pneumonia due to 2019 novel coronavirus: Code(s): U07.1 - COVID-19; J12.82 - Pneumonia due to coronavirus disease 2019 Status: Acute Assessment and Plan: Patient tested positive for COVID on 03/03. 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 (5) Parkinson's disease (tremor, stiffness, slow motion, unstable posture): Code(s): G20 - Parkinson's disease Status: Chronic Assessment and Plan: Continue with carbidopa/levodopa, primidone (6) Electrolyte abnormality: Code(s): E87.8 - Other disorders of electrolyte and fluid balance, not elsewhere classified Status: Acute Assessment and Plan: Hyperkalemia improved (7) PAD (peripheral artery disease): Code(s): I73.9 - Peripheral vascular disease, unspecified Status: Acute Assessment and Plan: 03/22 patient's right foot appears slightly paler and colder as compared to left on exam but dorsalis pedis can be easily palpable. No mottling or cyanosis seen at that time right extremity duplex exam showed Total occlusion of right peroneal artery. Dr. Sands discussed case with Dr. Kwon who evaluated and examined patient. -continue therapeutic Lovenox (8) Pulmonary embolism: Code(s): I26.99 - Other pulmonary embolism without acute cor pulmonale Status: Acute Assessment and Plan: -03/27/2021 chest CTA: Bilateral pulmonary embolism, persistent extensive bilateral pulmonary infiltrates mild to moderate bilateral pleural effusion, new mediastinal -patient is on therapeutic Lovenox (9) Anemia: Code(s): D64.9 - Anemia, unspecified Status: Acute Assessment and Plan: Anemia likely related to possible GI bleed, full anticoagulation, daily phlebotomy -hemoglobin 7.0 on 03/31, received 1 unit of packed RBCs -continue to monitor hemoglobin -Protonix has been switched to q.12 hours -GI has been con
[2021-04-03] MEDS: FENTANYL 2,500MCG/NS250ML(*CRX 2,500 MCG/250 ML BAG 20 MCG IV CONT (14:33)
--- NOTE | 2021-04-03 16:16 | PCNFU ---
Nutrition Follow-Up Complete: Inadequate Oral intake as related to COVID pnuemonia as evidenced by reported poor po intake and weight loss reported. Goal: Meet estimanted nutritional needs Pt is meeting goal Pt current nutrition is Jevity 1.2 running at 70mL/hr over 22 hours Last recorded weight is 85.1 kg. Bowel Motility: +BM 04/03 Labs Reviewed: Hgb 7.2, hct 23.1, alb 2.5, Na 125, Cl 90, GFR 163, BUN 51, Cr 1.40, Glu 163, ALP 236 Meds Noted: sinemet, maxipime, lovenox, fentanyl, lantus, versed, levophed, protonix, propfol Skin: buttocks -deep tissue, right toe-deep tissue, left toe-deep tissue Additional Notes: Pt remains on mechanical ventilation and tube feeding Jevity 1.2 running at goal rate of 70mL/hr over 22 hours providing 1848kcal, 85g of protein, and 1243mL of water, meeting 100% of protein needs. Propofol currently running at 7.74mL/hr over 24 hours will provide an additional 204kcal of lipids. Total kcal provided is 2052kcal, meeting 95% of kcal needs. Nursing staff reports this am (04/03/21) that pt is tolerating tube feeding and rate. Agree with diet order at this time. Will continue to follow. Following daily in ICU rounds. Monitor every T/F
[2021-04-03] MEDS: NOREPINEPHRINE 8 MG/D5W 250 ML 8 MG/250 ML BAG 15 MG IV CONT (16:50)
[2021-04-03 17:48] LABS: Glucose Point of Care 149 mg/dl (65-105)
[2021-04-03] MEDS: MIDAZOLAM 100MG/NS 100ML(*CRX) 100 MG/100 ML BAG 6 MG IV CONT (17:49)
[2021-04-03 19:01] LABS: Vancomycin Random 28.7 ug/mL (10-20)
[2021-04-03] MEDS: SODIUM CHLORIDE 0.9% IV 500 ML IV CONT (20:55)
[2021-04-03] MEDS: PRIMIDONE 50 MG TABLET BY MOUTH (20:57)
[2021-04-04] VITALS (11 sets, daily range): BP systolic 75–91; BP diastolic 56–62; PULSE 110–120; RESP 22–28; O2SAT 84–88
[2021-04-04 00:52] LABS: Glucose Point of Care 159 mg/dl (65-105)
[2021-04-04] MEDS: ALBUTEROL SULFATE NEB 2.5 MG/0.5 ML INH INHALATION (02:24)
[2021-04-04] MEDS: NOREPINEPHRINE 8 MG/D5W 250 ML 8 MG/250 ML BAG 56.25 MG IV CONT (02:52)
[2021-04-04] MEDS: PROPOFOL IV EMULSION 100 ML 6.19 MG IV CONT (02:52)
[2021-04-04] MEDS: FENTANYL 2,500MCG/NS250ML(*CRX 2,500 MCG/250 ML BAG 20 MCG IV CONT (02:53)
[2021-04-04] MEDS: MORPHINE SULFATE INJ (*CRX) 10 MG/ML AMP 5 MG IV PUSH (04:26)
[2021-04-04] MEDS: LORazepam INJ (*CRX) 2 MG/ML VIAL IV PUSH (04:26)
--- NOTE | 2021-04-04 06:07 | PC.NURSE ---
family decided to withdraw care disconnected at [phone] at [phone]
--- NOTE | 2021-04-04 07:54 | PC.NURSE ---
04/04/21 0240 TEST AND BALANCE ENGINEER UPDATED REGARDING PATIENT INCREASINGLY HYPOTENSIVE AND REQUIRING MAXIMUM AMOUNT OF BLOOD PRESSURE SUPPORT ON LEVOPHED DRIP. PATIENT'S O2 SATURATIONS AT 85% WITH VENTILATOR FIO2 SETTING AT 100%. ORDERS RECEIVED 04/04/21 0300 UPDATED ON PATIENT CONDITION AND ALL QUESTIONS ANSWERED 04/04/21 0340 SPOKE WITH AGAIN AND DECISION MADE TO MAKE PATIENT COMFORT CARE 04/04/21 0342 TEST AND BALANCE ENGINEER MADE AWARE 04/04/21 0426 PATIENT MADE COMFORT CARE WITH FAMILY AT BEDSIDE. SPECIAL SERVICES COORDINATOR ALSO AT BEDSIDE WITH THIS NURSE 04/04/21 0432 PATIENT
--- NOTE | 2021-05-14 15:24 | PM.DDS ---
Discharge Summary Date and Time Date of : 04/04/21 Time of : 04:35 Provider Pronounced By: [email or web address] hogan Probable Cause of Probable Cause of : Family withdrew support. Cardiac arrest, respiratory failure secondary to COVID pneumonia, septic shock Summary Hospital Course: Doni Gunter is a 66 year old male history are history of Parkinson's disease was recently diagnosed 5 days prior to admission with COVID and presented to the hospital on 03/06/2021 with increasing shortness of breath, confusion, generalized weakness. He probably contracted COVID from a the family member was sick during the [email or web address] gathering. Patient has not been vaccinated for COVID-19. X-ray on admission showed bilateral airspace disease compatible with COVID pneumonia. CTA of the chest showed extensive lower lobe print pneumonia, no pulmonary embolism. Patient was admitted to the medical floor, was transferred to intermediate Unit on 03/07/2021 and on 03/10/2021 patient was intubated as he was maxed out on the Airvo and was not able to tolerate his BiPAP. Patient received tracheostomy and PEG tube placement on 03/25/2021. Patient was on pressure control ventilation on 90% FiO2 and a PEEP of 10 on the last day prior to his . Patient was also in shock, multiple vasopressors, urine cultures no Enterococcus species, sputum cultures are growing Enterococcus species patient was on cefepime and vancomycin patient completed his treatment with COVID pneumonia he received Decadron, baricitinib and Remdesivir. Patient also had bilateral pulmonary embolism on CTA chest on 03/27/2021.. On 04/04/2021: Patient was increasingly hypotensive requiring maximum blood pressure support medications, O2 sats were 85% on 100% FiO2 and high PEEP. S: The family and they decided to make her comfort measures P -patient on 04/04/2021 at 4:35 a.m. Additional Data Confirmation of as documented by pronouncing clinician: Pupillary Reflex, Palpable Pulses, Response to Stimuli, Heart Tones and Breath Sounds Name of Provider Notified: dr woods Time Provider Notified: 04:58 Provider Requests Autopsy: No Family Requests Autopsy: No [employer] Vehicle Mechanic Notified: Yes Date [facility] Notified of : 04/04/21 Time [facility] Notified of : 04:59
== END 2021-04-04 04:35 | disposition expired | DRG 4 ==
LOC: ANHED 07:29 → ANH3MEDSUR 10:55 → ANHIMU 03-07 05:34 → ANHICU 03-17 08:02 → ANH3MEDSUR 04-07 12:00 → ANHICU 04-07 12:00 → ANHIMU 04-07 12:00
PROVIDERS: Internal Medicine; Internal Medicine Gastroenterology; Nurse Practitioner; Otolaryngology; Admitting Provider Internal Medicine; Emergency Provider Emergency Medicine; PCP Emergency Medicine; Visit Provider Internal Medicine
PROC: 0DH63UZ Insertion of Feeding Device into Stomach, Percutaneous Approach (ICD-10-PCS; CPT 43246; principal; 2021-03-24 12:00)
PROC: 0B110F4 Bypass Trachea to Cutaneous with Tracheostomy Device, Open Approach (ICD-10-PCS; principal; 2021-03-24 14:00)
DX: U07.1 COVID-19 (principal); J96.01 Acute respiratory failure with hypoxia; J12.82 Pneumonia due to coronavirus disease 2019; A41.89 Other specified sepsis; I26.99 Other pulmonary embolism without acute cor pulmonale; E87.1 Hypo-osmolality and hyponatremia; E87.3 Alkalosis; N17.9 Acute kidney failure, unspecified; N39.0 Urinary tract infection, site not specified; E46 Unspecified protein-calorie malnutrition; R53.1 Weakness; Z66 Do not resuscitate; R41.0 Disorientation, unspecified; G20 Parkinson's disease; E05.90 Thyrotoxicosis, unspecified without thyrotoxic crisis or storm; R50.9 Fever, unspecified; E87.70 Fluid overload, unspecified; D69.6 Thrombocytopenia, unspecified; R73.9 Hyperglycemia, unspecified; E87.8 Other disorders of electrolyte and fluid balance, not elsewhere classified; I73.9 Peripheral vascular disease, unspecified; I77.1 Stricture of artery; D64.9 Anemia, unspecified; B95.2 Enterococcus as the cause of diseases classified elsewhere; E87.5 Hyperkalemia; K21.9 Gastro-esophageal reflux disease without esophagitis; Z68.24 Body mass index [BMI] 24.0-24.9, adult; K29.70 Gastritis, unspecified, without bleeding
CPT/HCPCS: 31500; 36415; 36430; 36569; 36600; 43246; 71045; 71275; 76775; 80048; 80053; 80202; 81001; 82274; 82375; 82550; 82565; 82570; 82728; 82805; 82948; 83036; 83050; 83605; 83615; 83690; 83735; 83880; 84100; 84145; 84300; 84439; 84443; 84450; 84460; 84478; 84484; 85025; 85027; 85055; 85380; 85610; 85730; 86022; 86140; 86850; 86900; 86901; 86920; 87040; 87070; 87077; 87086; 87088; 87186; 87205; 87804; 93005; 93923; 93926; 93970; 94002; 94003; 94640; 99291; A9270; C1751; C9113; J0131; J0456; J0690; J0692; J0696; J1100; J1650; J1815; J1940; J2060; J2250; J2270; J2370; J2704; J2997; J3010; J3370; J7030; J7040; P9016; Q9967